=== PATIENT | male | born 1980 | race Caucasian/White ===

== ENCOUNTER 2023-07-14 19:59 | Inpatient (IN) ==
[2023-07-14] MEDS ORDERED: ONDANSETRON INJ 2 MG/ML 2 ML VIAL IV STA (20:09)
[2023-07-14 20:48] LABS: Appearance Urine Clear (Clear); Bacteria Urine Automated Negative (Negative); Bilirubin Urine Negative (Negative); Blood Urine Negative (Negative); Cast Urine Automated 0 /lpf (0-5); Color Urine Yellow; Epithelial Cell Urine Auto 0-5 /lpf (0-5); Glucose Urine UA Negative (Negative); Ketones Urine Trace (Negative); Leukocyte Esterase Urine Trace (Negative); Nitrite Urine Negative (Negative); Protein Urine Negative (Negative); RBC Urine Automated 0-4 /hpf (0-4); Specific Gravity Urine 1.042 (1.000-1.030); Urobilinogen Urine Negative (Negative)
[2023-07-14 21:06] LABS: Albumin Globulin Ratio 1.2 (0.9-2); BUN Creatinine Ratio 11.1 (10-20); Bilirubin,Total 0.2 mg/dl (0.2-1.0); Calcium 8.7 mg/dl (8.6-10.3); Creatinine Clr Calc Pharmacy 116.6 ml/min; Est GFR (African American) 121.7 ml/min; Globulin 3.4 gm/dl (2.5-4.0); Potassium 3.5 mmol/L (3.5-5.1); Total Protein 7.4 gm/dl (6.0-8.3)
[2023-07-14 21:17] LABS: Basophils # (auto) 0.09 K/uL (0.00-0.20); Eosinophils # (auto) 0.41 K/uL (0.00-0.50); Eosinophils % (auto) 4.8 %; Hematocrit (blood only) 44.7 % (42.0-52.0); Hemoglobin 15.3 g/dl (14.0-18.0); Immature Granulocytes # (auto) 0.03 K/uL (0.01-0.20); Immature Granulocytes % (auto) 0.3 %; Lymphocytes % (auto) 26.7 %; Mean Corpuscular Hemoglobin 31.5 pg (25.0-34.0); Mean Corpuscular Hgb Conc 34.2 g/dL (32.0-36.0); Mean Platelet Volume 11.1 fL (9.4-12.4); Monocytes # (auto) 0.82 K/uL (0.11-0.59); Monocytes % (auto) 9.5 %; Neutrophils # (auto) 4.97 K/uL (1.40-6.50); Neutrophils % (auto) 57.7 %; Platelet Count 279 K/uL (130-400); RDW Coefficient of Variation 12.8 % (11.5-14.5); Red Blood Count 4.86 M/uL (4.70-6.10); White Blood Count 8.62 K/ul (4.8-10.8)
[2023-07-14] MEDS ORDERED: ACETAMINOPHEN 1,000 MG/100 ML VIAL IV STA (22:08)
[2023-07-14] MEDS ORDERED: PIPERACILLIN/TAZOBACTAM 4.5 GM/100 ML BAG IV ONE (22:08)
[2023-07-14] MEDS ORDERED: SODIUM CHLORIDE 0.9% 1,000 ML IV ONE (22:08)
--- NOTE | 2023-07-14 22:16 | Emergency Department Note ---
History of Present Illness General Chief complaint: GI Assessment Stated complaint: DIVERTICULITIS Time Seen by Provider: 07/14/23 21:27 History of Present Illness Maximum Pain Intensity: 9 This 43-year-old presents to the ER for ongoing abdominal pain with recurrent diverticulitis. He has been hospitalized multiple times. He is currently on Cipro Flagyl. He had an outpatient CAT scan done this morning that showed diverticulitis without perforation. Patient denies chest pain, dyspnea, fevers, vomiting, diarrhea, flulike illness. No prior abdominal surgeries. Home Medications Medication Instructions Recorded Confirmed Type No Known Home Medications 07/14/23 07/14/23 History Allergies Allergy/AdvReac Type Severity Reaction Status Date / Time No Known Allergies Allergy Unverified 07/14/23 20:10 Past Med/Surg History Social History Smoking Status: Never smoker Preferred Language: Croatian Feels Safe at Home: Yes Review of Systems A total of 10 systems reviewed and were otherwise negative Physical Exam Vital Signs Vital Signs - 24 hr 07/14/23 20:06 07/14/23 20:58 07/14/23 20:59 Temperature 36.9 C Temperature Source Temporal Artery Scan Pulse Rate 92 H 80 Pulse Rate [Finger] 74 Pulse Rhythm Regular Pulse Rhythm [Finger] Regular Pulse Strength Normal Pulse Strength [Finger] Normal Respiratory Rate 18 18 Respiratory Effort / Characteristics Non-Labored Spontaneous Non-Labored Spontaneous Respiratory Depth Normal Normal Respiratory Pattern Regular Regular Blood Pressure 138/95 Blood Pressure [Right Arm] 111/80 Blood Pressure Mean 109 Blood Pressure Mean [Right Arm] 90 Blood Pressure Position Sitting Blood Pressure Position [Right Arm] Lying Pulse Oximetry 95 96 Oxygen Delivery Method Room Air Room Air Sepsis Recent Fever Within 48 Hours No Sepsis New/Unexplained Change in Mental Status N/A Sepsis Action Taken by Nursing No Action Required 07/14/23 22:00 Temperature Temperature Source Pulse Rate Pulse Rate [Finger] 61 Pulse Rhythm Pulse Rhythm [Finger] Regular Pulse Strength Pulse Strength [Finger] Normal Respiratory Rate 18 Respiratory Effort / Characteristics Non-Labored Spontaneous Respiratory Depth Normal Respiratory Pattern Regular Blood Pressure Blood Pressure [Right Arm] 122/77 Blood Pressure Mean Blood Pressure Mean [Right Arm] 92 Blood Pressure Position Blood Pressure Position [Right Arm] Pulse Oximetry 95 Oxygen Delivery Method Room Air Sepsis Recent Fever Within 48 Hours Sepsis New/Unexplained Change in Mental Status Sepsis Action Taken by Nursing VITALS: Vitals are noted on the nurse's note and reviewed by myself. Vital signs stable. GENERAL: Pleasant gentleman, in no acute distress, nondiaphoretic, well- developed well-nourished. SKIN: Capillary reflex less than 2 seconds. HEENT: Normocephalic. PERRLA. EOMI. Nares patent. Mucous membranes moist. Neck is supple without nuchal rigidity. HEART: Regular rate and rhythm LUNGS: Clear to auscultation bilaterally without wheezes, rales or rhonchi. No retractions or accessory muscle use. ABDOMEN: Positive bowel sounds x 4. Normal tympanic percussion. Soft, tender to the lower abdomen, without masses or organomegaly. Guzman sign negative. No guarding or rebound tenderness. MUSCULOSKELETAL: No gross musculoskeletal defects. NEURO: Patient was alert and oriented to person place and time. No focal neurological deficits. Course Administered Medications Sodium Chloride (Nss) 1,000 mls @ 999 mls/hr IV .Q1H1M ONE Stop: 07/14/23 23:08 Last Admin: 07/14/23 22:22 Dose: 999 mls/hr Documented By: ADAN Discontinued Medications Piperacillin Sod/Tazobactam Sod (Zosyn) 4.5 gm in 100 mls @ 200 mls/hr IV NOW ONE Stop: 07/14/23 22:37 Last Admin: 07/14/23 22:22 Dose: 200 mls/hr Documented By: ADAN Acetaminophen (Ofirmev) 1,000 mg in 100 mls @ 400 mls/hr IV NOW STA Stop: 07/14/23 22:22 Last Admin: 07/14/23 22:22 Dose: 400 mls/hr Documented By: ADAN Morphine Sulfate (Morphine Sulfate 4 Mg/Ml 1 Ml Carp\Vial) 4 mg IV NOW STA Stop: 07/14/23 22:10 Last Admin: 07/14/23 22:22 Dose: Not Given Documented By: ADAN Ondansetron HCl (Ondansetron Inj 2 Mg/Ml 2 Ml Vial) 4 mg IV NOW STA Stop: 07/14/23 20:10 Last Admin: 07/14/23 20:20 Dose: 4 mg Documented By: ADAN Medical Decision Making Medical Records Attestation: I reviewed the patient's medical records. Home Medications Current Medication List: was personally reviewed by me Laboratory Data Attestation: I reviewed the patient's lab results. 07/14/23 20:16 07/14/23 20:16 Lab Results 07/14/23 07/14/23 Range/Units 20:16 20:20 WBC 8.62 (4.8-10.8) K/ul RBC 4.86 (4.70-6.10) M/uL Hgb 15.3 (14.0-18.0) g/dl Hct 44.7 (42.0-52.0) % MCV 92.0 (80.0-100.0) fL MCH 31.5 (25.0-34.0) pg MCHC 34.2 (32.0-36.0) g/dL RDW Std Deviation 43.0 (36.4-46.3) fL RDW Coeff of Radha 12.8 (11.5-14.5) % Plt Count 279 (130-400) K/uL MPV 11.1 (9.4-12.4) fL Immature Gran % (Auto) 0.3 % Neut % (Auto) 57.7 % Lymph % (Auto) 26.7 % Mason % (Auto) 9.5 % Eos % (Auto) 4.8 % Baso % (Auto) 1.0 % Neut # (Auto) 4.97 (1.40-6.50) K/uL Lymph # (Auto) 2.30 (1.20-3.40) K/uL Mason # (Auto) 0.82 H (0.11-0.59) K/uL Eos # (Auto) 0.41 (0.00-0.50) K/uL Baso # (Auto) 0.09 (0.00-0.20) K/uL Immature Gran # (Auto) 0.03 (0.01-0.20) K/uL Sodium 136 (136-145) mmol/L Potassium 3.5 (3.5-5.1) mmol/L Chloride 106 (98-107) mmol/L Carbon Dioxide 22 (21-32) mmol/L Anion Gap 8 (3-11) BUN 10 (6-23) mg/dl Creatinine 0.90 (0.6-1.4) mg/dl Est Cr Clr Drug Dosing 116.6 ml/min Est GFR ( Amer) 121.7 ml/min Est GFR (Non-Af Amer) 105.0 ml/min BUN/Creatinine Ratio 11.1 (10-20) Glucose 172 H (70-99(Fasting)) mg/dl Calcium 8.7 (8.6-10.3) mg/dl Total Bilirubin 0.2 (0.2-1.0) mg/dl AST 32 (13-39) U/L ALT 32 (7-52) U/L Alkaline Phosphatase 89 (34-104) U/L Total Protein 7.4 (6.0-8.3) gm/dl Albumin 4.0 (3.4-5.0) gm/dl Globulin 3.4 (2.5-4.0) gm/dl Albumin/Globulin Ratio 1.2 (0.9-2) Lipase 34 (11-82) U/L Urine Color Yellow Urine Appearance Clear (Clear) Urine pH 6.0 (4.5-7.5) Ur Specific [place] 1.042 H (1.000-1.030) Urine Protein Negative (Negative) Urine Glucose (UA) Negative (Negative) Urine Ketones Trace H (Negative) Urine Blood Negative (Negative) Urine Nitrite Negative (Negative) Urine Bilirubin Negative (Negative) Urine Urobilinogen Negative (Negative) Ur Leukocyte Esterase Trace H (Negative) Urine WBC (Auto) 1-5 (0-5) /hpf Urine RBC (Auto) 0-4 (0-4) /hpf U Hyaline Cast (Auto) 0 (0-5) /lpf U Epithel Cells (Auto) 0-5 (0-5) /lpf Urine Bacteria (Auto) Negative (Negative) Imaging Data Attestation: I personally reviewed and interpreted this imaging study as follows: MDM Narrative prior records/ancillary studies reviewed. Triage Nursing notes reviewed. Additional history obtained from nursing The patient's history was concerning for nausea, vomiting, diarrhea, and abdominal pain. Differential diagnosis: Etiologies such as gastroenteritis, food borne illness, infections, appendicitis, diverticulitis, inflammatory bowel disease, obstruction, GI bleed, biliary pathology, as well as others were entertained. Physical examination findings: As above. Abdominal examination revealed lower abdominal tenderness. Vital signs reviewed and revealed stable. ER treatment provided: IV hydration 1 L NSS. Zosyn, Zofran, morphine, Tylenol, diluadid On reassessment the patient felt better. Patient was tolerating p.o. intake. Diagnostics interpretation by me: The labs Independently Interpreted by myself revealed no worrisome leukocytosis, hyperglycemia without DKA Imaging studies: CT abdomen pelvis done outpatient shows diverticulitis without perforation Consultation: A consultation was placed with the hospitalist. The case was discussed and diagnostics were reviewed. The patient was evaluated in the ER for further treatment. This appears to be consistent with recurrent diverticulitis with failed outpatient treatment. Patient with ongoing pain. He was Sent in for admission. Medicine was consulted and case was discussed. Patient be admitted to the medical service for further evaluation and treatment. By the evaluation outlined above emergent etiologies such as appendicitis, obstruction, cardiac sources, mesenteric ischemia, aortic pathology, inflammatory bowel disease, renal colic, PUD, biliary pathology, UTI, as well as others were deemed relatively unlikely. The pt informed about the findings as listed above. All questions were answered and pleased with the treatment. The chart was completed utilizing [employer] Speech voice recognition software. Grammatical errors, random word insertions, pronoun errors, and incomplete sentences are an occassional consequence of this system due to software limitations, ambient noise, and hardware issues. Any formal questions or concerns about the content, text, or information contained within the body of this dictation should be directly addressed to the physician drafter assistant for clarification. Impression & Plan Acute diverticulitis Discharge Plan Visit Data Chief Complaint: GI Assessment Stated Complaint: DIVERTICULITIS ED Provider: Igor Guajardo ED Midlevel Provider: Caridad Watson Discharge Problem: Acute diverticulitis Patient Disposition: Admitted As Inpatient Condition: Good Forms Stand Alone Forms: My [employer]us Prescriptions Prescriptions: No Action No Known Home Medications Referrals Referrals: PCP,NO [Physician] -
[2023-07-14] MEDS: MoRPHine SULFATE 4 MG/ML 1 ML CARP\\VIAL IV STA ×2 (22:22)
[2023-07-14] MEDS ORDERED: HYDROmorphone INJ 0.5 MG/0.5 ML SYR IV PRN (22:48)
--- NOTE | 2023-07-14 23:10 | Emergency Department Note ---
ED Visit Note The patient was seen and examined with ariana. I agree with the history, physical and findings. Please see the note for disposition and details. .
--- NOTE | 2023-07-15 00:19 | History & Physical Report ---
Date of Service July 15, 2023 Assessment & Plan (1) Diverticular disease: Plan: Persistent/smoldering diverticulitis Past history diverticulitis with microperforation Failed multiple antibiotic courses. No sepsis for now asthma/COPD, pulmonary status at baseline hx GERD, not on maintenance medications anxiety/mood disorder, at baseline chronic fatigue syndrome as per records history of lung nodules, patient follows with [facility] pulmonology Hyperglycemia rule out DM past tobacco/alcohol abuse GMF Clear liquid diet Zosyn GI consult re: smoldering diverticulitis Surgery consultation contingent on GI recommendations Check hemoglobin A1c DVT prophylaxis per Lovenox subcu Full code Text document was generated using [employer] voice recognition software. It may contain grammatical or spelling errors. Kindly contact undersigned for clarification of any documentation item in question. History of Present Illness Chief Complaint: Worsening abdominal pain, abnormal outpatient CAT scan. Primary Care Provider: Jaiden Franklin MD History obtained from patient and records. Medical history significant for asthma/COPD, GERD, diverticulitis, anxiety/mood disorder, chronic fatigue syndrome as per records, history of lung nodules, past tobacco/alcohol abuse. March 2023 Patient confined at [facility] for diverticulitis with microperforation. Patient completed antibiotic Rx. No surgical intervention. Patient instructed to follow-up with general surgeon outpatient for scheduling of outpatient colonoscopy. Persistent achy lower abdominal pain and watery diarrhea since discharge. 06/14-06/16 Patient confined at [facility] under General Ssurgery service for persistent abdominal pain following transfer from [facility] ER given concerns for possible colovesical fistula. Symptoms attributed to smoldering diverticulitis. Patient completed antibiotic course. [place] [facility] [place] [address] abdomen pelvis requested for persistent GI symptoms. Outpatient colonoscopy and General Surgery referral to be scheduled. Patient prescribed additional Cipro Flagyl course. Outpatient CT abdomen pelvis done yesterday showed Sigmoid diverticulitis with no apparent abscess formation or perforation. Patient directed to ER for evaluation by outpatient provider. IV Zosyn administered at the ER. Medical History as above Surgical History : Sinus surgery, pancreatic biopsy, facial fracture surgery Family History : COPD, Parkinson's disease Personal/Social history : Past tobacco/alcohol abuse, currently disabled Allergies Allergy/AdvReac Type Severity Reaction Status Date / Time No Known Allergies Allergy Unverified 07/14/23 20:10 Home Medications Medication Instructions Recorded Confirmed Type No Known Home Medications 07/14/23 07/14/23 History Past Med/Surg History Social History Smoking Status: Never smoker Hx Alcohol Use: No Preferred Language: Vincentian [employer] Required: No Beliefs That Will Affect Care: None Current Living Situation: Alone Other Information That Helps Us Care for You: No Feels Safe at Home: Yes Safety Concerns: Feels Safe At This Time Review of Systems Review of Systems: As per HPI, all other systems reviewed and negative Physical Exam Physical Exam: GENERAL: Slightly uncomfortable, obese, no respiratory distress SKIN: Normal color, warm HEENT: [place] palpebral conjunctivae, no ptosis, moist buccal mucosa NECK : Supple, no tenderness CHEST : CTA, no tenderness HEART : RRR, no obvious murmurs ABDOMEN: 'Davion Gao' tattoo inscription noted over lower abdomen, some distention, hypogastric tenderness EXTREMITIES : No LE swelling/tenderness, no other conspicuous deformities noted NEUROLOGIC : Coherent, no facial asymmetry, no other gross focality Results & Data Results & Data Vital Signs (Past 12 Hours) Vital Signs Temp Pulse Pulse Resp BP BP Pulse Ox 07/14/23 23:00 76 17 124/85 96 07/14/23 22:00 74 15 122/77 95 07/14/23 22:00 61 18 122/77 95 07/14/23 21:00 75 17 111/80 91 07/14/23 20:59 74 18 111/80 96 07/14/23 20:58 80 07/14/23 20:06 36.9 C 92 H 18 138/95 95 O2 Del Method 07/14/23 23:00 07/14/23 22:00 07/14/23 22:00 Room Air 07/14/23 21:00 07/14/23 20:59 Room Air 07/14/23 20:58 07/14/23 20:06 Room Air Laboratory Results Laboratory Results WBC 8.62 K/ul (4.8-10.8) 07/14/23 20:16 RBC 4.86 M/uL (4.70-6.10) 07/14/23 20:16 Hgb 15.3 g/dl (14.0-18.0) 07/14/23 20:16 Hct 44.7 % (42.0-52.0) 07/14/23 20:16 MCV 92.0 fL (80.0-100.0) 07/14/23 20:16 MCH 31.5 pg (25.0-34.0) 07/14/23 20:16 MCHC 34.2 g/dL (32.0-36.0) 07/14/23 20:16 RDW Std Deviation 43.0 fL (36.4-46.3) 07/14/23 20:16 RDW Coeff of Radha 12.8 % (11.5-14.5) 07/14/23 20:16 Plt Count 279 K/uL (130-400) 07/14/23 20:16 MPV 11.1 fL (9.4-12.4) 07/14/23 20:16 Immature Gran % (Auto) 0.3 % 07/14/23 20:16 Neut % (Auto) 57.7 % 07/14/23 20:16 Lymph % (Auto) 26.7 % 07/14/23 20:16 Miller % (Auto) 9.5 % 07/14/23 20:16 Eos % (Auto) 4.8 % 07/14/23 20:16 Baso % (Auto) 1.0 % 07/14/23 20:16 Neut # (Auto) 4.97 K/uL (1.40-6.50) 07/14/23 20:16 Lymph # (Auto) 2.30 K/uL (1.20-3.40) 07/14/23 20:16 Miller # (Auto) 0.82 K/uL (0.11-0.59) H 07/14/23 20:16 Eos # (Auto) 0.41 K/uL (0.00-0.50) 07/14/23 20:16 Baso # (Auto) 0.09 K/uL (0.00-0.20) 07/14/23 20:16 Immature Gran # (Auto) 0.03 K/uL (0.01-0.20) 07/14/23 20:16 Sodium 136 mmol/L (136-145) 07/14/23 20:16 Potassium 3.5 mmol/L (3.5-5.1) 07/14/23 20:16 Chloride 106 mmol/L (98-107) 07/14/23 20:16 Carbon Dioxide 22 mmol/L (21-32) 07/14/23 20:16 Anion Gap 8 (3-11) 07/14/23 20:16 BUN 10 mg/dl (6-23) 07/14/23 20:16 Creatinine 0.90 mg/dl (0.6-1.4) 07/14/23 20:16 Est Cr Clr Drug Dosing 116.6 ml/min 07/14/23 20:16 Est GFR ( Amer) 121.7 ml/min 07/14/23 20:16 Est GFR (Non-Af Amer) 105.0 ml/min 07/14/23 20:16 BUN/Creatinine Ratio 11.1 (10-20) 07/14/23 20:16 Glucose 172 mg/dl (70-99(Fasting)) H 07/14/23 20:16 Calcium 8.7 mg/dl (8.6-10.3) 07/14/23 20:16 Total Bilirubin 0.2 mg/dl (0.2-1.0) 07/14/23 20:16 AST 32 U/L (13-39) 07/14/23 20:16 ALT 32 U/L (7-52) 07/14/23 20:16 Alkaline Phosphatase 89 U/L (34-104) 07/14/23 20:16 Total Protein 7.4 gm/dl (6.0-8.3) 07/14/23 20:16 Albumin 4.0 gm/dl (3.4-5.0) 07/14/23 20:16 Globulin 3.4 gm/dl (2.5-4.0) 07/14/23 20:16 Albumin/Globulin Ratio 1.2 (0.9-2) 07/14/23 20:16 Lipase 34 U/L (11-82) 07/14/23 20:16 Urine Color Yellow 07/14/23 20:20 Urine Appearance Clear (Clear) 07/14/23 20:20 Urine pH 6.0 (4.5-7.5) 07/14/23 20:20 Ur Specific [place] 1.042 (1.000-1.030) H 07/14/23 20:20 Urine Protein Negative (Negative) 07/14/23 20:20 Urine Glucose (UA) Negative (Negative) 07/14/23 20:20 Urine Ketones Trace (Negative) H 07/14/23 20:20 Urine Blood Negative (Negative) 07/14/23 20:20 Urine Nitrite Negative (Negative) 07/14/23 20:20 Urine Bilirubin Negative (Negative) 07/14/23 20:20 Urine Urobilinogen Negative (Negative) 07/14/23 20:20 Ur Leukocyte Esterase Trace (Negative) H 07/14/23 20:20 Urine WBC (Auto) 1-5 /hpf (0-5) 07/14/23 20:20 Urine RBC (Auto) 0-4 /hpf (0-4) 07/14/23 20:20 U Hyaline Cast (Auto) 0 /lpf (0-5) 07/14/23 20:20 U Epithel Cells (Auto) 0-5 /lpf (0-5) 07/14/23 20:20 Urine Bacteria (Auto) Negative (Negative) 07/14/23 20:20 Diagnostic Findings EKG as per my interpretation : Rate 80, NSR, LAD, LAFB, LVH, nonspecific T wave abnormalities
[2023-07-15] MEDS ORDERED: KETOROLAC TROMETHAMINE 15 MG/ML VIAL IV STA (00:22)
[2023-07-15] MEDS ORDERED: NSS + 20MEQ KCL 20 MEQ/1,000 ML BAG IV STA (00:25)
[2023-07-15] MEDS: oxyCODONE HCL IR 5 MG TAB (IMMEDIATE RELEASE) PO PRN (02:15)
[2023-07-15] MEDS: PIPERACILLIN/TAZOBACTAM 4.5 GM in DEXTROSE 5% MINI-B 100 ML IV SCH ×3 (04:03→19:29)
[2023-07-15 06:42] LABS: Basophils # (auto) 0.07 K/uL (0.00-0.20); Basophils % (auto) 1.1 %; Eosinophils # (auto) 0.46 K/uL (0.00-0.50); Eosinophils % (auto) 7.3 %; Hematocrit (blood only) 39.4 % (42.0-52.0); Hemoglobin 13.5 g/dl (14.0-18.0); Immature Granulocytes # (auto) 0.02 K/uL (0.01-0.20); Immature Granulocytes % (auto) 0.3 %; Lymphocytes # (auto) 2.35 K/uL (1.20-3.40); Lymphocytes % (auto) 37.1 %; Mean Corpuscular Hemoglobin 31.3 pg (25.0-34.0); Mean Corpuscular Hgb Conc 34.3 g/dL (32.0-36.0); Mean Corpuscular Volume 91.2 fL (80.0-100.0); Monocytes # (auto) 0.41 K/uL (0.11-0.59); Monocytes % (auto) 6.5 %; Neutrophils # (auto) 3.02 K/uL (1.40-6.50); Neutrophils % (auto) 47.7 %; Platelet Count 237 K/uL (130-400); RDW Coefficient of Variation 12.8 % (11.5-14.5); Red Blood Count 4.32 M/uL (4.70-6.10); White Blood Count 6.33 K/ul (4.8-10.8)
--- OUTSIDE RECORDS SUMMARY | 2023-07-15 07:01 | External Medical Summary ---
Author Name Unknown Address Unknown Organization K01:[facility] [place] - [address] [place] [id number] Laboratory Report Ordering Provider Test Date Status ROCHELLE LEWIS 07/05/2023 15:26:18 Final Observation Date Value Abnormality Reference (Units ) Status Adenovirus DNA [Presence] in Nasopharynx by REGAN with non-probe detection 07/05/2023 15:26:18 Negative Negative Final Human coronavirus 229E RNA [Presence] in Nasopharynx by REGAN with non-probe detection 07/05/2023 15:26:18 Negative Negative Final Human coronavirus HKU1 RNA [Presence] in Nasopharynx by REGAN with non-probe detection 07/05/2023 15:26:18 Negative Negative Final Human coronavirus NL63 RNA [Presence] in Nasopharynx by REGAN with non-probe detection 07/05/2023 15:26:18 Negative Negative Final Human coronavirus OC43 RNA [Presence] in Nasopharynx by REGAN with non-probe detection 07/05/2023 15:26:18 Negative Negative Final SARS-CoV-2 (COVID-19) RNA [Presence] in Nasopharynx by REGAN with non-probe detection 07/05/2023 15:26:18 Negative Negative Final Human metapneumovirus RNA [Presence] in Nasopharynx by REGAN with non-probe detection 07/05/2023 15:26:18 Negative Negative Final Rhinovirus+Enterovirus RNA [Presence] in Nasopharynx by REGAN with non-probe detection 07/05/2023 15:26:18 Positive Abnormal Negative Final Rhinovirus/Enterovirus detec rob by PCR (amplified probe). Influenza virus A RNA [Prese nce] in Nasopharynx by REGAN with non-probe detection 07/05/2023 15:26:18 Negative Negative Final Influenza virus B RNA [Prese nce] in Nasopharynx by REGAN with non-probe detection 07/05/2023 15:26:18 Negative Negative Final Parainfluenza virus 1 RNA [P resence] in Nasopharynx by REGAN with non-probe detection 07/05/2023 15:26:18 Negative Negative Final Parainfluenza virus 2 RNA [P resence] in Nasopharynx by REGAN with non-probe detection 07/05/2023 15:26:18 Negative Negative Final Parainfluenza virus 3 RNA [P resence] in Nasopharynx by REGAN with non-probe detection 07/05/2023 15:26:18 Negative Negative Final Parainfluenza virus 4 RNA [P resence] in Nasopharynx by REGAN with non-probe detection 07/05/2023 15:26:18 Negative Negative Final Respiratory syncytial virus RNA [Presence] in Nasopharynx by REGAN with non-probe detection 07/05/2023 15:26:18 Negative Negative F inal Bordetella pertussis.pertuss is toxin promoter region [Presence] in Nasopharynx by REGAN with non-probe detection 07/05/2023 15:26:18 Negative Negative Final Chlamydophila pneumoniae DNA [Presence] in Nasopharynx by REGAN with non-probe detection 07/05/2023 15:26:18 Negative Negative Final Mycoplasma pneumoniae DNA [P resence] in Nasopharynx by REGAN with non-probe detection 07/05/2023 15:26:18 Negative Negative Final Bordetella parapertussis IS1 001 DNA [Presence] in Nasopharynx by REGAN with non-probe detection 07/05/2023 15:26:18 Negative Negative F inal
The primers that detect Rhinovirus may cross react with some Enterorviruses. The validation of bronchial specimens, tracheal aspirates, and throats for this assay was developed and performance characteristics determined by [employer]. The validation of alternate specimen types has not been cleared or approved by the U.S. Food and Drug Administration (FDA). It has been determined that such clearance or approval is not necessary. Performing Location [facility] - [facility] [address] [facility] [address]
--- OUTSIDE RECORDS SUMMARY | 2023-07-15 07:01 | External Medical Summary | Summary of Care ---
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 [place] [id number] Allergies Active Allergy Reactions Criticality Noted Date Comments Food (See Comments) Hives Medium 06/14/2023 Peaches documented as of this encounter (statuses as of 07/12/2023) Medications Medication Sig Dispensed Refills Start Date End Date Status Omeprazole 20 MG Oral Capsule Delayed Release (PriLOSEC)Indications :Gastroesophageal reflux disease without esophagitis Take 1 Capsule by mouth in the morning. 1 hour before the first meal of the day. 30 Capsule 5 08/25/2022 Active Levocetirizine Dihydrochloride 5 MG Oral Tablet Take 1 Tablet by mouth every evening. 90 Tablet 3 10/13/2022 Active Nebulizer Device To be used with nebulized medication 1 Each 0 10/13/2022 Active Nebulizer/Tubing/Mout hpiece Kit To be used with nebulized device 1 Kit 2 10/13/2022 Active Fluticasone Propionate 50 MCG/ACT Nasal Suspension (Flonase)Indications: Seasonal allergic rhinitis due to pollen Administer 2 Sprays into each nostril in the morning. 16 g 2 11/15/2022 Active Montelukast Sodium 10 MG Oral Tablet (Singulair)Indication s:Seasonal allergic rhinitis due to pollen Take 1 Tablet by mouth in the morning. 90 Tablet 3 11/15/2022 Active Albuterol Sulfate HFA 108 (90 Base) MCG/ACT Inhalation Aerosol SolutionIndications:C OPD, group D, by GOLD 2017 classification (HCC),Moderate persistent asthma without complication Inhale 2 Puffs by mouth every 6 hours as needed for Shortness of Breath or Wheezing. 18 g 2 04/25/2023 Active Albuterol Sulfate (2.5 MG/3ML) 0.083% Inhalation Nebulization Solution (Proventil)Indication s:Moderate persistent asthma without complication Inhale 1 Vial via nebulizer every 6 hours as needed for Wheezing. 360 mL 3 04/25/2023 Active Trelegy Ellipta 100-62.5-25 MCG/ACT Aerosol Powder Breath Activated (Fluticasone-Umeclidi nium-Vilanterol) Inhale 1 Puff by mouth in the morning. 0 Active Ciprofloxacin HCl 500 MG Oral Tablet (Cipro) Take 1 Tablet by mouth in the morning and 1 Tablet before bedtime. 60 Tablet 0 07/04/2023 Active metroNIDAZOLE 500 MG Oral Tablet (Flagyl) Take 1 Tablet by mouth in the morning and 1 Tablet at noon and 1 Tablet before bedtime. 90 Tablet 0 07/04/2023 Active oxyCODONE HCl 5 MG Oral Capsule (Oxy IR)Indications:Divert iculitis of colon Take 1 Capsule by mouth every 6 hours as needed for Pain, Severe. 12 Tablet 0 07/04/2023 Active documented as of this encounter (statuses as of 07/12/2023) Active Problems Problem Noted Date Diagnosed Date Peripheral sensory neuropathy 07/05/2023 PTSD (post-traumatic stress disorder) 07/05/2023 Depression with anxiety 07/04/2023 Overweight (BMI 25.0-29.9) 07/04/2023 Medical marijuana use 07/04/2023 Diverticulosis of colon 06/14/2023 Multiple lung nodules 11/15/2022 Gastroesophageal reflux disease without esophagi tis 11/15/2022 Asthma-COPD overlap syndrome 01/20/2022 Chronic fatigue 03/22/2021 documented as of this encounter (statuses as of 07/12/2023) Resolved Problems Problem Noted Date Diagnosed Date Resolved Date Moderate persistent asthma w ithout complication 05/03/2023 07/04/2023 Diverticulitis of colon 04/25/2023 12/0 11/2022 Diarrhea 04/25/2023 07/04/2023 Seasonal allergic rhinitis due to pollen 11/15/2022 07/04/2023 Chronic obstructive pulmonar y disease with (acute) exacerbation 01/20/2022 04/08/2022 Severe persistent asthma without complication 03/22/2007/04/2023 Shortness of breath 03/22/2021 08/17/19 Tick bite 03/22/2021 08/17/2022 ANNABELLE (generalized anxiety disorder) 03/22/2021 07/04/2023 Episode of recurrent major d epressive disorder 03/22/2021 07/04/2023 documented as of this encounter (statuses as of 07/12/2023) Immunizations Name Administration Dates Next Due COVID-19 mRNA, LNP-s, No Pre serve, 2-Dose Series (Moderna) 03/05/2021,02/05/2021 Hepatitis B Vaccine, Recombi nant, Adjuvanted, 20 mcg/mL (Heplisav-B) 11/15/2022(Deferred: Patient Refused - pt left without getting) Pneumococcal Conjugate Vacci ne, 20-valent ([id number]) 08/25/2022 Pneumococcal Polysaccharide PPV23 (Pneumovax) 06/22/2021 Seasonal Influenza Virus Vac cine, Unspecified Formulation 06/22/2021 Seasonal Influenza, PF, 6 M & above, IM , (FluLaval or Fluzone) 06/22/2021 TDAP (age 10 and older)(Boostrix) 08/25/2022 documented as of this encounter Social History Tobacco Use Types Packs/Day Years Used Date Smoking Tobacco: Former Cigarettes 1 25 Q uit: 11/07/2021 Smokeless Tobacco: Never Comments:Smoked off and on f or 25 year period not sure of exact number of years. Currently smokes medical marijuana Alcohol Use Standard Drinks/Week Comments Not Currently 0 (1 standard drink = 0.6 oz pur e alcohol) AUDIT-C Answer Date Recorded Q1: How often do you have a drink containing alc ohol? Never 02/08/2021 Average Number of Drinks Not on file Frequency of Binge Drinking Not on file 01/28 PHQ-2 Answer Date Recorded PHQ Adult Total Score 21 07/06/2023 Hunger Vital Sign Answer Date Recorded Within the past 12 months, y ou worried that your food would run out before you got the money to buy more. Never true 07/06/20 23 Within the past 12 months, t he food you bought just didn't last and you didn't have money to get more. Never true 07/06/2023 Sex and Gender Information Value Date Recorded Sex Assigned at Male 04/25/2023 12:16 PM EDT Gender Identity Male 04/25/2023 12:16 PM EDT Sexual Orientation Straight 04/25/2023 12 :16 PM EDT Job Start Date Occupation Industry Not on file Not on file Not on file documented as of this encounter Functional Status Functional Status Response Date of Assess ment Are you deaf or do you have serious difficulty h earing? No 06/14/2023 Are you blind or do you have serious difficulty seeing, even when wearing glasses? No 06/14/2023 Do you have serious difficul ty walking or climbing stairs? (5 years old or older) No 06/15/2023 Do you have difficulty dress ing or bathing? (5 years old or older) No 06/14/2023 Because of a physical, menta l, or emotional condition, do you have difficulty doing errands alone such as visiting a doctor s office or shopping? (15 years old or older) No 06/14/20 Cognitive Status Response Date of Assessm ent Because of a physical, menta l, or emotional condition, do you have serious difficulty concentrating, remembering, or making decisions? (5 years old or older) No 06/14/2023 documented as of this encounter Miscellaneous Notes * Telephone Encounter - Nara Hutchinson LPN - 07/12/2023 12:13 PM EST Pt read MyG * Telephone Encounter - Lucinda Levine LPN - 07/11/2023 5:04 PM EST Called patient. LMOM for pt to return call or review MyG message * Telephone Encounter - Micheline Tobar LPN - 07/07/2023 8:40 AM EST Called pt. No answer. Unable to leave message. Sent MYG * Telephone Encounter - Vikram Rodriguez MD - 07/06/2023 2:02 PM EST Call pt. He tested positive for rhinovirus, one of the most common cold viruses going around right now. Should slowly improve over 3 weeks. documented in this encounter Plan of Treatment Upcoming Encounters Date Type Department Care Team (Latest Contact Info) Description 07/14/2023 1:15 PM EST [facility] [address] [place] [address] 07/27/2023 9:15 AM EST Office Visit General Surgery, [facility] [address] [place] [address] Nallely Kincaid MD [address] [place] [address] 08/02/2023 2:40 PM EST Office Visit Family Practice [facility] [address] [facility] [place] [address] Jaiden Franklin MD 132 [facility] [place] [address] 09/26/2023 2:00 PM EST Hospital Encounter ENDO [facility], Endoscopy Room [facility] 132 [facility] [place] [id number] Lilli Landa MD [address] [place], [place] [address] [place] [address] 09/26/2023 2:00 PM EST - 09/26/2023 2:30 PM EST Surgery ENDO [facility], Endoscopy Room [facility] [address] [facility] [place] [id number] Lilli Landa MD [address] [place] [address] COLONOSCOPY FLEXIBLE PROXIMAL DIAGNOSTIC 10/11/2023 2:00 PM EDT Office Visit Gastroenterology, [facility] 132 [facility] [place] [address] Selena Salgado CRNP [facility] [place] [address] 10/16/2023 2:15 PM EDT Imaging Radiology [facility] 132 [facility] [place] [address] 01/05/2024 1:20 PM EDT Office Visit Family Practice [facility] 132 [facility] [place] [address] Jaiden Franklin MD [address] [facility] [address] Scheduled Procedures Name Priority Associated Diagnoses Date/Ti me COLONOSCOPY FLEXIBLE PROXIMAL DIAGNOSTIC History of diverticulitis 09/26/2023 2:00 PM EST Health Maintenance Due Date Last Done Comments Hepatitis B (1 of 3 - 3-dose series) 1981 Hepatitis C Screening 1999 COVID-19 Vaccine (3 - Moderna risk series) 04/02/2021 03/05/2021, 02/05/2021 *ADVANCE DIRECTIVE NOT ON FILE 04/10/2022 Influenza Vaccine (FLU shot) (#1) 2023 06/22/2021, 06/22/2021 Depression, Most Recent Score >= 10 (will fire each visit until score < 10) 07/07/2023 07/06/2023 O2 ASSESSMENT COMPLETED IN PAST YEAR FOR COPD 07/04/2024 07/04/2023 Lipid Panel 03/22/2026 03/22/2021 Diabetes Screening 07/04/2026 07/04/2023, 1 08/16/2022, 06/15/2023, Additional history exists DTaP,Tdap,and Td Vaccines (2 - Td or Tdap) 08/25/2032 08/25/2022 Alpha-1 Antitrypsin Completed 01/24/2022 Pneumococcal Vaccine: Pediatrics (0 to 5 Years) and At-Risk Patients (6 to 64 Years) Completed 08/25/2022, 06/22/2021 GARDASIL-HPV IMMUNIZATION SERIES Aged Out No longer eligible based on patient's age to complete this topic MENINGOCOCCAL (MENACTRA/MENVEO) Aged Out No longer eligible based on patient's age to complete this topic documented as of this encounter Medical Devices Not on filedocumented as of this encounter Additional Health Concerns Infection Onset Date Last Indicated Resolved Time Enterovirus (resp)/Rhinovirus 07/05/2023 07/05/2023 documented as of this encounter Advance Directives Latest Code Status on File Code Status Date Activated Date Inactivated Comments Full Code 06/14/2023 8:45 PM 06/16/2023 8:01 PM Question Answer Comments Discussion of Advance Direct zina occurred with: Patient Healthcare Agents on File Name Relationship Healthcare Agent Relationshi p Communication Ed Cho Sibling Health Care Repr esentative (appointed verbally by patient or by statute hierarchy)
--- OUTSIDE RECORDS SUMMARY | 2023-07-15 07:01 | External Medical Summary | Summary of Care ---
Author Name Unknown Organization [facility] Address [address] [address] Phone [phone] Care Team Providers Care Medicare Contact Specialist Name Role Phone Unavailable Primary Care Provider Unavailabl e Reason for Visit * Reason Onset Date Comments Hospital Follow-Up Pt here hospi amelie follow up, c/o sore throat, [facility] Hospital Follow-Up 07/05/2023 Encounter Details Date Type Department Care Team (Late st Contact Info) Description 07/05/2023 3:20 PM EST Office Visit [facility] [address] [facility] [place] [address] Jaiden Franklin MD [address] [place] [address] Hospital discharge follow-up*; Diverticulosis of colon; Asthma-COPD overlap syndrome; Chronic fatigue; PTSD (post-traumatic stress disorder); Multiple lung nodules; Gastroesophageal reflux disease without esophagitis; Medical marijuana use; Depression with anxiety; Overweight (BMI 25.0-29.9) Allergies Active Allergy Reactions Criticality Noted Date Comments Food (See Comments) Hives Medium 06/14/2023 Peaches documented as of this encounter (statuses as of 07/05/2023) Medications Medication Sig Dispensed Refills Start Date End Date Status Omeprazole 20 MG Oral Capsule Delayed Release (PriLOSEC)Indication s:Gastroesophageal reflux disease without esophagitis Take 1 Capsule by mouth in the morning. 1 hour before the first meal of the day. 30 Capsule 5 3 Active Levocetirizine Dihydrochloride 5 MG Oral Tablet Take 1 Tablet by mouth every evening. 90 Tablet 3 3 Active Nebulizer Device To be used with nebulized medication 1 Each 0 3 Active Nebulizer/Tubing/Lindsay thpiece Kit To be used with nebulized device 1 Kit 2 3 Active Fluticasone Propionate 50 MCG/ACT Nasal Suspension (Flonase)Indications :Seasonal allergic rhinitis due to pollen Administer 2 Sprays into each nostril in the morning. 16 g 2 3 Active Montelukast Sodium 10 MG Oral Tablet (Singulair)Indicatio ns:Seasonal allergic rhinitis due to pollen Take 1 Tablet by mouth in the morning. 90 Tablet 3 3 Active Albuterol Sulfate HFA 108 (90 Base) MCG/ACT Inhalation Aerosol SolutionIndications: COPD, group D, by GOLD 2017 classification ([facility]),Moderate persistent asthma without complication Inhale 2 Puffs by mouth every 6 hours as needed for Shortness of Breath or Wheezing. 18 g 2 3 Active Albuterol Sulfate (2.5 MG/3ML) 0.083% Inhalation Nebulization Solution (Proventil)Indicatio ns:Moderate persistent asthma without complication Inhale 1 Vial via nebulizer every 6 hours as needed for Wheezing. 360 mL 3 3 Active Trelegy Ellipta 100-62.5-25 MCG/ACT Aerosol Powder Breath Activated (Fluticasone-Umeclid inium-Vilanterol) Inhale 1 Puff by mouth in the morning. 0 Active Ciprofloxacin HCl 500 MG Oral Tablet (Cipro) Take 1 Tablet by mouth in the morning and 1 Tablet before bedtime. 60 Tablet 0 3 Active metroNIDAZOLE 500 MG Oral Tablet (Flagyl) Take 1 Tablet by mouth in the morning and 1 Tablet at noon and 1 Tablet before bedtime. 90 Tablet 0 3 Active oxyCODONE HCl 5 MG Oral Capsule (Oxy IR)Indications:Diver ticulitis of colon Take 1 Capsule by mouth every 6 hours as needed for Pain, Severe. 12 Tablet 0 3 Active Vitamin D 50 MCG (2000 UT) Oral Capsule Take 2,000 Units by mouth in the morning. 0 07/05/20 23 Discontinued Ginseng 100 MG Oral Capsule Take by mouth daily. 0 07/05/20 23 Discontinued CoQ-10 100 MG Oral Capsule Take by mouth daily. 0 07/05/20 23 Discontinued Tiotropium Bradford Monohydrate 18 MCG Inhalation Capsule (Spiriva HandiHaler)Indicatio ns:COPD, group D, by GOLD 2017 classification ([facility]) Inhale 1 Capsule by mouth in the morning. For inhaler only, do not swallow.. 30 Capsule 2 3 07/05/20 23 Discontinued Fluticasone-Salmeter ol 250-50 MCG/ACT Inhalation Aerosol Powder Breath Activated (Advair Diskus)Indications:C OPD, group D, by GOLD 2017 classification ([facility]) Inhale 1 Puff by mouth in the morning and 1 Puff before bedtime. 60 Each 2 3 07/05/20 23 Discontinued Ondansetron HCl 4 MG Oral TabletIndications:Na usea and vomiting, unspecified vomiting type Take 1 Tablet by mouth every 8 hours as needed for Nausea. 10 Tablet 0 3 07/05/20 23 Discontinued documented as of this encounter (statuses as of 07/05/2023) Active Problems Problem Noted Date Diagnosed Date Peripheral sensory neuropathy 07/05/2023 PTSD (post-traumatic stress disorder) 07/05/2023 Depression with anxiety 07/04/2023 Overweight (BMI 25.0-29.9) 07/04/2023 Medical marijuana use 07/04/2023 Diverticulosis of colon 06/14/2023 Multiple lung nodules 11/15/2022 Gastroesophageal reflux disease without esophagi tis 11/15/2022 Asthma-COPD overlap syndrome 01/20/2022 Chronic fatigue 03/22/2021 documented as of this encounter (statuses as of 07/05/2023) Resolved Problems Problem Noted Date Diagnosed Date Resolved Date Moderate persistent asthma w ithout complication 05/03/2023 07/04/2023 Diverticulitis of colon 04/25/2023 12/0 11/2022 Diarrhea 04/25/2023 07/04/2023 Seasonal allergic rhinitis due to pollen 11/15/2022 07/04/2023 Chronic obstructive pulmonar y disease with (acute) exacerbation 01/20/2022 04/08/2022 Severe persistent asthma without complication 03/22/20 21 07/04/2023 Shortness of breath 03/22/2021 08/17/19 Tick bite 03/22/2021 08/17/2022 ANNABELLE (generalized anxiety disorder) 03/22/2021 07/04/2023 Episode of recurrent major d epressive disorder 03/22/2021 07/04/2023 documented as of this encounter (statuses as of 07/05/2023) Immunizations Name Administration Dates Next Due COVID-19 mRNA, LNP-s, No Pre serve, 2-Dose Series (Moderna) 03/05/2021,02/05/2021 Hepatitis B Vaccine, Recombi nant, Adjuvanted, 20 mcg/mL (Heplisav-B) 11/15/2022(Deferred: Patient Refused - pt left without getting) Pneumococcal Conjugate Vacci ne, 20-valent (Fozyzlo11) 08/25/2022 Pneumococcal Polysaccharide PPV23 (Pneumovax) 06/22/2021 SEASONAL INFLUENZA, PF, 6 M & Above, IM , (FLULAVAL or FLUZONE) 06/22/2021 Seasonal Influenza Virus Vac cine, Unspecified Formulation 06/22/2021 TDAP (age 10 and older)(Boostrix) 08/25/2022 [...] Answer Date Recorded PHQ Adult Total Score 0 04/25/2023 Hunger Vital Sign Answer Date Recorded Within the past 12 months, y ou worried that your food would run out before you got the money to buy more. Never true 06/30/20 23 Within the past 12 months, t he food you bought just didn't last and you didn't have money to get more. Never true 06/30/2023 Sex and Gender Information Value Date Recorded Sex Assigned at Male 04/25/2023 12:16 PM EDT Gender Identity Male 04/25/2023 12:16 PM EDT Sexual Orientation Straight 04/25/2023 12 :16 PM EDT Job Start Date Occupation Industry Not on file Not on file Not on file documented as of this encounter Last Filed Vital Signs Vital Sign Reading Time Taken Comments Blood Pressure 110/82 07/05/2023 2:51 PM EST Pulse 84 07/05/2023 2:51 PM EST Temperature 36.6 C (97.8 F) 07/05/2023 2:51 PM ES T Respiratory Rate 18 07/05/2023 2:51 PM EST Oxygen Saturation - - Inhaled Oxygen Concentration - - Weight 89.8 kg (198 lb) 07/05/2023 2:51 PM EST Height 175.3 cm (5' 9") 07/05/2023 2:51 PM EST Body Mass Index 29.24 07/05/2023 2:51 PM EST documented in this encounter Functional Status Functional Status Response [...] No 06/14/2023 documented as of this encounter Progress Notes * Jaiden Franklin MD - 07/05/2023 3:05 PM EST SUBJECTIVE: Davion Cho is a 43 year old male. Chief Complaint Patient presents with Hospital Follow-Up Pt here hospital follow up, c/o sore throat, [place] Hospital Follow-Up HPI: Hospital d/c follow up for diverticulitis. Already saw GI yesterday who prescribed him cipro/flagyl, and some opiate pain medication. I am going to be Davion's PCP moving forward. He is a quite unhealthy 43 year old male who has severe COPD from a combination of cigarette smoking and occupational exposure. He is currently on disability. His father unfortunately a few weeks ago. Patient Active Problem List Diagnosis Code Chronic fatigue R53.82 Asthma-COPD overlap syndrome J44.89 Multiple lung nodules R91.8 Gastroesophageal reflux disease without esophagitis K21.9 Diverticulosis of colon K57.30 Depression with anxiety F41.8 Overweight (BMI 25.0-29.9) E66.3 Medical marijuana use Z79.899 Peripheral sensory neuropathy G60.8 PTSD (post-traumatic stress disorder) F43.10 Current Outpatient Medications Medication Sig Dispense Refill Omeprazole 20 MG Oral Capsule Delayed Release (PriLOSEC) Take 1 Capsule by mouth in the morning. 1 hour before the first meal of the day. 30 Capsule 5 Levocetirizine Dihydrochloride 5 MG Oral Tablet Take 1 Tablet by mouth every evening. 90 Tablet 3 Nebulizer Device To be used with nebulized medication 1 Each 0 Nebulizer/Tubing/Mouthpiece Kit To be used with nebulized device 1 Kit 2 Fluticasone Propionate 50 MCG/ACT Nasal Suspension (Flonase) Administer 2 Sprays into each nostril in the morning. 16 g 2 Montelukast Sodium 10 MG Oral Tablet (Singulair) Take 1 Tablet by mouth in the morning. 90 Tablet 3 Albuterol Sulfate HFA 108 (90 Base) MCG/ACT Inhalation Aerosol Solution Inhale 2 Puffs by mouth every 6 hours as needed for Shortness of Breath or Wheezing. 18 g 2 Albuterol Sulfate (2.5 MG/3ML) 0.083% Inhalation Nebulization Solution (Proventil) Inhale 1 Vial via nebulizer every 6 hours as needed for Wheezing. 360 mL 3 Ciprofloxacin HCl 500 MG Oral Tablet (Cipro) Take 1 Tablet by mouth in the morning and 1 Tablet before bedtime. 60 Tablet 0 metroNIDAZOLE 500 MG Oral Tablet (Flagyl) Take 1 Tablet by mouth in the morning and 1 Tablet at noon and 1 Tablet before bedtime. 90 Tablet 0 oxyCODONE HCl 5 MG Oral Capsule (Oxy IR) Take 1 Capsule by mouth every 6 hours as needed for Pain, Severe. 12 Tablet 0 Trelegy Ellipta 100-62.5-25 MCG/ACT Aerosol Powder Breath Activated (Ogxsglumwzc-Qkwfxokczijq-Bzlbjlgtpj) Inhale 1 Puff by mouth in the morning. No current facility-administered medications for this visit. Allergy: Review of patient's allergies indicates: Allergen Reactions Food (See Comments) Larissa Hernandez OBJECTIVE: BP 110/82 | Pulse 84 | Temp 36.6 C (97.8 F) (Tympanic) | Resp 18 | Ht 1.753 m (5' 9") | Wt 89.8kg (198 lb) | BMI 29.24 kg/m | BSA 2.09 m Gen: nad Lungs: coarse breath sounds bilaterally; poor air movement Heart: rrr, no mrg Abdomen: soft, nt/nd, normal bowel sounds Ext: no c/c/e ASSESSMENT AND PLAN: (Z09) Hospital discharge follow-up (primary encounter diagnosis) Plan: DISCH MED RECON CUR MED LIS (K57.30) Diverticulosis of colon Plan: continue cipro/flagyl per GI; has gen surg consult scheduled later this month (J44.89) Asthma-COPD overlap syndrome Plan: continue inhaler (R53.82) Chronic fatigue Plan: multifactorial (F43.10) PTSD (post-traumatic stress disorder) Plan: continue medical marijuana (R91.8) Multiple lung nodules Plan: followed by pulm (K21.9) Gastroesophageal reflux disease without esophagitis Plan: stable (Z79.899) Medical marijuana use Plan: noted (F41.8) Depression with anxiety Plan: stable on medical marijuana (E66.3) Overweight (BMI 25.0-29.9) Plan: diet/exercise Follow up in 6 month(s). No other complaints were offered at this time. Jaiden Franklin MD documented in this encounter Nursing Notes * Georgia Gutierrez LPN - 07/05/2023 2:51 PM EST The patient has been properly identified by confirmation of name and date of . Chief Complaint Patient presents with Hospital Follow-Up Pt here hospital follow up, c/o sore throat, [place] documented in this encounter Miscellaneous Notes * Addendum Note - Georgia Gutierrez LPN - 07/05/2023 3:26 PM ESTAddended by: GEORGIA GUTIERREZ on: 07/05/2023 03:26 PM Modules accepted: Orders documented in this encounter Plan of Treatment Upcoming Encounters Date Type Department Care Team (Latest Contact Info) Description 07/14/2023 1:15 PM EST Imaging Radiology [facility] 1st [facility] [address] [facility] [place] [address] 07/27/2023 9:15 AM EST Office Visit General Surgery, [facility] [address] [place] [address] Nallely Kincaid MD [address] [place] [address] 08/02/2023 2:40 PM EST Office Visit Family Practice [facility] [address] [facility] [place] [address] Jaiden Franklin MD [address] [facility] [place] [address] 09/26/2023 2:00 PM EST Hospital Encounter ENDO OSSC, Endoscopy Room [facility] [address] [facility] [place] [phone] Lilli Landa MD [address] [facility] [place] [address] 09/26/2023 2:00 PM EST - 09/26/2023 2:30 PM EST Surgery ENDO OSSC, Endoscopy Room [facility] [address] [facility] [place] [phone] Lilli Landa MD [address] [place] [address] COLONOSCOPY FLEXIBLE PROXIMAL DIAGNOSTIC 10/11/2023 2:00 PM EDT Office Visit Gastroenterology, [facility] [address] [facility] [place] [address] Selena Salgado CRNP [address] [facility] [address] 10/16/2023 2:15 PM EDT [facility] [address] [facility] [place] [address] 01/05/2024 1:20 PM EDT Office Visit Family Practice [facility] [address] [facility] [place] [address] Jaiden Franklin MD [address] [facility] [place] [address] Pending Results Name Type Priority Associated Diagnoses Date /Time RESPIRATORY PATHOGEN PANEL, PCR Lab Routine Hospital discharge follow-up 07/05/2023 3:26 PM EST Scheduled Orders Name Type Priority Associated Diagnoses Orde r Schedule RESPIRATORY PATHOGEN PANEL, PCR Lab Routine Hospital discharge follow-up Expected: 07/05/2023 (Approximate), Expires: 07/04/2024 Scheduled Procedures Name Priority Associated Diagnoses Date/Ti me COLONOSCOPY FLEXIBLE PROXIMAL DIAGNOSTIC History of diverticulitis 09/26/2023 2:00 PM EST Health Maintenance Due Date Last Done Comments Hepatitis B (1 of 3 - 3-dose series) 1981 Hepatitis C Screening 1999 COVID-19 Vaccine (3 - Moderna risk series) 04/02/2021 03/05/2021, 02/05/2021 *ADVANCE DIRECTIVE NOT ON FILE 04/10/2022 Influenza Vaccine (FLU shot) (#1) 2023 06/22/2021, 06/22/2021 Depression Screening 04/25/2024 04/25/2023 O2 ASSESSMENT COMPLETED IN PAST YEAR FOR [...] Not on filedocumented as of this encounter Visit Diagnoses Diagnosis Hospital discharge follow-up- Primary Other follow-up examination Diverticulosis of colon Diverticulosis of colon (without mention of hemorrhage) Asthma-COPD overlap syndrome Chronic fatigue Other malaise and fatigue PTSD (post-traumatic stress disorder) Posttraumatic stress disorder Multiple lung nodules Other nonspecific abnormal finding of lung field Gastroesophageal reflux disease without esophagitis Esophageal reflux Medical marijuana use Encounter for long-term (current) use of other medications Depression with anxiety Dysthymic disorder Overweight (BMI 25.0-29.9) Overweight History of diverticulitis documented in this encounter Additional Health Concerns Infection Onset Date Last Indicated Resolved Time Respiratory Rule-Out 07/05/2023 07/05/2023 documented as of this encounter Advance Directives Latest Code Status on File Code Status Date Activated Date Inactivated Comments Full Code 06/14/2023 8:45 PM 06/16/2023 8:01 PM Question Answer Comments Discussion of Advance Direct zina occurred with: Patient
--- OUTSIDE RECORDS SUMMARY | 2023-07-15 07:01 | External Medical Summary | Summary of Care ---
Author Name Unknown Organization [facility] Address [address] [facility] [address] Phone [phone] Care Team Providers Care [employer] Terminal Agent Name Role Phone Unavailable Primary Care Provider Unavailabl e Reason for Visit * Reason Onset Date Comments Hospital Follow-Up Pt here hospi amelie follow up, c/o sore throat, [place] Hospital Follow-Up 07/05/2023 Encounter Details Date Type Department Care Team (Late st Contact Info) Description 07/05/2023 3:20 PM EST Office [facility] [place] [address] Jaiden Franklin MD [address] [place] [address] Hospital discharge follow-up*; Diverticulosis of colon; Asthma-COPD [...] nebulized medication 1 Each 0 3 Active Nebulizer/Tubing/Lindasy thpiece Kit To be used with nebulized [...] COPD, group D, by GOLD 2017 classification ([facility]),Moderate persistent asthma without complication Inhale 2 Puffs [...] mouth daily. 0 07/05/20 23 Discontinued Tiotropium Greene Monohydrate 18 MCG Inhalation Capsule (Spiriva HandiHaler)Indicatio ns:COPD, group D, by GOLD 2017 classification ([facility]) Inhale 1 Capsule by mouth in the morning. For inhaler only, do not swallow.. 30 Capsule 2 3 07/05/20 23 Discontinued Fluticasone-Salmeter ol 250-50 MCG/ACT Inhalation Aerosol Powder Breath Activated (Advair Diskus)Indications:C OPD, group D, by GOLD 2017 classification ([facility]) Inhale 1 Puff by mouth in the [...] without getting) Pneumococcal Conjugate Vacci ne, 20-valent ([id number]) 08/25/2022 Pneumococcal Polysaccharide PPV23 (Pneumovax) 06/22/2021 SEASONAL [...] Ellipta 100-62.5-25 MCG/ACT Aerosol Powder Breath Activated (Gujjgjpbgzt-Ioyskeemhsbp-Irhjkowiun) Inhale 1 Puff by mouth in the [...] Description 07/14/2023 1:15 PM EST Imaging Radiology [facility] 1st [facility] [address] [facility] [place] [address] 07/27/2023 9:15 AM EST Office Visit General Surgery, [facility] [address] [facility] [place] [address] Nallely Kincaid MD [address] [place] [facility] [place] [address] 08/02/2023 2:40 PM EST Office Visit Family Practice [facility] [address] [facility] [place] [address] Jaiden Franklin MD [address] [facility] [place] [address] 09/26/2023 2:00 PM EST Hospital Encounter ENDO OSSC, Endoscopy Room [facility] [address] [facility] [place] [phone] Lilli Landa MD [address] [facility] [place] [address] 09/26/2023 2:00 PM EST - 09/26/2023 2:30 PM EST Surgery ENDO OSSC, Endoscopy Room [facility] [address] [facility] [place] [phone] Lilli Landa MD [address] [place] [address] COLONOSCOPY FLEXIBLE PROXIMAL DIAGNOSTIC 10/11/2023 2:00 PM EDT Office Visit Gastroenterology, [facility] [address] [facility] [address] Selena Salgado CRNP [address] [facility] [place] [address] 10/16/2023 2:15 PM EDT Imaging Radiology [facility] 1st Floor, [place] [address] [facility] [place] [address] Pending Results Name Type Priority Associated Diagnoses [...]
--- OUTSIDE RECORDS SUMMARY | 2023-07-15 07:01 | External Medical Summary | Summary of Care ---
Author Name Unknown Organization [facility] Address [address] [place] [address] Phone [phone] Care Team Providers Care Invas Tech Name Role Phone Unavailable Primary Care Provider Unavailabl e Reason for Visit * Reason Onset Date Comments Hospital Follow-Up Pt here hospi ameile follow up, c/o sore throat, PADILLA Hospital Follow-Up 07/05/2023 Encounter Details Date Type Department Care Team (Late st Contact Info) Description 07/05/2023 3:20 PM EST Office Visit Family Practice [facility] [address] [facility] [place] [address] Jaiden Franklin MD [address] [place] [address] Hospital discharge follow-up*; Diverticulosis of colon; Asthma-COPD overlap syndrome; Chronic fatigue; PTSD (post-traumatic stress disorder); Multiple lung nodules; Gastroesophageal reflux disease without esophagitis; Medical marijuana use; Depression with anxiety; Overweight (BMI 25.0-29.9) Allergies Active Allergy Reactions Criticality Noted Date Comments Food (See Comments) Hives Medium 06/14/2023 Peaches documented as of this encounter (statuses as of 07/06/2023) Medications Medication Sig Dispensed Refills Start Date End Date Status Omeprazole 20 MG Oral Capsule Delayed Release (PriLOSEC)Indication s:Gastroesophageal reflux disease without esophagitis Take 1 Capsule by mouth in the morning. 1 hour before the first meal of the day. 30 Capsule 5 01/26/202 3 Active Levocetirizine Dihydrochloride 5 MG Oral [...] COPD, group D, by GOLD 2017 classification (HCC),Moderate [...] mouth daily. 0 07/05/20 23 Discontinued Tiotropium [place] Monohydrate 18 MCG Inhalation Capsule (Spiriva HandiHaler)Indicatio ns:COPD, group D, by GOLD 2017 classification ([facility]) Inhale 1 Capsule by mouth in the morning. For inhaler only, do not swallow.. 30 Capsule 2 3 07/05/20 23 Discontinued Fluticasone-Salmeter ol 250-50 MCG/ACT Inhalation Aerosol Powder Breath Activated (Advair Diskus)Indications:C OPD, group D, by GOLD 2017 classification ([facility]) Inhale 1 Puff by mouth in the morning and 1 Puff before bedtime. 60 Each 2 3 07/05/20 23 Discontinued Ondansetron HCl 4 MG Oral TabletIndications:Na usea and vomiting, unspecified vomiting type Take 1 Tablet by mouth every 8 hours as needed for Nausea. 10 Tablet 0 3 07/05/20 23 Discontinued documented as of this encounter (statuses as of 07/06/2023) Active Problems Problem Noted Date Diagnosed Date Peripheral sensory neuropathy 07/05/2023 PTSD (post-traumatic stress disorder) 07/05/2023 Depression with anxiety 07/04/2023 Overweight (BMI 25.0-29.9) 07/04/2023 Medical marijuana use 07/04/2023 Diverticulosis of colon 06/14/2023 Multiple lung nodules 11/15/2022 Gastroesophageal reflux disease without esophagi tis 11/15/2022 Asthma-COPD overlap syndrome 01/20/2022 Chronic fatigue 03/22/2021 documented as of this encounter (statuses as of 07/06/2023) Resolved Problems Problem Noted Date Diagnosed Date Resolved Date Moderate persistent asthma w ithout complication 05/03/2023 07/04/2023 Diverticulitis of colon 04/25/2023 1211/2022 Diarrhea 04/25/2023 07/04/2023 Seasonal allergic rhinitis due to pollen 11/15/2022 07/04/2023 Chronic obstructive pulmonar y disease with (acute) exacerbation 01/20/2022 04/08/2022 Severe persistent asthma without complication 03/22/20 21 07/04/2023 Shortness of breath 03/22/2021 08/17/19 Tick bite 03/22/2021 08/17/2022 ANNABELLE (generalized anxiety disorder) 03/22/2021 07/04/2023 Episode of recurrent major d epressive disorder 03/22/2021 07/04/2023 documented as of this encounter (statuses as of 07/06/2023) Immunizations Name Administration Dates Next Due COVID-19 mRNA, LNP-s, No Pre serve, 2-Dose Series (Moderna) 03/05/2021,02/05/2021 Hepatitis B Vaccine, Recombi nant, Adjuvanted, 20 mcg/mL (Heplisav-B) 11/15/2022(Deferred: Patient Refused - pt left without getting) Pneumococcal Conjugate Vacci ne, 20-valent ([id number]) 08/25/2022 Pneumococcal Polysaccharide PPV23 (Pneumovax) 06/22/2021 SEASONAL [...] Answer Date Recorded PHQ Adult Total Score 2 07/05/2023 Hunger Vital Sign Answer Date Recorded Within the past 12 months, y ou worried that your food would run out before you got the money to buy more. Never true 07/05/20 Within the past 12 months, t he food you bought just didn't last and you didn't have money to get more. Never true 07/05/2023 Sex and Gender Information Value Date Recorded [...] Ellipta 100-62.5-25 MCG/ACT Aerosol Powder Breath Activated (Gbnfilguvys-Wxfhaeuwjedy-Npxmalbluk) Inhale 1 Puff by mouth in the [...] documented in this encounter Nursing Notes * Noah LeidaAURA prieto - 07/05/2023 2:51 PM EST The patient has been properly identified by confirmation of name and date of . Chief Complaint Patient presents with Hospital Follow-Up Pt here hospital follow up, c/o sore throat, PADILLA documented in this encounter Miscellaneous Notes * Addendum Note - Leida Gutierrez LPN - 07/05/2023 3:26 PM ESTAddended by: LEIDA GUTIERREZ on: 07/05/2023 03:26 PM Modules accepted: Orders documented in this encounter Plan of Treatment Upcoming Encounters Date Type Department Care Team (Latest Contact Info) Description 07/14/2023 1:15 PM EST Imaging [facility] [address] [facility] [place] [address] 07/27/2023 9:15 AM EST Office Visit General Surgery, [facility] [address] [facility] [place] [address] Nallely Kincaid MD [address] [facility] [place] [address] 08/02/2023 2:40 PM EST Office Visit Family Practice [facility] [address] [facility] [place] [address] Jaiden Franklin MD [address] [facility] [place] [address] 09/26/2023 2:00 PM EST Hospital Encounter ENDO [facility], Endoscopy Room [facility] [address] [facility] [place] [phone] Lilli Landa MD [address] [facility] [place] [address] 09/26/2023 2:00 PM EST - 09/26/2023 2:30 PM EST Surgery ENDO [facility], Endoscopy Room [facility] [place] [phone] Lilli Landa MD [address] [place] [address] COLONOSCOPY FLEXIBLE PROXIMAL DIAGNOSTIC 10/11/2023 2:00 PM EDT Office Visit Gastroenterology, [facility] [place] [address] Selena Salgado CRNP [address] [place] [address] 10/16/2023 2:15 PM EDT [facility] [address] [place] [address] 01/05/2024 1:20 PM EDT Office Visit Family Practice [facility] [address] [facility] [place] [address] Jaiden Franklin MD [address] [place] [address] Scheduled Procedures Name Priority Associated Diagnoses Date/Ti me COLONOSCOPY FLEXIBLE PROXIMAL DIAGNOSTIC History of diverticulitis 09/26/2023 2:00 PM EST Health Maintenance Due Date Last Done Comments Hepatitis B (1 of 3 - 3-dose series) 1981 Hepatitis C Screening 1999 COVID-19 Vaccine (3 - Moderna risk series) 04/02/2021 03/05/2021, 02/05/2021 *ADVANCE DIRECTIVE NOT ON FILE 04/10/2022 Influenza Vaccine (FLU shot) (#1) 2023 06/22/2021, 06/22/2021 O2 ASSESSMENT COMPLETED IN PAST YEAR FOR COPD 07/04/2024 07/04/2023 Depression Screening 07/05/2024 07/05/2023 Lipid Panel 03/22/2026 03/22/2021 Diabetes Screening 07/04/2026 [...] Not on filedocumented as of this encounter Procedures Procedure Name Priority Date/Time Associated Diagnosis Comments RESPIRATORY PATHOGEN PANEL, PCR Routine 07/05/2023 3:26 PM EST Hospital discharge follow-up documented in this encounter Results * (ABNORMAL) RESPIRATORY PATHOGEN PANEL, PCR (07/05/2023 3:26 PM EST) Adenovirus by PCR Negative Negative 023 10:49 PM EST [facility] Coronavirus 229E by PCR Negative Negative 07/05/2023 10:49 PM EST LAB[facility]ATORY [facility] Coronavirus HKU1 by PCR Negative Negative 07/05/2023 10:49 PM EST [facility] Coronavirus NL63 by PCR Negative Negative 07/05/2023 10:49 PM EST [facility] Coronavirus OC43 by PCR Negative Negative 07/05/2023 10:49 PM EST [facility] Coronavirus SARS-CoV-2 by PCR Negative Negative 07/05/2023 10:49 PM EST [facility]ORY [facility] Human Metapneumovirus by PCR Negative Negative 07/05/2023 10:49 PM EST [facility] Rhinovirus/Enterov irus by PCR Positive(A) Negative 07/05/2023 10:49 PM EST [facility]ORY [facility] Comment:Rhinovirus/Enterovir us detected by PCR (amplified probe). Influenza A Virus by PCR Negative Negative 07/05/2023 10:49 PM EST [facility]ATORY [facility] Influenza B Virus by PCR Negative Negative 07/05/2023 10:49 PM EST [facility] Parainfluenza Virus 1 by PCR Negative Negative 07/05/2023 10:49 PM EST [facility] Parainfluenza Virus 2 by PCR Negative Negative 07/05/2023 10:49 PM EST [facility] Parainfluenza Virus 3 by PCR Negative Negative 07/05/2023 10:49 PM EST [facility] Parainfluenza Virus 4 by PCR Negative Negative 07/05/2023 10:49 PM EST [facility] Respiratory Syncytial Virus by PCR Negative Negative 07/05/2023 10:49 PM EST [facility] Bordetella pertussis by PCR Negative Negative 07/05/2023 10:49 PM EST [facility] Chlamydia pneumoniae by PCR Negative Negative 07/05/2023 10:49 PM EST [facility] Mycoplasma pneumoniae by PCR Negative Negative 07/05/2023 10:49 PM EST [facility] Bordetella parapertussis by PCR Negative Negative 07/05/2023 10:49 PM EST [facility]ATORY [facility] Comment: The primers that detect Rhinovirus may cross react with some Enterorviruses. The validation of bronchial specimens, tracheal aspirates, and throats for this assay was developed and performance characteristics determined by [employer]. The validation of alternate specimen types has not been cleared or approved by the U.S. Food and Drug Administration (FDA). It has been determined that such clearance or approval is not necessary. Upper Respiratory Mid-turbinate nasal swab / Unknown Non-blood Collection / Unknown 07/05/2023 3:26 PM EST 07/05/2023 3:26 PM EST Jaiden Franklin MD LAB MICRO - GENER AL ORDERABLES [facility]ORY [facility] [address] [place] [address] documented in this encounter Visit Diagnoses Diagnosis Hospital discharge [...] Indicated Resolved Time Respiratory Rule-Out 07/05/2023 07/05/2023 12/06/2 023 10:49 PM EST documented as of this encounter Advance Directives [...]
--- OUTSIDE RECORDS SUMMARY | 2023-07-15 07:02 | External Medical Summary ---
Author Name Unknown Address Unknown Organization [id number]:[facility] [place] [address] [place] [address] Laboratory Report Ordering Provider Test Date Status TENA ERWIN 06/15/2023 07:54:00 Final Observation Date Value Abnormality Reference (Units ) Status WBC, Total 06/15/2023 07:54:00 7.25 4.00-10.80 (K/uL) Final RBC 06/15/2023 07:54:00 4.76 4.50-5.25 (M/uL) Final Hemoglobin 06/15/2023 07:54:00 15.1 14.0-16.8 (g/dL) Final HCT 06/15/2023 07:54:00 45.5 40.0-48.4 (%) Final MCV 06/15/2023 07:54:00 95.6 82.0-99.5 (fL) Final MCH 06/15/2023 07:54:00 31.7 27.0-34.0 (pg) Final MCHC 06/15/2023 07:54:00 33.2 32.0-36.0 (g/dL) Final RDW 06/15/2023 07:54:00 13.0 11.5-15.5 (%) Final Platelets 06/15/2023 07:54:00 260 140-400 (K/uL) Final MPV 06/15/2023 07:54:00 10.8 6.6-11.1 (fL) Final Nucleated erythrocytes/100 leukocytes [Ratio] in Blood by Automated count 06/15/2023 07:54:00 0 <=0 (/100 WBCs) Final Performing Location [facility] [place] [address] [place] [address]
--- OUTSIDE RECORDS SUMMARY | 2023-07-15 07:02 | External Medical Summary | Summary of Care ---
Author Name Unknown Organization [facility] Address [address] [place] [address] Phone [phone] Care Team Providers Care Automotive Collision Estimator Name Role Phone Martin Flowers DO Primary Care Provider + [phone] Encounter Details Date Type Department Care Team (Late st Contact Info) Description 06/30/2023 Telephone Care Coordination and Integration [address] [place] [address] [facility] Delivery Specialist [address] [place] [address] [place] [address] Allergies Active Allergy Reactions Criticality Noted Date Comments Food (See Comments) Hives Medium 06/14/2023 Peaches documented as of this encounter (statuses as of 06/30/2023) Medications Medication Sig Dispensed Refills Start Date End Date Status Vitamin D 50 MCG (1999) Oral Capsule Take 2,000 Units by mouth in the morning. 0 Active Ginseng 100 MG Oral Capsule Take by mouth daily. 0 Active CoQ-10 100 MG Oral Capsule Take by mouth daily. 0 Active Omeprazole 20 MG Oral Capsule Delayed Release [...] OPD, group D, by GOLD 2017 classification ([facility]),Moderate persistent asthma without complication Inhale 2 Puffs by mouth every 6 hours as needed for Shortness of Breath or Wheezing. 18 g 2 04/25/2023 Active Albuterol Sulfate (2.5 MG/3ML) 0.083% Inhalation Nebulization Solution (Proventil)Indication s:Moderate persistent asthma without complication Inhale 1 Vial via nebulizer every 6 hours as needed for Wheezing. 360 mL 3 04/25/2023 Active Tiotropium [place] Monohydrate 18 MCG Inhalation Capsule (Spiriva HandiHaler)Indication s:COPD, group D, by GOLD 2017 classification ([facility]) Inhale 1 Capsule by mouth in the morning. For inhaler only, do not swallow.. 30 Capsule 2 06/05/2023 Active Additional Information Patient not taking.Reported on 06/14/2023 Fluticasone-Salmetero l 250-50 MCG/ACT Inhalation Aerosol Powder Breath Activated (Advair Diskus)Indications:CO PD, group D, by GOLD 2017 classification ([facility]) Inhale 1 Puff by mouth in the morning and 1 Puff before bedtime. 60 Each 2 06/05/2023 Active Additional Information Patient not taking.Reported on 06/14/2023 Trelegy Ellipta 100-62.5-25 MCG/ACT Aerosol Powder Breath Activated (Fluticasone-Umeclidi nium-Vilanterol) Inhale 1 Puff by mouth in the morning. 0 Active Amoxicillin-Pot Clavulanate 875-125 MG Oral Tablet (Augmentin) Take 1 Tablet by mouth in the morning and 1 Tablet before bedtime. Do all this for 14 days. 28 Tablet 0 06/16/2023 3 Active Ondansetron HCl 4 MG Oral TabletIndications:Dima sea and vomiting, unspecified vomiting type Take 1 Tablet by mouth every 8 hours as needed for Nausea. 10 Tablet 0 06/26/2023 Active oxyCODONE HCl 5 MG Oral Capsule (Oxy IR)Indications:Divert iculitis of colon Take 1 Capsule by mouth every 6 hours as needed for Pain, Severe. 12 Tablet 0 06/26/2023 Active documented as of this encounter (statuses as of 06/30/2023) Active Problems Problem Noted Date Diagnosed Date Diverticulosis of colon 06/14/2023 Moderate persistent asthma without complication 05/03/2023 Diverticulitis of colon 04/25/2023 Diarrhea 04/25/2023 Multiple lung nodules 11/15/2022 Seasonal allergic rhinitis due to pollen 023 Gastroesophageal reflux disease without esophagi tis 11/15/2022 COPD, group D, by GOLD 2017 classification 01/20 Severe persistent asthma without complication Chronic fatigue 03/22/2021 ANNABELLE (generalized anxiety disorder) 03/22/2021 Episode of recurrent major depressive disorder 0 03/22/2021 documented as of this encounter (statuses as of 06/30/2023) Resolved Problems Problem Noted Date Diagnosed Date Resolved Date Chronic obstructive pulmonar y disease with (acute) exacerbation 01/20/2022 04/08/2022 Shortness of breath 03/22/2021 08/17/19 Tick bite 03/22/2021 08/17/2022 documented as of this encounter (statuses as of 06/30/2023) Immunizations Name Administration Dates Next Due COVID-19 mRNA, LNP-s, No Pre serve, 2-Dose Series (Moderna) 03/05/2021,02/05/2021 Hepatitis B Vaccine, Recombi nant, Adjuvanted, 20 mcg/mL (Heplisav-B) 11/15/2022(Deferred: Patient Refused - pt left without getting) Pneumococcal Conjugate Vacci ne, 20-valent ([id number]) 08/25/2022 Pneumococcal Polysaccharide PPV23 (Pneumovax) 06/22/2021 SEASONAL [...] money to buy more. Never true 06/30/20 Within the past 12 months, t he [...] as of this encounter Progress Notes * [facility] Special[facility] - 06/30/2023 12:58 PM EST Please note patient is not currently using his Trelegy inhaler, as he is unable to afford it. Currently using an Anoro inhaler he had at the home. Patient is willing to try any other medication that may help him. States the Anoro is keeping his symptoms at bay, but is worrying about "swelling up", and ending up in the hospital. Electronically signed by Shayy [facility] Specialist at 06/30/2023 1:00 PM EST documented in this encounter Plan of Treatment Upcoming Encounters Date Type Department Care Team (Latest Contact Info) Description 07/04/2023 3:30 PM EST Office Visit Gastroenterology, [facility] [address] [place] [phone] Selena Salgado CRNP [address] [place] [address] 07/05/2023 3:20 PM EST Office Visit Family Practice [facility] [address] [place] [address] Jaiden Franklin MD [address] [place] [address] 07/27/2023 9:15 AM EST Office Visit General Surgery, [facility] [address] [place] [address] Nallely Kincaid MD [address] [place] [address] 08/01/2023 11:45 AM EST Hospital Encounter [facility]O [facility], Endoscopy Room [facility] [address] [place] [phone] Kvng Mcguire MD [address] [place] [address] 08/01/2023 11:45 AM EST - 08/01/2023 12:15 PM EST Surgery ENDO [facility], Endoscopy Room [facility] [address] [place] [phone] Kvng Mcguire MD [address] [place] [address] COLONOSCOPY FLEXIBLE PROXIMAL DIAGNOSTIC 08/02/2023 2:40 PM EST Office Visit Family Practice [facility] [address] [place] [address] Jaiden Franklin MD [address] [place] [address] 10/16/2023 2:15 PM EDT Imaging Radiology [address] [place] [address] Scheduled Procedures Name Priority Associated Diagnoses Date/Ti me COLONOSCOPY FLEXIBLE PROXIMAL DIAGNOSTIC History of diverticulitis 08/01/2023 11:45 AM EST Health Maintenance Due Date Last Done Comments Hepatitis B (1 of 3 - 3-dose series) 1980 Hepatitis C Screening 1999 COVID-19 Vaccine (3 - Moderna risk series) 04/02/2021 03/05/2021, 02/05/2021 *ADVANCE DIRECTIVE NOT ON FILE 04/10/2022 Influenza Vaccine (FLU shot) (#1) 2023 06/22/2021, 06/22/2021 Depression Screening 04/25/2024 04/25/2023 O2 ASSESSMENT COMPLETED IN PAST YEAR FOR COPD 06/16/2024 06/16/2023 Lipid Panel 03/22/2026 03/22/2021 Diabetes Screening 06/16/2026 06/16/2023, 1 08/15/2022, 06/14/2023, Additional history exists DTaP,Tdap,and Td Vaccines (2 [...] Not on filedocumented as of this encounter Advance Directives Latest Code Status on File Code Status Date Activated Date Inactivated Comments Full Code 06/14/2023 8:45 PM 06/16/2023 8:01 PM Question Answer Comments Discussion of Advance Direct zina occurred with: Patient Care Teams Automotive Collision Estimator Relationship Specialty Start Date End Date Martin Flowers DO [address] [place] [id number] PCP - General Family Medicine 07/31/22 documented as of this encounter
--- OUTSIDE RECORDS SUMMARY | 2023-07-15 07:02 | External Medical Summary ---
Author Name Unknown Address Unknown Organization K01:LAB[facility]ATORY [facility] - [address] [place] [address] Laboratory Report Ordering Provider Test Date Status TENA ERWIN 06/14/2023 21:20:00 Final Observation Date Value Abnormality Reference (Units ) Status Magnesium 06/14/2023 21:20:00 2.1 1.5-2.6 (m g/dL) Final Performing Location [facility]ORATORY [facility] - [address] [place] [address]
--- OUTSIDE RECORDS SUMMARY | 2023-07-15 07:02 | External Medical Summary | Summary of Care ---
Author Name Unknown Organization [facility] Address [address] [address] Phone [phone] Care Team Providers Care Production Operations Manager Name Role Phone Martin Flowers DO Primary Care Provider [phone] Reason for Visit * Reason Onset Date Comments Advice 06/19/2023 Encounter Details Date Type Department Care Team (Late st Contact Info) Description 06/19/2023 Telephone Family Practice [facility] [address] [place] [phone] Martin Flowers DO [address] [place] [id number] Advice Allergies Active Allergy Reactions Criticality Noted Date Comments Food (See Comments) Hives Medium 06/14/2023 Peaches documented as of this encounter (statuses as of 06/23/2023) Medications Medication Sig Dispensed Refills Start Date [...] nebulized medication 1 Each 0 10/13/2022 Active Nebulizer/Tubing/Lindsay thpiece Kit To be used [...] COPD, group D, by GOLD 2017 classification ([facility]),Moderate persistent asthma without complication Inhale 2 Puffs by mouth every 6 hours as needed for Shortness of Breath or Wheezing. 18 g 2 04/25/2023 Active Albuterol Sulfate (2.5 MG/3ML) 0.083% Inhalation Nebulization Solution (Proventil)Indicatio ns:Moderate persistent asthma without complication Inhale 1 Vial via nebulizer every 6 hours as needed for Wheezing. 360 mL 3 04/25/2023 Active Tiotropium Viborg Monohydrate 18 MCG Inhalation Capsule (Spiriva HandiHaler)Indicatio ns:COPD, group D, by GOLD 2017 classification ([facility]) Inhale 1 Capsule by mouth in the morning. For inhaler only, do not swallow.. 30 Capsule 2 06/05/2023 Active Additional Information Patient not taking.Reported on 06/14/2023 Fluticasone-Salmeter ol 250-50 MCG/ACT Inhalation Aerosol Powder Breath Activated (Advair Diskus)Indications:C OPD, group D, by GOLD 2017 classification ([facility]) Inhale 1 Puff by mouth in the [...] for 14 days. 28 Tablet 0 06/16/2023 06/30/20 Active Ondansetron HCl 4 MG Oral TabletIndications:Na usea and vomiting, unspecified vomiting type Take 1 Tablet by mouth every 8 hours as needed for Nausea. 10 Tablet 0 06/19/2023 Active oxyCODONE HCl 5 MG Oral Capsule (Oxy IR)Indications:Diver ticulitis of colon Take 1 Capsule by mouth every 6 hours as needed for Pain, Severe. 12 Tablet 0 06/19/2023 Active oxyCODONE HCl 5 MG Oral Tablet (Oxy IR) Take 1 Tablet by mouth every 6 hours as needed for severe pain. 10 Tablet 0 06/16/2023 06/19/20 Discontinu ed(Medicat ion List Clean Up) documented as of this encounter (statuses as of 06/23/2023) Active Problems Problem Noted Date Diagnosed Date [...] as of this encounter (statuses as of 06/23/2023) Resolved Problems Problem Noted Date Diagnosed Date Resolved Date Chronic obstructive pulmonar y disease with (acute) exacerbation 01/20/2022 04/08/2022 Shortness of breath 03/22/2021 08/17/19 Tick bite 03/22/2021 08/17/2022 documented as of this encounter (statuses as of 06/23/2023) Immunizations Name Administration Dates Next Due COVID-19 mRNA, LNP-s, No Pre serve, 2-Dose Series (Moderna) 03/05/2021,02/05/2021 Hepatitis B Vaccine, Recombi nant, Adjuvanted, 20 mcg/mL (Heplisav-B) 11/15/2022(Deferred: Patient Refused - pt left without getting) Pneumococcal Conjugate Vacci ne, 20-valent ([id number]) 08/25/2022 Pneumococcal Polysaccharide PPV23 (Pneumovax) 06/22/2021 SEASONAL INFLUENZA, PF, 6 M & Above, IM , (FLULAVAL or FLUZONE) 06/22/2021 Seasonal Influenza Virus Vac cine, Unspecified Formulation 06/22/2021 TDAP (age 10 and older)(Boostrix) 08/25/2022 documented as of this encounter Social History Tobacco Use Types Packs/Day Years Used Date Smoking Tobacco: Former Cigarettes 25 Q uit: 11/07/2021 Smokeless Tobacco: Never [...] the money to buy more. Never true 04/25/20 23 Within the past 12 months, t he food you bought just didn't last and you didn't have money to get more. Never true 04/25/2023 Sex and Gender Information Value Date Recorded [...] (15 years old or older) No 06/14/20 23 Cognitive Status Response Date of Assessm ent Because of a physical, menta l, or emotional condition, do you have serious difficulty concentrating, remembering, or making decisions? (5 years old or older) No 06/14/2023 documented as of this encounter Progress Notes * Darlene Hernandes RN - 06/19/2023 10:51 AM EST Spoke with patient, he is with his father who is in the hospital, [facility] Davion reports having ongoing abdominal pain, diarrhea and nausea. 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 He is taking Augmentin. He was on a liquid diet while in the hospital, and reports before discharge was given a "fiber meal" and he has had pain and diarrhea since that. Denies fever or chills. States diverticulitis was pressing on his bladder so had some discomfort with voiding. He was also given some trelegy from the hospital, has about a week left of this. He would like the nausea patch and refill of pain medication. Dr. Flowers, (I am currently unable to pend a refill) Are you agreeable to sending script for oxycodone 5mg and scopalamine patch to [facility]. documented in this encounter Miscellaneous Notes * Telephone Encounter - Jen Ayers MED ASSIST - 06/23/2023 11:57 AM EST Patient picked up both oxycodone and ondansetron already. * Telephone Encounter - Bebo Rodrigues OSA - 06/20/2023 10:33 AM EST Called and spoke to pt, scheduled HD visit as a video next week with [facility]. * Telephone Encounter - Dalia Genao LPN - 06/19/2023 4:41 PM EST Prior auth started on cover my meds for Oxy. Lara [id number] * Telephone Encounter - Martin Flowers DO - 06/19/2023 3:49 PM EST Spoke with patient. Prescription oxycodone 5 mg 1 tab q.6 hours as needed x3 days only sent to pharmacy. prescription Zofran 4 mg 1 tab q 8 hrs as need for nausea and vomiting sent to pharmacy. Patient advised continued close observation and call or return to office if symptoms persist or worsen Advise follow with PCP for hospital follow-up referral to board liner operator * Telephone Encounter - Katelyn Love OSA - 06/19/2023 10:01 AM EST Pt calling to speak with PCP about being seen in the hospital and discharged on 06-16-2023 for complicated diverticulitis. Pt was given pain medication but he finished that on 06-18-2023. Pt is requesting pain medication to help with the severe amount of pain he is in. Please call back. documented in this encounter Plan of Treatment Upcoming Encounters Date Type Department Care Team (Latest Contact Info) Description 06/26/2023 2:40 PM EST Telemedicine Family Practice [facility] [address] [place] [id number] Juan Britton CRNP [address] [place] [phone] 07/27/2023 9:15 AM EST Office Visit General Surgery, [facility] [address] [place] [address] Nallely Kincaid MD [address] [place] [address] 08/01/2023 11:45 AM EST Hospital Encounter ENDO [facility], Endoscopy Room [facility] [address] [place] [phone] Kvng Mcguire MD [address] [place] [address] 08/01/2023 11:45 AM EST - 08/01/2023 12:15 PM EST Surgery ENDO [facility], Endoscopy Room [facility] [address] [place] [phone] Kvng Mcguire MD [address] [place] [address] COLONOSCOPY FLEXIBLE PROXIMAL DIAGNOSTIC 08/02/2023 2:40 PM EST Office Visit Family Practice [facility] [address] [place] [id number] Jaiden Franklin MD [address] [place] [address] 10/16/2023 2:15 PM EDT Imaging Radiology [facility] [address] [facility] [place] [id number] Scheduled Procedures Name Priority Associated Diagnoses Date/Ti [...] as of this encounter Visit Diagnoses Diagnosis Nausea and vomiting, unspecified vomiting type- Primary Diverticulitis of colon Diverticulitis of colon (without mention of hemorrhage) History of diverticulitis documented in this encounter Advance Directives Latest Code Status on File Code Status Date Activated Date Inactivated Comments Full Code 06/14/2023 8:45 PM 06/16/2023 8:01 PM Question Answer Comments Discussion of Advance Direct zina occurred with: Patient Care Teams Production Operations Manager Relationship Specialty Start Date End Date Martin Flowers DO [address] [place] [phone] PCP - General Family Medicine 07/31/22 documented as of this encounter
--- OUTSIDE RECORDS SUMMARY | 2023-07-15 07:02 | External Medical Summary ---
Author Name Unknown Address Unknown Organization [id number]:[facility] - [address] [place] [address] Laboratory Report Ordering Provider Test Date Status TENA ERWIN 06/15/2023 07:38:55 Final Observation Date Value Abnormality Reference (Units) Status Bacteria identified in Specimen by Culture 06/15/2023 07:38:55 No significant growth Final Test: Culture, Urine, Quanti tative
Specimen Source: Urine, Clean Catch
Specimen Type: Urine
Specimen Date: 06/15/2023 7:38 AM
Result Date: 06/16/2023 9:41 AM
Result Status: Final result
Resulting Lab: [facility]
[address]
[place] [address]

CULTURE

No significant growth

null Performing Location [facility] - [address] [facility] [address]
--- OUTSIDE RECORDS SUMMARY | 2023-07-15 07:02 | External Medical Summary ---
Author Name Unknown Address Unknown Organization [id number]:[facility] - [address] [place] [address] Laboratory Report Ordering Provider Test Date Status YAIMATENA 06/15/2023 07:54:00 Final Observation Date Value Abnormality Reference (Units ) Status Phosphate 06/15/2023 07:54:00 3.5 2.5-4.8 (m g/dL) Final Performing Location [facility] - [address] [place] [address]
--- OUTSIDE RECORDS SUMMARY | 2023-07-15 07:02 | External Medical Summary ---
Author Name Unknown Address Unknown Organization [id number]:[facility] - [address] [place] [address] Laboratory Report Ordering Provider Test Date Status TENA ERWIN 06/14/2023 21:20:00 Final Observation Date Value Abnormality Reference (Units ) Status Lactic Acid 06/14/2023 21:20:00 1.2 0.4-2.0 (mmol/L) Final Performing Location [facility] - [address] [place] [address]
--- OUTSIDE RECORDS SUMMARY | 2023-07-15 07:02 | External Medical Summary | Summary of Care ---
Author Name Unknown Organization [facility] Address [address] [place] [address] Phone [phone] Care Team Providers Care Vascular Technician Name Role Phone Martin Flowers DO Primary Care Provider [phone] Reason for Referral * Evaluate & Treat - Unlimited Visits (Within 10 days (routine)) - Authorized Specialty Diagnoses / Procedures Referred By Dena lorenzo Referred To Contact General Surgery Diagnoses Diverticulitis of colon Selena Salgado CRNP [address] [address] [address] [place] [address] Referral ID Status Reason Start Date Expiration Date Visits Requested Visits Authorized [id number] Authorized Specialty Services Required 07/04/2023 999 999 Question Answer What condition is the patient being seen for? General Surgery Conditions - diverticulitis What condition is the patient being seen for? All other conditions - diverticulitis Referral Priority Within 10 days (routine) Where should this appointment be scheduled? [facility] * [facility] (Within 10 days (routine)) - Pending Review Specialty Diagnoses / Procedures Referred By Dena lorenzo Referred To Contact Radiology Diagnoses Diverticulitis of colon Procedures CT ABD/PELVIS W IV AND W ORAL CONTRAST Selena Salgado CRNP [address] [place] [address] Referral ID Status Reason Start Date Expiration Date V isits Requested Visits Authorized [id number] Pending Review 07/11/2023 999 999 Reason for Visit * Reason Onset Date Comments NEW PATIENT Diverticulitis, recent hospital visits, abd pain, back and bowel pain Hospital Follow-Up 07/04/2023 Encounter Details Date Type Department Care Team (Latest Contact Info) Description 07/04/2023 3:30 PM EST Office Visit Gastroenterology, [facility] [address] [place] [address] Selena Salgado CRNP [address] [place] [address] Diverticulitis of colon*; Hospital discharge follow-up Allergies Active Allergy Reactions Criticality Noted Date Comments Food (See Comments) Hives Medium 06/14/2023 Peaches documented as of this encounter (statuses as of 07/04/2023) Medications Medication Sig Dispensed Refills Start Date [...] COPD, group D, by GOLD 2017 classification ([facility]),Moderate persistent asthma without complication Inhale 2 Puffs by mouth every 6 hours as needed for Shortness of Breath or Wheezing. 18 g 2 04/25/2023 Active Albuterol Sulfate (2.5 MG/3ML) 0.083% Inhalation Nebulization Solution (Proventil)Indicatio ns:Moderate persistent asthma without complication Inhale 1 Vial via nebulizer every 6 hours as needed for Wheezing. 360 mL 3 04/25/2023 Active Tiotropium [place] Monohydrate 18 MCG Inhalation Capsule (Spiriva HandiHaler)Indicatio ns:COPD, group D, by GOLD 2017 classification ([facility]) Inhale 1 Capsule by mouth in the morning. For inhaler only, do not swallow.. 30 Capsule 2 06/05/2023 Active Additional Information Patient not taking.Reported on 07/04/2023 Fluticasone-Salmeter ol 250-50 MCG/ACT Inhalation Aerosol Powder Breath Activated (Advair Diskus)Indications:C OPD, group D, by GOLD 2017 classification ([facility]) Inhale 1 Puff by mouth in the morning and 1 Puff before bedtime. 60 Each 2 06/05/2023 Active Additional Information Patient not taking.Reported on 06/14/2023 Trelegy Ellipta 100-62.5-25 MCG/ACT Aerosol Powder Breath Activated (Fluticasone-Umeclid inium-Vilanterol) Inhale 1 Puff by mouth in the morning. 0 Active Ondansetron HCl 4 MG Oral TabletIndications:Na usea and vomiting, unspecified vomiting type Take 1 Tablet by mouth every 8 hours as needed for Nausea. 10 Tablet 0 06/26/2023 Active Ciprofloxacin HCl 500 MG Oral Tablet [...] Pain, Severe. 12 Tablet 0 07/04/2023 Active oxyCODONE HCl 5 MG Oral Capsule (Oxy IR)Indications:Diver ticulitis of colon Take 1 Capsule by mouth every 6 hours as needed for Pain, Severe. 12 Tablet 0 06/26/2023 07/04/20 Discontinu ed(Refill) documented as of this encounter (statuses as of 07/04/2023) Active Problems Problem Noted Date Diagnosed Date Depression with anxiety 07/04/2023 Overweight (BMI 25.0-29.9) 07/04/2023 Medical marijuana use 07/04/2023 Diverticulosis of colon 06/14/2023 Multiple lung nodules 11/15/2022 Gastroesophageal reflux disease without esophagi tis 11/15/2022 Asthma-COPD overlap syndrome 01/20/2022 Chronic fatigue 03/22/2021 documented as of this encounter (statuses as of 07/04/2023) Resolved Problems Problem Noted Date Diagnosed Date Resolved Date Moderate persistent asthma w ithout complication 05/03/2023 07/04/2023 Diverticulitis of colon 04/25/2023 12/0 11/2022 Diarrhea 04/25/2023 07/04/2023 Seasonal allergic rhinitis due to pollen 11/15/2022 07/04/2023 Chronic obstructive pulmonar y disease with (acute) exacerbation 01/20/2022 04/08/2022 Severe persistent asthma without complication 03/22/20 21 07/04/2023 Shortness of breath 03/22/2021 08/17/19 23 Tick bite 03/22/2021 08/17/2022 ANNABELLE (generalized anxiety disorder) 03/22/2021 07/04/2023 Episode of recurrent major d epressive disorder 03/22/2021 07/04/2023 documented as of this encounter (statuses as of 07/04/2023) Immunizations Name Administration Dates Next Due COVID-19 mRNA, LNP-s, No Pre serve, 2-Dose Series (Moderna) 03/05/2021,02/05/2021 Hepatitis B Vaccine, Recombi nant, Adjuvanted, 20 mcg/mL (Heplisav-B) 11/15/2022(Deferred: Patient Refused - pt left without getting) Pneumococcal Conjugate Vacci ne, 20-valent ([id number]) 08/25/2022 Pneumococcal Polysaccharide PPV23 (Pneumovax) 06/22/2021 SEASONAL INFLUENZA, PF, 6 M & Above, IM , (FLULAVAL or FLUZONE) 06/22/2021 Seasonal Influenza Virus Vac cine, Unspecified Formulation 06/22/2021 TDAP (age 10 and older)(Boostrix) 08/25/2022 documented as of this encounter Social History Tobacco Use Types Packs/Day Years Used Date Smoking Tobacco: Former Cigarettes 1 25 Q uit: 11/07/2021 Smokeless Tobacco: Never Tobacco Cessation:Counseling Given: Not Answered Comments:Smoked off and on for 25 year period not sure of exact number of years. Currently smokes medical marijuana Alcohol Use Standard Drinks/Week Comments Not Currently 0 (1 standard drink = 0.6 oz pur e alcohol) AUDIT-C Answer Date Recorded Q1: How often do you have a drink containing alc ohol? Never 02/08/2021 Average Number of Drinks Not on file 021 Frequency of Binge Drinking Not on file [...] Sign Reading Time Taken Comments Blood Pressure 113/77 07/04/2023 3:27 PM EST Pulse 92 07/04/2023 3:27 PM EST Temperature 36.6 C (97.8 F) 07/04/2023 3:27 PM ES T Respiratory Rate - - Oxygen Saturation 97% 07/04/2023 3:27 PM EST Inhaled Oxygen Concentration - - Weight 91 kg (200 lb 9.6 oz) 07/04/2023 3:27 PM EST Height - - Body Mass Index 29.62 06/14/2023 9:08 PM EST documented in this encounter Functional [...] as of this encounter Progress Notes * Selena Salgado CRNP - 07/04/2023 3:36 PM EST Consult requested by Ref: MARTIN FLOWERS[[id number]] [address] [place] [phone] (office) [phone] (fax) CC: Hospital follow up for Diverticulitis HPI: 43 year old male pt of Martin Flowers DO with a hx of anxiety, depression, COPD, asthma whopresents for f/u diverticulitis. He presents today for His initial episode of diverticulitis was in April, hospitalized at [facility], Dc/ed on Cipro/Flagyl completed 10 days. Minimal but not complete resolution of symptoms. Mid May, he was admitted again and transferred to [facility] (3 days there). DC on Augmentin x 10 days finished that last week. Still no improvement in the pain since that hospitalization. He had a script for 10 oxycodene and 10 zofran which he used all. Was taking oxycodene about 2x/day. Currently is bilateral lower abdomen pain and RLQ pain.Severe pain prior and during defecation, w minimal improvement after defecation. Passing about 1-2 BMs most days, sometimes no BMs, typically liquid or loose. No blood in the BMs. Hemorrhoids are flared. No fevers. Has some chills/sweats. Has been eating mostly a liquids, a few solids (had a raw veg salad last night). He has a lot of nausea, some reflux no vomting. Diagnostic Testing: CTAP w IV/oral May 2023: Diverticulitis in the proximal sigmoid colon without evidence of perforation or abscess formation. ROS: + chronic vertigo No lightheadedness, dizziness No fevers, + chills, sweats No vision loss, eye pain, redness No oral ulcers No chest pain, palpitations, syncope, rash No cough, shortness of breath, exertional dyspnea No new joint pain, swelling, myalgias No bleeding tendencies or excessive bruising A total of 12 systems were reviewed, all others (-). ALLERGIES: Review of patient's allergies indicates: Allergen Reactions Food (See Comments) Larissa Hernandez PMH/PSH/Soc Hx reviewed, significant for: Past Medical History: Diagnosis Date Anxiety and depression Arthritis Asthma Chronic headaches COPD (chronic obstructive pulmonary disease) ([facility]) Depression with anxiety 07/04/2023 Emphysema, unspecified ([facility]) GERD (gastroesophageal reflux disease) Medical marijuana use 07/04/2023 Neuropathy Overweight (BMI 25.0-29.9) 07/04/2023 Scoliosis Tick bite 03/22/2021 Tremor Past Surgical History: Procedure Laterality Date BRONCHOSCOPY, DX W/ EBUS, 1-2 NODES N/A 03/24/2022 BRONCHOSCOPY, RIGID OR FLEXIBLE, INCLUDING FLUOROSCOPIC GUIDANCE, WHEN PERFORMED; WITH EBUS GUIDED TRANSTRACHEAL AND/OR TRANSBRONCHIAL SAMPLING (EG, ASPIRATION[S]/BIOPSY[IES]), 1 OR 2 MEDIASTINAL AND/OR HILAR LYMPH NODE STATIONS OR STRUCTURES performed by Eusebio Morrissey MD at OR [facility] INFORMATION Pancreas biopsy x 2. INFORMATION Sinus surgery. INFORMATION Facial fracture repair- hardware in place. Social History Socioeconomic History Marital status: Single Tobacco Use Smoking status: Former Packs/day: 1.00 Years: 25.00 Additional pack years: 0.00 Total pack years: 25.00 Types: Cigarettes Quit date: 11/07/2021 Years since quittin.6 Smokeless tobacco: Never Tobacco comments: Smoked off and on for 25 year period not sure of exact number of years. Currently smokes medical marijuana Vaping Use Vaping Use: Never used Substance and Sexual Activity Alcohol use: Not Currently Drug use: Not Currently Types: Marijuana Comment: medical marijuana last use 06/06/2023 Social Determinants of Health Food Insecurity: No Food Insecurity (06/30/2023) Hunger Vital Sign Worried About Running Out of Food in the Last Year: Never true Ran Out of Food in the Last Year: Never true Family history reviewed and significant for: Family History Problem Relation Age of Onset Parkinsonism Father No Known Problems Sister No Known Problems Brother Outpatient Medications Marked as Taking for the 07/04/23 encounter (Office Visit) with Selena Salgado CRNP Medication Sig Ciprofloxacin HCl 500 MG Oral Tablet (Cipro) Take 1 Tablet by mouth in the morning and 1 Tablet before bedtime. metroNIDAZOLE 500 MG Oral Tablet (Flagyl) Take 1 Tablet by mouth in the morning and 1 Tablet at noon and 1 Tablet before bedtime. oxyCODONE HCl 5 MG Oral Capsule (Oxy IR) Take 1 Capsule by mouth every 6 hours as needed for Pain, Severe. Ondansetron HCl 4 MG Oral Tablet Take 1 Tablet by mouth every 8 hours as needed for Nausea. Trelegy Ellipta 100-62.5-25 MCG/ACT Aerosol Powder Breath Activated (Qnniykkmufe-Mqhqyauysxrl-Gbpxhvewgz) Inhale 1 Puff by mouth in the morning. Albuterol Sulfate (2.5 MG/3ML) 0.083% Inhalation Nebulization Solution (Proventil) Inhale 1 Vial via nebulizer every 6 hours as needed for Wheezing. Albuterol Sulfate HFA 108 (90 Base) MCG/ACT Inhalation Aerosol Solution Inhale 2 Puffs by mouth every 6 hours as needed for Shortness of Breath or Wheezing. Fluticasone Propionate 50 MCG/ACT Nasal Suspension (Flonase) Administer 2 Sprays into each nostril in the morning. Montelukast Sodium 10 MG Oral Tablet (Singulair) Take 1 Tablet by mouth in the morning. Levocetirizine Dihydrochloride 5 MG Oral Tablet Take 1 Tablet by mouth every evening. Nebulizer Device To be used with nebulized medication Nebulizer/Tubing/Mouthpiece Kit To be used with nebulized device Omeprazole 20 MG Oral Capsule Delayed Release (PriLOSEC) Take 1 Capsule by mouth in the morning. 1 hour before the first meal of the day. EXAM: BP 113/77 | Pulse 92 | Temp 36.6 C (97.8 F) | Wt 91 kg (200 lb 9.6 oz) | SpO2 97% | BMI 29.62 kg/m | BSA 2.11 m GENERAL: 43 year old male well developed and well nourished in no acute distress SKIN: no rashes, ulcers, or spider angiomata HEENT: normocephalic, sclera clear, pharynx normal NECK: supple, no lymphadenopathy, no masses or thyroid enlargement LUNGS: clear to auscultation anterior and posterior HEART: regular rate & rhythm, no murmurs and no gallops ABDOMEN: normo-active bowel sounds, soft, very tender, w some guarding in the LLQ quadrant, mild suprapubic tenderness, non-distended no masses, no hepatosplenomegaly, no rebound or guarding, no bruits EXTREMITIES: no palmar erythema, no edema, no skin discoloration, no clubbing, no cyanosis NEURO: no lateralizing findings, Sensory/Motor grossly normal IMPRESSION/RECOMMENDATIONS: 43 year old male with Diverticulitis of colon (Primary) - CT ABD/PELVIS W IV AND W ORAL CONTRAST; Future; Expected date: 07/11/2023 - SURGERY REFERRAL OP - oxyCODONE HCl 5 MG Oral Capsule (Oxy IR); Take 1 Capsule by mouth every 6 hours as needed for Pain, Severe. - CBC WITH WBC DIFFERENTIAL; Future; Expected date: 07/04/2023 - COMPREHENSIVE METABOLIC PANEL - Ciprofloxacin HCl 500 MG Oral Tablet (Cipro); Take 1 Tablet by mouth in the morning and 1 Tablet before bedtime. - metroNIDAZOLE 500 MG Oral Tablet (Flagyl); Take 1 Tablet by mouth in the morning and 1 Tablet at noon and 1 Tablet before bedtime. Move colonoscopy to med/end july Recheck here after colonoscopy in med/late July. I spent a total of 36 minutes on the date of service in review of patient's record, and previously obtained information in person and appropriate medical visit, discussion and education of plan, withpatient and/or caregiver, placing orders for tests/referral/procedures as medically necessary and documentation of pertinent clinical information in patient's medical records for their visit today. ARNOLDO Vega [facility] Gastroenterology * Vilma Montgomery LPN - 07/04/2023 3:29 PM EST Medical Marijuana Documentation Certifying provider: someone down in [facility] Authorized Dispensary: [place] [facility] or in [place] Certified Condition(s): pain, ptsd, Dosage product provided? Pill Dose: Unknown Active ingredient: THC/CBD documented in this encounter Nursing Notes * Vilma Montgomery LPN - 07/04/2023 3:28 PM EST Patient identified by name and date of . Chief Complaint Patient presents with NEW PATIENT Diverticulitis, recent hospital visits, abd pain, back and bowel pain Pt stating that he is always in pain, at times worse than others,pt is having pain in his lower back and abd area. documented in this encounter Plan of Treatment Upcoming Encounters Date Type Department Care Team (Latest Contact Info) Description 07/04/2023 4:50 PM EST Laboratory Laboratory, [address] [place] [id number] [place] [facility] [address] [facility] [place] [address] Diverticulitis of colon 07/05/2023 3:20 PM EST Office Visit Family Practice [facility] [address] [facility] [place] [address] Jaiden Franklin MD [address] [facility] [place] [address] 07/14/2023 1:15 PM EST Imaging Radiology [facility] 1st Floor, [place] [address] [place] [address] 07/27/2023 9:15 AM EST Office Visit General Surgery, [facility] [address] [facility] [place] [address] Nallely Kincaid MD [address] [place] [address] 08/02/2023 2:40 PM EST Office Visit Family Practice [facility] [address] [facility] [place] [address] Jaiden Franklin MD [address] [facility] [place] [address] 09/26/2023 2:00 PM EST Hospital Encounter ENDO [facility], Endoscopy Room [facility] [address] [facility] [place] [phone] Lilli Landa MD [address] [facility] [place] [id number] 09/26/2023 2:00 PM EST - 09/26/2023 2:30 PM EST Surgery ENDO [facility], Endoscopy Room [facility] [place] [id number] Lilli Landa MD [address] [facility] [place] [id number] COLONOSCOPY FLEXIBLE PROXIMAL DIAGNOSTIC 10/11/2023 2:00 PM EDT Office Visit Gastroenterology, [facility] [address] [facility] [place] [address] Selena Salgado CRNP [address] [facility] [place] [address] 10/16/2023 2:15 PM EDT Imaging Radiology [address] [facility] [place] [address] Pending Results Name Type Priority Associated Diagnoses Date /Time CBC WITH WBC DIFFERENTIAL Lab Routine Diverticulitis of colon 07/04/2023 4:21 PM EST COMPREHENSIVE METABOLIC PANEL Lab Routine Diverticulitis of colon 07/04/2023 4:21 PM EST Scheduled Orders Name Type Priority Associated Diagnoses Orde r Schedule CT ABD/PELVIS W IV AND W ORAL CONTRAST Medical Imaging Routine Diverticulitis of colon Expected: 07/11/2023, Expires: 08/04/2024 CBC WITH WBC DIFFERENTIAL Lab Routine Diverticulitis of colon Expected: 07/04/2023, Expires: 07/04/2024 Scheduled Procedures Name Priority Associated Diagnoses Date/Ti me COLONOSCOPY FLEXIBLE PROXIMAL DIAGNOSTIC History of diverticulitis 09/26/2023 2:00 PM EST Scheduled Referrals Name Type Priority Associated Diagnoses Orde r Schedule SURGERY REFERRAL OP Referral Within 10 da ys (routine) Diverticulitis of colon Ordered: 07/04/2023 Health Maintenance Due Date Last Done Comments [...] 07/04/2023 Lipid Panel 03/22/2026 03/22/2021 Diabetes Screening 06/16/2026 [...] as of this encounter Visit Diagnoses Diagnosis Diverticulitis of colon- Primary Diverticulitis of colon (without mention of hemorrhage) Hospital discharge follow-up Other follow-up examination Diverticulitis of colon Diverticulitis of colon (without mention of hemorrhage) History of diverticulitis documented in this encounter Advance Directives Latest Code Status on File Code Status Date Activated Date Inactivated Comments Full Code 06/14/2023 8:45 PM 06/16/2023 8:01 PM Question Answer Comments Discussion of Advance Direct zina occurred with: Patient Care Teams Vascular Technician Relationship Specialty Start Date End Date Martin Flowers DO [address] [place] [id number] PCP - General Family Medicine 07/31/22 documented as of this encounter"
--- OUTSIDE RECORDS SUMMARY | 2023-07-15 07:02 | External Medical Summary ---
Author Name Unknown Address Unknown Organization K01:[facility] - [address] [facility] [address] [place] [address] Laboratory Report Ordering Provider Test Date Status TENA ERWIN 06/14/2023 22:48:01 Final Observation Date Value Abnormality Reference (Units ) Status Methicillin resistant Staphylococcus aureus (MRSA) DNA [Presence] in Nose by REGAN with probe detection 06/14/2023 22:48:01 Negative Negative Final No Methicillin resistant Sta phylococcus aureus detected by PCR (amplified probe). Performing Location [facility] [address] [place] [address]
--- OUTSIDE RECORDS SUMMARY | 2023-07-15 07:02 | External Medical Summary ---
Author Name Unknown Address Unknown Organization K01:[facility] [place] - [address] [place] [address] Laboratory Report Ordering Provider Test Date Status TENA ERWIN 06/14/2023 21:20:00 Final Observation Date Value Abnormality Reference (Units ) Status WBC, Total 06/14/2023 21:20:00 8.87 4.00-10.80 (K/uL) Final RBC 06/14/2023 21:20:00 4.69 4.50-5.25 (M/uL) Final Hemoglobin 06/14/2023 21:20:00 14.7 14.0-16.8 (g/dL) Final HCT 06/14/2023 21:20:00 44.8 40.0-48.4 (%) Final MCV 06/14/2023 21:20:00 95.5 82.0-99.5 (fL) Final MCH 06/14/2023 21:20:00 31.3 27.0-34.0 (pg) Final MCHC 06/14/2023 21:20:00 32.8 32.0-36.0 (g/dL) Final RDW 06/14/2023 21:20:00 12.8 11.5-15.5 (%) Final Platelets 06/14/2023 21:20:00 257 140-400 (K/uL) Final MPV 06/14/2023 21:20:00 11.0 6.6-11.1 (fL) Final Nucleated erythrocytes/100 leukocytes [Ratio] in Blood by Automated count 06/14/2023 21:20:00 0 <=0 (/100 WBCs) Final Performing Location [facility] [place] - [address] [place] [address]
--- OUTSIDE RECORDS SUMMARY | 2023-07-15 07:02 | External Medical Summary | Summary of Care ---
Author Name Unknown Organization [facility] Address [address] [place] [address] Phone [phone] Care Team Providers Care Finance Clerk Name Role Phone Martin Flowers DO Primary Care Provider + [phone] Reason for Visit * Reason Onset Date Comments Advice 06/19/2023 Encounter Details Date Type Department Care Team (Late st Contact Info) Description 06/19/2023 Telephone Care Coordination and Integration [address], [place] [id number] Shayy Lagunas [facility] [address] [place] [address] Advice Allergies Active Allergy Reactions Criticality Noted Date Comments Food (See Comments) Hives Medium 06/14/2023 Peaches documented as of this encounter (statuses as of 06/19/2023) Medications Medication Sig Dispensed Refills Start Date [...] OPD, group D, by GOLD 2017 classification ([facility]),Moderate persistent asthma without complication Inhale 2 Puffs by mouth every 6 hours as needed for Shortness of Breath or Wheezing. 18 g 2 04/25/2023 Active Albuterol Sulfate (2.5 MG/3ML) 0.083% Inhalation Nebulization Solution (Proventil)Indication s:Moderate persistent asthma without complication Inhale 1 Vial via nebulizer every 6 hours as needed for Wheezing. 360 mL 3 04/25/2023 Active Tiotropium [place] Monohydrate 18 MCG Inhalation Capsule (Spiriva HandiHaler)Indication s:COPD, group D, by GOLD 2017 classification ([facility]) Inhale 1 Capsule by mouth in the morning. For inhaler only, do not swallow.. 30 Capsule 2 06/05/2023 Active Additional Information Patient not taking.Reported on 06/14/2023 Fluticasone-Salmetero l 250-50 MCG/ACT Inhalation Aerosol Powder Breath Activated (Advair Diskus)Indications:CO PD, group D, by GOLD 2017 classification ([facility]) Inhale 1 Puff by mouth in the morning and 1 Puff before bedtime. 60 Each 2 06/05/2023 Active Additional Information Patient not taking.Reported on 06/14/2023 Trelegy Ellipta 100-62.5-25 MCG/ACT Aerosol Powder Breath Activated (Fluticasone-Umeclidi nium-Vilanterol) Inhale 1 Puff by mouth in the morning. 0 Active oxyCODONE HCl 5 MG Oral Tablet (Oxy IR) Take 1 Tablet by mouth every 6 hours as needed for severe pain. 10 Tablet 0 06/16/2023 Active Amoxicillin-Pot Clavulanate 875-125 MG Oral Tablet (Augmentin) Take 1 Tablet by mouth in the morning and 1 Tablet before bedtime. Do all this for 14 days. 28 Tablet 0 06/16/2023 Active documented as of this encounter (statuses as of 06/19/2023) Active Problems Problem Noted Date Diagnosed Date [...] as of this encounter (statuses as of 06/19/2023) Resolved Problems Problem Noted Date Diagnosed Date Resolved Date Chronic obstructive pulmonar y disease with (acute) exacerbation 01/20/2022 04/08/2022 Shortness of breath 03/22/2021 08/17/19 Tick bite 03/22/2021 08/17/2022 documented as of this encounter (statuses as of 06/19/2023) Immunizations Name Administration Dates Next Due COVID-19 mRNA, LNP-s, No Pre serve, 2-Dose Series (Moderna) 03/05/2021,02/05/2021 Hepatitis B Vaccine, Recombi nant, Adjuvanted, 20 mcg/mL (Heplisav-B) 11/15/2022(Deferred: Patient Refused - pt left without getting) Pneumococcal Conjugate Vacci ne, 20-valent ([id number]) 08/25/2022 Pneumococcal Polysaccharide PPV23 (Pneumovax) 06/22/2021 SEASONAL [...] Progress Notes * Shayy Lagunas [facility] - 06/19/2023 8:34 AM EST Incoming call from patient. States he is being DC from [facility]. Patient unclear as to whether he is signing himself out. States he was "lied to". Feels his problems have not been resolved. He was told he would be having surgery, and it kept getting pushed back. States his father has been transitioned to hospice care. He wants to go home to spend time with him. Emotional support offered. Teams message to RNCM to make aware of above. documented in this encounter Plan of Treatment Upcoming Encounters Date Type Department Care Team (Latest Contact Info) Description 07/27/2023 9:15 AM EST Office Visit General Surgery, [facility] [address] [place] [address] Nallely Kincaid MD [address] [place] [address] 08/01/2023 11:45 AM EST Hospital Encounter ENDO [facility], Endoscopy Room [facility] [address] [place] [phone] Kvng Mcguire MD [address] [place] [address] 08/01/2023 11:45 AM EST - 08/01/2023 12:15 PM EST Surgery ENDO [facility], Endoscopy Room [facility] [address] [place] [phone] Kvng Mcguire MD [address] [place] [address] COLONOSCOPY FLEXIBLE PROXIMAL DIAGNOSTIC 08/02/2023 2:40 PM EST Office Visit Family Practice [facility] [address] [place] [address] Jaiden Franklin MD [address] [place] [address] 10/16/2023 2:15 PM EDT Imaging Radiology [address] [place] [address] Scheduled Procedures Name Priority Associated Diagnoses Date/Ti [...] Direct zina occurred with: Patient Care Teams Finance Clerk Relationship Specialty Start Date End Date Martin Flowers DO [address] [place] [id number] PCP - General Family Medicine 07/31/22 documented as of this encounter
--- OUTSIDE RECORDS SUMMARY | 2023-07-15 07:02 | External Medical Summary | Summary of Care ---
Author Name Unknown Organization [facility] Address [address] [place] [address] Phone [phone] Care Team Providers Care Capital Project Engineer Name Role Phone Martin Flowers DO Primary Care Provider + [phone] Reason for Visit * Reason Comments Outpatient Testing Encounter Details Date Type Department Care Team (Late st Contact Info) Description 07/04/2023 4:50 PM EST Laboratory Laboratory, [facility] [address] [facility] [phone] [facility] [address] Diverticulitis of colon Allergies Active Allergy Reactions Criticality Noted Date [...] OPD, group D, by GOLD 2017 classification ([facility]),Moderate persistent asthma without complication Inhale 2 Puffs by mouth every 6 hours as needed for Shortness of Breath or Wheezing. 18 g 2 04/25/2023 Active Albuterol Sulfate (2.5 MG/3ML) 0.083% Inhalation Nebulization Solution (Proventil)Indication s:Moderate persistent asthma without complication Inhale 1 Vial via nebulizer every 6 hours as needed for Wheezing. 360 mL 3 04/25/2023 Active Tiotropium [place] Monohydrate 18 MCG Inhalation Capsule (Spiriva HandiHaler)Indication s:COPD, group D, by GOLD 2017 classification ([facility]) Inhale 1 Capsule by mouth in the morning. For inhaler only, do not swallow.. 30 Capsule 2 06/05/2023 Active Additional Information Patient not taking.Reported on 07/04/2023 Fluticasone-Salmetero l 250-50 MCG/ACT Inhalation Aerosol Powder Breath Activated (Advair Diskus)Indications:CO PD, group D, by GOLD 2017 classification ([facility]) Inhale 1 Puff by mouth in the morning and 1 Puff before bedtime. 60 Each 2 06/05/2023 Active Additional Information Patient not taking.Reported on 06/14/2023 Trelegy Ellipta 100-62.5-25 MCG/ACT Aerosol Powder Breath Activated (Fluticasone-Umeclidi nium-Vilanterol) Inhale 1 Puff by mouth in the morning. 0 Active Ondansetron HCl 4 MG Oral TabletIndications:Dima [...] without getting) Pneumococcal Conjugate Vacci ne, 20-valent ([id number]) 08/25/2022 Pneumococcal Polysaccharide PPV23 (Pneumovax) 06/22/2021 SEASONAL [...] No 06/14/2023 documented as of this encounter Plan of Treatment Upcoming Encounters Date Type Department Care Team (Latest Contact Info) Description 07/05/2023 3:20 PM EST Office Visit Family Practice [facility] [address] [place] [address] Jaiden Franklin MD [address] [place] [address] 07/14/2023 1:15 PM EST [facility] [address] [place] [address] 07/27/2023 9:15 AM EST Office Visit General Surgery, [facility] [address] [place] [address] Nallely Kincaid MD [address] [place] [address] 08/02/2023 2:40 PM EST Office Visit Family [facility] [address] [place] [address] Jaiden Franklin MD [address] [place] [address] 09/26/2023 2:00 PM EST Hospital Encounter ENDO [facility], Endoscopy Room [facility] [address] [place] [phone] Lilli Landa MD [address] [place] [address] 09/26/2023 2:00 PM EST - 09/26/2023 2:30 PM EST Surgery ENDO [facility], Endoscopy Room [facility] [address] [facility] [place] [phone] Lilli Landa MD [address] [place] [address] COLONOSCOPY FLEXIBLE PROXIMAL DIAGNOSTIC 10/11/2023 2:00 PM EDT Office Visit Gastroenterology, [facility] 132 [facility] [place] [address] Selena Salgado CRNP 132 [facility] [place] [address] 10/16/2023 2:15 PM EDT Imaging Radiology [address] [place] [address] Pending Results Name Type Priority Associated Diagnoses Date /Time CBC WITH WBC DIFFERENTIAL Lab Routine Diverticulitis of colon 07/04/2023 4:21 PM EST CBC Lab Routine Diverticulitis of colon 07/04/2023 4:21 PM EST DIFFERENTIAL, AUTOMATED Lab Routine Diverticulitis of colon 07/04/2023 4:21 PM EST Scheduled Procedures Name Priority Associated Diagnoses Date/Ti [...] this encounter Visit Diagnoses Diagnosis Diverticulitis of colon Diverticulitis of colon (without mention of hemorrhage) History of diverticulitis documented in this encounter Advance Directives Latest Code Status on File Code Status Date Activated Date Inactivated Comments Full Code 06/14/2023 8:45 PM 06/16/2023 8:01 PM Question Answer Comments Discussion of Advance Direct zina occurred with: Patient Care Teams Capital Project Engineer Relationship Specialty Start Date End Date Martin Flowers DO [address] [place] [address] PCP - General Family Medicine 07/31/22 documented as of this encounter
--- OUTSIDE RECORDS SUMMARY | 2023-07-15 07:02 | External Medical Summary ---
Author Name Unknown Address Unknown Organization K01:[facility] [place] - [address] [place] [address] Laboratory Report Ordering Provider Test Date Status TENA ERWIN 06/16/2023 06:10:00 Final Observation Date Value Abnormality Reference (Units ) Status WBC, Total 06/16/2023 06:10:00 6.38 4.00-10.80 (K/uL) Final RBC 06/16/2023 06:10:00 4.81 4.50-5.25 (M/uL) Final Hemoglobin 06/16/2023 06:10:00 15.1 14.0-16.8 (g/dL) Final HCT 06/16/2023 06:10:00 46.7 40.0-48.4 (%) Final MCV 06/16/2023 06:10:00 97.1 82.0-99.5 (fL) Final MCH 06/16/2023 06:10:00 31.4 27.0-34.0 (pg) Final MCHC 06/16/2023 06:10:00 32.3 32.0-36.0 (g/dL) Final RDW 06/16/2023 06:10:00 12.7 11.5-15.5 (%) Final Platelets 06/16/2023 06:10:00 242 140-400 (K/uL) Final MPV 06/16/2023 06:10:00 10.8 6.6-11.1 (fL) Final Nucleated erythrocytes/100 leukocytes [Ratio] in Blood by Automated count 06/16/2023 06:10:00 0 <=0 (/100 WBCs) Final Performing Location [facility] – [place] - [address] [place] [address]
--- OUTSIDE RECORDS SUMMARY | 2023-07-15 07:02 | External Medical Summary | Summary of Care ---
Author Name Unknown Organization [facility] Address [address] [place] [address] Phone [phone] Care Team Providers Care Assistant Sales Center Manager Name Role Phone Martin Flowers DO Primary Care Provider + [phone] Encounter Details Date Type Department Care Team (Late st Contact Info) Description 06/30/2023 Telephone Care Coordination and Integration [address] [place] [address] Shayy Lagunas [facility] [address] [place] [address] [place] [address] Allergies Active Allergy Reactions [...] group D, by GOLD 2017 classification ([facility]),Moderate persistent asthma without complication Inhale 2 Puffs by mouth every 6 hours as needed for Shortness of Breath or Wheezing. 18 g 2 04/25/2023 Active Albuterol Sulfate (2.5 MG/3ML) 0.083% Inhalation Nebulization Solution (Proventil)Indication s:Moderate persistent asthma without complication Inhale 1 Vial via nebulizer every 6 hours as needed for Wheezing. 360 mL 3 04/25/2023 Active Tiotropium [place] Monohydrate 18 MCG Inhalation Capsule (Spiriva HandiHaler)Indication s:COPD, group D, by GOLD 2017 classification ([facility]) Inhale 1 Capsule by mouth in the morning. For inhaler only, do not swallow.. 30 Capsule 2 06/05/2023 Active Additional Information Patient not taking.Reported on 06/14/2023 Fluticasone-Salmetero l 250-50 MCG/ACT Inhalation Aerosol Powder Breath Activated (Advair Diskus)Indications:CO PD, group D, by GOLD 2017 classification ([facility]) Inhale 1 Puff by [...] without getting) Pneumococcal Conjugate Vacci ne, 20-valent ([id number]) 08/25/2022 Pneumococcal Polysaccharide PPV23 (Pneumovax) 06/22/2021 SEASONAL [...] Progress Notes * Shayy Lagunas [facility] - 06/30/2023 12:58 PM EST Please note [...] up", and ending up in the hospital. documented in this encounter Plan of Treatment Upcoming Encounters Date Type Department Care Team (Latest Contact Info) Description 07/04/2023 3:30 PM EST Office Visit [facility]enterology, [facility] [place] [address] Selena Salgado CRNP [address] [place] [address] 07/27/2023 9:15 AM EST Office Visit General Surgery, [facility] [place] [address] Nallely Kincaid MD [address] [place] [address] 08/01/2023 11:45 AM EST Hospital Encounter ENDO [facility], Endoscopy Room [facility] [address] [place] [phone] Kvng Mcguire MD [address] [place] [address] 08/01/2023 11:45 AM EST - 08/01/2023 12:15 PM EST Surgery ENDO [facility], Endoscopy Room [facility] [address] [place] [phone] Kvng Mcguire MD [address] [place] [address] COLONOSCOPY FLEXIBLE PROXIMAL DIAGNOSTIC 08/02/2023 2:40 PM EST Office Visit Family Practice [facility] [address] [place] [address] Jaiden Franklin MD [address] [place] [address] 10/16/2023 2:15 PM EDT Imaging Radiology [address] [place] [address] Scheduled Procedures Name Priority Associated Diagnoses Date/Ti [...] Direct zina occurred with: Patient Care Teams Assistant Sales Center Manager Relationship Specialty Start Date End Date Martin Flowers DO [address] [place] [phone] PCP - General Family Medicine 07/31/22 documented as of this encounter
--- OUTSIDE RECORDS SUMMARY | 2023-07-15 07:02 | External Medical Summary | Summary of Care ---
Author Name Unknown Organization [facility] Address [address] [place] [address] Phone [phone] Care Team Providers Care Director Center Name Role Phone Lionel Martin Primary Care Provider [phone] Reason for Visit * Auth/Cert Specialty Diagnoses / Procedures Referred By Dena t Referred To Contact Diagnoses Colovesical fistula Colovesicular fistula Referral ID Status Reason Start Date Expiration Date Visits Re quested Visits Authorized [id number] Encounter Details Date Type Department Care Team (Latest Contact Info) Description 06/14/2023 8:40 PM EST - 06/16/2023 4:00 PM EST Hospital En[id number] [place] [facility] [address] [place] [address] Kinsey Rhodes MD [address] [place] [address] Denise Watkins MD [address] [place] [address] Discharge Disposition: Home - Self Care Allergies Active Allergy Reactions Criticality Noted Date Comments Food (See Comments) Hives Medium 06/14/2023 Peaches documented as of this encounter (statuses as of 06/17/2023) Medications Medication Sig Dispensed Refills Start Date End Date Status Vitamin D 50 MCG (1999) Oral Capsule Take 2,000 Units by mouth in the morning. 0 Active Ginseng 100 MG Oral Capsule Take by mouth daily. 0 Active CoQ-10 100 MG Oral Capsule Take by mouth daily. 0 Active Omeprazole 20 MG Oral Capsule Delayed Release (PriLOSEC)Indicatio ns:Gastroesophageal reflux disease without esophagitis Take 1 Capsule by mouth in the morning. 1 hour before the first meal of the day. 30 Capsule 5 3 Active Levocetirizine Dihydrochloride 5 MG Oral Tablet Take 1 Tablet by mouth every evening. 90 Tablet 3 3 Active Nebulizer Device To be used with nebulized medication 1 Each 0 3 Active Nebulizer/Tubing/Mo uthpiece Kit To be used with nebulized device 1 Kit 2 3 Active Fluticasone Propionate 50 MCG/ACT Nasal Suspension (Flonase)Indication s:Seasonal allergic rhinitis due to pollen Administer 2 Sprays into each nostril in the morning. 16 g 2 3 Active Montelukast Sodium 10 MG Oral Tablet (Singulair)Indicati ons:Seasonal allergic rhinitis due to pollen Take 1 Tablet by mouth in the morning. 90 Tablet 3 3 Active Albuterol Sulfate HFA 108 (90 Base) MCG/ACT Inhalation Aerosol SolutionIndications :COPD, group D, by GOLD 2017 classification ([facility]),Moderate persistent asthma without complication Inhale 2 Puffs by mouth every 6 hours as needed for Shortness of Breath or Wheezing. 18 g 2 3 Active Albuterol Sulfate (2.5 MG/3ML) 0.083% Inhalation Nebulization Solution (Proventil)Indicati ons:Moderate persistent asthma without complication Inhale 1 Vial via nebulizer every 6 hours as needed for Wheezing. 360 mL 3 3 Active Tiotropium [place] Monohydrate 18 MCG Inhalation Capsule (Spiriva HandiHaler)Indicati ons:COPD, group D, by GOLD 2017 classification ([facility]) Inhale 1 Capsule by mouth in the morning. For inhaler only, do not swallow.. 30 Capsule 2 3 Active Additional Information Patient not taking.Reported on 06/14/2023 Fluticasone-Salmete rol 250-50 MCG/ACT Inhalation Aerosol Powder Breath Activated (Advair Diskus)Indications: COPD, group D, by GOLD 2017 classification ([facility]) Inhale 1 Puff by mouth in the morning and 1 Puff before bedtime. 60 Each 2 3 Active Additional Information Patient not taking.Reported on 06/14/2023 Tretosin Ellipta 100-62.5-25 MCG/ACT Aerosol Powder Breath Activated (Fluticasone-Umecli dinium-Vilanterol) Inhale 1 Puff by mouth in the morning. 0 Active oxyCODONE HCl 5 MG Oral Tablet (Oxy IR) Take 1 Tablet by mouth every 6 hours as needed for severe pain. 10 Tablet 0 3 Active Amoxicillin-Pot Clavulanate 875-125 MG Oral Tablet (Augmentin) Take 1 Tablet by mouth in the morning and 1 Tablet before bedtime. Do all this for 14 days. 28 Tablet 0 3 06/30/20 Active Ciprofloxacin HCl 500 MG Oral Tablet (Cipro) take 1 tablet by mouth every 12 hours for 7 days 0 3 06/16/20 23 Discontinued metroNIDAZOLE 500 MG Oral Tablet (Flagyl) take 1 tablet by mouth every 8 hours for 7 days 0 3 06/16/20 23 Discontinued documented as of this encounter (statuses as of 06/17/2023) Active Problems Problem Noted Date Diagnosed Date [...] as of this encounter (statuses as of 06/17/2023) Resolved Problems Problem Noted Date Diagnosed Date Resolved Date Chronic obstructive pulmonar y disease with (acute) exacerbation 01/20/2022 04/08/2022 Shortness of breath 03/22/2021 08/17/19 23 Tick bite 03/22/2021 08/17/2022 documented as of this encounter (statuses as of 06/17/2023) Immunizations Name Administration Dates Next Due COVID-19 mRNA, LNP-s, No Pre serve, 2-Dose Series (Moderna) 03/05/2021,02/05/2021 Hepatitis B Vaccine, Recombi nant, Adjuvanted, 20 mcg/mL (Heplisav-B) 11/15/2022(Deferred: Patient Refused - pt left without getting) Pneumococcal Conjugate Vacci ne, 20-valent ([id number]) 08/25/2022 Pneumococcal Polysaccharide PPV23 (Pneumovax) 06/22/2021 SEASONAL [...] Sign Reading Time Taken Comments Blood Pressure 138/73 06/16/2023 3:14 PM EST Pulse 61 06/16/2023 3:14 PM EST Temperature 36.7 C (98 F) 06/16/2023 3:14 PM EST Respiratory Rate 17 06/16/2023 3:14 PM EST Oxygen Saturation 93% 06/16/2023 3:14 PM EST Inhaled Oxygen Concentration - - Weight 89.4 kg (197 lb) 06/14/2023 9:08 PM EST Height 175.3 cm (5' 9") 06/14/2023 9:08 PM EST Body Mass Index 29.09 06/14/2023 9:08 PM EST documented in this [...] No 06/14/2023 documented as of this encounter Discharge Instructions * Discharge Instr - AVS* Paras Oconnor MD - 06/15/2023 6:28 AM EST Discharge Date: 06/16/2023 You may call Doctor Watkins of the department of Colorectal Surgery at [phone] during business hours for any questions or test results. For after- hours emergencies call [phone] and have yourdoctor paged. The information below provides you with the instructions and the list of medications you need to betaking following discharge from the hospital. If you have any questions, please ask before leaving.Please carry this letter with you when you see your doctor in the clinic. If you have questions, you can reach us at the numbers above. Antibiotics: Please take Augmentin twice a day for 2 weeks Brief summary of your inpatient care: You were admitted to [facility] on 06/14/23 fordiverticulitis. You did not require an emergency operation. Please follow up with GI to get a colonoscopy in about 6 weeks and colorectal surgery to discuss elective surgery. Your primary diagnosis at discharge was diverticulitis. Your doctors during this hospitalization included: - Dr Watkins (Colorectal Surgery) Inpatient test results pending: None Operations & Procedures: None Complications: none Advance Directive Documented: Advance Directive Does the Patient have an Advance Directive? No Diet: low fiber diet - A fiber restricted diet reduces the size and number of your stools. No fresh fruit or vegetables. Examples of fiber restricted diet: Refined breads, cereals, crackers, chips and pasta with less than 1 gram of fiber per serving, white rice, juices without seeds or pulp, milk, yogurt, pudding, ice cream, and cream-based soups and sauces (strained), tender meat, poultry, fish, eggs, oil, broth-based soups (strained), jelly, honey and syrup. Activity: As tolerated Driving: Don't drive until you are off narcotics for one full week and can walk normally and firmlyapply the brake without pain. If you are still having pain with exertion or rapid movement, you should not drive. Date you may return to work or school: Based on further instruction reviewed by surgeon after follow up visit. See your primary care physician (Martin Flowers DO) as needed . Special Instructions: Call the Surgery office at [phone] if you have any questions or concerns or if you experience any of the following: - Elevated temperatures of 101.5 degrees or greater - Persistent nausea and vomiting - Pain that is not controlled with prescribed medications - Follow up with colorectal in 2 weeks. Low fiber diet A fiber restricted diet reduces the size and number of your stools. No fresh fruit or vegetables. Examples of fiber restricted diet: Refined breads, cereals, crackers, chips and pasta with less than 1 gram of fiber per serving, white rice, juices without seeds or pulp, milk, yogurt, pudding, ice cream, and cream-based soups and sauces (strained), tender meat, poultry, fish, eggs, oil, broth-based soups (strained), jelly, honey and syrup. --- documented in this encounter Progress Notes * Jackie Yeh MD - 06/15/2023 5:43 AM EST PROGRESS NOTE - Trauma/Emergency Surgery [facility] [place] [address] Name: Davion Cho [place] [facility] [place] Date: 06/15/2023 Time: 5:43 AM DIAGNOSIS: Uncomplicated diverticulitis PROCEDURE: None this admission DATE OF SURGERY: N/A POST OP DAY: N/A SUBJECTIVE: NAEO, VSS, afebrile. Endorses some LLQ abdominal pain. Denies nausea, vomiting, fevers, chills. Passing gas, having bowel movements. Endorses some bright red blood when he wipes. OBJECTIVE: Most Recent Vital Signs: BP: 114 mmHg/68 mmHg (06/15/23416) Pulse: 55 (06/15/23416) Temp: 36.17 C (06/15/23416) Resp: 18 (06/15/23416) SpO2: 96 % (06/15/23416) Vital Signs Last 24 Hours: Systolic BP: Most Recent Systolic BP Av mmHg Min: 114 mmHg Max: 126 mmHg Temperature: Most Recent Temperature Av.3 C Min: 36.17 C Max: 36.56 C Pulse: Pulse Av.7 Min: 55 Max: 59 Respirations: Resp Av Min: 18 Max: 18 SpO2: SpO2 Av % Min: 96 % Max: 96 % In / Out Past 24 Hrs: Intake/Output Summary (Last 24 hours) at 06/15/2023 0543 Last data filed at 06/15/2023 0100 Gross per 24 hour Intake 750 ml Output 100 ml Net 650 ml Physical Exam: General: no acute distress Head: normocephalic, atraumatic Eyes: extraocular movements intact ENT: oropharynx clear, mucus membranes moist Neck: supple, trachea midline CV: normal rate, regular rhythm Pulm: normal respiratory effort Abdomen: soft, nondistended, mild tenderness in LLQ Extremities: warm, well-perfused, no edema Skin: warm, dry, intact LABS: CBC Lab results within last 7 days (see chart for full results) Units 06/14/23 2120 WBC K/uL 8.87 HGB g/dL 14.7 PLT K/uL 257 BMP, Electrolytes Lab results within last 7 days (see chart for full results) Units 06/14/23 2120 Sodium mmol/L 139 Potassium mmol/L 3.8 Chloride mmol/L 105 CO2 mmol/L 24 BUN mg/dL 11 Creatinine mg/dL 1.0 Glucose mg/dL 118 Calcium mg/dL 9.0 Magnesium mg/dL 2.1 Phosphorus mg/dL 3.6 LFTs No results in the last 7 days - inpatent use only Lactate Lab results within last 7 days (see chart for full results) Units 06/14/23 2120 Lactate mmol/L 1.2 INR No results in the last 7 days - inpatent use only IMAGING: No imaging results in the last 24 hours Sutures/nader to be removed?: no sutures to be removed Central line to be removed or continued?: patient does not have central venous access Current DVT/PE prophylaxis is?: sequential compression devices (SCD's) and lovenox Current stress ulcer prophylaxis is?: none Medication administration record reviewed this visit?: Yes IMPRESSION: Principal Problem: Diverticulitis of colon Active Problems: Severe persistent asthma without complication COPD, group D, by GOLD 2017 classification (HCC) Gastroesophageal reflux disease without esophagitis Resolved Problems: * No resolved hospital problems. * 43 year old male with uncomplicated diverticulitis and CT demonstrating no colovesical fistula. PLAN: IVF: Isolyte @ 100 ml/hr - will stop DVT/PE ppx: sequential compression devices (SCD's) and lovenox Analgesia: prn tylenol, oxy Diet: NPO except meds, advance to regular GI ppx: diet by mouth Nausea: prn zofran Bowel Regimen: none Peña: N/A Antibiotics: Zosyn Labs: AM CBC, BMP, mag, phos Drains/Lines: PIVs Runnells/Sutures: none Activity: OOB as tolerated Respiratory: IS Resumed Home Medications: Albuterol, Flonase, Singulair, Prilosec, Breo ellipta, Spiriva, Vit D3 Held Home Medications: cipro/flagyl Consults Requested: none Patient seen and discussed with Dr. Reese Yeh MD General Surgery, PGY1 [facility] 06/15/2023 6:42 AM TigerText: [facility] Resident [employer] Associated attestation - Carlos Leigh MD - 06/15/2023 11:58 AM EST I saw and evaluated the patient today. I have reviewed the trainee note and agree. - Abdomen is soft, minimal tenderness - CT scan with no fistula and minimal stranding around the colon - Advance diet - Possible discharge later today or tomorrow - Will refer to Colorectal for follow up * Mariella Cisneros RN - 06/14/2023 8:40 PM EST Patient arrived on unit at 20:40 via EMS. Patient ambulated to bed from [facility]. Dual Licensed Skin Assessment completed by Mariella Bland RN and Stephnaie Mendez RN. The patient is/has a N/A Skin Breakdown (includes non blanchable erythema): No documented in this encounter H&P Notes * Kelsy Billingsley MD - 06/14/2023 4:47 PM EST HISTORY AND PHYSICAL EXAMINATION - Trauma/Emergency Surgery [facility] [place] [address] Name: Davion Cho [place] [facility] [place] [facility] Date: 06/14/2023 Time: 4:47 PM PRESENTING PROBLEM: Diverticulitis vs. diverticulosis HISTORY OF PRESENT ILLNESS: Davion Cho is a 43 year old male with a PMH of COPD, asthma, and anxiety/depression who presents to [facility] as a direct admit from [facility] for management abdominal pain of unknown source - diverticulosis vs diverticulitis vs clinical concern for fistula. Approximately 8 days ago, he began to have RLQ and suprapubic abdominal pain. He had associated nausea and vomiting with the abdominal pain. He endorses a history of internal and external hemorrhoidsand occasional BRBPR. His pain was consistent across the last 8 days. He endorses several days of small caliber stool ("like spaghetti") but otherwise denies changes in stool. He endorses shooting pain down his penis with urination and some suprapubic tenderness. He denies stool, bubbles, cloudiness in his urine - states clear, yellow urine. He denies chest pain, SOB, fever, chills. He was started on cipro/flagyl at the outside hospital. He does endorse a history of diverticulitis, treated with antibiotics, he believes in April On CT on 06/11, he was found to have colonic diverticulosis with a sigmoid diverticulum adjacent tothe superior aspect of the bladder with contrast present in the bladder lumen without contrast extravasation into the abdominal cavity. On arrival, he endorses moderate abdominal pain, denies nausea but has a scopolamine patch in place. Denies prior abdominal surgeries. HOSPITAL PROBLEM LIST: Principal Problem: Colovesical fistula Resolved Problems: * No resolved hospital problems. * PAST MEDICAL HISTORY: Past Medical History: Diagnosis Date Anxiety and depression Arthritis Asthma Chronic headaches COPD (chronic obstructive pulmonary disease) (HCC) Emphysema, unspecified (HCC) GERD (gastroesophageal reflux disease) Neuropathy Scoliosis Tick bite 03/22/2021 Tremor PAST SURGICAL HISTORY: Past Surgical History: Procedure Laterality Date BRONCHOSCOPY, DX W/ EBUS, 1-2 NODES N/A 03/24/2022 BRONCHOSCOPY, RIGID OR FLEXIBLE, INCLUDING FLUOROSCOPIC GUIDANCE, WHEN PERFORMED; WITH EBUS GUIDED TRANSTRACHEAL AND/OR TRANSBRONCHIAL SAMPLING (EG, ASPIRATION[S]/BIOPSY[IES]), 1 OR 2 MEDIASTINAL AND/OR HILAR LYMPH NODE STATIONS OR STRUCTURES performed by Eusebio Morrissey MD at [facility] INFORMATION Pancreas biopsy x 2. INFORMATION Sinus surgery. INFORMATION Facial fracture repair- hardware in place. FAMILY HISTORY: Family History Problem Relation Age of Onset Parkinsonism Father No Known Problems Sister No Known Problems Brother SOCIAL HISTORY: Social History Tobacco Use Smoking status: Former Packs/day: 1.00 Years: 25.00 Additional pack years: 0.00 Total pack years: 25.00 Types: Cigarettes Quit date: 11/07/2021 Years since quittin.6 Smokeless tobacco: Never Tobacco comments: Smoked off and on for 25 year period not sure of exact number of years. Currently smokes medical marijuana Vaping Use Vaping Use: Never used Substance Use Topics Alcohol use: Not Currently Drug use: Not Currently Types: Marijuana Comment: medical marijuana last use 06/06/2023 CURRENT HOSPITAL MEDICATIONS: Note that completed medications (per the MAR) continue to display for 24 hours. Ordered medicationsto be given in the future also display. Current Facility-Administered Medications Medication Dose Route Frequency Provider Acetaminophen (Tylenol) tab 975 mg 975 mg Oral Q6H Leah Chow MD albuterol (VENTOLIN HFA/PROVENTIL HFA) inhaler 2 Puff Inhalation Q6H PRN Leah Chow MD [START ON 06/15/2023] Albuterol Sulfate (Proventil) (2.5 MG/3ML) 0.083% inhalation solution 2.5 mg 2.5 mg Nebulizer BID (08,1999) Kinsey Rhodes MD [START ON 06/15/2023] cholecalciferol (VIT D3) (Vitamin D3) tab 2,000 Units 2,000 Units Oral Daily(AM) Leah Chow MD [START ON 06/15/2023] fluticasone (Flonase) nasal inhaler 2 [place] 2 [place] Each Nostril Daily(AM) Leah Chow MD [START ON 06/15/2023] Gbvuxkkyjyb-Xsxiaahdxylq-Uucjxvbxaj (Trelegy Ellipta) 100-62.5-25 MCG/ACT inhaler 1 Puff 1 Puff Inhalation Resp Daily Kinsey Rhodes MD isolyte-S pH 7.4 infusion Intravenous Continuous Leah Chow MD [START ON 06/15/2023] montelukast (Singulair) tab 10 mg 10 mg Oral Daily(AM) Leah Chow MD [START ON 06/15/2023] omeprazole (PriLOSEC) cap 20 mg 20 mg Oral Daily(AM) Leah Chow MD ondansetron ODT (Zofran) tab 4 mg 4 mg On Tongue Q6H PRN Leah Chow MD Or ondansetron (Zofran) inj 4 mg 4 mg IV Push Q6H PRN Leah Chow MD oxyCODONE (Oxy IR) tab 10 mg 10 mg Oral Q4H PRN Leah Chow MD oxyCODONE (Oxy IR) tab 5 mg 5 mg Oral Q4H PRN Leah Chow MD [START ON 06/15/2023] Piperacillin-Tazobactam (Zosyn) 4.5 g in 100 mL NSS ivpb (FOUR hour infusion)4.5 g IV Piggyback Q8H Now Leah Chow MD [START ON 06/15/2023] sodium chloride 0.9 % flush peripheral gavino 3 mL 3 mL IV Push Q Shift Leah Chow MD ALLERGIES: Food (see comments) ROS: Reviewed and negative unless otherwise noted above. PHYSICAL EXAMINATION: Most Recent Vital Signs: BP: 120 mmHg/75 mmHg (06/14/232107) Pulse: 59 (06/14/232107) Temp: 36.56 C (06/14/232107) Resp: 18 (06/14/232107) SpO2: 96 % (06/14/232107) Physical Exam: General: no acute distress Head: normocephalic, atraumatic CV: normal rate, regular rhythm Pulm: normal respiratory effort Abdomen: soft, LLQ and suprapubic TTP, nondistended Extremities: warm, well-perfused, no edema Skin: warm, dry, intact LABS: CBC Lab results within last 7 days (see chart for full results) Units 06/14/232119 WBC K/uL 8.87 HGB g/dL 14.7 PLT K/uL 257 BMP, Electrolytes Lab results within last 7 days (see chart for full results) Units 06/14/232119 Sodium mmol/L 139 Potassium mmol/L 3.8 Chloride mmol/L 105 CO2 mmol/L 24 BUN mg/dL 11 Creatinine mg/dL 1.0 Glucose mg/dL 118 Calcium mg/dL 9.0 Magnesium mg/dL 2.1 Phosphorus mg/dL 3.6 LFTs No results in the last 7 days - inpatent use only Lactate Lab results within last 7 days (see chart for full results) Units 11/15/23 2120 Lactate mmol/L 1.2 INR No results in the last 7 days - inpatent use only IMAGING: EXAM: CT Abdomen w/ Contrast 06/11/2023 09:35 EST IMPRESSION: Contrast is present within the bladder lumen. A diverticulum of the sigmoid colon extends immediately adjacent to the superior aspect of the bladder without definite fistulous tract. No contrast extravasation outside the bladder lumen of the bowel to suggest definite fistula tract. IMPRESSION: 43 year old male with colovesical fistula. PLAN: IVF: Isolyte @ 100 ml/hr DVT/PE ppx: sequential compression devices (SCD's) and lovenox Analgesia: prn tylenol, oxy Diet: NPO except meds GI ppx: diet by mouth Nausea: prn zofran Bowel Regimen: none Peña: N/A Antibiotics: Zosyn Labs: full set of labs now, AM CBC, BMP, mag, phos Drains/Lines: PIVs Runnells/Sutures: none Activity: OOB as tolerated Respiratory: IS Resumed Home Medications: Albuterol, Flonase, Singulair, Prilosec, Breo ellipta, Spiriva, Vit D3 Held Home Medications: cipro/flagyl Consults Requested: GI for BRBPR - CT AP with IV/PO/Rectal contrast Dispo: med surg Patient seen and discussed with Dr. Nettles. Kelsy Billingsley MD General Surgery PGY-1 [facility] Associated attestation - iLlli Nettles MD - 06/15/2023 4:04 AM EST ATTESTATION I saw and evaluated the patient on 06/14/23. I have reviewed the trainee note. I have reviewed and independently interpreted the history, physical, chart, labs, and imaging. HPI: 43 yo male with a history of diverticulosis diagnosed on 04/08/23 and outside notes state CT showed diverticulitis with microperforation and was treated with IV cefepime and Flagyl then transitioned toZosyn. He was discharged on Cipro and Flagyl. He was scheduled to have a colonoscopy, however priorto being able to complete this he presented to an OSH approximately 8 days ago with lower abdominalpain. He states he was diagnosed with diverticulitis and they were going to discharge him but he requested transfer as there was no change in his pain. There is varying information available, but thepossibility of a fistula was brought up. Unfortunately imaging (06/11 CT) was not sent with the pt,only the report is available. It states there is a sigmoid diverticulum extending immediately adjacent to the superior aspect of the bladder withOUT definite fistulous tract. He also states he has a CK2NA mutation making him at increased risk of melanoma and pancreatic cancer. States his dad had a large polyp, but no family history of IBD or colon cancer. He also had lungnodules which were biopsied. He has never had a colonoscopy (was scheduled for one on 06/19/23). On exam abdomen is soft and nondistended but has moderate lower abdominal tenderness with voluntaryguarding PLAN: - Admit to Surgery - Zosyn - Attempt to obtain imaging from OSH - CT A/P with IV, PO, and rectal contrast - Will need colonoscopy as an outpatient - COPD, Asthma: [employer]ING WORK[employer] Trelegy Ellipta , Albuterol, Singulair - GERD: [employer] WORK[employer] Omeprazole Lilli Nettles MD, FACS Trauma, Emergency General Surgery, and Critical Care Principal Problem: Diverticulitis of colon (POA: Yes) Active Problems: Severe persistent asthma without complication (POA: Yes) COPD, group D, by GOLD 2017 classification (HCC) (POA: Yes) Gastroesophageal reflux disease without esophagitis (POA: Yes) POA = Present On Admission documented in this encounter Miscellaneous Notes * Ancillary Progress Note - Maddy Gee RN - 06/16/2023 3:33 PM EST ADULT CARE MANAGEMENT - DISCHARGE [place] [facility] [address] Name: Davion Cho [place] [facility] [facility] Date: 06/16/2023 Time: 3:33 PM The following coordination of care and discharge plan has been coordinated with the care team, patient, family and/or caregiver according to the patients needs and preferences. Discharge Discharge Insurance considerations verified and completed: Yes (06/16/23 9480) Second Notice Important Message from Medicare delivered: Not Applicable (06/16/231532) Was Caregiver/Family/Facility contacted regarding discharge: Yes (06/16/231532) Discharge Transportation: Taxi/Bus Voucher (06/16/231532) Date of scheduled discharge transportation: 06/16/23 (06/16/231532) Time of scheduled discharge transportation: 1600 (06/16/231532) Patient declined post-hospital transition of care recommendation: N/A (06/16/231532) Final D/C Plan - Complete at time of D/C Final Discharge Plan (Complete only at time of Discharge): Home - Self Care (06/16/231532) Destination - Admitted Since 06/14/2023 No services have been selected for the patient. Destination - Episodes Includes Destination providers with selected services from the active episodes listed below Level 2 Complex Case Management Episode start date: 04/17/2023 There are no active outsourced providers for this episode. Narrative: 1500 Incoming TT from ARNOLDO Menendez, general surgery regarding discharge to home today from Dr Oconnor. CM sent a TT to Paras Oconnor, resident physician, general surgery, regarding discharge to home today pending ride set up. CM called and spoke with [employer], regarding a cab ride today to [place]. per Андрей he can do the ride at 4:00 pm today and the cost is $290.00. CM updated DR Oconnor regarding confirmation of cab ride for 4:00 pm today. CM met with the above pt regarding discharge to home today and needing a cab ride. CM shared the cost of the cab ride. As per the pt he can not afford that cost. As per this CM the CM office can cover this ride one time for you. [facility] [place] pink slip and bedside RN made aware of discharge time. * Ancillary Progress Note - Maddy Gee RN - 06/16/2023 12:49 PM EST CARE MANAGEMENT - ADULT TRANSITION NOTE [facility] [address] Name: Davion Cho [place] [facility] Date: 06/16/2023 Time: 12:49 PM Prescription Coverage: Yes (06/15/231329) RX Plan and Comment: Rojas Lamb (06/15/231329) Risk Stratification Risk Stratification Medical and Behavioral Health Concerns Identified: Chronic disease (06/15/231329) Psycho Social/Care Gaps concerns identified upon admission:: Adjustment to illness/injury () OBRA or OPTIONS needed for placement: No (06/15/231329) Readmission Risk Score: 7.4 (06/16/23 1200) AM-PAC Score With Stairs : 24 (06/16/23 0000) Caregiver Information Patient Contacts Name Relation Home Work Mobile Stefanie Cho Mother [phone] Transition of Care Checklist Transition of Care Checklist (aka Readmission Risk Score) Readmission Risk Score: 7.4 (06/16/23 1200) Narrative: Pt discussed during IDT rounds with the attending service. As per attending service pt is not medically ready R/T CLD diet for now. Anticipated Transportation at Discharge: pt will need a ride home Patient/Family Expectations: home Transition Planning Additional Considerations: Care Management will continue to monitor and assist with discharge planning needs * Ancillary Progress Note - Maddy Gee RN - 06/15/2023 1:38 PM EST CARE MANAGEMENT - ADULT INITIAL SCREENING [address] [address] Name: Davion Cho [place] [facility] Date: 06/15/2023 Time: 1:38 PM Patient Class: Inpatient (06/15/231329) Discussed patient with the interdisciplinary care team. This Racking Machine Operator performed a chart review and met with pt at bedside to complete admission screen and assessed needs for transition planning. The healthcare recruiter role and services were explained and emotional support was provided. 30 Day Readmission Screening 30 Day Readmission Readmission within 30 days?: No (06/15/231329) Chief Complaint: No chief complaint on file. Prior Living Arrangements What was your living situation prior to admission/observation?: Independently (06/15/231329) Do you have any children, pets, or other dependents that you are currently caring for?: No (06/15/231329) Living Quarters: House (06/15/231329) How many stories is the dwelling?: Two Stories (06/15/231329) Number of steps to enter living quarters:: 3-4 (06/15/231329) Location of bathroom(s): All floors or Single story dwelling (06/15/231329) Do you have serious difficulty walking or climbing stairs? (5 years old or older): No (06/15/231329) History of falling: No (06/15/231329) Prior Level of Functioning Describe the patient's ability prior to admission/observation to perform ADLs: Performs independently (06/15/231329) Describe the patient's mobility status prior to admission: Patient ambulates independently;Patient can sit up in bed;Patient is able to sit on bedside (06/15/231329) Patient uses assistive device: No (06/15/231329) Caregiver Information Patient Contacts Name Relation Home Work Mobile Stefanie Cho Mother [phone] Risk Stratification/Psychosocial/Care Gaps Risk Stratification Medical and Behavioral Health Concerns Identified: Chronic disease (06/15/231329) Psycho Social/Care Gaps concerns identified upon admission:: Adjustment to illness/injury () OBRA or OPTIONS needed for placement: No (06/15/231329) Readmission Risk Score: 7 (06/15/231329) AM-PAC Score With Stairs : 24 (06/14/232039) Comments: Pt lives alone in a 2 story home. Pt has 3-4 steps to enter his home and as per pt he does not have any difficulty with steps. Pt has a nebulizer but is unsure what company provides the machine. As per pt he is independent, drives and doesn't have a lot of support. Pt did not have a priorSNF stay or services. Prior to Admission Services Services Prior to Admission CASING WORKER Services (Services received within the last 30 days with exception, Psych within last two years): N/A (06/15/231329) [place] [employer] [employer] (PDA) Waiver Program: N/A (06/15/23 1330) CASING WORKER Transportation (Services received within the last 30 days): Patient drives self (06/15/23 133) Outpatient Racking Machine Operator: no, not applicable Patient/Family Expectations: home Anticipated Disposition Plan & Post Acute Needs Anticipated Plan Anticipated D/C disposition per abbreviated screening: Routine discharge or self care, No D/C planning needs identified. Will monitor for status change (06/15/23 133) Anticipated Post-Acute Care needs identified: N/A (06/15/23 133) For further screening information, please refer to the Care Management flow document. * Care Plan - Mariella Cisneros RN - 06/15/2023 10:16 AM EST Clinical Goal(s): patient will have adequate pain management this shift (06/15/23 0700) Possible barriers to meeting goal(s)/advancing plan of care: Pain Stability of the patient: Moderately stable - low risk of patient condition declining or worsening Summary regarding today's goal(s): Met: pain management Recommendations: Pain management * Care Plan - Mariella Cisneros RN - 06/15/2023 1:14 AM EST Clinical Goal(s): patient will have adequate pain management this shift (06/14/23 2300) Possible barriers to meeting goal(s)/advancing plan of care: Abd pain Stability of the patient: Moderately stable - low risk of patient condition declining or worsening Summary regarding today's goal(s): Met: adequate pain management Recommendations: IV fluids, IV abx, pain management * Ancillary Progress Note - Jaida Richard RRT - 06/14/2023 11:19 PM EST PATIENT DRIVEN PROTOCOL - Respiratory Care Services [facility] [address] Name: Davion Cho [place] [facility] Date: 06/14/2023 Time: 11:19 PM Patient Driven Protocol Summary: Initial evaluation performed. This Treatment Plan and medications will be reviewed by the Primary Care Team for any contraindications. Respiratory Care Treatment Plan Aerosol Therapy Treatment:: Inhaler(s) PRN with Albuterol Sulfate: 2 puffs. to reduce work of breathing and improve pulmonary gas exchange. Additional Aerosolized Treatments: Hand Held Nebulizer Tx BID with Albuterol Sulfate: Unit dose 0.083%. to reduce work of breathing and improve pulmonary gas exchange. Additional Aerosolized Treatments: Inhaler(s) QDAY with Trelegy Ellipta (fluticasone furoate 100 mcg, umeclidinium 62.5 mcg and Vilanterol 25 mcg inhalation powder) / 1 inhalation. to suppress bronchial inflammation and edema by the use of systemic steroid sparing therapy. . Pulmonary Volume Expansion Therapy: Incentive Spirometry PRN to prevent or treat alveolar consolidation and atelectasis. . The patient will be re-evaluated: No re-evaluation needed. Indications for treatment met. The Triage Level is: (Assessment Score = 0 - 5) Level 5. Triage Level Definitions: Level 1 Severe Respiratory/Airway Compromise Level 2 Moderate Respiratory/Airway Compromise or high risk for pulmonary complications Level 3 Mild Respiratory/Airway Compromise or moderate risk for pulmonary complications Level 4 Episodic Respiratory/Airway Compromise or low risk for pulmonary complications Level 5 No Respiratory/Airway Compromise Triage 1 Triage 2 Triage 3 Triage 4 Triage 5 greater than 20 16 - 20 11 - 15 6 - 10 0 - 5 Medical Record Assessment Clinical Findings Pulmonary Status: 3 - Pulm Impairment (acute or chronic) w/o exacerbation, or 1 - 2 rib fractures Surgical Status: 0 - No Surgical History Chest X-Ray: 0 - Not Performed or performed greater than 3 days ago Assessment Score: 3 Patient Assessment Clinical Findings Respiratory Pattern: 0 - RR 12 - 20; Patient only gets breathless with strenuous exercise. Breath Sounds: 0 - Clear to auscultation Cough Effectiveness: 0 - Strong non-productive Sputum Production: 0 - No sputum production Level of Activity: 0 - Ambulatory O2 needed to keep SpO2 greater than or equal to 92%: 0 - Room Air Assessment Score: 0 Total Assessment Score: 3 Breath Sounds: Inspiratory and expiratory clear and diminished bilaterally.. Cough and Sputum: An effective cough produced no sputum... CXR: not performed. Vital Signs: Resp: 18 (06/14/232107) Pulse: 59 (06/14/232107) Temp: 36.6 C (97.8 F) (06/14/232107) BP: 120/75 (06/14/232107) SpO2: 96 % (06/14/232107) PFT: Minimal Predicted IC: 1.0 L. Inspiratory capacity: 2.0 L. Primary Service: Surgery [facility]. 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 Prescriptions/Home Medications/Durable Medical Equipment: patient stated he should be taking Trelegy Qday, Albuterol nebulizer BID, and Albuterol inhaler PRN. documented in this encounter Plan of Treatment Upcoming Encounters Date Type Department Care Team (Latest Contact Info) Description 08/01/2023 11:45 AM EST Hospital Encounter ENDO OSS[facility], Endoscopy Room [facility] [address] [place] [phone] Kvng Mcguire MD [address] [place] [address] 08/01/2023 11:45 AM EST - 08/01/2023 12:15 PM EST Surgery ENDO OSSC, Endoscopy Room [facility] [address] [place] [phone] Kvng Mcguire MD [address] [place] [address] COLONOSCOPY FLEXIBLE PROXIMAL DIAGNOSTIC 08/02/2023 2:40 PM EST Office Visit [facility] [address] [place] [address] Jaiden Franklin MD [address] [place] [address] 10/16/2023 2:15 PM EDT Imaging Radiology [facility]st [facility], [address] [id number] Scheduled Procedures Name Priority Associated Diagnoses Date/Ti [...] ASSESSMENT COMPLETED IN PAST YEAR FOR COPD 06/15/2024 06/16/2023 Lipid Panel 03/22/2026 03/22/2021 Diabetes Screening [...] Procedure Name Priority Date/Time Associated Diagnosis Comments BASIC METABOLIC PANEL Routine 06/16/2023 6:10 AM EST CBC Routine 06/16/2023 6:10 AM EST BASIC METABOLIC PANEL Routine 06/15/2023 7:54 AM EST PHOSPHORUS Routine 06/15/2023 7:54 AM EST CBC Routine 06/15/2023 7:54 AM EST MAGNESIUM Routine 06/15/2023 7:54 AM EST CULTURE, URINE, QUANTITATIVE Routine 06/15/2023 7:[address] ABD/PELVIS W IV AND W ORAL CONTRAST Routine 06/15/2023 2:23 AM EST EXTRA URINE Routine 06/14/2023 10:48 PM EST EXTRA TUBES Routine 06/14/2023 10:48 PM EST MRSA SCREEN, PCR Routine 06/14/2023 10:4 8 PM EST DIFFERENTIAL, AUTOMATED STAT 06/14/2023 9:20 PM EST BASIC METABOLIC PANEL STAT 06/14/2023 9:20 PM EST ABO/RH STAT 06/14/2023 9:20 PM EST TYPE AND SCREEN STAT 06/14/2023 9:20 PM EST CBC STAT 06/14/2023 9:20 PM EST PHOSPHORUS Routine 06/14/2023 9:20 PM EST LACTATE STAT 06/14/2023 9:20 PM EST CBC STAT 06/14/2023 9:20 PM EST MAGNESIUM Routine 06/14/2023 9:20 PM EST documented in this encounter Results * CBC (06/16/2023 6:10 AM EST) WBC 6.38 4.00 - 10.80 K/uL 06/16/2023 6:34 AM EST LABORATORY [facility] RBC 4.81 4.50 - 5.25 M/uL 06/16/2023 6:34 AM EST LAB[facility]ATORY [facility] HGB 15.1 14.0 - 16.8 g/dL 06/16/2023 6:34 AM EST LAB[facility] HCT 46.7 40.0 - 48.4 % 06/16/2023 6:34 AM EST LAB[facility]AT[facility] MCV 97.1 82.0 - 99.5 fL 06/16/2023 6:34 AM EST LAB[facility]AT[facility] MCH 31.4 27.0 - 34.0 pg 06/16/2023 6:34 AM EST LAB[facility]AT[facility] MCHC 32.3 32.0 - 36.0 g/dL 06/16/2023 6:34 AM EST LAB[facility]AT[facility] RDW 12.7 11.5 - 15.5 % 06/16/2023 6:34 AM EST LAB[facility]AT[facility] PLT 242 140 - 400 K/uL 06/16/2023 6:34 AM EST LAB[facility] MPV 10.8 6.6 - 11.1 fL 06/16/2023 6:34 AM EST LAB[facility]ATORY [facility] nRBCs 0 <=0 /100 WBCs 06/16/2023 6:34 AM EST [facility] Blood Venous blood specimen / Unknown Venipuncture / Unknown 06/16/2023 6:10 AM EST 06/16/2023 6:19 AM EST Leah Chow MD LAB BLOOD ORDERAB LES LAB[facility]AT[facility] [address] [place] [address] * BASIC METABOLIC PANEL (06/16/2023 6:10 AM EST) Pathologist [facility] BUN 7 6 - 20 mg/dL 06/16/2023 6:53 AM EST LABORATORY [facility] Creatinine 1.0 0.6 - 1.2 mg/dL 06/16/2023 6:53 AM EST LAB[facility]ATORY [facility] Estimated Glomerular Filtration Rate >90 >=60 mL/min 06/16/2023 6:53 AM EST LABORATORY [facility] Comment:eGFR is calculated b ased on the CKD-EPI 2020 equation Sodium 138 135 - 146 mmol/L 06/16/2023 6:53 AM EST LAB[facility]ATORY [facility] Potassium 3.9 3.5 - 5.1 mmol/L 06/16/2023 6:53 AM EST [facility] Chloride 104 98 - 107 mmol/L 06/16/2023 6:53 AM EST [facility] CO2 26 22 - 32 mmol/L 06/16/2023 6:53 AM EST [facility] Anion Gap 8 7 - 15 mmol/L 06/16/2023 6:53 AM EST LAB[facility] Glucose 89 70 - 120 mg/dL 06/16/2023 6:53 AM EST LAB[facility] Calcium 9.0 8.4 - 10.2 mg/dL 06/16/2023 6:53 AM EST LAB[facility]AT[facility] Blood Venous blood specimen / Unknown Venipuncture / Unknown 06/16/2023 6:10 AM EST 06/16/2023 6:19 AM EST [place] Rebecca Chow MD LAB BLOOD ORDERAB LES LABORATORY [facility] [address] [place] [address] * CBC (06/15/2023 7:54 AM EST) WBC 7.25 4.00 - 10.80 K/uL 06/15/2023 8:26 AM EST LABORATORY [facility] RBC 4.76 4.50 - 5.25 M/uL 06/15/2023 8:26 AM EST LAB[facility] HGB 15.1 14.0 - 16.8 g/dL 06/15/2023 8:26 AM EST [facility] HCT 45.5 40.0 - 48.4 % 06/15/2023 8:26 AM EST LAB[facility] MCV 95.6 82.0 - 99.5 fL 06/15/2023 8:26 AM EST LAB[facility] MCH 31.7 27.0 - 34.0 pg 06/15/2023 8:26 AM EST LAB[facility] MCHC 33.2 32.0 - 36.0 g/dL 06/15/2023 8:26 AM EST LAB[facility] RDW 13.0 11.5 - 15.5 % 06/15/2023 8:26 AM EST LAB[facility] PLT 260 140 - 400 K/uL 06/15/2023 8:26 AM EST LABORATORY [facility] MPV 10.8 6.6 - 11.1 fL 06/15/2023 8:26 AM EST LAB[facility] nRBCs 0 <=0 /100 WBCs 06/15/2023 8:26 AM EST LAB[facility] Blood Venous blood specimen / Unknown Venipuncture / Unknown 06/15/2023 7:54 AM EST 06/15/2023 8:19 AM EST Leah Chow MD LAB BLOOD ORDERAB LES [facility] [address] [place] [address] * BASIC METABOLIC PANEL (06/15/2023 7:54 AM EST) BUN 8 6 - 20 mg/dL 06/15/2023 8:48 AM EST LAB[facility]AT[facility] Creatinine 1.2 0.6 - 1.2 mg/dL 06/15/2023 8:48 AM EST LAB[facility]ATORY [facility] Estimated Glomerular Filtration Rate 81 >=60 mL/min 06/15/2023 8:48 AM EST LAB[facility] Comment:eGFR is calculated b ased on the CKD-EPI 2020 equation Sodium 138 135 - 146 mmol/L 06/15/2023 8:48 AM EST LAB[facility] Potassium 4.0 3.5 - 5.1 mmol/L 06/15/2023 8:48 AM EST LAB[facility] Chloride 104 98 - 107 mmol/L 06/15/2023 8:48 AM EST LAB[facility] CO2 26 22 - 32 mmol/L 06/15/2023 8:48 AM EST LAB[facility] Anion Gap 8 7 - 15 mmol/L 06/15/2023 8:48 AM EST [facility] Glucose 95 70 - 120 mg/dL 06/15/2023 8:48 AM EST LAB[facility] Calcium 8.9 8.4 - 10.2 mg/dL 06/15/2023 8:48 AM EST [facility] Blood Venous blood specimen / Unknown Venipuncture / Unknown 06/15/2023 7:54 AM EST 06/15/2023 8:18 AM EST Leah Chow MD LAB BLOOD ORDERAB LES Performing Organization Address [facility] Co de Phone Number LABORATORY [facility] [address] [place] [address] * PHOSPHORUS (06/15/2023 7:54 AM EST) Phosphorus 3.5 2.5 - 4.8 mg/dL 06/15/2023 8:48 AM EST [facility] Blood Venous blood specimen / Unknown Venipuncture / Unknown 06/15/2023 7:54 AM EST 06/15/2023 8:18 AM EST Leah Chow MD LAB BLOOD ORDERAB LES Performing Organization Address [facility] de Phone Number LABORATORY C [address] [place] [address] * MAGNESIUM (06/15/2023 7:54 AM EST) Magnesium 2.4 1.5 - 2.6 mg/dL 06/15/2023 8:48 AM EST LAB[facility]ATORY [facility] Blood Venous blood specimen / Unknown Venipuncture / Unknown 06/15/2023 7:54 AM EST 06/15/2023 8:18 AM EST Leah Chow MD LAB BLOOD ORDERAB LES Performing Organization Address [facility] de Phone Number LABORATORY [facility] [address] [place] [address] * CULTURE, URINE, QUANTITATIVE (06/15/2023 7:38 AM EST) Culture Growth No significant growth 06/16/2023 9:41 AM EST LAB[facility]AT[facility] Urine Urine specimen obtained by clean catch procedure / Unknown Non-blood Collection / Unknown 06/15/2023 7:38 AM EST 06/15/2023 8:38 AM EST Leah Chow MD LAB MICRO - GENER AL ORDERABLES Performing Organization Address [facility] Co de Phone Number LABORATORY [facility] [address] [place] [address] * CT ABD/PELVIS W IV AND W ORAL CONTRAST (06/15/2023 2:23 AM EST) Anatomical Region Laterality Modality Body, Abdomen, Pelvis Computed T omography 06/15/2023 3:53 AM EST Narrative 06/15/2023 3:51 AM EST EXAM: CT ABDOMEN AND PELVIS WITH CONTRAST HISTORY: possible diverticulosis/itis COMPARISON: Outside CT 11/15/2021 TECHNIQUE: CT abdomen and pelvis with intravenous contrast was performed. FINDINGS: LOWER CHEST: Clear lung bases. LIVER: Unremarkable. GALLBLADDER/BILE DUCTS: Unremarkable. PANCREAS: Unremarkable. GI TRACT: The bowel is not abnormally dilated to suggest obstruction. There is a rectal tube in place. There is colonic diverticulosis. The proximal sigmoid colon, there is a prominent inflamed diverticulum with adjacent mural thickening of the sigmoid colon consistent with diverticulitis. This can be seen on coronal image 57 of series 3. There is no evidence of free air to suggest perforation. There is no evidence of abscess formation. SPLEEN: Unremarkable. LYMPH NODES: No lymphadenopathy. ADRENAL GLANDS: Unremarkable. KIDNEYS/URETERS: Unremarkable. URINARY BLADDER: Unremarkable. REPRODUCTIVE ORGANS: Grossly unremarkable. VASCULATURE: No abdominal aortic aneurysm. MISCELLANEOUS: No free fluid or free air. MUSCULOSKELETAL: Unremarkable. IMPRESSION: Diverticulitis in the proximal sigmoid colon without evidence of perforation or abscess formation. Procedure Note Stephan Dickinson MD - 06/15/2023 EXAM: CT ABDOMEN AND PELVIS WITH CONTRAST HISTORY: possible diverticulosis/itis COMPARISON: Outside CT 11/15/2021 TECHNIQUE: CT abdomen and pelvis with intravenous contrast was performed. FINDINGS: LOWER CHEST: Clear lung bases. LIVER: Unremarkable. GALLBLADDER/BILE DUCTS: Unremarkable. PANCREAS: Unremarkable. GI TRACT: The bowel is not abnormally dilated to suggest obstruction.There is a rectal tube in place. There is colonic diverticulosis. Theproximal sigmoid colon, there is a prominent inflamed diverticulum withadjacent mural thickening of the sigmoid colon consistent withdiverticulitis. This can be seen on coronal image 57 of series 3. Thereis no evidence of free air to suggest perforation. There is no evidenceof abscess formation. SPLEEN: Unremarkable. LYMPH NODES: No lymphadenopathy. ADRENAL GLANDS: Unremarkable. KIDNEYS/URETERS: Unremarkable. URINARY BLADDER: Unremarkable. REPRODUCTIVE ORGANS: Grossly unremarkable. VASCULATURE: No abdominal aortic aneurysm. MISCELLANEOUS: No free fluid or free air. MUSCULOSKELETAL: Unremarkable. IMPRESSION: Diverticulitis in the proximal sigmoid colon without evidence ofperforation or abscess formation. Kelsy Billingsley MD RAD CT * EXTRA URINE (06/14/2023 10:48 PM EST) Urine Urine specimen / Unknown 06/14/2023 10:48 PM EST 06/14/2023 11:05 PM EST Kinsey Rhodes MD LAB URINE ORDERABLES Performing Organization Address [facility] Co de Phone Number LABORATORY [address] [address] * MRSA SCREEN, PCR (06/14/2023 10:48 PM EST) MRSA PCR Result Negative Negative 12:29 AM EST LABORATORY [facility] Comment:No Methicillin resis tant Staphylococcus aureus detected by PCR (amplified probe). Upper Respiratory (Nares, Bilateral) Non-blood Collection / Unknown 06/14/2023 10:48 PM EST 06/14/2023 11:03 PM EST Leah Chow MD LAB MICRO - GENER AL ORDERABLES Performing Organization Address [facility] Co de Phone Number LABORATORY [place] [address] [place] [address] * ABO/RH (06/14/2023 9:20 PM EST) ABO O 06/14/2023 10:29 PM EST LABORATORY [facility] Rh Negative 06/14/2023 10:29 PM EST LABORATORY [facility] Blood Venous blood specimen / Unknown Venipuncture / Unknown 06/14/2023 9:20 PM EST 06/14/2023 9:26 PM EST Leah Chow MD LAB BLOOD BANK TE ST ORDERABLES Performing Organization Address [facility]/ZIP Co de Phone Number LABORATORY [facility] [address] [place] [address] * DIFFERENTIAL, AUTOMATED (06/14/2023 9:20 PM EST) WBC 8.87 4.00 - 10.80 K/uL 06/14/2023 9:38 PM EST LAB[facility]ATORY [facility] Neutrophils % 56.4 40.0 - 75.0 % 06/14/2023 9:38 PM EST LAB[facility] Lymphocytes % 27.4 18.0 - 42.0 % 06/14/2023 9:38 PM EST LAB[facility] Monocytes % 10.0 1.0 - 11.0 % 06/14/2023 9:38 PM EST LAB[facility] Eosinophils % 5.4 0.0 - 6.0 % 06/14/2023 9:38 PM EST LAB[facility] Basophils % 0.7 0.0 - 2.0 % 06/14/2023 9:38 PM EST LAB[facility] Immature Granulocytes % 0.1 0.0 - 2.0 % 06/14/2023 9:38 PM EST LAB[facility] Absolute Neutrophils 5.00 1.80 - 7.70 K/uL 06/14/2023 9:38 PM EST LAB[facility] Absolute Lymphocytes 2.43 1.00 - 4.80 K/ul 06/14/2023 9:38 PM EST LAB[facility]ATORY [facility] Absolute Monocytes 0.89 0.00 - 1.10 K/uL 06/14/2023 9:38 PM EST LAB[facility] Absolute Eosinophils 0.48 0.00 - 0.70 K/uL 06/14/2023 9:38 PM EST LAB[facility] Absolute Basophils 0.06 0.00 - 0.20 K/uL 06/14/2023 9:38 PM EST LAB[facility]ATORY [facility] Absolute Immature Granulocytes 0.01 0.00 - 0.20 K/uL 06/14/2023 9:38 PM EST LAB[facility] Blood Venous blood specimen / Unknown Venipuncture / Unknown 06/14/2023 9:20 PM EST 06/14/2023 9:25 PM EST [place] Rebecca Chow MD LAB BLOOD ORDERAB LES LABORATORY [facility] [address] [place] [address] * CBC (06/14/2023 9:20 PM EST) WBC 8.87 4.00 - 10.80 K/uL 06/14/2023 9:38 PM EST LAB[facility] RBC 4.69 4.50 - 5.25 M/uL 06/14/2023 9:38 PM EST LAB[facility] HGB 14.7 14.0 - 16.8 g/dL 06/14/2023 9:38 PM EST LAB[facility] HCT 44.8 40.0 - 48.4 % 06/14/2023 9:38 PM EST LAB[facility] MCV 95.5 82.0 - 99.5 fL 06/14/2023 9:38 PM EST LAB[facility] MCH 31.3 27.0 - 34.0 pg 06/14/2023 9:38 PM EST LAB[facility] MCHC 32.8 32.0 - 36.0 g/dL 06/14/2023 9:38 PM EST LAB[facility] RDW 12.8 11.5 - 15.5 % 06/14/2023 9:38 PM EST LAB[facility]ATORY [facility] PLT 257 140 - 400 K/uL 06/14/2023 9:38 PM EST LAB[facility] MPV 11.0 6.6 - 11.1 fL 06/14/2023 9:38 PM EST LAB[facility]ATORY [facility] nRBCs 0 <=0 /100 WBCs 06/14/2023 9:38 PM EST LABORATORY [facility] Blood Venous blood specimen / Unknown Venipuncture / Unknown 06/14/2023 9:20 PM EST 06/14/2023 9:25 PM EST Leah Chow MD LAB BLOOD ORDERAB LES LABORATORY [facility] [address] [place] [address] * TYPE AND SCREEN (06/14/2023 9:20 PM EST) ABO O 06/14/2023 10:21 PM EST LABORATORY [facility] Rh Negative 06/14/2023 10:21 PM EST LABORATORY [facility] Red Blood Cell Antibody Screen Negative 06/14/2023 10:21 PM EST LABORATORY [facility] Specimen Expiration Date 06/17/2023 23:59 06/14/2023 10:21 PM EST LABORATORY [facility] Blood Venous blood specimen / Unknown Venipuncture / Unknown 06/14/2023 9:20 PM EST 06/14/2023 9:26 PM EST Leah Chow MD LAB BLOOD BANK TE ST ORDERABLES LABORATORY [facility] [address] [place] [address] * PHOSPHORUS (06/14/2023 9:20 PM EST) Phosphorus 3.6 2.5 - 4.8 mg/dL 06/14/2023 10:01 PM EST LAB[facility] Blood Venous blood specimen / Unknown Venipuncture / Unknown 06/14/2023 9:20 PM EST 06/14/2023 9:26 PM EST Leah Chow MD LAB BLOOD ORDERAB LES Performing Organization Address [facility] de Phone Number [facility] [address] [place] [address] * MAGNESIUM (06/14/2023 9:20 PM EST) Magnesium 2.1 1.5 - 2.6 mg/dL 06/14/2023 10:01 PM EST [facility] [place] Venous blood specimen / Unknown Venipuncture / Unknown 06/14/2023 9:20 PM EST 06/14/2023 9:26 PM EST Leah Chow MD LAB BLOOD ORDERAB LES Performing Organization Address [facility] Co de Phone Number [facility] [address] [place] [address] * LACTATE (06/14/2023 9:20 PM EST) Lactate 1.2 0.4 - 2.0 mmol/L 06/14/2023 9:55 PM EST [facility] Blood Venous blood specimen / Unknown Venipuncture / Unknown 06/14/2023 9:20 PM EST 06/14/2023 9:26 PM EST Leah Chow MD LAB BLOOD ORDERAB LES [facility] [address] [place] [address] * BASIC METABOLIC PANEL (06/14/2023 9:20 PM EST) BUN 11 6 - 20 mg/dL 06/14/2023 10:01 PM EST [facility] Creatinine 1.0 0.6 - 1.2 mg/dL 06/14/2023 10:01 PM EST [facility] Estimated Glomerular Filtration Rate >90 >=60 mL/min 06/14/2023 10:01 PM EST [facility] Comment:eGFR is calculated b ased on the CKD-EPI 2020 equation Sodium 139 135 - 146 mmol/L 06/14/2023 10:01 PM EST [facility] Potassium 3.8 3.5 - 5.1 mmol/L 06/14/2023 10:01 PM EST [facility] Chloride 105 98 - 107 mmol/L 06/14/2023 10:01 PM EST [facility] CO2 24 22 - 32 mmol/L 06/14/2023 10:01 PM EST [facility] Anion Gap 10 7 - 15 mmol/L 06/14/2023 10:01 PM EST [facility] Glucose 118 70 - 120 mg/dL 06/14/2023 10:01 PM EST [facility] Calcium 9.0 8.4 - 10.2 mg/dL 06/14/2023 10:01 PM EST [facility] Blood Venous blood specimen / Unknown Venipuncture / Unknown 06/14/2023 9:20 PM EST 06/14/2023 9:26 PM EST Leah Chow MD LAB BLOOD ORDERAB LES [facility] [address] [place] [address] documented in this encounter Visit Diagnoses Diagnosis Diverticulitis of colon- Primary Diverticulitis of colon (without mention of hemorrhage) Colovesical fistula Intestinovesical fistula COPD, group D, by GOLD 2017 classification (HCC) Gastroesophageal reflux disease without esophagitis Esophageal reflux Severe persistent asthma without complication ANNABELLE (generalized anxiety disorder) Generalized anxiety disorder History of diverticulitis documented in this encounter Administered Medications Inactive Administered Medications - up to 3 most recent administrations Medication Order MAR Action Action Date Dose Rate Site Acetaminophen (Tylenol) tab 975 mg 975 mg, Oral, Q6H, First dose (after last modification) on Mon06/14/23 at 2130, Until Discontinued, Maximum 4 g acetaminophen/day. Avoid in patients with severe hepatic impairment or severe active liver disease. Begin after around the clock acetaminophen order discontinued (S+5)., Admission Given 06/16/2023 10:06 AM EST 975 mg Given 06/16/2023 4:39 AM EST 975 mg Given 06/15/2023 8:46 PM EST 975 mg Albuterol Sulfate (Proventil) (2.5 MG/3ML) 0.083% inhalation solution 2.5 mg 2.5 mg, Nebulizer, BID (0800,1999), First dose (after last modification) on Mon06/15/23 at 0800, Until Discontinued Given 06/16/2023 9:34 AM EST 2.5 mg Given 06/15/2023 8:14 PM EST 2.5 mg Given 06/15/2023 8:33 AM EST 2.5 mg amoxicillin-clavulanate (Augmentin) tab 500 mg 500 mg, Oral, TID(AM/NOON/HS), First dose on Mon06/15/23 at 1200, Last dose on Mon06/20/23 at 0600, For 5 days Given 06/16/2023 10:06 AM EST 500 mg Given 06/16/2023 6:16 AM EST 500 mg Given 06/15/2023 8:45 PM EST 500 mg check patch placement order QSHIFT, First dose on Mon06/15/23 at 1600, Until Discontinued, Routine, Scopolamine (TRANSDERM SCOP) patch placement check cholecalciferol (VIT D3) (Vitamin D3) tab 2,000 Units 2,000 Units, Oral, Daily(AM), First dose on Mon06/15/23 at 0900, Until Discontinued, NOTE 1000 units = 25 mcg Given 06/16/2023 10:[address] 2,000 Units Given 06/15/2023 8:48 AM EST 2,000 Units Enoxaparin (Lovenox) inj 40 mg 40 mg, Subcutaneous, Daily(AM), First dose on Mon06/16/23 at 0900, Until Discontinued, If patient is on warfarin, inform provider if daily INR value is 2 or greater! Given 06/16/2023 10:06 AM EST 40 mg Abdomen Right Upper fluticasone (Flonase) nasal inhaler 2 Creston 2 Creston, Each Nostril, Daily(AM), First dose on Mon06/15/23 at 0900, Until Discontinued, 50 mcg / Actuation Given 06/16/2023 10:03 AM EST 2 Sprays Given 06/15/2023 8:48 AM EST 2 Sprays Cepwqsxcxla-Zblnicbxtpdr-Nbnbfqsbkr (Trelegy Ellipta) 100-62.5-25 MCG/ACT inhaler 1 Puff 1 Puff, Inhalation, RESPDAILY, First dose on Mon06/15/23 at 1000, Until Discontinued, NURSING TO FOLLOW PATIENT WITH MDI/DPI ADMINISTRATION Given 06/16/2023 10:04 AM EST 1 Puff Given 06/15/2023 8:33 AM EST 1 Puff Ioversol (Optiray 350) 74 % inj 100 mL 100 mL, Intravenous, ONCE, On Mon06/15/23 at 0300, For 1 dose, Radiology Medication Routing (Non-IR) Given 06/15/2023 3:00 AM EST 87 mL isolyte-S pH 7.4 infusion Intravenous, at 75 mL/hr, Plasma-LYTE 148, isolyte-S, and isolyte-S pH 7.4 are considered equivalent - including for MAR barcode scanning., CONTINUOUS, Starting on Mon06/14/23 at 2130, Until Mon06/15/23 at 0821, Admission New Bag 06/14/2023 10:14 PM EST 75 mL/hr montelukast (Singulair) tab 10 mg 10 mg, Oral, Daily(AM), First dose on Mon06/15/23 at 0900, Until Discontinued Given 06/16/2023 10:06 AM EST 10 mg Given 06/15/2023 8:48 AM EST 10 mg omeprazole (PriLOSEC) cap 20 mg 20 mg, Oral, Daily(AM), First dose on Monique 06/15/23 at 0900, Until Discontinued, This med should NOT be Crushed or Chewed Given 06/16/2023 10:06 AM EST 20 mg Given 06/15/2023 8:49 AM EST 20 mg ondansetron (Zofran) inj 4 mg 4 mg, IV Push, Q6H PRN Other, May use for nausea or vomiting if patient unable to take oral ondansetron, Starting on Mon06/14/23 at 2042, Until Mon06/16/23 at 2000, Admission ondansetron ODT (Zofran) tab 4 mg 4 mg, On Tongue, Q6H PRN Nausea, Vomiting, Starting on Mon06/14/23 at 2042, Until Mon06/16/23 at 2000, Admission oxyCODONE (Oxy IR) tab 10 mg 10 mg, Oral, Q4H PRN Pain, Severe, Starting on Mon06/14/23 at 2042, Until Mon06/16/23 at 2000, Hold for somnolence or respiratory rate less than 10, Admission Given 06/16/2023 1:23 PM EST 10 mg Given 06/16/2023 6:31 AM EST 10 mg Given 06/16/2023 12:53 AM EST 10 mg oxyCODONE (Oxy IR) tab 5 mg 5 mg, Oral, Q4H PRN Pain, Moderate, Starting on Mon06/14/23 at 2042, Until Mon06/16/23 at 2000, Hold for somnolence or respiratory rate less than 10, Admission Piperacillin-Tazobactam (Zosyn) 4.5 g in 100 mL NSS ivpb (FOUR hour infusion) IV Piggyback, 4.5 g, Q8HNOW, 15 doses, First dose on Monique 06/15/23 at 0230, Last dose on 06/19/23 at 1830, Administer over 4 Hours, at 25 mL/hr New Bag 06/15/2023 4:17 AM EST 4.5 g 25 mL/hr Piperacillin-Tazobactam (Zosyn) 4.5 g in 100 mL NSS ivpb (HALF hour infusion) IV Piggyback, 4.5 g, ONCE, 1 dose, On Mon06/14/23 at 2200, Administer over 30 Minutes New Bag 06/14/2023 10:15 PM EST 4.5 g 200 mL/hr Scopolamine (Transderm Scop) patch 1 mg 1 mg (1 Patch), Transdermal, Q3DAYS, First dose on Mon06/15/23 at 1445, Until Discontinued, Do NOT cut the patch. All Scopolamine patches deliver 1 mg over 72 hours. Remove any Scopolamine patches the patient may currently be wearing prior to applying the new patch. Patch Applied 06/15/2023 2:38 PM EST 1 mg Other-Specify sodium chloride 0.9 % flush peripheral gavino 3 mL 3 mL, IV Push, QSHIFT, First dose on Monique 06/15/23 at 0000, Until Discontinued, Do not flush if lock, PICC, or central line not in place; IV infusing or unable to flush., Admission Given 06/16/2023 8:00 AM EST 3 mL Given 06/16/2023 12:00 AM EST 3 mL Given 06/15/2023 4:00 PM EST 3 mL documented in this encounter Active and Recently Administered Medications Times are shown in EST. Scheduled Medication Order 06/14/2023 06/15/2023 06/16/2023 Acetaminophen (Tylenol) tab 975 mg 975 mg, Oral, Q6H, First dose (after last modification) on Mon06/14/23 at 2130, Until Discontinued, Maximum 4 g acetaminophen/day. Avoid in patients with severe hepatic impairment or severe active liver disease. Begin after around the clock acetaminophen order discontinued (S+5)., Admission 2215 (Given - Provider: Mariella Cisneros RN) 0417 (Given - Provider: Mariella Cisneros RN)0849 (Given - Provider: Mariella Cisneros RN)1438 (Given - Provider: Ellen De Anda, HUSAM)2046 (Given - Provider: Ellen De Anda, HUSAM) 0439 (Given - Provider: Sara Green RN)1006 (Given - Provider: Demarcus Donald RN)1500 (Due) Albuterol Sulfate (Proventil) (2.5 MG/3ML) 0.083% inhalation solution 2.5 mg 2.5 mg, Nebulizer, BID (799,1999), First dose (after last modification) on Mon06/15/23 at 0800, Until Discontinued 0833 (Given - Provider: Kiera Goldman, LABORER HOISTING)2013 (Given - Provider: Nena Damon, CONSTRUCTION CONTRACTOR) 09 (Given - Provider: Kiera Goldman, LABORER HOISTING) amoxicillin-clavulanate (Augmentin) tab 500 mg 500 mg, Oral, TID(AM/NOON/HS), First dose on Mon06/15/23 at 1200, Last dose on Mon06/20/23 at 0600, For 5 days 1308 (Given - Provider: Ellen De Anda, HUSAM)2045 (Given - Provider: Ellen De Anda, HUSAM) 0616 (Given - Provider: Sara Green RN)1006 (Given - Provider: Demarcus Donald, HUSAM) check patch placement order QSHIFT, First dose on Mon06/15/23 at 1600, Until Discontinued, Routine, Scopolamine (TRANSDERM SCOP) patch placement check 1600 (Patch Placement Verified - Provider: Ellen De Anda RN) 0000 (Patch Placement Verified - Provider: Sara Green, HUSAM - Comment: R ear)0800 (Patch Placement Verified - Provider: Demarcus Donald, HUSAM)1600 (Due) cholecalciferol (VIT D3) (Vitamin D3) tab 2,000 Units 2,000 Units, Oral, Daily(AM), First dose on Mon06/15/23 at 0900, Until Discontinued, NOTE 1000 units = 25 mcg 0848 (Given - Provider: Mariella Cisneros RN) 1006 (Given - Provider: Demarcus Donald, HUSAM) Enoxaparin (Lovenox) inj 40 mg 40 mg, Subcutaneous, Daily(AM), First dose on Mon06/16/23 at 0900, Until Discontinued, If patient is on warfarin, inform provider if daily INR value is 2 or greater! 1006 (Given - Provider: Demarcus DonaldHUSAM) fluticasone (Flonase) nasal inhaler 2 Creston 2 Creston, Each Nostril, Daily(AM), First dose on Mon06/15/23 at 0900, Until Discontinued, 50 mcg / Actuation 0848 (Given - Provider: Mariella Cisneros RN) 1003 (Given - Provider: Demarcus Donald, HUSAM) Fluticasone-Umeclidinium -Vilanterol (Trelegy Ellipta) 100-62.5-25 MCG/ACT inhaler 1 Puff 1 Puff, Inhalation, RESPDAILY, First dose on Mon06/15/23 at 1000, Until Discontinued, NURSING TO FOLLOW PATIENT WITH MDI/DPI ADMINISTRATION 0833 (Given - Provider: Kiera Goldman, LABORER HOISTING) 1004 (Given - Provider: Demarcus Donald, HUSAM) Ioversol (Optiray 350) 74 % inj 100 mL (COMPLETED) 100 mL, Intravenous, ONCE, On Mon06/15/23 at 0300, For 1 dose, Radiology Medication Routing (Non-IR) 0300 (Given - Provider: Yrn Garcia, RT (R)) montelukast (Singulair) tab 10 mg 10 mg, Oral, Daily(AM), First dose on Mon06/15/23 at 0900, Until Discontinued 0848 (Given - Provider: Mariella Cisneros RN) 1006 (Given - Provider: Demarcus Donald, HUSAM) omeprazole (PriLOSEC) cap 20 mg 20 mg, Oral, Daily(AM), First dose on Mon06/15/23 at 0900, Until Discontinued, This med should NOT be Crushed or Chewed 0849 (Given - Provider: Mariella Cisneros RN) 1006 (Given - Provider: Demarcus Donald, HUSAM) Piperacillin-Tazobactam (Zosyn) 4.5 g in 100 mL NSS ivpb (FOUR hour infusion) (CANCELED) IV Piggyback, 4.5 g, Q8HNOW, 15 doses, First dose on Mon06/15/23 at 0230, Last dose on Mon06/19/23 at 1830, Administer over 4 Hours, at 25 mL/hr 0417 (New Bag - Provider: Mariella Cisneros RN) Piperacillin-Tazobactam (Zosyn) 4.5 g in 100 mL NSS ivpb (HALF hour infusion) (COMPLETED) IV Piggyback, 4.5 g, ONCE, 1 dose, On Mon06/14/23 at 2200, Administer over 30 Minutes 2215 (New Bag - Provider: Mariella Cisneros RN) Scopolamine (Transderm Scop) patch 1 mg 1 mg (1 Patch), Transdermal, Q3DAYS, First dose on Mon06/15/23 at 1445, Until Discontinued, Do NOT cut the patch. All Scopolamine patches deliver 1 mg over 72 hours. Remove any Scopolamine patches the patient may currently be wearing prior to applying the new patch. 1438 (Patch Applied - Provider: Ellen De Anda RN - Comment: R ear) 1600 (Due: Patch Removed - Provider: Discharge, Physician - Comment: Time automatically adjusted from order being discontinued) sodium chloride 0.9 % flush peripheral gavino 3 mL 3 mL, IV Push, QSHIFT, First dose on Mon06/15/23 at 0000, Until Discontinued, Do not flush if lock, PICC, or central line not in place; IV infusing or unable to flush., Admission 0000 (Given - Provider: Mariella Cisneros RN)0800 (Given - Provider: Mariella Cisneros RN)1600 (Given - Provider: Ellen De Anda RN) 0000 (Given - Provider: Sara Green, HUSAM)0800 (Given - Provider: Demarcus Donald RN)1600 (Due) Continuous Medication Order 06/14/2023 06/15/2023 06/16/2023 isolyte-S pH 7.4 infusion (CANCELED) Intravenous, at 75 mL/hr, Plasma-LYTE 148, isolyte-S, and isolyte-S pH 7.4 are considered equivalent - including for MAR barcode scanning., CONTINUOUS, Starting on Mon06/14/23 at 2130, Until Mon06/15/23 at 0821, Admission 2214 (New Bag - Provider: Mariella Cisneros RN) PRN Medication Order 06/14/2023 06/15/2023 06/16/2023 albuterol (VENTOLIN HFA/PROVENTIL HFA) inhaler 2 Puff, Inhalation, Q6H PRN Dyspnea, Starting on Mon06/14/23 at 2047, Until Mon06/16/23 at 2000, Shake can for 10 seconds before each puff SEND INHALER WITH PATIENT! WASTE INFO ( IF NOT SENT HOME WITH PATIENT) : Return unused medication to pharmacy in zip lock bag for disposal into black container labeled SP. ondansetron (Zofran) inj 4 mg(Linked Group 1) 4 mg, IV Push, Q6H PRN Other, May use for nausea or vomiting if patient unable to take oral ondansetron, Starting on Mon06/14/23 at 2042, Until Mon06/16/23 at 2000, Admission ondansetron ODT (Zofran) tab 4 mg(Linked Group 1) 4 mg, On Tongue, Q6H PRN Nausea, Vomiting, Starting on Mon06/14/23 at 2042, Until Mon06/16/23 at 2000, Admission oxyCODONE (Oxy IR) tab 10 mg 10 mg, Oral, Q4H PRN Pain, Severe, Starting on Mon06/14/23 at 2042, Until Mon06/16/23 at 2000, Hold for somnolence or respiratory rate less than 10, Admission 2220 (Given - Provider: Mariella Cisneros RN) 0427 (Given - Provider: Mariella Cisneros RN)1625 (Given - Provider: Ellen De Anda, HUSAM)2045 (Given - Provider: Ellen De Anda, HUSAM) 0053 (Given - Provider: Sara Green, HUSAM)0631 (Given - Provider: Sara Green, HUSAM)1323 (Given - Provider: Ellen De Anda, HUSAM) oxyCODONE (Oxy IR) tab 5 mg 5 mg, Oral, Q4H PRN Pain, Moderate, Starting on Mon06/14/23 at 2042, Until Mon06/16/23 at 2000, Hold for somnolence or respiratory rate less than 10, Admission Linked Groups Order Group 1: ondansetron ODT (Zofran) tab 4 mgJump to med 4 mg, On Tongue, Q6H PRN Nausea, Vomiting, Starting on Mon06/14/23 at 2043, Until Mon06/16/23 at 2000, Admission Or ondansetron (Zofran) inj 4 mgJump to med 4 mg, IV Push, Q6H PRN Other, May use for nausea or vomiting if patient unable to take oral ondansetron, Starting on Mon06/14/23 at 2043, Until Mon06/16/23 at 2000, Admission documented in this encounter Advance Directives Latest Code Status on File Code Status Date Activated Date Inactivated Comments Full Code 06/14/2023 8:45 PM 06/16/2023 8:01 PM Question Answer Comments Discussion of Advance Direct zina occurred with: Patient Care Teams Director Center Relationship Specialty Start Date End Date Martin Flowers DO [address] [place] [id number] PCP - General Family Medicine 07/31/22 documented as of this encounter
--- OUTSIDE RECORDS SUMMARY | 2023-07-15 07:02 | External Medical Summary | Summary of Care ---
Author Name Unknown Organization [facility] Address [address] [place] [address] Phone [phone] Care Team Providers Care Junior Sales Representative Name Role Phone Martin Flowers DO Primary Care Provider + [phone] Encounter Details Date Type Department Care Team (Latest Contact Info) Description 06/26/2023 2:40 PM EST Telemedicine Family Practice [facility] [address] [facility] [place] [address] Juan Britton CRNP [address] [facility] [place] [address] Diverticulitis of colon*; Nausea and vomiting, unspecified vomiting type Allergies Active Allergy Reactions Criticality Noted Date Comments Food (See Comments) Hives Medium 06/14/2023 Peaches documented as of this encounter (statuses as of 06/28/2023) Medications Medication Sig Dispensed Refills Start Date [...] group D, by GOLD 2017 classification ([facility]),Moderate persistent asthma without complication Inhale 2 Puffs by mouth every 6 hours as needed for Shortness of Breath or Wheezing. 18 g 2 04/25/2023 Active Albuterol Sulfate (2.5 MG/3ML) 0.083% Inhalation Nebulization Solution (Proventil)Indicatio ns:Moderate persistent asthma without complication Inhale 1 Vial via nebulizer every 6 hours as needed for Wheezing. 360 mL 3 04/25/2023 Active Tiotropium [place] Monohydrate 18 MCG Inhalation Capsule (Spiriva HandiHaler)Indicatio ns:COPD, group D, by GOLD 2017 classification ([facility]) Inhale 1 Capsule by mouth in the morning. For inhaler only, do not swallow.. 30 Capsule 2 06/05/2023 Active Additional Information Patient not taking.Reported on 06/14/2023 Fluticasone-Salmeter ol 250-50 MCG/ACT Inhalation Aerosol Powder Breath Activated (Advair Diskus)Indications:C OPD, group D, by GOLD 2017 classification ([facility]) Inhale 1 Puff by mouth [...] Pain, Severe. 12 Tablet 0 06/26/2023 Active Ondansetron HCl 4 MG Oral TabletIndications:Na usea and vomiting, unspecified vomiting type Take 1 Tablet by mouth every 8 hours as needed for Nausea. 10 Tablet 0 06/19/2023 06/26/20 Discontinu ed(Refill) oxyCODONE HCl 5 MG Oral Capsule (Oxy IR)Indications:Diver ticulitis of colon Take 1 Capsule by mouth every 6 hours as needed for Pain, Severe. 12 Tablet 0 06/19/2023 06/26/20 Discontinu ed(Refill) documented as of this encounter (statuses as of 06/28/2023) Active Problems Problem Noted Date Diagnosed Date [...] as of this encounter (statuses as of 06/28/2023) Resolved Problems Problem Noted Date Diagnosed Date Resolved Date Chronic obstructive pulmonar y disease with (acute) exacerbation 01/20/2022 04/08/2022 Shortness of breath 03/22/2021 08/17/19 Tick bite 03/22/2021 08/17/2022 documented as of this encounter (statuses as of 06/28/2023) Immunizations Name Administration Dates Next Due COVID-19 mRNA, LNP-s, No Pre serve, 2-Dose Series (Moderna) 03/05/2021,02/05/2021 Hepatitis B Vaccine, Recombi nant, Adjuvanted, 20 mcg/mL (Heplisav-B) 11/15/2022(Deferred: Patient Refused - pt left without getting) Pneumococcal Conjugate Vacci ne, 20-valent ([id number]) 08/25/2022 Pneumococcal Polysaccharide PPV23 (Pneumovax) 06/22/2021 SEASONAL [...] as of this encounter Progress Notes * Juan Britton CRNP - 06/26/2023 2:35 PM EST Images from the original note were not included. Follow up Family Medicine Visit History of Present Illness Davion Cho is a very pleasant 43 year old male with PMH listed below presenting with hospital follow up Patient location: HOME. I was in a hospital or clinic location. After connecting through televideo,patient was verified with two unique identifiers. 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 Methods to assure confidentiality were taken. Patient acknowledged consent and understanding of pr ivacy and security of the Telemedicine visit. The patient agreed to participate. [facility] 06/14/23-06/16/23 for diverticulitis Admitted on 06/14 concern for colovesical fistula, but found to have diverticulitis. Per note, bowel rest and antibiotics, passed flatus, pain control, discharged on 06/16. However, he complains that his abdominal pain was He is upset that he was given high fiber diet prior to discharge and doesn't want to return hospital. He had ongoing issue since March -- microperforation on CT scan, required IV and oral antibiotics. Hospital follow up and GI follow up. He is on liquid diet, can't eat or drink because of nausea. Abdominal pain not improved since discharge. He is using oxycodone given by previous pcp and ER provider for abdominal pain. Father last week. Social History Socioeconomic History Marital status: Single Spouse name: Not on file Number of children: Not on file Years of education: Not on file Highest education level: Not on file Occupational History Not on file Tobacco Use Smoking status: Former Packs/day: 1.00 [...] Marijuana Comment: medical marijuana last use 06/06/2023 Sexual activity: Not on file Other Topics Concern Not on file Social History Narrative Not on file Social Determinants of Health Financial Resource Strain: Not on file Food Insecurity: No Food Insecurity (04/25/2023) Hunger Vital Sign Worried About Running Out of Food in the Last Year: Never true Ran Out of Food in the Last Year: Never true Transportation Needs: Not on file Physical Activity: Not on file Stress: Not on file Social Connections: Not on file Intimate Partner Violence: Not on file Housing Stability: Not on file PMH: Past Medical History: Diagnosis Date Anxiety and depression Arthritis Asthma Chronic headaches COPD (chronic obstructive pulmonary disease) (HCC) Emphysema, unspecified (HCC) GERD (gastroesophageal reflux disease) Neuropathy Scoliosis Tick bite 03/22/2021 Tremor Past Surgical History: Procedure Laterality Date BRONCHOSCOPY, DX W/ EBUS, 1-2 NODES N/A 03/24/2022 BRONCHOSCOPY, RIGID OR FLEXIBLE, INCLUDING FLUOROSCOPIC GUIDANCE, WHEN PERFORMED; WITH EBUS GUIDED TRANSTRACHEAL AND/OR TRANSBRONCHIAL SAMPLING (EG, ASPIRATION[S]/BIOPSY[IES]), 1 OR 2 MEDIASTINAL AND/OR HILAR LYMPH NODE STATIONS OR STRUCTURES performed by Eusebio Morrissey MD at OR [facility] INFORMATION Pancreas biopsy x 2. INFORMATION Sinus surgery. INFORMATION Facial fracture repair- hardware in place. No outpatient medications have been marked as taking for the 06/26/23 encounter (Appointment) with Juan Britton CRNP. Review of patient's allergies indicates: Allergen Reactions Food (See Comments) Hives Peaches Most Recent Immunizations Administered Date(s) Administered COVID-19 mRNA, LNP-s, No Preserve, 2-Dose Series (Moderna) 03/05/2021 Pneumococcal Conjugate Vaccine, 20-valent ([id number]) 08/25/2022 Pneumococcal Polysaccharide PPV23 (Pneumovax) 06/22/2021 SEASONAL INFLUENZA, PF, 6 M & Above, IM , (FLULAVAL or FLUZONE) 06/22/2021 Seasonal Influenza Virus Vaccine, Unspecified Formulation 06/22/2021 TDAP (age 10 and older)(Boostrix) 08/25/2022 Review of Systems: Physical Exam There were no vitals taken for this visit. Assessment and Plan 1. Diverticulitis of colon Recommend to return ER, pt declined Agreeable to f/u with GI Will send short supply of oxycodone for pain - oxyCODONE HCl 5 MG Oral Capsule (Oxy IR); Take 1 Capsule by mouth every 6 hours as needed for Pain, Severe. Dispense: 12 Tablet; Refill: 0 2. Nausea and vomiting, unspecified vomiting type - Ondansetron HCl 4 MG Oral Tablet; Take 1 Tablet by mouth every 8 hours as needed for Nausea. Dispense: 10 Tablet; Refill: 0 Wrap-Up I have advised the patient to call our office with any worsening or new symptoms. I spent a total of 40-54 minutes (exact time 42 mins) on the date of service in preparation, delivery, and documentation of the care provided to Davion Cho excluding any time spent in the performance of separately billed services. Juan Britton, DALJIT, ARNOLDO [facility] documented in this encounter Plan of Treatment Upcoming Encounters Date Type Department Care Team (Latest Contact Info) Description 07/04/2023 3:30 PM EST Office Visit Gastroenterology, [facility] [address] [place] [address] Selena Salgado CRNP [address] [place] [address] 07/27/2023 9:15 AM EST Office Visit General Surgery, [facility] [address] [place] [address] Nallely Kincaid MD [address] [facility] [place] [address] 08/01/2023 11:45 AM EST Hospital Encounter ENDO OSSC, Endoscopy Room [facility] [address] [place] [phone] Kvng Mcguire MD [address] [place] [address] 08/01/2023 11:45 AM EST - 08/01/2023 12:15 PM EST Surgery ENDO OSS, Endoscopy Room [facility] [address] [place] [phone] Kvng Mcguire MD [address] [place] [address] COLONOSCOPY FLEXIBLE PROXIMAL DIAGNOSTIC 08/02/2023 2:40 PM EST Office Visit Family Practice [facility] [address] [place] [address] Jaiden Franklin MD [address] [place] [address] 10/16/2023 2:15 PM EDT Imaging Radiology [address] [place] [address] Scheduled Procedures Name Priority Associated Diagnoses Date/Ti [...] Diverticulitis of colon (without mention of hemorrhage) Nausea and vomiting, unspecified vomiting type History of diverticulitis documented in this encounter Advance Directives Latest Code Status on File Code Status Date Activated Date Inactivated Comments Full Code 06/14/2023 8:45 PM 06/16/2023 8:01 PM Question Answer Comments Discussion of Advance Direct zina occurred with: Patient Care Teams Junior Sales Representative Relationship Specialty Start Date End Date Martin Flowers DO [address] [place] [id number] PCP - General Family Medicine 07/31/22 documented as of this encounter
--- OUTSIDE RECORDS SUMMARY | 2023-07-15 07:02 | External Medical Summary ---
Author Name Unknown Address Unknown Organization [id number]:[facility] [address] [place] [address] Laboratory Report Ordering Provider Test Date Status PACO CHOI 07/04/2023 16:21:55 Final Observation Date Value Abnormality Reference (Units ) Status WBC, Total 07/04/2023 16:21:55 13.42 Above high normal 4.00-10.80 (K/uL) Final RBC 07/04/2023 16:21:55 5.01 4.50-5.25 (M/uL) Final Hemoglobin 07/04/2023 16:21:55 15.9 14.0-16.8 (g/dL) Final HCT 07/04/2023 16:21:55 48.4 40.0-48.4 (%) Final MCV 07/04/2023 16:21:55 96.6 82.0-99.5 (fL) Final MCH 07/04/2023 16:21:55 31.7 27.0-34.0 (pg) Final MCHC 07/04/2023 16:21:55 32.9 32.0-36.0 (g/dL) Final RDW 07/04/2023 16:21:55 12.8 11.5-15.5 (%) Final Platelets 07/04/2023 16:21:55 278 140-400 (K/uL) Final MPV 07/04/2023 16:21:55 11.3 6.6-11.1 (fL) Final Nucleated erythrocytes/100 leukocytes [Ratio] in Blood by Automated count 07/04/2023 16:21:55 0 <=0 (/100 WBCs) Final Performing Location [facility] [place] [address] [place] [address]
--- OUTSIDE RECORDS SUMMARY | 2023-07-15 07:02 | External Medical Summary ---
Author Name Unknown Address Unknown Organization [id number]:[facility] - [address] [place] [address] Laboratory Report Ordering Provider Test Date Status YAIMATENA 06/15/2023 07:54:00 Final Observation Date Value Abnormality Reference (Units ) Status Magnesium 06/15/2023 07:54:00 2.4 1.5-2.6 (m g/dL) Final Performing Location [facility] - [address] [place] [address]
--- OUTSIDE RECORDS SUMMARY | 2023-07-15 07:02 | External Medical Summary ---
Author Name Unknown Address Unknown Organization [id number]:[facility]ATORY [facility] - [address] [place] [address] Laboratory Report Ordering Provider Test Date Status TENA ERWIN 06/14/2023 21:20:00 Final Observation Date Value Abnormality Reference (Units ) Status ABO 06/14/2023 21:20:00 O Final RH 06/14/2023 21:20:00 Negative Final RED BLOOD CELL ANTIBODY SCREEN 06/14/2023 21:20:00 Negative Final SPECIMEN EXPIRATION DATE 06/14/2023 21:20:00 06/17/2023 23:59 Final Performing Location [facility] - [address] [place] [address]
--- OUTSIDE RECORDS SUMMARY | 2023-07-15 07:02 | External Medical Summary ---
Author Name Unknown Address Unknown Organization [id number]:[facility] [place] [address] [place] [address] Laboratory Report Ordering Provider Test Date Status TENA ERWIN 06/15/2023 07:54:00 Final Observation Date Value Abnormality Reference (Units ) Status BUN 06/15/2023 07:54:00 8 6-20 (mg/dL) Final Creatinine 06/15/2023 07:54:00 1.2 0.6-1.2 (mg/dL) Final Glomerular filtration rate/1.73 sq M.predicted [Volume Rate/Area] in Serum, Plasma or Blood by Creatinine-based formula (CKD-EPI) 06/15/2023 07:54:00 81 >=60 (mL/min) Final eGFR is calculated based on the CKD-EPI 2020 equation SODIUM 06/15/2023 07:54:00 138 135-146 (m mol/L) Final Potassium 06/15/2023 07:54:00 4.0 3.5-5.1 (m mol/L) Final Cl 06/15/2023 07:54:00 104 98-107 (mm ol/L) Final CO2 06/15/2023 07:54:00 26 22-32 (mmo l/L) Final Anion gap 06/15/2023 07:54:00 8 7-15 (mmol /L) Final Glucose 06/15/2023 07:54:00 95 70-120 (mg /dL) Final Calcium 06/15/2023 07:54:00 8.9 8.4-10.2 ( mg/dL) Final Performing Location [facility] [place] - [address] [place] [address]
--- OUTSIDE RECORDS SUMMARY | 2023-07-15 07:02 | External Medical Summary ---
Author Name Unknown Address Unknown Organization [id number]:[facility] - [address] [place] [address] Laboratory Report Ordering Provider Test Date Status YAIMATENA 06/14/2023 21:20:00 Final Observation Date Value Abnormality Reference (Units ) Status Phosphate 06/14/2023 21:20:00 3.6 2.5-4.8 (m g/dL) Final Performing Location [facility] - [address] [place] [address]
--- OUTSIDE RECORDS SUMMARY | 2023-07-15 07:02 | External Medical Summary ---
Author Name Unknown Address Unknown Organization K01:[facility]ORY [facility] [place] [address] [facility] [address] [place] [address] Laboratory Report Ordering Provider Test Date Status PACO CHOI 07/04/2023 16:21:55 Final Observation Date Value Abnormality Reference (Units ) Status BUN 07/04/2023 16:21:55 10 6-20 (mg/dL) Final Creatinine 07/04/2023 16:21:55 0.9 0.6-1.2 (mg/dL) Final Glomerular filtration rate/1.73 sq M.predicted [Volume Rate/Area] in Serum, Plasma or Blood by Creatinine-based formula (CKD-EPI) 07/04/2023 16:21:55 >90 >=60 (mL/min) Final eGFR is calculated based on the CKD-EPI 2020 equation SODIUM 07/04/2023 16:21:55 142 135-146 (m mol/L) Final Potassium 07/04/2023 16:21:55 4.3 3.5-5.1 (m mol/L) Final Cl 07/04/2023 16:21:55 106 98-107 (mm ol/L) Final CO2 07/04/2023 16:21:55 25 22-32 (mmo l/L) Final Anion gap 07/04/2023 16:21:55 11 7-15 (mmol /L) Final Glucose 07/04/2023 16:21:55 95 70-120 (mg /dL) Final Albumin 07/04/2023 16:21:55 4.4 3.8-5.0 (g /dL) Final AST (Aspartate aminotransferase) 07/04/2023 16:21:55 19 10-50 (U/L) Fin al Alk Phos 07/04/2023 16:21:55 137 Above high normal 35 -130 (U/L) Final Bilirubin, Total 07/04/2023 16:21:55 <0.2 <=1 .2 (mg/dL) Final Calcium 07/04/2023 16:21:55 9.5 8.4-10.2 ( mg/dL) Final Protein 07/04/2023 16:21:55 7.4 6.0-8.3 (g /dL) Final ALT (Alanine aminotransferase) 07/04/2023 16:21:55 29 10-50 (U/L) Dany blake Performing Location [facility]ORY [facility] [place] - [facility] [place] [address] [facility] [address]
--- OUTSIDE RECORDS SUMMARY | 2023-07-15 07:03 | External Medical Summary | Summary of Care ---
Author Name Unknown Organization [facility] Address [address] [place] [address] Phone [phone] Care Team Providers Care Warehouse Assistant Name Role Phone Unavailable Primary Care Provider Unavailabl e Reason for Visit * Reason Onset Date Comments Follow Up 06/09/2023 Encounter Details Date Type Department Care Team (Late st Contact Info) Description 06/09/2023 Telephone Care Coordination and Integration [address] [place], [place] [id number] Shayy Lagunas [facility] [address] [place] [address] Follow Up Allergies No known active allergiesdocumented as of this encounter (statuses as of 06/09/2023) Medications Medication Sig Dispensed Refills Start Date [...] nebulized medication 1 Each 0 10/13/2022 Active Additional Information Patient not taking.Reported on 05/04/2023 Nebulizer/Tubing/Mout hpiece Kit To be used with [...] OPD, group D, by GOLD 2017 classification ([facility]),Moderate persistent asthma without complication Inhale 2 Puffs by mouth every 6 hours as needed for Shortness of Breath or Wheezing. 18 g 2 04/25/2023 Active Albuterol Sulfate (2.5 MG/3ML) 0.083% Inhalation Nebulization Solution (Proventil)Indication s:Moderate persistent asthma without complication Inhale 1 Vial via nebulizer every 6 hours as needed for Wheezing. 360 mL 3 04/25/2023 Active Ciprofloxacin HCl 500 MG Oral Tablet (Cipro) take 1 tablet by mouth every 12 hours for 7 days 0 04/13/2023 Active metroNIDAZOLE 500 MG Oral Tablet (Flagyl) take 1 tablet by mouth every 8 hours for 7 days 0 04/13/2023 Active Tiotropium [place] Monohydrate 18 MCG Inhalation Capsule (Spiriva HandiHaler)Indication s:COPD, group D, by GOLD 2017 classification ([facility]) Inhale 1 Capsule by mouth in the morning. For inhaler only, do not swallow.. 30 Capsule 2 06/05/2023 Active Fluticasone-Salmetero l 250-50 MCG/ACT Inhalation Aerosol Powder Breath Activated (Advair Diskus)Indications:CO PD, group D, by GOLD 2017 classification ([facility]) Inhale 1 Puff by mouth in the morning and 1 Puff before bedtime. 60 Each 2 06/05/2023 Active documented as of this encounter (statuses as of 06/09/2023) Active Problems Problem Noted Date Diagnosed Date Moderate persistent asthma without complication 05/03/2023 Diverticulitis [...] as of this encounter (statuses as of 06/09/2023) Resolved Problems Problem Noted Date Diagnosed Date Resolved Date Chronic obstructive pulmonar y disease with (acute) exacerbation 01/20/2022 04/08/2022 Shortness of breath 03/22/2021 08/17/19 Tick bite 03/22/2021 08/17/2022 documented as of this encounter (statuses as of 06/09/2023) Immunizations Name Administration Dates Next Due COVID-19 mRNA, LNP-s, No Pre serve, 2-Dose Series (Moderna) 03/05/2021,02/05/2021 Hepatitis B Vaccine, Recombi nant, Adjuvanted, 20 mcg/mL (Heplisav-B) 11/15/2022(Deferred: Patient Refused - pt left without getting) Pneumococcal Conjugate Vacci ne, 20-valent ([id number]) 08/25/2022 Pneumococcal Polysaccharide PPV23 (Pneumovax) 06/22/2021 SEASONAL [...] on file documented as of this encounter Miscellaneous Notes * Telephone Encounter - [facility]y [facility] Patient Portal Representative - 06/09/2023 5:08 PM EST Left message with case management to inquire if patient still admitted. Awaiting call back documented in this encounter Plan of Treatment Upcoming Encounters Date Type Department Care Team (Latest Contact Info) Description 08/01/2023 11:45 AM EST Hospital Encounter ENDO OSSC, Endoscopy Room [facility] [address] [place] [phone] Kvng Mcguire MD [address] [place] [address] 08/01/2023 11:45 AM EST - 08/01/2023 12:15 PM EST Surgery ENDO O[facility], Endoscopy Room [facility] [address] [place] [phone] Kvng Mcguire MD [address] [place] [address] COLONOSCOPY FLEXIBLE PROXIMAL DIAGNOSTIC 08/02/2023 2:40 PM EST Office Visit Family [facility] [address] [place] [phone] Jaiden Franklin MD [address] [place] [address] 10/16/2023 2:15 PM EDT Imaging Radiology [address] [place] [address] Scheduled Procedures Name Priority Associated Diagnoses Date/Ti [...] ASSESSMENT COMPLETED IN PAST YEAR FOR COPD 05/04/2024 05/04/2023 Diabetes Screening 09/23/2025 09/23/2022, 0 01/12/2022, 01/03/2022, Additional history exists Lipid Panel 03/22/2026 03/22/2021 DTaP,Tdap,and Td Vaccines (2 - Td or [...]
--- OUTSIDE RECORDS SUMMARY | 2023-07-15 07:03 | External Medical Summary ---
Author Name Unknown Address Unknown Organization K01:[facility] [place] [facility] [address] [place] [address] Laboratory Report Ordering Provider Test Date Status TENA ERWIN 06/14/2023 21:20:00 Final Observation Date Value Abnormality Reference (Units ) Status BUN 06/14/2023 21:20:00 11 6-20 (mg/dL) Final Creatinine 06/14/2023 21:20:00 1.0 0.6-1.2 (mg/dL) Final Glomerular filtration rate/1.73 sq M.predicted [Volume Rate/Area] in Serum, Plasma or Blood by Creatinine-based formula (CKD-EPI) 06/14/2023 21:20:00 >90 >=60 (mL/min) Final eGFR is calculated based on the CKD-EPI 2020 equation SODIUM 06/14/2023 21:20:00 139 135-146 (m mol/L) Final Potassium 06/14/2023 21:20:00 3.8 3.5-5.1 (m mol/L) Final Cl 06/14/2023 21:20:00 105 98-107 (mm ol/L) Final CO2 06/14/2023 21:20:00 24 22-32 (mmo l/L) Final Anion gap 06/14/2023 21:20:00 10 7-15 (mmol /L) Final Glucose 06/14/2023 21:20:00 118 70-120 (mg /dL) Final Calcium 06/14/2023 21:20:00 9.0 8.4-10.2 ( mg/dL) Final Performing Location [facility] [place] [address] [place] [address]
--- OUTSIDE RECORDS SUMMARY | 2023-07-15 07:03 | External Medical Summary | Summary of Care ---
Author Name Unknown Organization [facility] Address [address] [place] [address] Phone [phone] Care Team Providers Care Leather Cartridge Belt Maker Name Role Phone Unavailable Primary Care Provider Unavailabl e Reason for Visit * Reason Onset Date Comments Appointment 05/05/2023 Encounter Details Date Type Department Care Team (Late st Contact Info) Description 05/05/2023 Telephone Care Coordination [address], [place] [id number] Shayy Lagunas [facility] [address] [place] [address] Appointment Allergies No known active allergiesdocumented as of this encounter (statuses as of 06/01/2023) Medications Medication Sig Dispensed Refills Start Date [...] the morning. 90 Tablet 3 11/15/2022 Active Trelegy Ellipta 100-62.5-25 MCG/ACT Aerosol Powder Breath Activated (Fluticasone-Umeclidi nium-Vilanterol)Indic ations:COPD, group D, by GOLD 2017 classification ([facility]) Inhale 1 Puff by mouth in the morning. 180 Blister Dosing Unit 1 04/25/2023 Active Albuterol Sulfate HFA 108 (90 Base) MCG/ACT Inhalation Aerosol SolutionIndications:C OPD, group D, by GOLD 2017 classification ([facility]),Moderate persistent asthma without complication Inhale 2 Puffs [...] hours for 7 days 0 04/13/2023 Active documented as of this encounter (statuses as of 06/01/2023) Active Problems Problem Noted Date Diagnosed Date [...] as of this encounter (statuses as of 06/01/2023) Resolved Problems Problem Noted Date Diagnosed Date Resolved Date Chronic obstructive pulmonar y disease with (acute) exacerbation 01/20/2022 04/08/2022 Shortness of breath 03/22/2021 08/17/19 Tick bite 03/22/2021 08/17/2022 documented as of this encounter (statuses as of 06/01/2023) Immunizations Name Administration Dates Next Due COVID-19 mRNA, LNP-s, No Pre serve, 2-Dose Series (Moderna) 03/05/2021,02/05/2021 Hepatitis B Vaccine, Recombi nant, Adjuvanted, 20 mcg/mL (Heplisav-B) 11/15/2022(Deferred: Patient Refused - pt left without getting) Pneumococcal Conjugate Vacci ne, 20-valent ([id number]) 08/25/2022 Pneumococcal Polysaccharide PPV23 (Pneumovax) 06/22/2021 SEASONAL [...] drink = 0.6 oz pur e alcohol) PHQ-2 Answer Date Recorded PHQ Adult Total Score 0 04/25/2023 Hunger Vital Sign Answer Date Recorded Within the past 12 months, y ou worried that your food would run out before you got the money to buy more. Never true 04/25/20 Within the past 12 months, t he [...] encounter Miscellaneous Notes * Telephone Encounter - She Armstrong MED ASSIST - 05/08/2023 11:29 AM EDT Anish for pt to cb. * Telephone Encounter - Shayy Lagunas Community Health Assistant - 05/05/2023 4:52 PM EDT Patient psychology video visit 05/01/23 canceled by provider. Patient didn't know until time of the appointment that it was canceled. Patient does not have cell service at his home. Has to drive a distance to get service. Confirmed with patient that he has [employer] access. Advised to check when he is in an area of service for appt updates. Please reschedule patient with next available provider. Thank you, Shayy Lagunas [facility] documented in this encounter Plan of Treatment Upcoming Encounters Date Type Department Care Team (Latest Contact Info) Description 08/01/2023 11:45 AM EST Hospital Encounter ENDO [facility], Endoscopy Room [facility] [address] [place] [phone] Kvng Mcguire MD [address] [place] [address] 08/01/2023 11:45 AM EST - 08/01/2023 12:15 PM EST Surgery ENDO [facility], Endoscopy Room [facility] [address] [place] [phone] Kvng Mcguire MD [address] [place] [address] COLONOSCOPY FLEXIBLE PROXIMAL DIAGNOSTIC 08/02/2023 2:40 PM EST Office Visit [facility] [address] [place] [phone] Jaiden Franklin MD [address] [place] [address] 10/16/2023 2:15 PM EDT Imaging Radiology [address] [place] [address] Scheduled Procedures Name Priority Associated Diagnoses Date/Ti [...]
--- OUTSIDE RECORDS SUMMARY | 2023-07-15 07:03 | External Medical Summary | Summary of Care ---
Author Name Unknown Organization [facility] Address [address] [address] Phone [phone] Care Team Providers Care Instant Pot[employer]or Name Role Phone Unavailable Primary Care Provider Unavailabl e Reason for Referral * Evaluate & Treat - Unlimited Visits (Within 10 days (routine)) - Authorized Specialty Diagnoses / Procedures Referred By Dena lorenzo Referred To Contact Psychology Diagnoses ANNABELLE (generalized anxiety disorder) Martin Polo DO [address] [place] [address] Referral ID Status Reason Start Date Expiration Date Visits Requested Visits Authorized [id number] Authorized Specialty Services Required 04/25/[phone] Question Answer Referral Priority Within 10 days (routine) Is this referral for medication management? No Referral To [facility] Reason for Referral: Adjustment/Stress/Grief * Evaluate & Treat - Unlimited Visits (Within 30 days (routine)) - Authorized Specialty Diagnoses / Procedures Referred By Dena lorenzo Referred To Contact Gastroenterology Diagnoses Diverticulitis of colon Martin Polo DO [address] [place] [address] Referral ID Status Reason Start Date Expiration Date Visits Requested Visits Authorized [id number] Authorized Specialty Services Required 04/25/[phone] Question Answer Referral Priority Within 30 days (routine) For what condition is the patient being referred? All Gastro Conditions Comments diverticulitis Reason for Visit * Reason Onset Date Comments Hospital Follow-Up Pt here for a hospital f/u from 04/13 for diverticulitis. Hospital Follow-Up 04/25/2023 Encounter Details Date Type Department Care Team Description 04/25/2023 Office Visit [facility] [address] [place] [address] Martin Polo DO [address] [place] [id number] Hospital discharge follow-up*; Diverticulitis of colon; Diarrhea, unspecified type; COPD, group D, by GOLD 2017 classification ([facility]); Moderate persistent asthma without complication; Multiple lung nodules; ANNABELLE (generalized anxiety disorder) Allergies No known active allergiesdocumented as of this encounter (statuses as of 05/03/2023) Medications Medication Sig Dispensed Refills Start Date [...] 100-62.5-25 MCG/ACT Aerosol Powder Breath Activated (Fluticasone-Umeclid inium-Vilanterol)Ind ications:COPD, group D, by GOLD 2017 classification ([facility]) Inhale 1 Puff by mouth in the morning. 180 Blister Dosing Unit 1 04/25/2023 Active Albuterol Sulfate HFA 108 (90 Base) MCG/ACT Inhalation Aerosol SolutionIndications: COPD, group D, by GOLD 2017 classification ([facility]),Moderate persistent asthma without complication Inhale 2 Puffs by mouth every 6 hours as needed for Shortness of Breath or Wheezing. 18 g 2 04/25/2023 Active Albuterol Sulfate (2.5 MG/3ML) 0.083% Inhalation Nebulization Solution (Proventil)Indicatio ns:Moderate persistent asthma without complication Inhale 1 Vial via nebulizer every 6 hours as needed for Wheezing. 360 mL 3 04/25/2023 Active Fluticasone-Salmeter ol 500-50 MCG/ACT Inhalation Aerosol Powder Breath Activated (Advair Diskus)Indications:C OPD, group D, by GOLD 2017 classification ([facility]) Inhale 1 Puff by mouth in the morning and 1 Puff before bedtime. 180 Each 12 08/25/2022 04/25/20 Discontinu ed(Medicat ion List Clean Up) Albuterol Sulfate HFA 108 (90 Base) MCG/ACT Inhalation Aerosol SolutionIndications: COPD, group D, by GOLD 2017 classification ([facility]),Severe persistent asthma without complication Inhale 2 Puffs by mouth every 6 hours as needed for Shortness of Breath or Wheezing. 18 g 2 08/25/2022 04/25/20 23 Discontinu ed(Refill) Trelegy Ellipta 100-62.5-25 MCG/ACT Aerosol Powder Breath Activated (Fluticasone-Umeclid inium-Vilanterol) Inhale 1 Puff by mouth in the morning. 180 Blister Dosing Unit 1 10/13/2022 04/25/20 23 Discontinu ed(Refill) Albuterol Sulfate (2.5 MG/3ML) 0.083% Inhalation Nebulization Solution (Proventil)Indicatio ns:Moderate persistent asthma without complication Inhale 1 Vial via nebulizer every 6 hours as needed for Wheezing. 360 mL 3 10/13/2022 04/25/20 23 Discontinu ed(Refill) documented as of this encounter (statuses as of 05/03/2023) Active Problems Problem Noted Date Moderate persistent asthma without compl ication 05/03/2023 Diverticulitis of colon 04/25/2023 Diarrhea 04/25/2023 Multiple lung nodules 11/15/2022 Seasonal allergic rhinitis due to pollen 11/15/2022 Gastroesophageal reflux disease without esophagitis 11/15/2022 COPD, group D, by GOLD 2017 classificati on 01/20/2022 Severe persistent asthma without complic ation 03/22/2021 Chronic fatigue 03/22/2021 ANNABELLE (generalized anxiety disorder) 03/22 Episode of recurrent major depressive di sorder 03/22/2021 documented as of this encounter (statuses as of 05/03/2023) Resolved Problems Problem Noted Date Resolved Date Chronic obstructive pulmonar y disease with (acute) exacerbation 01/20/2022 04/08/2022 Shortness of breath 03/22/2021 08/17/2022 Tick bite 03/22/2021 08/17/2022 documented as of this encounter (statuses as of 05/03/2023) Immunizations Name Administration Dates Next Due COVID-19 mRNA, LNP-s, No Pre serve, 2-Dose Series (Moderna) 03/05/2021,02/05/2021 Hepatitis B Vaccine, Recombi nant, Adjuvanted, 20 mcg/mL (Heplisav-B) 11/15/2022(Deferred: Patient Refused - pt left without getting) Pneumococcal Conjugate Vacci ne, 20-valent ([id number]) 08/25/2022 Pneumococcal Polysaccharide PPV23 (Pneumovax) 06/22/2021 SEASONAL [...] drink = 0.6 oz pur e alcohol) Alcohol Habits Answer Date Recorded How often do you have a drink containing alcohol ? Never 02/08/2021 How many drinks containing a lcohol do you have on a typical day when you are drinking? Not asked How often do you have six or more drinks on one occasion? Not asked Food Insecurity Answer Date Recorded Within the past 12 months, y ou worried that your food would run out before you got money to buy more. Never true 04/25/2023 Within the past 12 months, t he food you bought just didn't last and you didn't have money to get more. Never true 04/25/2023 Sex Assigned at Date Recorded Male 04/25/2023 12:16 PM EDT Job Start Date Occupation Industry Not on file Not on file Not on file documented as of this encounter Last Filed Vital Signs Vital Sign Reading Time Taken Comments Blood Pressure 116/64 04/25/2023 12:19 PM EDT Pulse 78 04/25/2023 12:19 PM EDT Temperature 36.3 C (97.4 F) 04/25/2023 12:19 PM E DT Respiratory Rate 16 04/25/2023 12:19 PM EDT Oxygen Saturation 95% 04/25/2023 12:19 PM EDT Inhaled Oxygen Concentration - - Weight 93.2 kg (205 lb 6.4 oz) 04/25/2023 12:19 PM EDT Height 172.7 cm (5' 8") 04/25/2023 12:19 PM EDT Body Mass Index 31.23 04/25/2023 12:19 PM EDT documented in this encounter Patient Instructions * Patient Instructions* Martin Polo DO - 04/25/2023 12:54 PM EDT Taking Medicine Safely Medicine is given to help treat or prevent illness. But if you don't take it correctly, it might not help. It might even harm you. Your doctor or pharmacist can help you learn the right way to take your medicine. Listed below are some tips to help you take medicine safely. Safety Tips Have a routine for taking each medicine. Make it part of something you do each day, such as brushing your teeth or eating a meal. When you go to the hospital or your doctor's office, bring all your current medicines in their original boxes or bottles. If you can't do that, bring an up-to-date list of your medicines. Do not stop taking a prescription medicine unless your doctor tells you to. Doing so could make your condition worse. Do not share medicines. Let your doctor and pharmacist know of any allergies you have. Taking prescription medicines with alcohol, street drugs, herbs, supplements, or even some imxt-xvv-pjizlbq medicines can be harmful. Talk to your doctor or pharmacist before using any of these things while taking a prescription medicine. When filling your prescriptions, try using the same pharmacy for all your medicines. If not, let the pharmacist know what medicines you are already on. Keep medicines out of the reach of children and pets. Do not use medicine that has or that doesn't look or smell right. Get rid of it properly. To find out the right way to get rid of medicine: Call your [facility] or on license of [facility] government's household trash and recycling service and ask if a drug take-back program is available in your community. Call your local pharmacy and ask the right way to get rid of the medicine. Go to http://www.fda.gov/ForConsumers/ConsumerUpdates/hay550889 to learn how to get rid of medicines safely. Using Generic Medicines Medicines have brand names and generic (chemical) names. When a medicine is first made, it is sold only under its brand name. Later, it can be made and sold as a generic. Generic medicines cost less than brand-name medicines and most work just as well. Most people can use the generic medicine instead of the brand-name medicine, unless their doctor says otherwise. 3580-9130 [facility], [address] [place] [address]. All rights reserved. This information is not intended as a substitute for professional medical care. Always follow your healthcare professional's instructions. Coping with Your Diagnosis of a Chronic Health Condition If you have a chronic health condition, you have a problem that may not go away over time. Heart disease, asthma, arthritis, and diabetes are just a few of the chronic conditions that exist. Right now, these conditions have no known cure. But you can take an active role in managing your health. Coping with Your Diagnosis If you've just learned about your health condition, you may be angry, depressed, or afraid. Or you might feel relieved just to know what's wrong. Even if you've known about your health problem for a while, adjusting to it can be hard. But learning about your condition can help you cope. Look for books at your local library. If you have access to a computer, check the Internet. Or contact a group that focuses on your specific problem. Accepting Change Change is hard for most people. Yet right now you may be facing many changes. What you eat or the way you work may change. Your moods, and even your symptoms, might vary from day to day. Although it isn't easy, learning to accept change can help you feel more in control. Taking Control Feeling you have control can make living with your condition easier. Discuss treatment options withyour health care provider. The more you know, the more active you can be in your care. Moving Forward You may wonder whether you will be able to do the things you've always done. That depends on your age, the condition you have, and your goals. To make the most of each day, try to build caring relationships, be active, and eat right. Also, do your best to keep a sense of humor. [facility], [address] [place] [address], [place] [address]. All rights reserved. This information is not intended as a substitute for professional medical care. Always follow your healthcare professional's instructions. Taking an Active Role in Your Medicines Take the time to learn about your medicine. For instance, why are you taking it? What does it do? Work with your doctor or other health care providers to get the answers you need. Talk to your pharmacist about how to take each medicine, and ask for a fact sheet on each one. Ask Questions About Your Medicine What is the name of the medicine? Why do I need to take it? When should I take it? How should I take it: with water? with food? on an empty stomach? How much do I take? What do I do if I miss a dose? What side effects could it cause and which ones should I call the doctor about? Are there any foods or medicines I should avoid while taking this medicine? Keeping track of your medications? Name of medicine: Taken for: Dose: Time(s) to take it: Take an Active Role Fill all your prescriptions at the same pharmacy. This keeps your medicine history in one place. Talk to the pharmacist. Make sure you understand how to take each medicine. Ask for a fact sheet about each one. Tell your doctor and pharmacist about all the prescription and brjy-vzy-wbaincq medicines you take.This includes vitamins and herbal remedies. Tell your doctor and pharmacist if you have any medical conditions or allergies to any medicine or food, or if you are or . Keep a list of all your medicines. Use the sample to the right as a guide for the type of information needed. 9703-9151 [facility], [address] [place] [address]. All rights reserved. This information is not intended as a substitute for professional medical care. Always follow your healthcare professional's instructions. Taking Medicine Safely Medicine is given to help treat or prevent illness. But if you don't take it correctly, it might not help. It might even harm you. Your doctor or pharmacist can help you learn the right way to take your medicine. Listed below are some tips to help you take medicine safely. Safety Tips Have a routine for taking each medicine. Make it part of something you do each day, such as brushing your teeth or eating a meal. When you go to the hospital or your doctor's office, bring all your current medicines in their original boxes or bottles. If you can't do that, bring an up-to-date list of your medicines. Do not stop taking a prescription medicine unless your doctor tells you to. Doing so could make your condition worse. Do not share medicines. Let your doctor and pharmacist know of any allergies you have. Taking prescription medicines with alcohol, street drugs, herbs, supplements, or even some kvcd-ume-dyaikrg medicines can be harmful. Talk to your doctor or pharmacist before using any of these things while taking a prescription medicine. When filling your prescriptions, try using the same pharmacy for all your medicines. If not, let the pharmacist know what medicines you are already on. Keep medicines out of the reach of children and pets. Do not use medicine that has or that doesn't look or smell right. Get rid of it properly. To find out the right way to get rid of medicine: Call your [facility] or on license of [facility] government's household trash and recycling service and ask if a drug take-back program is available in your community. Call your local pharmacy and ask the right way to get rid of the medicine. Go to http://www.fda.gov/ForConsumers/ConsumerUpdates/buf406601 to learn how to get rid of medicines safely. Using Generic Medicines Medicines have brand names and generic (chemical) names. When a medicine is first made, it is sold only under its brand name. Later, it can be made and sold as a generic. Generic medicines cost less than brand-name medicines and most work just as well. Most people can use the generic medicine instead of the brand-name medicine, unless their doctor says otherwise. 9721-1987 [facility], [address] [place] [address]. All rights reserved. This information is not intended as a substitute for professional medical care. Always follow your healthcare professional's instructions. Coping with Your Diagnosis of a Chronic Health Condition If you have a chronic health condition, you have a problem that may not go away over time. Heart disease, asthma, arthritis, and diabetes are just a few of the chronic conditions that exist. Right now, these conditions have no known cure. But you can take an active role in managing your health. Coping with Your Diagnosis If you've just learned about your health condition, you may be angry, depressed, or afraid. Or you might feel relieved just to know what's wrong. Even if you've known about your health problem for a while, adjusting to it can be hard. But learning about your condition can help you cope. Look for books at your local library. If you have access to a computer, check the Internet. Or contact a group that focuses on your specific problem. Accepting Change Change is hard for most people. Yet right now you may be facing many changes. What you eat or the way you work may change. Your moods, and even your symptoms, might vary from day to day. Although it isn't easy, learning to accept change can help you feel more in control. Taking Control Feeling you have control can make living with your condition easier. Discuss treatment options withyour health care provider. The more you know, the more active you can be in your care. Moving Forward You may wonder whether you will be able to do the things you've always done. That depends on your age, the condition you have, and your goals. To make the most of each day, try to build caring relationships, be active, and eat right. Also, do your best to keep a [place] [address]. All rights reserved. This information is not intended as a substitute for professional medical care. Always follow your healthcare professional's instructions. Taking an Active Role in Your Medicines Take the time to learn about your medicine. For instance, why are you taking it? What does it do? Work with your doctor or other health care providers to get the answers you need. Talk to your pharmacist about how to take each medicine, and ask for a fact sheet on each one. Ask Questions About Your Medicine What is the name of the medicine? Why do I need to take it? When should I take it? How should I take it: with water? with food? on an empty stomach? How much do I take? What do I do if I miss a dose? What side effects could it cause and which ones should I call the doctor about? Are there any foods or medicines I should avoid while taking this medicine? Keeping track of your medications? Name of medicine: Taken for: Dose: Time(s) to take it: Take an Active Role Fill all your prescriptions at the same pharmacy. This keeps your medicine history in one place. Talk to the pharmacist. Make sure you understand how to take each medicine. Ask for a fact sheet about each one. Tell your doctor and pharmacist about all the prescription and qhlp-heo-epetcjl medicines you take.This includes vitamins and herbal remedies. Tell your doctor and pharmacist if you have any medical conditions or allergies to any medicine or food, or if you are or . Keep a list of all your medicines. Use the sample to the right as a guide for the type of [place] [address]. All rights reserved. This information is not intended as a substitute for professional medical care. Always follow your healthcare professional's instructions. documented in this encounter Progress Notes * Martin Polo DO - 04/25/2023 12:55 PM EDT SUBJECTIVE: Davion Cho is a 43 year old male. Chief Complaint Patient presents with Hospital Follow-Up Pt here for a hospital f/u from 04/13 for diverticulitis. Hospital Follow-Up Recent Admission: Patient was recently admitted to [facility]. The date of discharge was 04/13/2023 Discharge report received and reviewed. HPI: Patient is a 43-year-old male with past medical history of COPD, asthma, multiple lung nodules, and generalized anxiety disorder. Patient was admitted through the ER on 04/08/2023 with complaint of abdominal pain. CT scan of abdomen and pelvis showed diverticulitis with microperforation. Patientwas treated with IV cefepime and Flagyl initially. Strenuous transition to Zosyn. Patient was maintained NPO initially. Abdominal pain improved slowly. Patient was started on clear liquids which was eventually advanced. Patient was recommended low residual diet at home and completion of antibiotic with Cipro and metronidazole as prescribed. Patient advised to follow with general surgeon on 05/11/2023. Patient complains of lower abdominal pain overall improved. Patient complains of diarrhea followingdischarge from hospital. Patient denies nausea vomiting melena hematochezia.. Review of systems otherwise negative Patient Active Problem List Diagnosis Code Severe persistent asthma without complication J45.50 Chronic fatigue R53.82 ANNABELLE (generalized anxiety disorder) F41.1 Episode of recurrent major depressive disorder (HCC) F33.9 COPD, group D, by GOLD 2017 classification (HCC) J44.9 Multiple lung nodules R91.8 Seasonal allergic rhinitis due to pollen J30.1 Gastroesophageal reflux disease without esophagitis K21.9 Diverticulitis of colon K57.32 Diarrhea R19.7 Current Outpatient Medications Medication Sig Dispense Refill Vitamin D 50 MCG (1999 UT) Oral Capsule Take 2,000 Units by mouth in the morning. Ginseng 100 MG Oral Capsule Take by mouth daily. CoQ-10 100 MG Oral Capsule Take by mouth daily. Omeprazole 20 MG Oral Capsule Delayed Release [...] mouth in the morning. 90 Tablet 3 Trelegy Ellipta 100-62.5-25 MCG/ACT Aerosol Powder Breath Activated (Dnpuigntwsy-Shgekhpctmye-Jvrxfpveee) Inhale 1 Puff by mouth in the morning. 180 Blister Dosing Unit 1 Albuterol Sulfate HFA 108 (90 Base) MCG/ACT Inhalation Aerosol Solution Inhale 2 Puffs by mouth every 6 hours as needed for Shortness of Breath or Wheezing. 18 g 2 Albuterol Sulfate (2.5 MG/3ML) 0.083% Inhalation Nebulization Solution (Proventil) Inhale 1 Vial via nebulizer every 6 hours as needed for Wheezing. 360 mL 3 No current facility-administered medications for this visit. Current and discharge medications have been reconciled. Review of patient's allergies indicates: No Known Allergies OBJECTIVE: BP 116/64 | Pulse 78 | Temp 36.3 C (97.4 F) | Resp 16 | Ht 1.727 m (5' 8") | Wt 93.2 kg (205 lb6.4 oz) | SpO2 95% | BMI 31.23 kg/m | BSA 2.11 m Review Of Systems: Skin: negative Eyes: negative Ears/Nose/Throat: negative Respiratory: negative Cardiovascular: negative Gastrointestinal: As per HPI Genitourinary: negative Musculoskeletal: pt denies significant joint pain or stiffness Neurologic: negative Psychiatric: negative Hematologic/Lymphatic/Immunologic: negative Endocrine: negative PHYSICAL EXAM: General: alert, healthy, and no distress Head: Normocephalic, No masses, lesions, tenderness or abnormalities Eye Exam: PERRLA, extraocular movements intact, conjunctiva are pink and non- injected, sclera clear Ears: External ears normal, Canals clear, TM's Normal Nose: no mucosal erythema, no mucosal edema, no purulent discharge Oropharynx: no exudate, no erythema, lips, buccal mucosa, and tongue normal, and mucous membranes are moist Neck: supple, no adenopathy, no bruits, thyroid normal size, non-tender, without nodularity Lymph: no palpable lymphadenopathy Heart: regular rate & rhythm, no murmur, and no gallops Lungs: chest symmetric with normal AP diameter, no chest deformities noted, no chest wall tenderness, lungs decreased breath sounds with end-expiratory wheeze bilateral, no rales or rhonchi Pulses: carotid=2/4 w/o bruits Abdomen: abdomen soft, tenderness palpation right and left lower quadrant, no guarding rebound or rigidity normal bowel sounds, and no masses or organomegaly Back: back symmetric, no curvature, no costovertebral angle tenderness, range of motion is normal Extremities: less than 2 second capillary refill, no joint deformities, effusion, or inflammation Neuro Exam: alert & oriented x 3 with fluent speech, no focal motor/sensory deficits, gait normal, reflexes normal and symmetric, anxious, no suicidal ideation Skin: skin color, texture, turgor are normal, no rashes or significant lesions ASSESSMENT: Hospital discharge follow-up (Primary) - DISCH MED RECON CUR MED LIS - ADULT/PEDS PSYCHOLOGY REFERRAL OP Diverticulitis of colon - GASTROINTESTINAL PATHOGEN PANEL, STOOL; Future; Expected date: 04/25/2023 - GASTROENTEROLOGY REFERRAL OP - DISCH MED RECON CUR MED LIS Finish Cipro and Flagyl as directed Follow with general surgeon Diarrhea, unspecified type - GASTROINTESTINAL PATHOGEN PANEL, STOOL; Future; Expected date: 04/25/2023 - CLOSTRIDIUM DIFFICILE, PCR; Future; Expected date: 04/25/2023 - REGIONAL PARASITE ANTIGEN SCREEN; Future; Expected date: 04/25/2023 - DISCH MED RECON CUR MED LIS COPD, group D, by GOLD 2017 classification ([facility]) - Trelegy Ellipta 100-62.5-25 MCG/ACT Aerosol Powder Breath Activated (Oozocycljkh-Vdmxoilntiph-Ihuuuvxrtz); Inhale 1 Puff by mouth in the morning. - Albuterol Sulfate HFA 108 (90 Base) MCG/ACT Inhalation Aerosol Solution; Inhale 2 Puffs by mouth every 6 hours as needed for Shortness of Breath or Wheezing. - DISCH MED RECON CUR MED LIS Moderate persistent asthma without complication - Albuterol Sulfate HFA 108 (90 Base) MCG/ACT Inhalation Aerosol Solution; Inhale 2 Puffs by mouth every 6 hours as needed for Shortness of Breath or Wheezing. - Albuterol Sulfate (2.5 MG/3ML) 0.083% Inhalation Nebulization Solution (Proventil); Inhale 1 Vialvia nebulizer every 6 hours as needed for Wheezing. - DISCH MED RECON CUR MED LIS Multiple lung nodules - DISCH MED RECON CUR MED LIS Follow pulmonology Repeat CT scan of chest 10/15/2023 ANNABELLE (generalized anxiety disorder) - DISCH MED RECON CUR MED LIS - ADULT/PEDS PSYCHOLOGY REFERRAL OP Follow Up: Return in 3 months (on 07/25/2023). PLAN: Continue present medication(s): Referral(s) to: General surgery Follow up in 3 month(s). Martin Polo DO documented in this encounter Plan of Treatment Upcoming Encounters Date Type Specialty Care Team Description 05/04/2023 Office Visit Gastroenterology Kvng Mcguire MD [address] [place] [address] 08/02/2023 Office Visit Family Medicine Jaiden Franklin MD [address] [place] [address] 10/16/2023 Imaging Radiology Scheduled Orders Name Type Priority Associated Diagnoses Orde r Schedule GASTROINTESTINAL PATHOGEN PANEL, STOOL Lab Routine Diverticulitis of colon Diarrhea, unspecified type Expected: 04/25/2023 (Approximate), Expires: 04/24/2024 CLOSTRIDIUM DIFFICILE, PCR Lab Routine Diarrhea, unspecified type Expected: 04/25/2023 (Approximate), Expires: 04/24/2024 REGIONAL PARASITE ANTIGEN SCREEN Lab Routine Diarrhea, unspecified type Expected: 04/25/2023 (Approximate), Expires: 04/24/2024 Scheduled Referrals Name Type Priority Associated Diagnoses Order Schedule GASTROENTEROLOGY REFERRAL OP Referral Within 30 days (routine) Diverticulitis of colon Ordered: 04/25/2023 ADULT/PEDS PSYCHOLOGY REFERRAL OP Referral Within 10 days (routine) ANNABELLE (generalized anxiety disorder) Ordered: 04/25/2023 Health Maintenance Due Date Last Done Comments Hepatitis B (1 of 3 - 3-dose series) 1981 Hepatitis C Screening 1999 COVID-19 Vaccine (3 - Moderna risk series) 04/02/2021 03/05/2021, 02/05/2021 *ADVANCE DIRECTIVE NOT ON FILE 04/10/2022 Influenza Vaccine (FLU shot) (#1) 2023 06/22/2021, 06/22/2021 Depression Screening 04/25/2024 04/25/2023 O2 ASSESSMENT COMPLETED IN PAST YEAR FOR COPD 04/25/2024 04/25/2023 Diabetes Screening 09/23/2025 09/23/2022, 0 01/12/2022, 01/03/2022, [...] Hospital discharge follow-up- Primary Other follow-up examination Diverticulitis of colon Diverticulitis of colon (without mention of hemorrhage) Diarrhea, unspecified type COPD, group D, by GOLD 2017 classification (HCC) Moderate persistent asthma without complication Unspecified asthma Multiple lung nodules Other nonspecific abnormal finding of lung field ANNABELLE (generalized anxiety disorder) Generalized anxiety disorder documented in this encounter
--- OUTSIDE RECORDS SUMMARY | 2023-07-15 07:03 | External Medical Summary | Summary of Care ---
Author Name Unknown Organization [facility] Address [address] [facility] [place] [address] Phone [phone] Care Team Providers Care Manager Of Customer Billing Name Role Phone Unavailable Primary Care Provider Unavailabl e Encounter Details Date Type Department Care Team Description 04/28/2023 Result Scan Unspecified Department Martin Flowers, DO [address] [place] [id number] <No scans attached> Allergies No known active allergiesdocumented as of this encounter (statuses as of 05/02/2023) Medications Medication Sig Dispensed Refills Start Date [...] ations:COPD, group D, by GOLD 2017 classification ([facility]) Inhale 1 Puff by mouth in the morning. 180 Blister Dosing Unit 1 04/25/2023 Active Albuterol Sulfate HFA 108 (90 Base) MCG/ACT Inhalation Aerosol SolutionIndications:C OPD, group D, by GOLD 2017 classification ([facility]),Severe persistent asthma without complication Inhale 2 Puffs by mouth every 6 hours as needed for Shortness of Breath or Wheezing. 18 g 2 04/25/2023 Active Albuterol Sulfate (2.5 MG/3ML) 0.083% Inhalation Nebulization Solution (Proventil)Indication s:Moderate persistent asthma without complication Inhale 1 Vial via nebulizer every 6 hours as needed for Wheezing. 360 mL 3 04/25/2023 Active documented as of this encounter (statuses as of 05/02/2023) Active Problems Problem Noted Date Diverticulitis of colon 04/25/2023 Diarrhea 04/25/2023 Multiple lung nodules 11/15/2022 Seasonal allergic rhinitis due to pollen 11/15/2022 Gastroesophageal reflux disease without esophagitis 11/15/2022 COPD, group D, by GOLD 2017 classificati on 01/20/2022 Severe persistent asthma without complic ation 03/22/2021 Chronic fatigue 03/22/2021 ANNABELLE (generalized anxiety disorder) 03/22 Episode of recurrent major depressive di sorder 03/22/2021 documented as of this encounter (statuses as of 05/02/2023) Resolved Problems Problem Noted Date Resolved Date Chronic obstructive pulmonar y disease with (acute) exacerbation 01/20/2022 04/08/2022 Shortness of breath 03/22/2021 08/17/2022 Tick bite 03/22/2021 08/17/2022 documented as of this encounter (statuses as of 05/02/2023) Immunizations Name Administration Dates Next Due COVID-19 mRNA, LNP-s, No Pre serve, 2-Dose Series (Moderna) 03/05/2021,02/05/2021 Hepatitis B Vaccine, Recombi nant, Adjuvanted, 20 mcg/mL (Heplisav-B) 11/15/2022(Deferred: Patient Refused - pt left without getting) Pneumococcal Conjugate Vacci ne, 20-valent ([id number]) 08/25/2022 Pneumococcal Polysaccharide PPV23 (Pneumovax) 06/22/2021 SEASONAL [...] on file documented as of this encounter Plan of Treatment Upcoming Encounters Date Type Specialty Care Team Description 05/04/2023 Office Visit Gastroenterology Kvng Mcguire MD [address] [place] [address] 08/02/2023 Office Visit Family Medicine Jaiden Franklin MD [address] [place] [address] 10/16/2023 Imaging Radiology Health Maintenance Due Date Last Done Comments [...] Procedure Name Priority Date/Time Associated Diagnosis Comments OUTSIDE LAB RESULTS 04/28/2023 documented in this encounter Results * OUTSIDE LAB RESULTS (04/28/2023) 04/28/2023 Martin Flowers DO LABORATORY documented in this encounter
--- OUTSIDE RECORDS SUMMARY | 2023-07-15 07:03 | External Medical Summary | Summary of Care ---
Author Name Unknown Organization [facility] Address [address] [place] [address] Phone [phone] Care Team Providers Care Milled Lumber Grader Name Role Phone Unavailable Primary Care Provider Unavailabl e Encounter Details Date Type Department Care Team (Late st Contact Info) Description 06/11/2023 Result Scan Unspecified Department <No scans attached> Allergies No known active allergiesdocumented as of this encounter (statuses as of 06/12/2023) Medications Medication Sig Dispensed Refills Start Date [...] OPD, group D, by GOLD 2017 classification ([facility]),Moderate persistent asthma without complication Inhale [...] for 7 days 0 04/13/2023 Active Tiotropium [place] Monohydrate 18 MCG Inhalation Capsule (Spiriva HandiHaler)Indication s:COPD, group D, by GOLD 2017 classification ([facility]) Inhale 1 Capsule by mouth in the morning. For inhaler only, do not swallow.. 30 Capsule 2 06/05/2023 Active Fluticasone-Salmetero l 250-50 MCG/ACT Inhalation Aerosol Powder Breath Activated (Advair Diskus)Indications:CO PD, group D, by GOLD 2017 classification ([facility]) Inhale 1 Puff by mouth in the morning and 1 Puff before bedtime. 60 Each 2 06/05/2023 Active documented as of this encounter (statuses as of 06/12/2023) Active Problems Problem Noted Date Diagnosed Date [...] as of this encounter (statuses as of 06/12/2023) Resolved Problems Problem Noted Date Diagnosed Date Resolved Date Chronic obstructive pulmonar y disease with (acute) exacerbation 01/20/2022 04/08/2022 Shortness of breath 03/22/2021 08/17/19 Tick bite 03/22/2021 08/17/2022 documented as of this encounter (statuses as of 06/12/2023) Immunizations Name Administration Dates Next Due COVID-19 mRNA, LNP-s, No Pre serve, 2-Dose Series (Moderna) 03/05/2021,02/05/2021 Hepatitis B Vaccine, Recombi nant, Adjuvanted, 20 mcg/mL (Heplisav-B) 11/15/2022(Deferred: Patient Refused - pt left without getting) Pneumococcal Conjugate Vacci ne, 20-valent ([id number]) 08/25/2022 Pneumococcal Polysaccharide PPV23 (Pneumovax) 06/22/2021 SEASONAL [...] Encounter ENDO [facility], Endoscopy Room [facility] [address] [place] [address] Kvgn Mcguire MD [address] [place] [address] 08/01/2023 11:45 AM EST - 08/01/2023 12:15 PM EST Surgery ENDO [facility], Endoscopy Room [facility] [address] [place] [phone] Kvng Mcguire MD [address] [place] [address] COLONOSCOPY FLEXIBLE PROXIMAL DIAGNOSTIC 08/02/2023 2:40 PM EST Office Visit Family Practice [facility] [address] [place] [address] Jaiden Franklin MD [address] [place] [address] 10/16/2023 2:15 PM EDT Imaging Radiology [address] [place] [address] Scheduled Procedures Name Priority Associated Diagnoses Date/Ti [...] Procedure Name Priority Date/Time Associated Diagnosis Comments RADIOLOGY SCANNED RESULT 06/11/2023 RADIOLOGY SCANNED RESULT 06/11/2023 documented in this encounter Results * RADIOLOGY SCANNED RESULT (06/11/2023) 06/11/2023 No Physician Data Unknown DIAGNOSTIC RAD IOLOGY SERVICES * RADIOLOGY SCANNED RESULT (06/11/2023) 06/11/2023 No Physician Data Unknown DIAGNOSTIC RAD IOLOGY SERVICES documented in this encounter
--- OUTSIDE RECORDS SUMMARY | 2023-07-15 07:03 | External Medical Summary ---
Author Name Unknown Address Unknown Organization K01:[facility] - [address] [place] [address] Laboratory Report Ordering Provider Test Date Status TENA ERWIN 06/14/2023 21:20:00 Final Observation Date Value Abnormality Reference (Units ) Status ABO 06/14/2023 21:20:00 O Final RH 06/14/2023 21:20:00 Negative Final Performing Location [facility] - [address] [place] [address]
--- OUTSIDE RECORDS SUMMARY | 2023-07-15 07:03 | External Medical Summary | Summary of Care ---
Author Name Unknown Organization [facility] Address [address] [facility] [address] Phone [phone] Care Team Providers Care Immigration Specialist Name Role Phone LionelMartin Primary Care Provider Reason for Visit * Reason Comments case management PROMISE Encounter Details Date Type Department Care Team Description 04/17/2023 Level Vial Curvature [employer]erForge [facility] [address] [place] [address] Darlene Hernandes RN Medical home patient encounter* Allergies No known active allergiesdocumented as of this encounter (statuses as of 04/17/2023) Medications Medication Sig Dispensed Refills Start Date End Date Status Vitamin D 50 MCG (1999 [place]) Oral Capsule Take 2,000 Units by mouth in the morning. 0 Active Ginseng 100 MG Oral Capsule Take by mouth daily. 0 Active CoQ-10 100 MG Oral Capsule Take by mouth daily. 0 Active Fluticasone-Salmetero l 500-50 MCG/ACT Inhalation Aerosol Powder Breath Activated (Advair Diskus)Indications:CO PD, group D, by GOLD 2017 classification ([facility]) Inhale 1 Puff by mouth in the morning and 1 Puff before bedtime. 180 Each 12 08/25/2022 Active Omeprazole 20 MG Oral Capsule Delayed Release (PriLOSEC)Indications :Gastroesophageal reflux disease without esophagitis Take 1 Capsule by mouth in the morning. 1 hour before the first meal of the day. 30 Capsule 5 08/25/2022 Active Albuterol Sulfate HFA 108 (90 Base) MCG/ACT Inhalation Aerosol SolutionIndications:C OPD, group D, by GOLD 2017 classification ([facility]),Severe persistent asthma without complication Inhale 2 Puffs by mouth every 6 hours as needed for Shortness of Breath or Wheezing. 18 g 2 08/25/2022 Active Levocetirizine Dihydrochloride 5 MG Oral Tablet Take 1 Tablet by mouth every evening. 90 Tablet 3 10/13/2022 Active Trelegy Ellipta 100-62.5-25 MCG/ACT Aerosol Powder Breath Activated (Fluticasone-Umeclidi nium-Vilanterol) Inhale 1 Puff by mouth in the morning. 180 Blister Dosing Unit 1 10/13/2022 Active Albuterol Sulfate (2.5 MG/3ML) 0.083% Inhalation Nebulization Solution (Proventil)Indication s:Moderate persistent asthma without complication Inhale 1 Vial via nebulizer every 6 hours as needed for Wheezing. 360 mL 3 10/13/2022 Active Nebulizer Device To be [...] the morning. 90 Tablet 3 11/15/2022 Active documented as of this encounter (statuses as of 04/17/2023) Active Problems Problem Noted Date Multiple lung nodules 11/15/2022 Seasonal allergic rhinitis due to pollen 11/15/2022 Gastroesophageal reflux disease without esophagitis 11/15/2022 COPD, group D, by GOLD 2017 classificati on 01/20/2022 Severe persistent asthma without complic ation 03/22/2021 Chronic fatigue 03/22/2021 ANNABELLE (generalized anxiety disorder) 03/22 Episode of recurrent major depressive di sorder 03/22/2021 documented as of this encounter (statuses as of 04/17/2023) Resolved Problems Problem Noted Date Resolved Date Chronic obstructive pulmonar y disease with (acute) exacerbation 01/20/2022 04/08/2022 Shortness of breath 03/22/2021 08/17/2022 Tick bite 03/22/2021 08/17/2022 documented as of this encounter (statuses as of 04/17/2023) Immunizations Name Administration Dates Next Due COVID-19 mRNA, LNP-s, No Pre serve, 2-Dose Series (Moderna) 03/05/2021,02/05/2021 Hepatitis B Vaccine, Recombi nant, Adjuvanted, 20 mcg/mL (Heplisav-B) 11/15/2022(Deferred: Patient Refused - pt left without getting) Pneumococcal Conjugate Vacci ne, 20-valent ([id number]) 08/25/2022 Pneumococcal Polysaccharide PPV23 (Pneumovax) 06/22/2021 Seasonal Influenza Virus Vac cine, Unspecified Formulation 06/22/2021 Seasonal Influenza, PF, 6 mo ns & Above, IM , (Flulaval) 06/22/2021 TDAP (age 10 and older)(Boostrix) 08/25/2022 [...] more drinks on one occasion? Not asked Sex Assigned at Date Recorded Not on file Job Start Date Occupation Industry Not on file Not on file Not on file documented as of this encounter Progress Notes * Darlene Hernandes RN - 04/17/2023 4:02 PM EDT Level Vial Curvature Gauger Progress Note: Date: 04/17/23 Assigned Patient Tier: 2 Connected with patient via phone. Verified patient name/. Advised patient that call is being recorded for quality and training purposes. Assessment: Pt. noted the following: he continues to have abdominal and kidney pain. Reports that he has diarrhea as well. Is taking cipro/flagyl as directed. Was referred to home service consultant Dr. Robles. Is voiding, has some discomfort. Is drinking plenty of fluids. Following low residue diet. No fevers. Appetite okay. This is the first time he has had diverticulitis, his brother had this as well at age 42. He was prior to this working on weight loss and eating healthy, was eating a lot of foods with seeds/berries. Some shortness of breath, was given nebulizer form of trelligy while in the hospital, felt this was more helpful. Would be interested in this at home. Is agreeable to CM follow up. Scheduled hospital follow up appt with Dr. Flowers. He wanted to note that he has some poor cell phone service at his home. He will bring records from hospitalization. Did you receive an alert for an annual wellness visit? No Is this call for a hospital, residential or rehab facility discharge to home? Yes [facility] - diverticulitis Medication Reconciliation: Medication Reconciliation completed: yes Review of Current goals: Discussed the following patient-centered CM goals with the patient during this discussion: -GI: Patient will have GI issues addressed -Status: On Track following diet and medication recommendations. -Pain: Patient will have pain well managed -Status: At Risk continues to have abd pain. -SYMPTOM Monitoring: Patient will verbalize understanding of symptom monitoring -Status: On Track discussed symptoms to report. COPD Patient: YES Breathing: Breathing at Baseline CHF Patient: NO CM Plan: Reviewed 3 Red Flags with patient. Advised to call CM with any of the following: Red Flag 1: worsening abd pain, Red Flag 2: fever/chills, or Red Flag 3: hematuria or urinary concerns Remote Patient Monitoring: At this time, RPM not offered/considered for patient due to gi utilization. Plan for Future Contacts: Plan to follow up within 1 week to check progress on the following goals/needs gastro/urinary status. Planned contacts from the following parties will occur this week: PCP office visit as additional contacts per workflow. Advancement/Closure Plan: Keep patient at current Tier with reassessment per workflow. Patient provided CM contact information and encouraged to call with any changes in condition. SNP Member? No PCP Notified of enrollment in CM/HM program: Yes Is Provider in agreement with POC? Yes Darlene Hernandes RN Outpatient Case Management documented in this encounter Plan of Treatment Upcoming Encounters Date Type Specialty Care Team Description 04/25/2023 Office Visit Family Medicine Martin Flowers DO [address] [place] [address] 05/18/2023 Office Visit Family Medicine Martin Flowers DO [address] [place] [address] Health Maintenance Due Date Last Done Comments Hepatitis B (1 of 3 - 3-dose series) 1980 Hepatitis C Screening 1999 COVID-19 Vaccine (3 - Moderna risk series) 04/02/2021 03/05/2021, 02/05/2021 *ADVANCE DIRECTIVE NOT ON FILE 04/10/2022 Depression Screening 02/22/2023 02/22/2022 Influenza Vaccine (FLU shot) (#1) 2023 06/22/2021, 06/22/2021 O2 ASSESSMENT COMPLETED IN PAST YEAR FOR COPD 11/16/2023 11/15/2022 Diabetes Screening 09/23/2025 09/23/2022, 0 01/12/2022, 01/03/2022, [...] as of this encounter Visit Diagnoses Diagnosis Medical home patient encounter- Primary Other specified examination documented in this encounter Care Teams Immigration Specialist Relationship Specialty Start Date End Date Martin Flowers DO [address] [place] [address] PCP - General Family Medicine 03/22/21 documented as of this encounter
--- OUTSIDE RECORDS SUMMARY | 2023-07-15 07:03 | External Medical Summary | Summary of Care ---
Author Name Unknown Organization [facility] Address [address] [place] [address] Phone [phone] Care Team Providers Care Boatswain'S Mate Name Role Phone Unavailable Primary Care Provider Unavailabl e Reason for Visit * Reason Onset Date Comments Follow Up 06/12/2023 Encounter Details Date Type Department Care Team (Late st Contact Info) Description 06/12/2023 Telephone Care Coordination and Integration [address] [place], [place] [id number] Shayy Lagunas [facility] [address] [place] [address] Follow Up Allergies [...] OPD, group D, by GOLD 2017 classification ([facility]),Moderate persistent asthma without complication Inhale 2 [...] for 7 days 0 04/13/2023 Active Tiotropium [place] Monohydrate 18 MCG Inhalation Capsule (Spiriva HandiHaler)Indication s:COPD, group D, by GOLD 2017 classification ([facility]) Inhale 1 Capsule by mouth in the morning. For inhaler only, do not swallow.. 30 Capsule 2 06/05/2023 Active Fluticasone-Salmetero l 250-50 MCG/ACT Inhalation Aerosol Powder Breath Activated (Advair Diskus)Indications:CO PD, group D, by GOLD 2017 classification ([facility]) Inhale 1 Puff by mouth in [...] without getting) Pneumococcal Conjugate Vacci ne, 20-valent ([id number]) 08/25/2022 Pneumococcal Polysaccharide PPV23 (Pneumovax) 06/22/2021 SEASONAL [...] Notes * Telephone Encounter - Shayy Lagunas [facility] - 06/12/2023 9:35 AM EST Call to Nano. No answer -- left message. Explained JONATHAN role. Requested ED notes/H&P to be faxed to YAMILEX Hernandes at [phone]. * Telephone Encounter - Shayy Lagunas [facility] - 06/12/2023 9:34 AM EST Call back from YAMILEX traveling secretary. States patient is still admitted. For further info, call Nano KAMINSKI at [phone] documented in this encounter Plan of Treatment Upcoming Encounters Date Type Department Care Team (Latest Contact Info) Description 08/01/2023 11:45 AM EST Hospital Encounter ENDO [facility], Endoscopy Room [facility] [address] [place] [phone] Kvng Mcguire MD [address] [place] [address] 08/01/2023 11:45 AM EST - 08/01/2023 12:15 PM EST Surgery ENDO [facility], Endoscopy Room [facility] [address] [place] [phone] Kvng Mcguire MD [address] [place] [address] COLONOSCOPY FLEXIBLE PROXIMAL DIAGNOSTIC 08/02/2023 2:40 PM EST Office Visit Family Practice [facility] [address] [place] [address] Jaiden Franklin MD [address] [place] [address] 10/16/2023 2:15 PM EDT Imaging Radiology [facility] [address] [place] [address] Scheduled Procedures Name Priority Associated Diagnoses Date/Ti [...]
--- OUTSIDE RECORDS SUMMARY | 2023-07-15 07:03 | External Medical Summary | Summary of Care ---
Author Name Unknown Organization [facility] Address [address] [place] [address] Phone [phone] Care Team Providers Care Order Takers Supervisor Name Role Phone Unavailable Primary Care Provider Unavailabl e Reason for Visit * Reason Onset Date Comments Appointment 05/05/2023 Encounter Details Date Type Department Care Team (Late st Contact Info) Description 05/05/2023 Telephone Care Coordination [address], [place] [id number] Shayy Lagunas [facility] [address] [place] [address] Appointment Allergies No known active allergiesdocumented as of this encounter (statuses as of 06/07/2023) Medications Medication Sig Dispensed Refills Start Date [...] nebulized medication 1 Each 0 3 Active Additional Information Patient not taking.Reported on 05/04/2023 Nebulizer/Tubing/Lindsay thpiece Kit To be used with [...] COPD, group D, by GOLD 2017 classification ([facility]),Moderate persistent asthma without complication Inhale 2 Puffs by mouth every 6 hours as needed for Shortness of Breath or Wheezing. 18 g 2 3 Active Albuterol Sulfate (2.5 MG/3ML) 0.083% Inhalation Nebulization Solution (Proventil)Indicatio ns:Moderate persistent asthma without complication Inhale 1 Vial via nebulizer every 6 hours as needed for Wheezing. 360 mL 3 3 Active Ciprofloxacin HCl 500 MG Oral Tablet (Cipro) take 1 tablet by mouth every 12 hours for 7 days 0 3 Active metroNIDAZOLE 500 MG Oral Tablet (Flagyl) take 1 tablet by mouth every 8 hours for 7 days 0 3 Active Trelegy Ellipta 100-62.5-25 MCG/ACT Aerosol Powder Breath Activated (Fluticasone-Umeclid inium-Vilanterol)Ind ications:COPD, group D, by GOLD 2017 classification ([facility]) Inhale 1 Puff by mouth in the morning. 180 Blister Dosing Unit 1 3 06/05/20 23 Discontinu ed(Formula ry/Cost) documented as of this encounter (statuses as of 06/07/2023) Active Problems Problem Noted Date Diagnosed Date [...] as of this encounter (statuses as of 06/07/2023) Resolved Problems Problem Noted Date Diagnosed Date Resolved Date Chronic obstructive pulmonar y disease with (acute) exacerbation 01/20/2022 04/08/2022 Shortness of breath 03/22/2021 08/17/19 23 Tick bite 03/22/2021 08/17/2022 documented as of this encounter (statuses as of 06/07/2023) Immunizations Name Administration Dates Next Due COVID-19 mRNA, LNP-s, No Pre serve, 2-Dose Series (Moderna) 03/05/2021,02/05/2021 Hepatitis B Vaccine, Recombi nant, Adjuvanted, 20 mcg/mL (Heplisav-B) 11/15/2022(Deferred: Patient Refused - pt left without getting) Pneumococcal Conjugate Vacci ne, 20-valent ([id number]) 08/25/2022 Pneumococcal Polysaccharide PPV23 (Pneumovax) 06/22/2021 SEASONAL [...] Encounter - She Armstrong MED ASSIST - 06/07/2023 1:38 PM EST Called pt again. He is in the hospital. He will call once he is ready to schedule. * Telephone Encounter - She Armstrong MED ASSIST - 05/08/2023 11:29 AM EDT Lm for pt to cb. * Telephone Encounter - Shayy Lagunas Community Health Assistant - 05/05/2023 4:52 PM EDT Patient psychology video visit 05/01/23 canceled by provider. Patient didn't know until time of the appointment that it was canceled. Patient does not have cell service at his home. Has to drive a distance to get service. Confirmed with patient that he has [employer] access. Advised to check when he is in an area of service for appt updates. Please reschedule patient with next available provider. Thank you, Shayy Lagunas CHA documented in this encounter Plan of Treatment Upcoming Encounters Date Type Department Care Team (Latest Contact Info) Description 08/01/2023 11:45 AM EST Hospital Encounter ENDO [facility], Endoscopy Room [facility] [address] [place] [phone] Knvg Mcguire MD [address] [place] [address] 08/01/2023 11:45 AM EST - 08/01/2023 12:15 PM EST Surgery ENDO [facility], Endoscopy Room [facility] [address] [place] [phone] Kvng Mcguire MD [address] [place] [address] COLONOSCOPY FLEXIBLE PROXIMAL DIAGNOSTIC 08/02/2023 2:40 PM EST Office Visit Family Practice [facility] [address] [place] [address] Jaiden Franklin MD [address] [place] [address] 10/16/2023 2:15 PM EDT Imaging Radiology [address] [place] [address] Scheduled Procedures Name Priority Associated Diagnoses Date/Ti [...]
--- OUTSIDE RECORDS SUMMARY | 2023-07-15 07:03 | External Medical Summary | Summary of Care ---
Author Name Unknown Organization [facility] Address [address] [place] [address] Phone [phone] Care Team Providers Care Dean Of Education Name Role Phone Unavailable Primary Care Provider Unavailabl e Reason for Visit * Reason Onset Date Comments case management 05/05/2023 Encounter Details Date Type Department Care Team (Late st Contact Info) Description 05/05/2023 Restaurant Crew Member Telephone Family Practice [address] [place] [address] Darlene Hernandes RN [address] [place] [address] case management Allergies No known active allergiesdocumented as of this encounter (statuses as of 05/24/2023) Medications Medication Sig Dispensed Refills Start Date [...] ations:COPD, group D, by GOLD 2017 classification ([facility]) Inhale 1 Puff by mouth in the morning. 180 Blister Dosing Unit 1 04/25/2023 Active Albuterol Sulfate HFA 108 (90 Base) MCG/ACT Inhalation Aerosol SolutionIndications:C OPD, group D, by GOLD 2017 classification ([facility]),Moderate persistent asthma without complication Inhale 2 Puffs [...] as of this encounter (statuses as of 05/24/2023) Active Problems Problem Noted Date Diagnosed Date [...] as of this encounter (statuses as of 05/24/2023) Resolved Problems Problem Noted Date Diagnosed Date Resolved Date Chronic obstructive pulmonar y disease with (acute) exacerbation 01/20/2022 04/08/2022 Shortness of breath 03/22/2021 08/17/19 23 Tick bite 03/22/2021 08/17/2022 documented as of this encounter (statuses as of 05/24/2023) Immunizations Name Administration Dates Next Due COVID-19 mRNA, LNP-s, No Pre serve, 2-Dose Series (Moderna) 03/05/2021,02/05/2021 Hepatitis B Vaccine, Recombi nant, Adjuvanted, 20 mcg/mL (Heplisav-B) 11/15/2022(Deferred: Patient Refused - pt left without getting) Pneumococcal Conjugate Vacci ne, 20-valent ([id number]) 08/25/2022 Pneumococcal Polysaccharide PPV23 (Pneumovax) 06/22/2021 SEASONAL [...] encounter Miscellaneous Notes * Telephone Encounter - Darlene Hernandes RN - 05/05/2023 4:38 PM EDT Teams message received from community health electrician assistant Shayy Lagunas. Asked her to notify the patient if develops severe abd pain, rectal bleeding to be seen emergently.Or if concerns that are not emergent over the weekend can call to speak with triage/inventory controller provider. He has had some mucus in stools and some burning with BMs. He was seen by gastro yesterday and there is mention of hemorrhoids and need for upcoming colonoscopy. Patient also reporting his trelligy is unavailable/back ordered at his pharmacy currently. He has anebulizer. documented in this encounter Plan of Treatment Upcoming Encounters Date Type Department Care Team (Latest Contact Info) Description 08/01/2023 11:45 AM EST Hospital Encounter ENDO [facility], Endoscopy Room [facility] [address] [place] [phone] Kvng Mcguire MD [address] [place] [address] 08/01/2023 11:45 AM EST - 08/01/2023 12:15 PM EST Surgery ENDO [facility], Endoscopy Room [facility] [address] [place] [phone] Kvng Mcguire MD [address] [place] [address] COLONOSCOPY FLEXIBLE PROXIMAL DIAGNOSTIC 08/02/2023 2:40 PM EST Office Visit [facility] [address] [place] [address] Jaiden Franklin MD [address] [place] [address] 10/16/2023 2:15 PM EDT Imaging Radiology [address] [facility] [place] [address] Scheduled Procedures Name Priority Associated Diagnoses Date/Ti [...]
--- OUTSIDE RECORDS SUMMARY | 2023-07-15 07:03 | External Medical Summary | Summary of Care ---
Author Name Unknown Organization [facility] Address [address] [place] [address] Phone [phone] Care Team Providers Care Supply Tech Name Role Phone LionelMartin Primary Care Provider Encounter Details Date Type Department Care Team Description 04/08/2023 Result Scan Unspecified Department <No scans attached> Allergies No known active allergiesdocumented as of this encounter (statuses as of 04/10/2023) Medications Medication Sig Dispensed Refills Start Date End Date Status Vitamin D 50 MCG (2000 UT) Oral Capsule Take 2,000 Units by mouth in the morning. 0 Active Ginseng 100 MG Oral Capsule Take by mouth daily. 0 Active CoQ-10 100 MG Oral Capsule Take by mouth daily. 0 Active Fluticasone-Salmetero l 500-50 MCG/ACT Inhalation Aerosol Powder Breath Activated (Advair Diskus)Indications:CO PD, group D, by GOLD 2017 classification ([facility]) Inhale 1 Puff by mouth in [...] D, by GOLD 2017 classification ([facility]),Severe persistent asthma without complication Inhale 2 Puffs [...] as of this encounter (statuses as of 04/10/2023) Active Problems Problem Noted Date Multiple lung nodules 11/15/2022 Seasonal allergic rhinitis due to pollen 11/15/2022 Gastroesophageal reflux disease without esophagitis 11/15/2022 COPD, group D, by GOLD 2017 classificati on 01/20/2022 Severe persistent asthma without complic ation 03/22/2021 Chronic fatigue 03/22/2021 ANNABELLE (generalized anxiety disorder) 03/22 Episode of recurrent major depressive di sorder 03/22/2021 documented as of this encounter (statuses as of 04/10/2023) Resolved Problems Problem Noted Date Resolved Date Chronic obstructive pulmonar y disease with (acute) exacerbation 01/20/2022 04/08/2022 Shortness of breath 03/22/2021 08/17/2022 Tick bite 03/22/2021 08/17/2022 documented as of this encounter (statuses as of 04/10/2023) Immunizations Name Administration Dates Next Due COVID-19 mRNA, LNP-s, No Pre serve, 2-Dose Series (Moderna) 03/05/2021,02/05/2021 Hepatitis B Vaccine, Recombi nant, Adjuvanted, 20 mcg/mL (Heplisav-B) 11/15/2022(Deferred: Patient Refused - pt left without getting) Pneumococcal Conjugate Vacci ne, 20-valent ([id number]) 08/25/2022 Pneumococcal Polysaccharide PPV23 (Pneumovax) 06/22/2021 Seasonal [...] Encounters Date Type Specialty Care Team Description 05/18/2023 Office Visit Family Medicine Martin Flowers DO [address] [place] [phone] Health Maintenance Due Date Last Done Comments [...] Date/Time Associated Diagnosis Comments RADIOLOGY SCANNED RESULT 04/08/2023 documented in this encounter Results * RADIOLOGY SCANNED RESULT (04/08/2023) 04/08/2023 No Physician Data Unknown DIAGNOSTIC RAD IOLOGY SERVICES documented in this encounter Care Teams Supply Tech Relationship Specialty Start Date End Date Martin Flowers DO [address] [place] [address] PCP - General Family Medicine 03/22/21 documented as of this encounter
--- OUTSIDE RECORDS SUMMARY | 2023-07-15 07:03 | External Medical Summary | Summary of Care ---
Author Name Unknown Organization [facility] Address [address] [facility] [place] [address] Phone [phone] Care Team Providers Care Hydroponics Grower Name Role Phone Unavailable Primary Care Provider Unavailabl e Reason for Visit * Reason Comments NEW PATIENT Diverticulitis - dx [place] ( [facility] ) Encounter Details Date Type Department Care Team Description 05/04/2023 Office Visit Gastroenterology, [facility] [address] [place] [address] Kvng Mcguire MD [address] [place] [address] History of diverticulitis* Allergies No known active allergiesdocumented as of this encounter (statuses as of 05/04/2023) Medications Medication Sig Dispensed Refills Start Date [...] group D, by GOLD 2017 classification ([facility]) Inhale 1 Puff by mouth in the morning. 180 Blister Dosing Unit 1 04/25/2023 Active Albuterol Sulfate HFA 108 (90 Base) MCG/ACT Inhalation Aerosol SolutionIndications:C OPD, group D, by GOLD 2017 classification ([facility]),Moderate persistent asthma without complication Inhale [...] as of this encounter (statuses as of 05/04/2023) Active Problems Problem Noted Date Moderate persistent [...] as of this encounter (statuses as of 05/04/2023) Resolved Problems Problem Noted Date Resolved Date Chronic obstructive pulmonar y disease with (acute) exacerbation 01/20/2022 04/08/2022 Shortness of breath 03/22/2021 08/17/2022 Tick bite 03/22/2021 08/17/2022 documented as of this encounter (statuses as of 05/04/2023) Immunizations Name Administration Dates Next Due COVID-19 mRNA, LNP-s, No Pre serve, 2-Dose Series (Moderna) 03/05/2021,02/05/2021 Hepatitis B Vaccine, Recombi nant, Adjuvanted, 20 mcg/mL (Heplisav-B) 11/15/2022(Deferred: Patient Refused - pt left without getting) Pneumococcal Conjugate Vacci ne, 20-valent ([id number]) 08/25/2022 Pneumococcal Polysaccharide PPV23 (Pneumovax) 06/22/2021 SEASONAL [...] Sign Reading Time Taken Comments Blood Pressure 116/75 05/04/2023 3:07 PM EDT Pulse 74 05/04/2023 3:07 PM EDT Temperature 36.9 C (98.4 F) 05/04/2023 3:07 PM ED T Respiratory Rate - - Oxygen Saturation 96% 05/04/2023 3:07 PM EDT Inhaled Oxygen Concentration - - Weight 90.9 kg (200 lb 6.4 oz) 05/04/2023 3:07 P M EDT Height 171.5 cm (5' 7.5") 05/04/2023 3:07 PM EDT Body Mass Index 30.92 05/04/2023 3:07 PM EDT documented in this encounter Progress Notes * Kvng Mcguire MD - 05/04/2023 3:37 PM EDT CLINIC NOTES Gastroenterology, [address] [address] Davion Cho : 1980 GASTROENTEROLOGY OUTPATIENT NOTE 05/04/2023 Referred by Martin Flowers DO REASON FOR CONSULTATION: History of diverticulitis HISTORY OF PRESENT ILLNESS: I was asked to consult on this 43-year-old gentleman because of a bout of diverticulitis he had in the beginning of March. He [facility] with lower abdominal pain. He was diagnosed with diverticulitis. He did have a micro perforation noted on CT scanning and had several days of IV antibiotics before being discharged on oral antibiotics. His bowels have not completely returned to normal. He has some episodes of scybalous stools and some loose stools. He has been very cautious about his diet since discharge. He denies fever. Does have hemorrhoids and has occasional rectal bleeding. He has never had a colonoscopy. Completed chart review on patient, patient states that nothing has changed in PMHx since last visit. Reconcilled patent's medications Social history: Patient is a former smoker who quit last year. ALLERGIES: Patient has no known allergies. Current Outpatient Medications Medication Sig Dispense Refill Vitamin D 50 MCG (2000 UT) Oral Capsule Take 2,000 Units by mouth in the morning. Omeprazole 20 MG Oral Capsule Delayed Release (PriLOSEC) Take 1 Capsule by mouth in the morning. 1 hour before the first meal of the day. 30 Capsule 5 Levocetirizine Dihydrochloride 5 MG Oral Tablet Take 1 Tablet by mouth every evening. 90 Tablet 3 Nebulizer/Tubing/Mouthpiece Kit To be used with nebulized device 1 Kit 2 Fluticasone Propionate 50 MCG/ACT Nasal Suspension (Flonase) Administer 2 Sprays into each nostril in the morning. 16 g 2 Montelukast Sodium 10 MG Oral Tablet (Singulair) Take 1 Tablet by mouth in the morning. 90 Tablet 3 Trelegy Ellipta 100-62.5-25 MCG/ACT Aerosol Powder Breath Activated (Gyecxrewlim-Udtjxutdbvsu-Wmlmohktlv) Inhale 1 Puff by mouth in the [...] as needed for Wheezing. 360 mL 3 Ginseng 100 MG Oral Capsule Take by mouth daily. (Patient not taking: Reported on 05/04/2023) CoQ-10 100 MG Oral Capsule Take by mouth daily. (Patient not taking: Reported on 05/04/2023) Nebulizer Device To be used with nebulized medication (Patient not taking: Reported on 05/04/2023) 1Each 0 Ciprofloxacin HCl 500 MG Oral Tablet (Cipro) take 1 tablet by mouth every 12 hours for 7 days (Patient not taking: Reported on 05/04/2023) metroNIDAZOLE 500 MG Oral Tablet (Flagyl) take 1 tablet by mouth every 8 hours for 7 days (Patient not taking: Reported on 05/04/2023) No current facility-administered medications for this visit. Family History Problem Relation Age of Onset Parkinsonism Father No Known Problems Sister No Known Problems Brother Past Medical History: Diagnosis Date Anxiety and depression Arthritis Asthma Chronic headaches COPD (chronic obstructive pulmonary disease) (HCC) Emphysema, unspecified (HCC) GERD (gastroesophageal reflux disease) Neuropathy Scoliosis Tick bite 03/22/2021 Tremor REVIEW OF SYSTEMS Constitutional: No report of fevers, chills, night sweats. There has been no nonintentional weight change. Cardiovascular: No chest pain, palpitations, dyspnea on exertion. Respiratory: No wheezing, cough, sputum production. Gastrointestinal: Per HPI, otherwise negative. Psychiatric: No chronic change in mood, affect, or sensorium. PHYSICAL EXAM Constitutional: BP 116/75 | Pulse 74 | Temp 36.9 C (98.4 F) | Ht 1.715 m (5' 7.5") | Wt 90.9 kg(200 lb 6.4 oz) | SpO2 96% | BMI 30.92 kg/m | BSA 2.08 m . Well-nourished, well-developed male in no acute distress. Eyes: Conjunctivae and sclerae are clear and nonicteric. ENT: Oropharynx is clear and without erythema or exudates. Buccal mucosa is moist. Neck is supple. There is no adenopathy. No supraclavicular adenopathy is noted. Cardiovascular: Heart is rate regular, without murmur, rub, or gallop. Pulmonary: Clear to percussion and auscultation. Gastrointestinal: Abdomen is soft, nontender, with normoactive bowel sounds in all 4 quadrants. No hepatosplenomegaly is appreciated. No masses are palpated. No guarding or rebound is noted. Psychiatric: The patient is alert and oriented in all four spheres. Mood is euthymic. Affect is appropriate for the situation. Extremities: Warm with good distal pulses and no edema. IMPRESSION: 43-year-old gentleman with a recent bout of diverticulitis who continues to improve. I have asked him to continue to watch his diet and avoid fatty foods and things with seeds and nuts for the time being. And I will arrange a colonoscopy in about a month. He does have an upcoming appointment with his local surgeon as well and I have asked him to mention his hemorrhoids to him for future management. Kvng Mcguire MD 05/04/2023 3:37 PM documented in this encounter Nursing Notes * Vilma Montgomery LPN - 05/04/2023 3:09 PM EDT Patient identified by name and date of . Chief Complaint Patient presents with NEW PATIENT Diverticulitis - dx while in [place] ( [facility] ) documented in this encounter Plan of Treatment Upcoming Encounters Date Type Specialty Care Team Description 08/01/2023 Hospital Encounter Endoscopy Kvng Mcguire MD [address] [place] [address] 08/01/2023 Surgery Endoscopy Kvng Mcguire MD [address] [place] [address] COLONOSCOPY FLEXIBLE PROXIMAL DIAGNOSTIC 08/02/2023 Office Visit Family Medicine Jaiden Franklin MD [address] [place] [address] 10/16/2023 Imaging Radiology Scheduled Orders Name Type Priority Associated Diagnoses Orde r Schedule COLONOSCOPY, DIAGNOSTIC (RECTUM) Procedures Routine History of diverticulitis Ordered: 05/04/2023 Scheduled Procedures Name Priority Associated Diagnoses Date/Ti [...] as of this encounter Visit Diagnoses Diagnosis History of diverticulitis- Primary History of diverticulitis documented in this encounter
--- OUTSIDE RECORDS SUMMARY | 2023-07-15 07:03 | External Medical Summary | Summary of Care ---
Author Name Unknown Organization [facility] Address [address] [place] [address] Phone [phone] Care Team Providers Care Hot Plate Plywood Press Feeder Name Role Phone Unavailable Primary Care Provider Unavailabl e Reason for Visit * Reason Onset Date Comments Order Request 06/05/2023 Encounter Details Date Type Department Care Team (Late st Contact Info) Description 06/05/2023 Telephone Care Coordination [address], [place] [id number] Shayy Lagunas [facility] [address] [place] [address] Order Request (/) Allergies No known active allergiesdocumented as of this encounter (statuses as of 06/05/2023) Medications Medication Sig Dispensed Refills Start Date [...] hours for 7 days 0 3 Active Tiotropium [place] Monohydrate 18 MCG Inhalation Capsule (Spiriva HandiHaler)Indicatio ns:COPD, group D, by GOLD 2017 classification ([facility]) Inhale 1 Capsule by mouth in the morning. For inhaler only, do not swallow.. 30 Capsule 2 3 Active Fluticasone-Salmeter ol 250-50 MCG/ACT Inhalation Aerosol Powder Breath Activated (Advair Diskus)Indications:C OPD, group D, by GOLD 2017 classification ([facility]) Inhale 1 Puff by mouth in the morning and 1 Puff before bedtime. 60 Each 2 3 Active Trelegy Ellipta 100-62.5-25 MCG/ACT Aerosol Powder Breath Activated (Fluticasone-Umeclid inium-Vilanterol)Ind ications:COPD, group D, by GOLD 2017 classification ([facility]) Inhale 1 Puff by mouth in the morning. 180 Blister Dosing Unit 1 3 11/06/20 23 Discontinu ed(Formula ry/Cost) documented as of this encounter (statuses as of 06/05/2023) Active Problems Problem Noted Date Diagnosed Date [...] as of this encounter (statuses as of 06/05/2023) Resolved Problems Problem Noted Date Diagnosed Date Resolved Date Chronic obstructive pulmonar y disease with (acute) exacerbation 01/20/2022 04/08/2022 Shortness of breath 03/22/2021 08/17/19 Tick bite 03/22/2021 08/17/2022 documented as of this encounter (statuses as of 06/05/2023) Immunizations Name Administration Dates Next Due COVID-19 mRNA, LNP-s, No Pre serve, 2-Dose Series (Moderna) 03/05/2021,02/05/2021 Hepatitis B Vaccine, Recombi nant, Adjuvanted, 20 mcg/mL (Heplisav-B) 11/15/2022(Deferred: Patient Refused - pt left without getting) Pneumococcal Conjugate Vacci ne, 20-valent ([id number]) 08/25/2022 Pneumococcal Polysaccharide PPV23 (Pneumovax) 06/22/2021 SEASONAL [...] Telephone Encounter - Sh[facility]y [facility] Work[facility] - 06/05/2023 12:31 PM EST Call to patient. Reviewed new orders for fluticasone-salameterol (brand name Advair) and tiotropiumbromide monohydrate (brand name Spiriva). Generic form of meds sent to [facility]. Advised patient this should be less costly than brand name meds. Suggest to take albuterol treatment via nebulizer prior to inhalers to promote airway expansion andallow the medication from the inhalers to reach deep into his lungs. Verbalized understanding. Spiriva in AM - place capsule into device, close, then inhale. Do not take the capsule by mouth. Advair AM & bedtime. Patient states he is concerned about remembering to take the medication. Suggested patient set a timer on his phone to remind him to take the treatments. Keep a written log of what you take and when.Consider labeling inhalers AM and AM & PM, respectively, to help him recall which is which. Patient also concerned because he often will stay awake through the night and sleep during the day.Advised patient this should not interfere with the medication so long as he is using the Advair once every 12 hours, and the Spiriva once every 24 hours. Verbalized understanding. Advised patient of information from pharmacy on the patient assistance program. Must meet out of pocket $600 in order to qualify. This is good for one calendar year, so if patient were to be approved, it will only be through 07/30/23. Will need to start application process over, and meet $600 out of pocket again for 2023. Verbalized understanding. Patient reports he is concerned about worsening abd pain. Following up with GI at [facility] re: treatment plan. [facility] will f/u tomorrow to check in. * Telephone Encounter - Martin Flowers DO - 06/05/2023 12:13 PM EST Prescription alternative generic Advair 250-50 inhale 1 puff twice daily and Spiriva inhale 1 cap once daily sent to pharmacy as formulary alternative to Trelegy. Advise use both Advair and Spiriva as directed. Please advise me if these medications are also cost prohibitive * Telephone Encounter - Darlene Hernandes RN - 06/05/2023 9:54 AM EST Message received from Shayy CSATILLO. The patient called her to report that he is currently in the donut hole and unable to afford trelegy. Asking if there is a similar/substitute that he can take? Dr. Flowers Please advise? Is there anything else he can take in substitution? Or via nebulizer until he is outof the donut hole? Thank you! * Telephone Encounter - Shayy [facility] Work[facility] - 06/05/2023 9:37 AM EST Incoming call from patient who reports he is having increased breathing difficulty. States he is "breathing funny" and "stomach hurts". Reports he is currently in the donut hole, and unable to afford his Trelegy. Has been without it for over a month, and his condition continues to worsen. Patient has a nebulizer - is there anything that can be ordered as a substitution to the Trelegy? Patient reports he has a colonoscopy scheduled for the . Worried if he becomes sick, he won't be able to have it done. Also asking if he may qualify for in home therapy to help build up strength/endurance. documented in this encounter Plan of Treatment Upcoming Encounters Date Type Department Care Team (Latest Contact Info) Description 08/01/2023 11:45 AM EST Hospital Encounter ENDO [facility], Endoscopy Room [facility] [address] [place] [phone] Kvng Mcguire MD [address] [place] [id number] 08/01/2023 11:45 AM EST - 08/01/2023 12:15 PM EST Surgery ENDO [facility], Endoscopy Room [facility] [address] [place] [phone] Kvng Mcguire MD [address] [place] [address] COLONOSCOPY FLEXIBLE PROXIMAL DIAGNOSTIC 08/02/2023 2:40 PM EST Office Visit Family Practice [facility] [address] [place] [address] Jaiden Franklin MD [address] [place] [address] 10/16/2023 2:15 PM EDT Imaging Radiology [facility] 1st [facility] [address] [place] [address] Scheduled Procedures Name Priority Associated Diagnoses Date/Ti [...] as of this encounter Visit Diagnoses Diagnosis COPD, group D, by GOLD 2017 classification (HCC)- Primary History of diverticulitis documented in this encounter
--- OUTSIDE RECORDS SUMMARY | 2023-07-15 07:03 | External Medical Summary | Summary of Care ---
Author Name Unknown Organization [facility] Address [address] [place] [address] Phone [phone] Care Team Providers Care Procurement Clerk Name Role Phone Unavailable Primary Care Provider Unavailabl e Reason for Visit * Reason Onset Date Comments Order Request 06/05/2023 Encounter Details Date Type Department Care Team (Late st Contact Info) Description 06/05/2023 Telephone Care Coordination [address], [place] [id number] Shayy Lagunas [facility] [address] [place] [address] Order Request (/) [...] D, by GOLD 2017 classification ([facility]),Moderate persistent asthma without complication Inhale [...] for 7 days 0 3 Active Tiotropium [place] Monohydrate 18 MCG Inhalation Capsule (Spiriva HandiHaler)Indicatio ns:COPD, group D, by GOLD 2017 classification ([facility]) Inhale 1 Capsule by mouth in the morning. For inhaler only, do not swallow.. 30 Capsule 2 3 Active Fluticasone-Salmeter ol 250-50 MCG/ACT Inhalation Aerosol Powder Breath Activated (Advair Diskus)Indications:C OPD, group D, by GOLD 2017 classification ([facility]) Inhale 1 Puff by mouth in the morning and 1 Puff before bedtime. 60 Each 2 3 Active Trelegy Ellipta 100-62.5-25 MCG/ACT Aerosol Powder Breath Activated (Fluticasone-Umeclid inium-Vilanterol)Ind ications:COPD, group D, by GOLD 2017 classification ([facility]) Inhale 1 Puff by mouth [...] without getting) Pneumococcal Conjugate Vacci ne, 20-valent ([id number]) 08/25/2022 Pneumococcal Polysaccharide PPV23 (Pneumovax) 06/22/2021 SEASONAL [...] Telephone Encounter - Shayy Lagunas [facility] - 06/05/2023 12:31 PM EST Call to [...] abd pain. Following up with GI at [facility] re: treatment plan. [facility] will f/u tomorrow to check in. [...] 9:54 AM EST Message received from Shayy CASTILLO. The patient called her to report that he is currently in the donut hole and unable to afford trelegy. Asking if there is a similar/substitute that he can take? Dr. Flowers Please advise? Is there anything else he can take in substitution? Or via nebulizer until he is outof the donut hole? Thank you! * Telephone Encounter - Shayy Lagunas [facility] - 06/05/2023 9:37 AM EST Incoming call [...] EST Hospital Encounter ENDO [facility], Endoscopy Room [facility] [address] [place] [phone] Kvng Mcguire MD [address] [place] [address] 08/01/2023 11:45 AM EST - 08/01/2023 12:15 PM EST Surgery ENDO [facility], Endoscopy Room [facility] [address] [place] [phone] Kvng Mcguire MD [address] [place] [address] COLONOSCOPY FLEXIBLE PROXIMAL DIAGNOSTIC 08/02/2023 2:40 PM EST Office Visit Family Practice [facility] [address] [place] [phone] Jaiden Franklin MD [address] [place] [address] 10/16/2023 2:15 PM EDT Imaging Radiology [facility] 1st [facility] [address] [place] [address] Scheduled Procedures Name Priority Associated Diagnoses Date/Ti [...]
--- OUTSIDE RECORDS SUMMARY | 2023-07-15 07:03 | External Medical Summary ---
Author Name Unknown Address Unknown Organization K01:[facility] [place] [address] [facility] [place] [address] Laboratory Report Ordering Provider Test Date Status TENA ERWIN 06/14/2023 21:20:00 Final Observation Date Value Abnormality Reference (Units ) Status SYNC LEUKOCYTES IN BLOOD BY AUTOMATED COUNT 06/14/2023 21:20:00 8.87 4.00-10.80 (K/uL) Final Segs 06/14/2023 21:20:00 56.4 40.0-75.0 (%) Final Lymphs % 06/14/2023 21:20:00 27.4 18.0-42.0 (%) Final Monos 06/14/2023 21:20:00 10.0 1.0-11.0 (%) Final Eosinophils 06/14/2023 21:20:00 5.4 0.0-6.0 (%) Final Basos 06/14/2023 21:20:00 0.7 0.0-2.0 (%) Final Immature Granulocyte, Percent 06/14/2023 21:20:00 0.1 0.0-2.0 (%) Final Absolute Segs 06/14/2023 21:20:00 5.00 1.80-7.70 (K/uL) Final Lymphs, absolute 06/14/2023 21:20:00 2.43 1.00-4.80 (K/ul) Final Monos, Abs 06/14/2023 21:20:00 0.89 0.00-1.10 (K/uL) Final Eos, Abs 06/14/2023 21:20:00 0.48 0.00-0.70 (K/uL) Final Basos, Abs 06/14/2023 21:20:00 0.06 0.00-0.20 (K/uL) Final Immature Granulocytes, Number 06/14/2023 21:20:00 0.01 0.00-0.20 (K/uL) Final Performing Location [facility] [place] [address] [facility] [address]
--- OUTSIDE RECORDS SUMMARY | 2023-07-15 07:03 | External Medical Summary | Summary of Care ---
Author Name Unknown Organization [facility] Address [address] [place] [address] Phone [phone] Care Team Providers Care Combat Control Manager Name Role Phone Unavailable Primary Care Provider Unavailabl e Reason for Visit * Reason Onset Date Comments Follow Up 06/06/2023 Encounter Details Date Type Department Care Team (Late st Contact Info) Description 06/06/2023 Telephone Care Coordination [address] [place], [place] [phone] Shayy Lagunas On License Of [facility] [address] [place] [address] Follow Up Allergies [...] group D, by GOLD 2017 classification ([facility]),Moderate persistent asthma without complication Inhale 2 Puffs [...] for 7 days 0 04/13/2023 Active Tiotropium [place] Monohydrate 18 MCG Inhalation Capsule (Spiriva HandiHaler)Indication s:COPD, group D, by GOLD 2017 classification ([facility]) Inhale 1 Capsule by mouth in the morning. For inhaler only, do not swallow.. 30 Capsule 2 06/05/2023 Active Fluticasone-Salmetero l 250-50 MCG/ACT Inhalation Aerosol Powder Breath Activated (Advair Diskus)Indications:CO PD, group D, by GOLD 2017 classification ([facility]) Inhale 1 Puff by mouth in the [...] without getting) Pneumococcal Conjugate Vacci ne, 20-valent ([id number]) 08/25/2022 Pneumococcal Polysaccharide PPV23 (Pneumovax) 06/22/2021 SEASONAL [...] Telephone Encounter - Shayy Lagunas [facility] - 06/06/2023 4:46 PM EST Spoke with patient who reports meds were called in to [facility] pharmacy, as requested. Unfortunately, the brand name medications were filled, and patient is unable to afford the copay. Patient states he received a call about mail order pharmacy. The meds will be less expensive. Patient is willing to wait for meds to come via mail. documented in this encounter Plan of Treatment Upcoming Encounters Date Type Department Care Team (Latest Contact Info) Description 08/01/2023 11:45 AM EST Hospital Encounter ENDO [facility], Endoscopy Room [facility] [address] [place] [phone] Kvng Mcguire MD [address] [place] [address] 08/01/2023 11:45 AM EST - 08/01/2023 12:15 PM EST Surgery ENDO OSS, Endoscopy Room [facility] [address] [place] [phone] Kvng Mcguire MD [address] [place] [address] COLONOSCOPY FLEXIBLE PROXIMAL DIAGNOSTIC 08/02/2023 2:40 PM EST Office Visit [facility] [address] [place] [address] Jaiden Franklin MD [address] [place] [address] 10/16/2023 2:15 PM EDT Imaging Radiology [facility] 1st [facility] [address] [place] [address] Scheduled Procedures Name Priority Associated Diagnoses Date/Ti [...]
[2023-07-15 07:04] LABS: BUN Creatinine Ratio 7.5 (10-20); Calcium 8.2 mg/dl (8.6-10.3); Creatinine Clr Calc Pharmacy 112.9 ml/min; Est GFR (African American) 116.9 ml/min; Est GFR (Non-African American) 100.9 ml/min; Potassium 4.1 mmol/L (3.5-5.1)
[2023-07-15 07:07] LABS: Estimated Average Glucose 128 mg/dl; Hemoglobin A1C 6.1 % (4.5-5.6)
[2023-07-15] MEDS: KETOROLAC TROMETHAMINE 15 MG/ML VIAL IV PRN (08:54)
--- NOTE | 2023-07-15 09:04 | Gastrointestinal Consultation ---
Date of Consultation July 15, 2023 Assessment & Plan (1) Acute diverticulitis: Pleasant man with persistent acute diverticulitis for two months now. The only thing I can recommend is longer course of IV antibiotics. If he doesn't improve then surgical options will need to be considered. History of Present Illness Reason for Consultation: smoldering diverticulitis Attending Physician: Domo Montero MD History of Present Illness 43 year old man who has been battling diverticulitis since April. He has been in the hospital multiple times. He says he never improves with his symptoms of lower abdominal pain and diarrhea but they send him home anyway. He has had discussions with a surgeon but only about doing a colonoscopy which obviously cannot be done. He isn't aware of any fever he just has suprapubic pain that radiates into his groin. Eating seems to make it worse. It does lead to diarrhea as well. He has never had diverticulitis before. Prior to this he says he really hasn't had any GI symptoms at all. Allergies Allergy/AdvReac Type Severity Reaction Status Date / Time No Known Allergies Allergy Unverified 07/14/23 20:10 Home Medications Medication Instructions Recorded Confirmed Type No Known Home Medications 07/14/23 07/14/23 History Patient History Social History Smoking Status: Never smoker Hx Alcohol Use: No Preferred Language: Iraqi Pre Fabricator Required: No Beliefs That Will Affect Care: None Current Living Situation: Alone Other Information That Helps Us Care for You: No Feels Safe at Home: Yes Safety Concerns: Feels Safe At This Time Review of Systems Review of Systems: All systems reviewed & are unremarkable except as noted in HPI & below Physical Exam Constitutional: WD/WN, vitals as above no acute distress Eyes: PERRL, conjunctivae normal, anicteric sclerae ENMT: external ear and nose normal, oropharynx normal Neck: trachea midline, no thyromegaly Respiratory: normal respiratory effort, lungs clear to auscultation Cardiovascular: RRR, no murmur, no edema Gastrointestinal (Abdomen): Inspection/Auscultation: abdomen normal to inspection Percussion/Palpation: + abdomen tender and abdomen soft Musculoskeletal: Extremities: no cyanosis and no clubbing Skin: no rashes, warm and dry Neurologic: PERRL, EOMI, accommodation nl, no face palsy, no dysarthria Psychiatric: Orientation: alert and oriented x 3 Results & Data Vital Signs (Past 12 Hours) Vital Signs Temp Pulse Pulse Resp BP BP Pulse Ox 07/15/23 02:04 36.4 C L 58 L 18 118/75 94 07/15/23 01:37 07/15/23 01:00 76 17 109/77 90 07/15/23 00:00 75 18 125/83 94 07/14/23 23:00 76 17 124/85 96 07/14/23 22:00 74 15 122/77 95 07/14/23 22:00 61 18 122/77 95 O2 Del Method 07/15/23 02:04 Room Air 07/15/23 01:37 Room Air 07/15/23 01:00 07/15/23 00:00 07/14/23 23:00 07/14/23 22:00 07/14/23 22:00 Room Air Laboratory Results 07/15/23 07/14/23 07/14/23 Range/Units 06:07 20:20 20:16 WBC 6.33 8.62 (4.8-10.8) K/ul RBC 4.32 L 4.86 (4.70-6.10) M/uL Hgb 13.5 L 15.3 (14.0-18.0) g/dl Hct 39.4 L 44.7 (42.0-52.0) % MCV 91.2 92.0 (80.0-100.0) fL MCH 31.3 31.5 (25.0-34.0) pg MCHC 34.3 34.2 (32.0-36.0) g/dL RDW Std Deviation 43.0 43.0 (36.4-46.3) fL RDW Coeff of Radha 12.8 12.8 (11.5-14.5) % Plt Count 237 279 (130-400) K/uL MPV 11.0 11.1 (9.4-12.4) fL Immature Gran % (Auto) 0.3 0.3 % Neut % (Auto) 47.7 57.7 % Lymph % (Auto) 37.1 26.7 % Long % (Auto) 6.5 9.5 % Eos % (Auto) 7.3 4.8 % Baso % (Auto) 1.1 1.0 % Neut # (Auto) 3.02 4.97 (1.40-6.50) K/uL Lymph # (Auto) 2.35 2.30 (1.20-3.40) K/uL Long # (Auto) 0.41 0.82 H (0.11-0.59) K/uL Eos # (Auto) 0.46 0.41 (0.00-0.50) K/uL Baso # (Auto) 0.07 0.09 (0.00-0.20) K/uL Immature Gran # (Auto) 0.02 0.03 (0.01-0.20) K/uL Sodium 139 136 (136-145) mmol/L Potassium 4.1 3.5 (3.5-5.1) mmol/L Chloride 109 H 106 (98-107) mmol/L Carbon Dioxide 27 22 (21-32) mmol/L Anion Gap 3 8 (3-11) BUN 7 10 (6-23) mg/dl Creatinine 0.93 0.90 (0.6-1.4) mg/dl Est Cr Clr Drug Dosing 112.9 116.6 ml/min Est GFR ( Amer) 116.9 121.7 ml/min Est GFR (Non-Af Amer) 100.9 105.0 ml/min BUN/Creatinine Ratio 7.5 L 11.1 (10-20) Glucose 107 H 172 H (70-99(Fasting)) mg/dl Estimat Average Glucose 128 mg/dl Hemoglobin A1c 6.1 H (4.5-5.6) % Calcium 8.2 L 8.7 (8.6-10.3) mg/dl Total Bilirubin 0.2 (0.2-1.0) mg/dl AST 32 (13-39) U/L ALT 32 (7-52) U/L Alkaline Phosphatase 89 (34-104) U/L Total Protein 7.4 (6.0-8.3) gm/dl Albumin 4.0 (3.4-5.0) gm/dl Globulin 3.4 (2.5-4.0) gm/dl Albumin/Globulin Ratio 1.2 (0.9-2) Lipase 34 (11-82) U/L Urine Color Yellow Urine Appearance Clear (Clear) Urine pH 6.0 (4.5-7.5) Ur Specific [place] 1.042 H (1.000-1.030) Urine Protein Negative (Negative) Urine Glucose (UA) Negative (Negative) Urine Ketones Trace H (Negative) Urine Blood Negative (Negative) Urine Nitrite Negative (Negative) Urine Bilirubin Negative (Negative) Urine Urobilinogen Negative (Negative) Ur Leukocyte Esterase Trace H (Negative) Urine WBC (Auto) 1-5 (0-5) /hpf Urine RBC (Auto) 0-4 (0-4) /hpf U Hyaline Cast (Auto) 0 (0-5) /lpf U Epithel Cells (Auto) 0-5 (0-5) /lpf Urine Bacteria (Auto) Negative (Negative)
[2023-07-15] MEDS: PROMETHAZINE HCL 12.5 MG in SODIUM CHLORIDE 0.9% 50 ML IV PRN (09:50)
[2023-07-15] MEDS: ENOXAPARIN INJ 40 MG/0.4 ML SYR SQ SCH (09:53)
[2023-07-15] MEDS: HYDROmorphone INJ 0.5 MG/0.5 ML SYR IV PRN (10:08)
--- NOTE | 2023-07-15 10:50 | CT Scan Report ---
CT SCAN OF THE ABDOMEN AND PELVIS WITHOUT IV CONTRAST CLINICAL HISTORY: Generalized abdominal pain. Diverticulitis. COMPARISON STUDY: No priors. TECHNIQUE: CT scan of the abdomen and pelvis is performed from the lung bases to the proximal femora. Images are reviewed in the axial, sagittal, and coronal planes. IV contrast was not administered for this examination. Note that the examination is suboptimal without oral and IV contrast. A dose lower ing technique was utilized adhering to the principles of ALARA. CT DOSE: 1320.02 mGy.cm FINDINGS: Lung bases: The heart is normal in size and without pericardial effusion. A 4 mm left basilar pulmona ry nodule is seen on image #40. A 4 mm pleural-based nodule in the right lower lobe along the major f issure is seen on image #4. The lung bases are otherwise clear noting dependent atelectasis. There is a small hiatal hernia. Liver: The unenhanced liver is enlarged, measuring 21.1 cm in length. The liver is otherwise normal i n contour and attenuation. There is no intrahepatic biliary ductal dilatation. Gallbladder: Unremarkable. Spleen: Normal in size and attenuation. Pancreas: Unremarkable. Adrenal glands: Unremarkable. Kidneys: The unenhanced kidneys are normal in size and without hydronephrosis. There are no renal adarsh culi identified. There is no evidence of contour deforming renal mass lesion. Abdominal vasculature: The abdominal aorta is normal in course and caliber. Bowel: There is mild to moderate sigmoid diverticulosis. There is faint infiltration identified aroun d the proximal sigmoid which may represent mild or resolving diverticulitis. There is a thin tract ex tending anteriorly/inferiorly from the sigmoid on axial images are 251. This may representing develop ing fistulous tract. This approaches but does not approximate the bladder dome. There is no bowel obs truction. Residual enteric contrast is seen throughout the colon. The appendix is well-visualized an d normal. Peritoneum: There is no intraperitoneal free air or abdominal ascites. Lymphadenopathy: None. Pelvic viscera: The bladder, prostate, and seminal vesicles are normal as visualized. Skeletal structures: No lytic or blastic lesions are seen. IMPRESSION: 1. Suboptimal examination without oral and IV contrast. 2. Mild/moderate sigmoid diverticulosis. Mild infiltration around the proximal sigmoid colon may repr esent mild or resolving diverticulitis. Correlate with any prior outside imaging studies. 3. No intraperitoneal free air is identified and there is no evidence of fluid collection to indicate abscess on this unenhanced examination. 4. A thin tract is seen extending from the anterior aspect of the sigmoid as above. This may represen t a developing fistula, and this approaches but does not approximate the bladder dome. 5. Hepatomegaly. 6. There are 4 mm pathologically indeterminate lower lobe pulmonary nodules. These are not highly jessica picious, and a 3-4 month follow-up chest CT is recommended for reassessment and full evaluation of th e thorax. 7 Additional findings as above. ACT 112: Negative or not required by law. Electronically signed by: Michael Youngblood M.D. 07/15/2023 10:47 AM
[2023-07-15] MEDS: D5W AND NSS 1,000 ML IV SCH ×2 (12:09→13:30)
[2023-07-15 12:41] LABS: Adenovirus F 40/41 PCR Not Detected (NotDetected); Astrovirus PCR Not Detected (NotDetected); Campylobacter PCR Not Detected (NotDetected); Cryptosporidium PCR Not Detected (NotDetected); Cyclospora cayetanensis PCR Not Detected (NotDetected); Entamoeba histolytica PCR Not Detected (NotDetected); Enteroaggregative E.coli(EAEC) Not Detected (NotDetected); Enteropathogenic E.coli (EPEC) Not Detected (NotDetected); Enterotoxigenic E.coli (ETEC) Not Detected (NotDetected); Giardia lamblia PCR Not Detected (NotDetected); Norovirus GI/GII PCR Not Detected (NotDetected); Plesiomonas shigelloides PCR Not Detected (NotDetected); Rotavirus A PCR Not Detected (NotDetected); Salmonella PCR Not Detected (NotDetected); Sapovirus PCR Not Detected (NotDetected); Shiga-like Toxin E.coli (STEC) Not Detected (NotDetected); Shigella/Enteroinvasive E.coli Not Detected (NotDetected); Vibrio cholerae PCR Not Detected (NotDetected); Vibrio species PCR Not Detected (NotDetected); Yersinia enterocolitica PCR Not Detected (NotDetected)
--- NOTE | 2023-07-15 15:01 | Hospitalist Progress Note ---
Date of Service July 15, 2023 Assessment & Plan (1) Diverticular disease: Plan: Per admitting service notes with addendum: PERSISTENT DIVERTICULITIS Past history diverticulitis with microperforation Failed multiple antibiotic courses. Blood cultures: Pending Repeat CT abdomen and pelvis: 1. Suboptimal examination without oral and IV contrast. 2. Mild/moderate sigmoid diverticulosis. Mild infiltration around the proximal sigmoid colon may represent mild or resolving diverticulitis. Correlate with any prior outside imaging studies. 3. No intraperitoneal free air is identified and there is no evidence of fluid collection to indicate abscess on this unenhanced examination. 4. A thin tract is seen extending from the anterior aspect of the sigmoid as above. This may represent a developing fistula, and this approaches but does not approximate the bladder dome. 5. Hepatomegaly. 6. There are 4 mm pathologically indeterminate lower lobe pulmonary nodules. These are not highly suspicious, and a 3-4 month follow-up chest CT is recommended for reassessment and full evaluation of the thorax. 7 Additional findings as above. GI General surgery consulted Continue IV Zosyn N.p.o. for now IV fluids ASTHMA/COPD, PULMONARY STATUS AT BASELINE Will need CT chest in 3 to 4 months to reevaluate pulmonary nodules hx GERD, not on maintenance medications anxiety/mood disorder, at baseline chronic fatigue syndrome as per records history of lung nodules, patient follows with [facility] Hyperglycemia rule out DM --A1c 6.1 --Monitor BSG's past tobacco/alcohol abuse Disposition Pending Lives at home Admission and Anticipated Discharge Date Admission Date: July 15, 2023 Subjective Follow-up for diverticulitis, etc. In bed, not in distress Still having severe lower abdominal pain, somewhat worse than yesterday No fevers or chills, nausea or vomiting Has some dysuria No BM since, positive flatus Appetite is poor No other new symptomS Review of Systems Review of Systems: all noted and negative except for above Physical Exam Physical Exam: General- oriented x 3, not in distress, speaks in sentences with no effort or accessory muscle use Eyes- anicteric Neck- no JVD Lungs- clear breath sounds bilaterally, no rales/wheezes Heart- normal rate, regular rhythm; no murmurs Abdomen- normal bowel sounds, nondistended, soft, mild lower quadrant tenderness Extremities- no pretibial edema, no calf tenderness Neuro- alert, oriented x 3; no gross focal neurologic deficits Skin- warm & dry Results & Data Results & Data Vital Signs (Past 12 Hours) Vital Signs Temp Pulse Resp BP Pulse Ox O2 Del Method 07/15/23 09:11 36.8 C 65 18 130/80 97 Room Air
--- NOTE | 2023-07-15 19:08 | Surgery Consultation ---
Date of Consultation July 15, 2023 Assessment & Plan (1) Diverticular disease: The patient has been admitted on the hospitalist service. The patient has been seen by the gastroenterology service during this admission and a prolonged course of antibiotics has been recommended From surgical perspective we recommend the following: Provide analgesics Provide antiemetics as needed Implement bowel rest. The admitting service has already initiated and n.p.o. status Provide IV fluid for hydration Continue antibiotics. The patient is currently receiving Zosyn Follow serial labs I discussed with the patient that would be preferable to avoid surgical intervention at this time as the patient has not had an update colonoscopy. I also discussed with the patient that if he requires surgery for this issue would be preferable that this was done after he had an appropriate bowel prep Will continue to follow along while the patient is hospitalized Supervising Physician Co-Signing Physician Notes This case was discussed with the surgical PA. I agreed with the plan History of Present Illness Reason for Consultation: Diverticulitis Attending Physician: Domo Montero MD History of Present Illness This is a 43-year-old male who presented to emergency department secondary to issues with ongoing diverticulitis. Patient says that he has been suffering with diverticulitis since March of this year and he has been hospitalized on more than 1 occasion. Patient does note in March of this year he had diverticulitis with a microperforation and this was treated with conservative manner with antibiotics and bowel rest and no surgical intervention was undertaken. The patient was also admitted to the hospital in May of this year at [facility] in [place] secondary to persistent abdominal pain. The patient was seen by a surgical team there but the patient was unsure if this was general surgery or colorectal surgery. There was concern the patient had a possible colovesical fistula at that time and patient was again treated with antibiotics. The patient was also evaluated by [facility] gastroenterology as an outpatient approximately [address] a [address] scan of the abdomen pelvis was requested as the patient continues to have ongoing GI complaints consisting of lower abdominal pain as well as diarrhea. The patient was again prescribed antibiotics after this visit. The patient says that he has never had any surgical intervention. Patient says that he has never undergone a colonoscopy either. He does note that there had been plans to have a colonoscopy but his a for mentioned hospitalizations have always precluded getting this study done. The patient did have a CT scan of the abdomen pelvis performed which will delineated below. And due to the findings of this CAT scan it was recommended that he report to the emergency department for further evaluation. The patient denies any fevers, shakes, or chills. He denies any nausea or vomiting. He does note some generalized lower abdominal pain without modifying factors. He also admits to some intermittent diarrhea. As noted above the patient has never had any surgery for his diverticulitis. He has yet to undergo a colonoscopy. The patient notes that he does have some intermittent dysuria but denies any pneumaturia. Since arrival to the patient has had labs and imaging which) reviewed. A CT scan of the abdomen pelvis showed the patient had moderate sigmoid diverticulosis. There is infiltration around the proximal sigmoid colon that was felt to represent mild diverticulitis as well. There is no intraperitoneal free air noted. There is concerned that there may have been a developing fistula between the bladder and the sigmoid colon. Labs include a CBC her white blood cell count and platelet count were normal. Hemoglobin and hematocrit were 13.5 and 39.4. Chemistry profile showed sodium and potassium along with the BUN and creatinine were normal. Urinalysis did show trace leukocyte Estrace but was otherwise not indicative of infection. The patient had stool studies tested and no pathogens were identified. At the time of my interview the patient was resting comfortably in bed and he was in no distress. Concerning past medical history the patient has a history of diverticulitis, COPD, chronic fatigue syndrome, GERD, anxiety, and history of pulmonary nodules Concerning past surgical history the patient has had sinus surgery, a pancreatic biopsy, and repair of a facial fracture Concerning family history Parkinson disease does run in his family Concerning social history the patient does have a history of tobacco use Allergies Allergy/AdvReac Type Severity Reaction Status Date / Time No Known Allergies Allergy Unverified 07/14/23 20:10 Home Medications Medication Instructions Recorded Confirmed Type No Known Home Medications 07/14/23 07/14/23 History Patient History Social History Smoking Status: Never smoker Hx Alcohol Use: No Preferred Language: [place] [employer] Required: No Beliefs That Will Affect Care: None Current Living Situation: Alone Other Information That Helps Us Care for You: No Feels Safe at Home: Yes Safety Concerns: Feels Safe At This Time Review of Systems Constitutional: + fatigue; no fever and no chills Ear, Nose, Mouth, Throat: no hearing loss Respiratory: no cough and no dyspnea Cardiovascular: no chest pain Gastrointestinal: as per Subjective / HPI Genitourinary: + as per Subjective / HPI Musculoskeletal: no back pain Integumentary: no rash Neurologic: no localized weakness Physical Exam Constitutional: WD/WN, vitals as above Eyes: no conjunctival abnormality ENMT: Ears: no hearing impairment and no external ear abnormality Mouth: no oropharynx abnormality Neck: trachea midline Respiratory: normal respiratory effort; no respiratory distress and no labored breathing Cardiovascular: Rate/Rhythm: regular rate and regular rhythm Gastrointestinal (Abdomen): Abdomen is soft and nondistended. It is nonrigid. Bowel sounds are present. There is no rebound tenderness or guarding. The patient did have some minor discomfort with palpation across his lower abdomen. Musculoskeletal: No calf tenderness Skin: no rashes Neurologic: moves all extremities Psychiatric: A+Ox3, euthymic affect Results & Data Vital Signs (Past 12 Hours) Vital Signs Temp Pulse Resp BP Pulse Ox O2 Del Method 07/15/23 15:42 36.5 C 60 18 115/76 93 Room Air 07/15/23 09:11 36.8 C 65 18 130/80 97 Room Air PG Care Time/CCT Total # of Minutes Spent Total Time Spent with Patient: Total time spent is greater than 50% in coordination of care (as documented) at patient's floor/unit and/or counseling patient: Coding Level of Care Code 72745 IN/OBS CONSULT LVL 5,80M Diagnoses Diverticular disease K57.90
[2023-07-16] MEDS: PIPERACILLIN/TAZOBACTAM 4.5 GM in DEXTROSE 5% MINI-B 100 ML IV SCH ×3 (03:16→19:44)
[2023-07-16] MEDS: D5W AND NSS 1,000 ML IV SCH ×2 (03:16→14:36)
--- NOTE | 2023-07-16 05:19 | Surgery Progress Note ---
Date of Service July 16, 2023 Assessment & Plan (1) Diverticular disease: Plan: The patient has been admitted on the hospitalist service. Due to patient's prolonged diverticulitis he has been seen by gastroenterology and they have recommended continuing antibiotics for the present time From surgical perspective we recommend the following: Continue analgesics Continue antiemetics as needed Continue bowel rest with n.p.o. status. Consideration be given to advancing diet as he clinically improves Continue antibiotics. The patient is currently receiving Zosyn Follow serial labs Ambulate as able Admission and Anticipated Discharge Date Admission Date: July 15, 2023 Supervising Physician Co-Signing Physician Notes After a long discussion with the patient this am, he states this has been going on since April and he has pretty much been on antibiotics for a good portion of this time with multiple in-patient visits to [facility] on IV antibiotics. He remains unable to tolerate oral intake at home due to the onset of abdominal pain if he has more than jello. He is becoming exhausted from all from all of this. I have explained to him that while his CT does not look significant for diverticulitis, if he is having symptoms that are not resolving and at times become severe to the point he is unable to eat for this long, maybe surgical intervention should be strongly considered at this point. He mentions this has been discussed off and on but has been put off. I have explained this is because, there is a high likelihood he would require a colostomy to do this surgery during active infection. In addition, he has never had a colonoscopy before and it would be ideal to complete one prior to the procedure although he is unable to heal enough for this to happen. He says he did recently see a surgeon to discuss the possibility of surgery and is to follow up with how he does. He will strongly consider and hopefully decide by tomorrow. He remains afebrile and HD stable. No leukocytosis or neutrophil shift Remain on IV antibiotics at this time. Continue NPO for today. Will f/u in the am. Subjective Patient is resting comfortably in bed. Since admission patient denies any worsening abdominal pain. He denies any nausea or vomiting. Patient notes that he is passing flatus. Physical Exam Gastrointestinal (Abdomen): This morning patient's abdomen is soft and nondistended. There is no rebound tenderness or guarding. There is minimal pain with palpation at the time of my exam. Results & Data Vital Signs (Past 12 Hours) Vital Signs Temp Pulse Resp BP Pulse Ox O2 Del Method 07/15/23 20:56 36.6 C 64 18 117/78 94 Room Air 07/15/23 19:33 36.4 C L 63 18 113/68 98 Room Air PG Care Time/CCT Total # of Minutes Spent Total Time Spent with Patient: Total time spent is greater than 50% in coordination of care (as documented) at patient's floor/unit and/or counseling patient: Coding Level of Care Code 32192 SUB INP/OBS CARE 08/24MIN Diagnoses Diverticular disease K57.90
[2023-07-16 07:00] LABS: Basophils # (auto) 0.06 K/uL (0.00-0.20); Basophils % (auto) 0.9 %; Eosinophils # (auto) 0.68 K/uL (0.00-0.50); Eosinophils % (auto) 10.7 %; Immature Granulocytes # (auto) 0.02 K/uL (0.01-0.20); Immature Granulocytes % (auto) 0.3 %; Lymphocytes # (auto) 1.89 K/uL (1.20-3.40); Lymphocytes % (auto) 29.8 %; Mean Corpuscular Hemoglobin 31.3 pg (25.0-34.0); Mean Corpuscular Volume 89.3 fL (80.0-100.0); Mean Platelet Volume 10.6 fL (9.4-12.4); Monocytes # (auto) 0.56 K/uL (0.11-0.59); Monocytes % (auto) 8.8 %; Neutrophils # (auto) 3.13 K/uL (1.40-6.50); Neutrophils % (auto) 49.5 %; Platelet Count 240 K/uL (130-400); RDW Coefficient of Variation 12.4 % (11.5-14.5); RDW Standard Deviation 40.4 fL (36.4-46.3); Red Blood Count 4.48 M/uL (4.70-6.10); White Blood Count 6.34 K/ul (4.8-10.8)
--- NOTE | 2023-07-16 07:10 | Gastroenterology Progress Note ---
Date of Service July 16, 2023 Assessment & Plan (1) Acute diverticulitis: Plan: Doing about the same. Surgery involved now. I have no further recommendations at this time. Needs colonoscopy but in 6 weeks or so. Will sign off. Please reconsult GI if needed Admission and Anticipated Discharge Date Admission Date: July 15, 2023 Subjective No real change. Not eating so unsure how much pain he has. Aggravated because we don't have records from [facility] Physical Exam Physical Exam: He looks well Constitutional: WD/WN, vitals as above Results & Data Vital Signs (Past 12 Hours) Vital Signs Temp Pulse Resp BP Pulse Ox O2 Del Method 07/15/23 20:56 36.6 C 64 18 117/78 94 Room Air 07/15/23 19:33 36.4 C L 63 18 113/68 98 Room Air
[2023-07-16 07:51] LABS: BUN Creatinine Ratio 5.6 (10-20); Calcium 8.5 mg/dl (8.6-10.3); Creatinine Clr Calc Pharmacy 116.6 ml/min; Est GFR (African American) 121.7 ml/min; Potassium 3.7 mmol/L (3.5-5.1)
[2023-07-16] MEDS: oxyCODONE HCL IR 5 MG TAB (IMMEDIATE RELEASE) PO PRN (07:52)
[2023-07-16] MEDS ORDERED: ALBUTEROL HFA 8 GM INHALER INH PRN (08:11)
[2023-07-16] MEDS ORDERED: ALBUTEROL HFA 8 GM INHALER INH ONE (08:11)
[2023-07-16] MEDS: ENOXAPARIN INJ 40 MG/0.4 ML SYR SQ SCH (09:18)
[2023-07-16] MEDS ORDERED: LEVALBUTEROL 1.25MG/0.5ML NEB NEB PRN (14:11)
[2023-07-16] MEDS ORDERED: LEVALBUTEROL 1.25MG/0.5ML NEB NEB STA (14:21)
[2023-07-16] MEDS ORDERED: LEVALBUTEROL 1.25 MG/3 ML NEB ONE (14:24)
[2023-07-16] MEDS: UMECLIDINIUM BROMIDE 62.5MCG/BLISTER 7 PUFFS/INHALER INH SCH (14:47)
[2023-07-16] MEDS: FLUTICASONE/VILANTEROL 200/25MCG 14 PUFFS/INHALER INH SCH (14:47)
--- NOTE | 2023-07-16 14:53 | XRay Report ---
SINGLE VIEW CHEST CLINICAL HISTORY: Dyspnea FINDINGS: An AP, portable, upright chest radiograph is obtained. No prior studies are available for c omparison at the time of dictation. The cardiomediastinal silhouette is unremarkable. There is mild b ibasilar atelectasis. The lungs and pleural spaces are otherwise clear. No pneumothorax is seen. The bony thorax is grossly intact. IMPRESSION: No active disease in the chest. ACT 112: Negative or not required by law. Electronically signed by: Michael Youngblood M.D. 07/16/2023 2:51 PM
[2023-07-16 14:57] LABS: Appearance Urine Clear (Clear); Bilirubin Urine Negative (Negative); Blood Urine Negative (Negative); Color Urine Yellow; Glucose Urine UA Negative (Negative); Ketones Urine Negative (Negative); Leukocyte Esterase Urine Negative (Negative); Nitrite Urine Negative (Negative); Protein Urine Negative (Negative); Urobilinogen Urine Negative (Negative); pH Urine 6.5 (4.5-7.5)
--- NOTE | 2023-07-16 15:20 | Hospitalist Progress Note ---
Date of Service July 16, 2023 Assessment & Plan (1) Diverticular disease: Plan: Per admitting service notes with addendum: PERSISTENT DIVERTICULITIS Past history diverticulitis with microperforation Failed multiple antibiotic courses. Blood cultures: Pending Repeat CT abdomen and pelvis: 1. Suboptimal examination without oral and IV contrast. 2. Mild/moderate sigmoid diverticulosis. Mild infiltration around the proximal sigmoid colon may represent mild or resolving diverticulitis. Correlate with any prior outside imaging studies. 3. No intraperitoneal free air is identified and there is no evidence of fluid collection to indicate abscess on this unenhanced examination. 4. A thin tract is seen extending from the anterior aspect of the sigmoid as above. This may represent a developing fistula, and this approaches but does not approximate the bladder dome. 5. Hepatomegaly. 6. There are 4 mm pathologically indeterminate lower lobe pulmonary nodules. These are not highly suspicious, and a 3-4 month follow-up chest CT is recommended for reassessment and full evaluation of the thorax. 7 Additional findings as above. GI and General surgery consulted: Does not recommend surgical intervention at this point Recommending continue IV antibiotics Continue IV Zosyn Trial of clear liquids ID consult ASTHMA/COPD Chest x-ray: No pneumonia or infiltrate, pulmonary edema Continue usual inhalers Will need CT chest in 3 to 4 months to reevaluate pulmonary nodules hx GERD, not on maintenance medications anxiety/mood disorder, at baseline chronic fatigue syndrome as per records history of lung nodules, patient follows with [facility] Prediabetes --A1c 6.1 --Monitor BSG's past tobacco/alcohol abuse Disposition Pending Lives at home Admission and Anticipated Discharge Date Admission Date: July 15, 2023 Subjective Follow-up for recurrent diverticulitis, etc. Seen resting in bed, not in distress States pain is still present but seems to be improved compared to yesterday Not sure if pain will get worse when he eats according to the patient No nausea or vomiting Was having some shortness of breath when he does not get his inhalers No other new symptoms Review of Systems Review of Systems: all noted and negative except for above Physical Exam Physical Exam: General- oriented x 3, not in distress, speaks in sentences with no effort or accessory muscle use Eyes- anicteric Neck- no JVD Lungs- clear breath sounds bilaterally, no rales/wheezes Heart- normal rate, regular rhythm; no murmurs Abdomen- normal bowel sounds, nondistended, soft, very mild lower quadrant tenderness Extremities- no pretibial edema, no calf tenderness Neuro- alert, oriented x 3; no gross focal neurologic deficits Skin- warm & dry Results & Data Results & Data Vital Signs (Past 12 Hours) Vital Signs Temp Pulse Resp BP Pulse Ox O2 Del Method 07/16/23 14:29 90 18 96 Room Air 07/16/23 08:23 74 18 97 Room Air 07/16/23 08:00 36.7 C 64 16 120/76 97 Room Air all noted and reviewed including below
[2023-07-16] MEDS: KETOROLAC TROMETHAMINE 15 MG/ML VIAL IV PRN (19:49)
--- NOTE | 2023-07-16 22:41 | Electrocardiogram Report ---
Test Reason : Blood Pressure : / mmHG Vent. Rate : 079 BPM Atrial Rate : 079 BPM P-R Int : 164 ms QRS Dur : 102 ms QT Int : 394 ms P-R-T Axes : 032 -30 006 degrees QTc Int : 451 ms Normal sinus rhythm Left axis deviation Minimal voltage criteria for LVH, may be normal variant Nonspecific T wave abnormality Abnormal ECG No previous ECGs available Confirmed by Roderick Franklin ([id number]) on 07/16/2023 10:41:07 PM Referred By: REFERRED SELF Confirmed By:Roderick Franklin
[2023-07-17] MEDS: PIPERACILLIN/TAZOBACTAM 4.5 GM in DEXTROSE 5% MINI-B 100 ML IV SCH ×3 (04:33→19:33)
[2023-07-17 07:32] LABS: Basophils # (auto) 0.05 K/uL (0.00-0.20); Basophils % (auto) 0.8 %; Eosinophils # (auto) 0.38 K/uL (0.00-0.50); Eosinophils % (auto) 6.4 %; Hemoglobin 15.2 g/dl (14.0-18.0); Immature Granulocytes # (auto) 0.01 K/uL (0.01-0.20); Immature Granulocytes % (auto) 0.2 %; Lymphocytes # (auto) 1.45 K/uL (1.20-3.40); Lymphocytes % (auto) 24.5 %; Mean Corpuscular Hemoglobin 31.5 pg (25.0-34.0); Mean Corpuscular Hgb Conc 35.3 g/dL (32.0-36.0); Mean Corpuscular Volume 89.2 fL (80.0-100.0); Mean Platelet Volume 11.3 fL (9.4-12.4); Monocytes # (auto) 0.69 K/uL (0.11-0.59); Monocytes % (auto) 11.7 %; Neutrophils # (auto) 3.33 K/uL (1.40-6.50); Neutrophils % (auto) 56.4 %; Platelet Count 255 K/uL (130-400); RDW Coefficient of Variation 12.4 % (11.5-14.5); RDW Standard Deviation 40.8 fL (36.4-46.3); Red Blood Count 4.82 M/uL (4.70-6.10); White Blood Count 5.91 K/ul (4.8-10.8)
[2023-07-17] MEDS: oxyCODONE HCL IR 5 MG TAB (IMMEDIATE RELEASE) PO PRN (07:35)
[2023-07-17 08:01] LABS: BUN Creatinine Ratio 5.2 (10-20); Calcium 8.6 mg/dl (8.6-10.3); Creatinine Clr Calc Pharmacy 109.3 ml/min; Est GFR (African American) 112.5 ml/min; Est GFR (Non-African American) 97.1 ml/min; Potassium 3.5 mmol/L (3.5-5.1)
[2023-07-17] MEDS: UMECLIDINIUM BROMIDE 62.5MCG/BLISTER 7 PUFFS/INHALER INH SCH (08:57)
[2023-07-17] MEDS: FLUTICASONE/VILANTEROL 200/25MCG 14 PUFFS/INHALER INH SCH (08:57)
[2023-07-17] MEDS: ENOXAPARIN INJ 40 MG/0.4 ML SYR SQ SCH (08:58)
--- NOTE | 2023-07-17 09:23 | Surgery Progress Note ---
Date of Service July 17, 2023 Assessment & Plan Admission and Anticipated Discharge Date Admission Date: July 15, 2023 Subjective Patient having complaints of abdominal cramping and diarrhea Happens after ingestion on Results & Data Vital Signs (Past 12 Hours) Vital Signs Temp Pulse Resp BP Pulse Ox O2 Del Method 07/17/23 07:26 97.9 F 54 L 17 107/71 95 Room Air PG Care Time/CCT Total # of Minutes Spent Total Time Spent with Patient: Total time spent is greater than 50% in coordination of care (as documented) at patient's floor/unit and/or counseling patient: Coding
--- NOTE | 2023-07-17 09:33 | Surgery Progress Note ---
Date of Service July 17, 2023 Assessment & Plan (1) Diverticular disease: Plan: The patient has been admitted on the hospitalist service. Due to patient's prolonged diverticulitis he has been seen by gastroenterology and they have recommended continuing antibiotics for the present time From surgical perspective we recommend the following: Continue analgesics Continue antiemetics as needed Continue bowel rest with n.p.o. status. Consideration be given to advancing diet as he clinically improves Continue antibiotics. The patient is currently receiving Zosyn Follow serial labs Ambulate as able Admission and Anticipated Discharge Date Admission Date: July 15, 2023 Supervising Physician Co-Signing Physician Notes After a long discussion with the patient this am, he states this has been going on since April and he has pretty much been on antibiotics for a good portion of this time with multiple in-patient visits to [facility] on IV antibiotics. He remains unable to tolerate oral intake at home due to the onset of abdominal pain if he has more than jello. He is becoming exhausted from all from all of this. I have explained to him that while his CT does not look significant for diverticulitis, if he is having symptoms that are not resolving and at times become severe to the point he is unable to eat for this long, maybe surgical intervention should be strongly considered at the decision to surgery. He mentions this has been discussed off and on but has been put off. I have explained this is because, there is a high likelihood he would require a colostomy to do this surgery during active infection. In addition, he has never had a colonoscopy before and it would be ideal to complete one prior to the procedure although he is unable to heal enough for this to happen. He says he is scheduled to meet with a surgeon on July 27. On one hand he states that he has responsibility of caring for his mother and has some paperwork he would like to squarely with her prior to having surgical intervention. On the other hand it is difficult to get from here clearly what symptoms he is having to determine if there are symptoms that are expected i.e. diarrhea after long ongoing bout of diverticulitis versus something that is unacceptable such as severe abdominal pain. He remains afebrile, HD stable and leukocytosis or neutrophil shift. He was able to log into his patient portal with the [employer] system so that I was able to see a CT scan that he recently had there on July 14. The CT scan just mentions diverticulitis noted. Within his portal I was also able to see the laboratory work that was performed by [facility] physicians for this evaluation where his white blood cell count was reported to be elevated. I explained to the patient that his results here have shown improvement from all of this with resolved leukocytosis and CT images that it appears that this diverticulitis is resolving. So at this point we would have to rely on him for an accurate account of his symptoms and determine if surgery is appropriate at this time. Because things are looking better on his CT and his lab work at this time he may opt to try a ongoing conservative management and then decide at his surgical evaluation with an outside surgeon that is scheduled for July 27. Remain on IV antibiotics at this time. You may continue to try clears today. I have advised him to take in small amounts at a time. Will f/u in the am. Subjective Patient was seen and examined this a.m. He is somewhat difficult to pin down for symptoms. 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 When trying to determine if he is able to tolerate oral intake from a pain perspective he complains more of diarrhea after eating foods. When asked again specifically is it causing the actual abdominal pain he responds that he experiences a lot of grumbling and then somewhat mentions pain. Mostly he seems to be concerned with the diarrhea that he experiences after taking oral intake. Physical Exam Constitutional: healthy appearing; not ill appearing, not in distress and not diaphoretic Respiratory: normal respiratory effort; no respiratory distress, no labored breathing and does not use accessory muscles Gastrointestinal (Abdomen): Unchanged Results & Data Vital Signs (Past 12 Hours) Vital Signs Temp Pulse Resp BP Pulse Ox O2 Del Method 07/17/23 07:26 36.6 C 54 L 17 107/71 95 Room Air PG Care Time/CCT Total # of Minutes Spent Total Time Spent with Patient: Total time spent is greater than 50% in coordination of care (as documented) at patient's floor/unit and/or counseling patient: Coding [place] [address] SUB INP/OBS CARE 2/35MIN Patient Type Established History Expanded Problem Focused Exam Expanded Problem Focused Medical Decision Making Moderate Complexity Diagnoses Diverticular disease K57.90
--- NOTE | 2023-07-17 10:20 | Hospitalist Progress Note ---
Date of Service July 17, 2023 Assessment & Plan (1) Diverticular disease: Plan: Per admitting service notes with addendum: PERSISTENT DIVERTICULITIS Past history diverticulitis with microperforation Failed multiple antibiotic courses. Blood cultures: Pending Repeat CT abdomen and pelvis: 1. Suboptimal examination without oral and IV contrast. 2. Mild/moderate sigmoid diverticulosis. Mild infiltration around the proximal sigmoid colon may represent mild or resolving diverticulitis. Correlate with any prior outside imaging studies. 3. No intraperitoneal free air is identified and there is no evidence of fluid collection to indicate abscess on this unenhanced examination. 4. A thin tract is seen extending from the anterior aspect of the sigmoid as above. This may represent a developing fistula, and this approaches but does not approximate the bladder dome. 5. Hepatomegaly. 6. There are 4 mm pathologically indeterminate lower lobe pulmonary nodules. These are not highly suspicious, and a 3-4 month follow-up chest CT is recommended for reassessment and full evaluation of the thorax. 7 Additional findings as above. GI and General surgery consulted: Does not recommend surgical intervention at this point Recommending continue IV antibiotics Continue IV Zosyn tolerating clears at this point, but will continue to monitor closely ID consult: awaiting recommendations ASTHMA/COPD Chest x-ray: No pneumonia or infiltrate, pulmonary edema Continue usual inhalers Will need CT chest in 3 to 4 months to reevaluate pulmonary nodules hx GERD, not on maintenance medications anxiety/mood disorder, at baseline chronic fatigue syndrome as per records history of lung nodules, patient follows with [facility] pulmonology Prediabetes --A1c 6.1 --Monitor BSG's: 101 past tobacco/alcohol abuse Disposition Pending Lives at home Admission and Anticipated Discharge Date Admission Date: July 15, 2023 Subjective ff up for recurrent diverticulitis, etc seen resting in chair, comfortable states he is still having lower abdominal pain but seems to be less still experiencing some pain, diarrhea after meal (clear liquids) no hematochezia no other symptoms Review of Systems Review of Systems: all noted and negative except for above Physical Exam Physical Exam: General- oriented x 3, not in distress, speaks in sentences with no effort or accessory muscle use Eyes- anicteric Neck- no JVD Lungs- clear BS BL Heart- normal rate, regular rhythm; no murmurs Abdomen- normal bowel sounds, nondistended, soft, no tenderness Extremities- no pretibial edema, no calf tenderness Neuro- alert, oriented x 3; no gross focal neurologic deficits Skin- warm & dry Results & Data Results & Data Vital Signs (Past 12 Hours) Vital Signs Temp Pulse Resp BP Pulse Ox O2 Del Method 07/17/23 07:26 36.6 C 54 L 17 107/71 95 Room Air all noted and reviewed including below
--- NOTE | 2023-07-17 10:41 | Gastroenterology Progress Note ---
Date of Service July 17, 2023 Assessment & Plan (1) Acute diverticulitis: Plan: Diverticulitis, smoldering, since March or April) review of outpatient records shows a scan of his CT at [facility] in March with this the patient's reported since April) 1. Will check stool studies r/o C-diff, Gi path but likely antibiotic associated diarrhea. 2. Diet per surgery - agree w clear liquids po only for now. 3. Appreciate surgery opinion. 4. Because hasn't resolved on multiple antibiotic courses, would recommend OP IV antibiotics. If insurance won't cover then would keep as an IP on IV antibiotics through most of this week, as would like him to be healthy enough to spend xmas at home and get to his OP CRS appt on 07/27/23. Admission and Anticipated Discharge Date Admission Date: July 15, 2023 Supervising Physician Co-Signing Physician Notes I have seen and examined the patient with ARNOLDO Rosado whose note reflects our findings and plan. Patient with on-going/recurrent diverticulitis for months now. Admitted with abd pain, diarrhea after CT done 07/14 showed again diverticultitis which has not improved with outpatient oral abx. Would check stool for C diff given multiple recent courses of abx and if negative, continue IV abx while in hospital and oral at time of discharge. Has an outpatient appt with colorectal surgery to discuss eventual sigmoid resection. Subjective 43 yr old male pt of Dr. Franklin on disability for a work related injury, also w PTSD who is known to me because I had seen him in the office on 07/04 for diverticulitis, ongoing since April. I placed him on Cipro/Flagyl w the intent ion of treating for 30 days and an OP CRS appt is arranged for Jul 27. I had arranged OP CT w IV and oral contrast which was completed on Saturday 07/14. At that time, the pt reported having so much pain that he can't lean forward, having ongoing diarrhea and having N/V, unable to hold down any food or liquids - having dry heaves. He was instructed to present here to the ED. He is minimally improved on IV antibiotics, w/o any further dry heaves, but has severe lower cramping abd pain and then diarrhea if drinks clear liquids. (This is a slight improvement as pain was constant prior to admission or atleast a bit worse). WBC is normalized (was elevated at 13 on Jul 04). Blood cultures are negative thus far. Still, he has had diverticulitis since April, with the Jul 04 prescription b eing his 3rd course of antibiotics. This is his 2nd hospitalization. In Apr he was hospitalized at [facility] and transferred to [place]. Review of Systems Review of Systems: ROS: Gen: +weakness, weight loss; no fevers Eyes: No eye redness, or pain, no recent vision changes Resp: No SOB, no cough Cardio: No palpitations/irregular beats, no chest pain GI: As per HPI otherwise negative : Denies pain on urination Skin: No jaundice, itching or new rashes Physical Exam Constitutional: WD/WN, vitals as above Eyes: PERRL, conjunctivae normal, anicteric sclerae ENMT: external ear and nose normal, oropharynx normal Neck: trachea midline, no thyromegaly Respiratory: normal respiratory effort, lungs clear to auscultation Cardiovascular: RRR, no murmur, no edema Gastrointestinal (Abdomen): Hypoactive bowel sounds, moderate tenderness over the entire lower abdomen more in the suprapubic area than elsewhere. No masses. Musculoskeletal: no cyanosis or clubbing, extremities motor strength 5/5 Skin: no rashes, warm and dry Neurologic: PERRL, EOMI, accommodation nl, no face palsy, no dysarthria Psychiatric: A+Ox3, euthymic affect Lymphatic: no cervical or axillary lymphadenopathy Results & Data Vital Signs (Past 12 Hours) Vital Signs Temp Pulse Resp BP Pulse Ox O2 Del Method 07/17/23 07:26 36.6 C 54 L 17 107/71 95 Room Air Laboratory Results WBC 5.9, Hb 15.2, HCT 43, PLT S255, NA 140, K3.5, CL 107, CO2 26, BUN 5, CR 0.96, glucose 101 Diagnostic Findings Non contrast CTAP 07/15/23: 1. Suboptimal examination without oral and IV contrast. 2. Mild/moderate sigmoid diverticulosis. Mild infiltration around the proximal sigmoid colon may represent mild or resolving diverticulitis. Correlate with any prior outside imaging studies. 3. No intraperitoneal free air is identified and there is no evidence of fluid collection to indicate abscess on this unenhanced examination. 4. A thin tract is seen extending from the anterior aspect of the sigmoid as above. This may represent a developing fistula, and this approaches but does not approximate the bladder dome. 5. Hepatomegaly. 6. There are 4 mm pathologically indeterminate lower lobe pulmonary nodules. These are not highly suspicious, and a 3-4 month follow-up chest CT is recommended for reassessment and full evaluation of the thorax. 7 Additional findings as above. CTAP w IV/oral 07/14/23 ([employer]): LIVER: Unremarkable. BILE DUCTS: Unremarkable. GALLBLADDER: Unremarkable. PANCREAS: Unremarkable. SPLEEN: Unremarkable. STOMACH/DUODENUM: Unremarkable. ADRENALS: Unremarkable. KIDNEYS/URETERS: Too small to characterize right renal hypodensities, likely cysts. No hydronephrosis. BLADDER: Collapsed and not well evaluated. The dome of the bladder appears to be inflamed from the adjacent diverticulitis. REPRODUCTIVE ORGANS: Unremarkable. BOWEL: There is pericolonic fat stranding in the sigmoid colon and associated mural thickening, consistent with diverticulitis. No apparent perforation or fluid collection. The appendix is unremarkable. There is no bowel obstruction. VESSELS: Unremarkable. LYMPH NODES: No lymphadenopathy. PERITONEUM/RETROPERITONEUM: No free fluid or free air. ABDOMINAL WALL/SOFT TISSUES: Unremarkable. CTAP w IV/oral 06/15/23: GI TRACT: The bowel is not abnormally dilated to suggest obstruction. There is a rectal tube in place. There is colonic diverticulosis. The proximal sigmoid colon, there is a prominent inflamed diverticulum with adjacent mural thickening of the sigmoid colon consistent with diverticulitis. This can be seen on coronal image 57 of series 3. There is no evidence of free air to suggest perforation. There is no evidence of abscess formation. SPLEEN: Unremarkable. LYMPH NODES: No lymphadenopathy. ADRENAL GLANDS: Unremarkable. KIDNEYS/URETERS: Unremarkable. URINARY BLADDER: Unremarkable. RePRODUCTIVE ORGANS: Grossly unremarkable. VASCULATURE: No abdominal aortic aneurysm. MISCELLANEOUS: No free fluid or free air. MUSCULOSKELETAL: Unremarkable. IMPRESSION: Diverticulitis in the proximal sigmoid colon without evidence of perforation or abscess formation.
[2023-07-17] MEDS: HYDROmorphone INJ 0.5 MG/0.5 ML SYR IV PRN ×2 (11:31→15:26)
--- NOTE | 2023-07-17 13:37 | Infectious Disease Consult ---
Date of Service July 17, 2023 Telehealth Information I performed this visit using a real-time telehealth connection between my location and the patients location ([facility]). After connecting through interactive tele-video, patient was identified by name and date of and/or wristband check.Patient (or authorized healthcare chemical sales representative) was informed that this was a telemedicine visit and it was being conducted confidentially over secure lines. My office door was closed and no one else was present in the room with me.Patient (or authorized healthcare chemical sales representative) provided consent to proceed with the visit, expressed an understanding of privacy and security of the telemedicine visit, and gave permission to have a hospital chemical sales representative in the room in order to assist with the visit and to conduct portions of the visit, as needed. I informed the patient (or authorized healthcare chemical sales representative) that I reviewed their record and presented the opportunity for them to ask any questions regarding the visit today. The patient agreed to participate. Assessment & Plan (1) Diverticular disease: (2) Acute diverticulitis: Plan Assessment: 43 yr old male with PMhx of asthma/COPD, GERD, diverticulitis, anxiety/mood disorder, chronic fatigue syndrome as per records, history of lung nodules, past tobacco/alcohol abuse presented to [facility] on 07/15/2023 for worsening abd pain. Given on persistent pain and concerning imaging combined with failure outpatient antibiotics. Pt will likely need IV antibiotics for treatment diverticulitis. Plan: - Recommend continuing Zosyn 4.5 g q8 IV for 4 weeks of total IV antibiotics. - Recommend CBC with diff and CMP weekly - Recommend repeat CT abd/pelvis with PO and IV contrast in 3 weeks (order needs to be placed by hospitalist service) - we will sign off, please schedule ID clinic appointment in 5-6 weeks, please call or tiger text with issues or concerns as I am not able to routinely monitor your EMR system. History of Present Illness History of Present Illness Reason for Consult: persistent diverticulitis 43 yr old male with PMhx of asthma/COPD, GERD, diverticulitis, anxiety/mood disorder, chronic fatigue syndrome as per records, history of lung nodules, past tobacco/alcohol abuse presented to [facility] on 07/15/2023 for worsening abd pain. Pt was initially seen in March 2023 at [facility] for diverticulitis with microperforation. Patient completed antibiotic Rx.No surgical intervention. Patient instructed to follow-up with general surgeon outpatient for scheduling of outpatient colonoscopy. Persistent achy lower abdominal pain and watery diarrhea since discharge that started to worsen leading to admission again on 06/14-06/16. Patient transfer to [facility] under General Surgery service for persistent abdominal pain following transfer from [facility] ER given concerns for possible colovesical fistula. Symptoms attributed to smoldering diverticulitis. Patient completed antibiotic course. Patient evaluated by [facility] GI outpatient [address] abdomen pelvis requested for persistent GI symptoms. Outpatient colonoscopy and General Surgery referral to be scheduled.Patient prescribed additional Cipro Flagyl course. Outpatient CT abdomen pelvis done day prior to admission showed: Sigmoid diverticulitis with no apparent abscess formation or perforation. Pt directed to [facility] ER for evaluation and IV antibiotics. Pt failed oral cipro and flagyl outpt. ID consulted for evaluation and management. Allergies Allergy/AdvReac Type Severity Reaction Status Date / Time No Known Allergies Allergy Unverified 07/14/23 20:10 Home Medications Medication Instructions Recorded Confirmed Type No Known Home Medications 07/14/23 07/14/23 History Patient History Social History Smoking Status: Never smoker Hx Alcohol Use: No Preferred Language: Cameroonian Communication Ability: Effective Business Analyst Required: No Beliefs That Will Affect Care: None Current Living Situation: Alone Other Information That Helps Us Care for You: No Feels Safe at Home: Yes Safety Concerns: Feels Safe At This Time Assistive Devices: Nebulizer Review of Systems all reviewed and negative ROS except for abd pain Physical Exam GEN:WNWD HEENT: PERRLA EOM Results & Data Vital Signs (Past 12 Hours) Vital Signs Temp Pulse Resp BP Pulse Ox O2 Del Method 07/17/23 07:26 36.6 C 54 L 17 107/71 95 Room Air Laboratory Results Blood cultures on 07/15/[address] abd/pelvis on 07/15/2023 IMPRESSION: 1. Suboptimal examination without oral and IV contrast. 2. Mild/moderate sigmoid diverticulosis. Mild infiltration around the proximal sigmoid colon may represent mild or resolving diverticulitis. Correlate with any prior outside imaging studies. 3. No intraperitoneal free air is identified and there is no evidence of fluid collection to indicate abscess on this unenhanced examination. 4. A thin tract is seen extending from the anterior aspect of the sigmoid as above. This may represent a developing fistula, and this approaches but does not approximate the bladder dome. 5. Hepatomegaly. 6. There are 4 mm pathologically indeterminate lower lobe pulmonary nodules. These are not highly suspicious, and a 3-4 month follow-up chest CT is recommended for reassessment and full evaluation of the thorax. Medications Administered Zosyn IV
[2023-07-17 21:51] LABS: Adenovirus F 40/41 PCR Not Detected (NotDetected); Astrovirus PCR Not Detected (NotDetected); Campylobacter PCR Not Detected (NotDetected); Cryptosporidium PCR Not Detected (NotDetected); Cyclospora cayetanensis PCR Not Detected (NotDetected); Entamoeba histolytica PCR Not Detected (NotDetected); Enteroaggregative E.coli(EAEC) Not Detected (NotDetected); Enteropathogenic E.coli (EPEC) Not Detected (NotDetected); Enterotoxigenic E.coli (ETEC) Not Detected (NotDetected); Giardia lamblia PCR Not Detected (NotDetected); Norovirus GI/GII PCR Not Detected (NotDetected); Plesiomonas shigelloides PCR Not Detected (NotDetected); Rotavirus A PCR Not Detected (NotDetected); Salmonella PCR Not Detected (NotDetected); Sapovirus PCR Not Detected (NotDetected); Shiga-like Toxin E.coli (STEC) Not Detected (NotDetected); Shigella/Enteroinvasive E.coli Not Detected (NotDetected); Vibrio cholerae PCR Not Detected (NotDetected); Vibrio species PCR Not Detected (NotDetected); Yersinia enterocolitica PCR Not Detected (NotDetected)
[2023-07-18] MEDS: PIPERACILLIN/TAZOBACTAM 4.5 GM in DEXTROSE 5% MINI-B 100 ML IV SCH ×3 (03:14→20:08)
[2023-07-18 07:47] LABS: Basophils # (auto) 0.05 K/uL (0.00-0.20); Basophils % (auto) 0.7 %; Eosinophils # (auto) 0.36 K/uL (0.00-0.50); Eosinophils % (auto) 5.1 %; Hematocrit (blood only) 43.8 % (42.0-52.0); Hemoglobin 15.7 g/dl (14.0-18.0); Immature Granulocytes # (auto) 0.01 K/uL (0.01-0.20); Immature Granulocytes % (auto) 0.1 %; Lymphocytes # (auto) 1.68 K/uL (1.20-3.40); Mean Corpuscular Hemoglobin 31.7 pg (25.0-34.0); Mean Corpuscular Hgb Conc 35.8 g/dL (32.0-36.0); Mean Corpuscular Volume 88.3 fL (80.0-100.0); Mean Platelet Volume 10.8 fL (9.4-12.4); Monocytes # (auto) 0.67 K/uL (0.11-0.59); Monocytes % (auto) 9.6 %; Neutrophils # (auto) 4.24 K/uL (1.40-6.50); Neutrophils % (auto) 60.5 %; Platelet Count 273 K/uL (130-400); RDW Coefficient of Variation 12.6 % (11.5-14.5); RDW Standard Deviation 40.6 fL (36.4-46.3); Red Blood Count 4.96 M/uL (4.70-6.10); White Blood Count 7.01 K/ul (4.8-10.8)
[2023-07-18 07:56] LABS: BUN Creatinine Ratio 5.1 (10-20); Calcium 8.8 mg/dl (8.6-10.3); Creatinine Clr Calc Pharmacy 107.1 ml/min; Est GFR (African American) 109.8 ml/min; Est GFR (Non-African American) 94.7 ml/min; Potassium 3.6 mmol/L (3.5-5.1)
[2023-07-18] MEDS: FLUTICASONE/VILANTEROL 200/25MCG 14 PUFFS/INHALER INH SCH (08:59)
[2023-07-18] MEDS: UMECLIDINIUM BROMIDE 62.5MCG/BLISTER 7 PUFFS/INHALER INH SCH (08:59)
[2023-07-18] MEDS: ENOXAPARIN INJ 40 MG/0.4 ML SYR SQ SCH (09:00)
--- NOTE | 2023-07-18 09:09 | Gastroenterology Progress Note ---
Date of Service July 18, 2023 Assessment & Plan (1) Diverticular disease: (2) Acute diverticulitis: Plan 1. Appreciate surgery opinions and will defer diet to surgery - but - even though pt is asking to advance diet as still c/o pain after taking clear liquids - not sure that diet should be advanced. Explained this is detail to the pt. Encouraged and explained the importance of bowel rest. 2. Perhaps some of his pain is functional. Will add dicyclomine ac/hs. 3. Continue IV antibiotics. Continue to recommend hospitalization and IV meds through Jul 21. Will defer question of surgical intervention to surgical service. If no surgical intervention during this admission, pt does have a CRS appt scheduled for 07/27/23. Admission and Anticipated Discharge Date Admission Date: July 15, 2023 Supervising Physician Co-Signing Physician Notes Patient was seen and examined on 07/18 with ARNOLDO Rosado whose note reflects our findings and plan. Subjective Reports had a lot of RLQ pain yesterday. Also c/o a lot of diffuse lower abd pain after every time that he takes clear liquids po. Some nausea. No vomiting. Reporting 2-3 loose Bms/day typically after eating/drinking. No blood in BMs. Very frustrated that he can't have real food, but also worried that he'll be sent home and won't be able to manage real food at home. Overall voiced frustration saying "everyone is telling me something different...so expensive...etc" Afebrile, no leukocytosis, abd exam: normal BS, non distended, moderately tender in the LLQ on palpation. Review of Systems Review of Systems: ROS: GI: As per HPI, otherwise (-) A total of 12 systems reviewed, all others (-). Physical Exam Constitutional: Awake, alert, oriented. Appears well. Eyes: PERRL, conjunctivae normal, anicteric sclerae ENMT: external ear and nose normal, oropharynx normal Neck: trachea midline, no thyromegaly Respiratory: normal respiratory effort, lungs clear to auscultation Cardiovascular: RRR, no murmur, no edema Gastrointestinal (Abdomen): Normal BS, non distended, moderately tender in the LLQ on palpation. Musculoskeletal: no cyanosis or clubbing, extremities motor strength 5/5 Skin: no rashes, warm and dry Neurologic: PERRL, EOMI, accommodation nl, no face palsy, no dysarthria Psychiatric: A+Ox3, euthymic affect Lymphatic: no cervical or axillary lymphadenopathy Results & Data Vital Signs (Past 12 Hours) Vital Signs Temp Pulse Resp BP Pulse Ox O2 Del Method 07/18/23 07:57 36.6 C 57 L 14 125/82 95 Room Air Laboratory Results WBC 7, Hb 15.7, Hct 43.8, Plts 273, Na 139, K 3.6, Cl 108, CO2 24, BUN 5, Cr 0.98, glucose 95. Stools (-) for C-diff and GI pathogens. Diagnostic Findings non contrast CTAP 07/15/23: 1. Suboptimal examination without oral and IV contrast. 2. Mild/moderate sigmoid diverticulosis. Mild infiltration around the proximal sigmoid colon may represent mild or resolving diverticulitis. Correlate with any prior outside imaging studies. 3. No intraperitoneal free air is identified and there is no evidence of fluid collection to indicate abscess on this unenhanced examination. 4. A thin tract is seen extending from the anterior aspect of the sigmoid as above. This may represent a developing fistula, and this approaches but does not approximate the bladder dome. 5. Hepatomegaly. 6. There are 4 mm pathologically indeterminate lower lobe pulmonary nodules. These are not highly suspicious, and a 3-4 month follow-up chest CT is recommended for reassessment and full evaluation of the thorax.
--- NOTE | 2023-07-18 10:08 | Surgery Progress Note ---
Date of Service July 18, 2023 Assessment & Plan (1) Diverticular disease: Plan: Remains without leukocytosis has remained afebrile and hemodynamically stable. Today the patient finally is able to acknowledge that his symptoms are improving. I would continue on a clear liquid diet for at least 1 more day. He does still display tenderness to palpation of the left lower quadrant and suprapubic area. I have spoken with the gastroenterology who agrees that a course of outpatient IV antibiotics may be helpful in this case. The patient will follow-up with the outside surgeon he is scheduled to see at the end of this month by which time more than adequate antibiotic coverage would have been provided and a final assessment can be made as to whether or not colectomy is better indicated. Dispo planning for outpatient IV antibiotics. PICC team for PICC line insertion if outpatient IV antibiotics are approved. I will see the patient in the a.m. Admission and Anticipated Discharge Date Admission Date: July 15, 2023 Subjective Patient was seen and examined this a.m. He does finally admit to feeling improvement in symptoms. He has been tolerating clear liquids. Physical Exam Constitutional: healthy appearing; not ill appearing, not in distress and not diaphoretic Respiratory: normal respiratory effort; no respiratory distress, no labored breathing and does not use accessory muscles Gastrointestinal (Abdomen): Abdomen is soft. Nondistended. There is tenderness to palpation at the left lower quadrant suprapubic area with some voluntary guarding Results & Data Vital Signs (Past 12 Hours) Vital Signs Temp Pulse Resp BP Pulse Ox O2 Del Method 07/18/23 07:57 36.6 C 57 L 14 125/82 95 Room Air PG Care Time/CCT Total # of Minutes Spent Total Time Spent with Patient: Total time spent is greater than 50% in coordination of care (as documented) at patient's floor/unit and/or counseling patient: [place] [address] SUB INP/OBS CARE 25MIN Patient Type Established History Problem Focused Exam Problem Focused Diagnoses Diverticular disease K57.90
[2023-07-18] MEDS: DICYCLOMINE HCL 10 MG CAP PO SCH ×3 (11:05→20:08)
[2023-07-18] MEDS: ACETAMINOPHEN 500 MG TAB PO SCH ×2 (11:05→18:00)
[2023-07-18] MEDS: oxyCODONE HCL IR 5 MG TAB (IMMEDIATE RELEASE) PO PRN (11:07)
--- NOTE | 2023-07-18 16:19 | Hospitalist Progress Note ---
Date of Service July 18, 2023 Assessment & Plan (1) Diverticular disease: Plan: Per admitting service notes with addendum: PERSISTENT DIVERTICULITIS Past history diverticulitis with microperforation Failed multiple antibiotic courses. Blood cultures: negative Repeat CT abdomen and pelvis: 1. Suboptimal examination without oral and IV contrast. 2. Mild/moderate sigmoid diverticulosis. Mild infiltration around the proximal sigmoid colon may represent mild or resolving diverticulitis. Correlate with any prior outside imaging studies. 3. No intraperitoneal free air is identified and there is no evidence of fluid collection to indicate abscess on this unenhanced examination. 4. A thin tract is seen extending from the anterior aspect of the sigmoid as above. This may represent a developing fistula, and this approaches but does not approximate the bladder dome. 5. Hepatomegaly. 6. There are 4 mm pathologically indeterminate lower lobe pulmonary nodules. These are not highly suspicious, and a 3-4 month follow-up chest CT is recommended for reassessment and full evaluation of the thorax. 7 Additional findings as above. GI and General surgery consulted: Does not recommend surgical intervention at this point Recommending continue IV antibiotics Surgery improving Still having some pain, Tylenol 1 g every 8 hours ordered Continue IV Zosyn Continue clear liquid diet for now per GI and general surgery ID consult: Recommend IV Zosyn x 4 weeks total Recommend repeat CT abdomen pelvis with p.o. and IV contrast in 3 weeks Follow-up with ID clinic in 1 month ASTHMA/COPD Chest x-ray: No pneumonia or infiltrate, pulmonary edema Continue usual inhalers Will need CT chest in 3 to 4 months to reevaluate pulmonary nodules hx GERD, not on maintenance medications anxiety/mood disorder, at baseline chronic fatigue syndrome as per records history of lung nodules, patient follows with [facility] Prediabetes --A1c 6.1 --Monitor BSG's: 101 past tobacco/alcohol abuse Disposition Pending Lives at home As per patient, he has no financial capability to shoulder iV antibiotic infusions at home May benefit from financial assistance Admission and Anticipated Discharge Date Admission Date: July 15, 2023 Subjective Follow-up for recurrent diverticulitis, etc. Seen resting in bed, comfortable, not in distress Still having some lower abdominal discomfort but seems to be improving Still having some loose stools after eating No nausea or vomiting, fevers or chills no chest pain, dyspnea, palpitations, dizziness No other new symptoms Review of Systems Review of Systems: all noted and negative except for above Physical Exam Physical Exam: General- oriented x 3, not in distress, speaks in sentences with no effort or accessory muscle use Eyes- anicteric Neck- no JVD Lungs- clear breath sounds bilaterally, no rales/wheezes Heart- normal rate, regular rhythm; no murmurs Abdomen- normal bowel sounds, nondistended, soft, mild lower quadrant tenderness Extremities- no pretibial edema, no calf tenderness Neuro- alert, oriented x 3; no gross focal neurologic deficits Skin- warm & dry Results & Data Results & Data Vital Signs (Past 12 Hours) Vital Signs Temp Pulse Resp BP Pulse Ox O2 Del Method 07/18/23 15:39 36.5 C 66 16 119/82 96 Room Air 07/18/23 07:57 36.6 C 57 L 14 125/82 95 Room Air all noted and reviewed including below
[2023-07-19] MEDS: ACETAMINOPHEN 500 MG TAB PO SCH ×3 (01:00→16:57)
[2023-07-19] MEDS: PIPERACILLIN/TAZOBACTAM 4.5 GM in DEXTROSE 5% MINI-B 100 ML IV SCH ×3 (05:13→20:40)
[2023-07-19] MEDS: DICYCLOMINE HCL 10 MG CAP PO SCH ×4 (07:41→20:40)
[2023-07-19] MEDS: FLUTICASONE/VILANTEROL 200/25MCG 14 PUFFS/INHALER INH SCH (07:41)
[2023-07-19] MEDS: UMECLIDINIUM BROMIDE 62.5MCG/BLISTER 7 PUFFS/INHALER INH SCH (07:42)
[2023-07-19] MEDS: ENOXAPARIN INJ 40 MG/0.4 ML SYR SQ SCH (07:42)
[2023-07-19] MEDS: ADVANCED PROBIOTIC 1250 MG CAPSULE PO SCH (07:42)
[2023-07-19 07:51] LABS: Basophils # (auto) 0.06 K/uL (0.00-0.20); Basophils % (auto) 0.8 %; Eosinophils # (auto) 0.53 K/uL (0.00-0.50); Eosinophils % (auto) 7.4 %; Hematocrit (blood only) 46.7 % (42.0-52.0); Hemoglobin 15.8 g/dl (14.0-18.0); Immature Granulocytes # (auto) 0.01 K/uL (0.01-0.20); Immature Granulocytes % (auto) 0.1 %; Lymphocytes % (auto) 22.3 %; Mean Corpuscular Hemoglobin 30.7 pg (25.0-34.0); Mean Corpuscular Hgb Conc 33.8 g/dL (32.0-36.0); Mean Corpuscular Volume 90.9 fL (80.0-100.0); Mean Platelet Volume 11.1 fL (9.4-12.4); Monocytes # (auto) 0.73 K/uL (0.11-0.59); Monocytes % (auto) 10.2 %; Neutrophils # (auto) 4.24 K/uL (1.40-6.50); Neutrophils % (auto) 59.2 %; Platelet Count 269 K/uL (130-400); RDW Coefficient of Variation 12.6 % (11.5-14.5); Red Blood Count 5.14 M/uL (4.70-6.10); White Blood Count 7.17 K/ul (4.8-10.8)
[2023-07-19 08:12] LABS: BUN Creatinine Ratio 4.9 (10-20); Calcium 8.9 mg/dl (8.6-10.3); Creatinine Clr Calc Pharmacy 101.9 ml/min; Est GFR (African American) 103.4 ml/min; Est GFR (Non-African American) 89.2 ml/min; Potassium 3.6 mmol/L (3.5-5.1)
--- NOTE | 2023-07-19 09:01 | Surgery Progress Note ---
Date of Service July 19, 2023 Assessment & Plan (1) Diverticular disease: Plan: He has remained afebrile, HD stable and without leukocytosis. CT this admission appears to be showing resolving disease and he has not had any leukocytosis during this admission. Major symptoms/complaint at this point is postprandial bloating and running to the bathroom after oral intake. Continue IV antibiotics. Plan is for outpatient IV antibiotics if approved. Patient will follow-up with his outside surgeon for an appointment that is scheduled later this month. May advance to a full liquid diet today. Continue with ambulation. Patient requested a room change Admission and Anticipated Discharge Date Admission Date: July 15, 2023 Subjective Patient was seen and examined this a.m. Patient was terribly irritated and concerned as he now has a roommate who has an excessive and aggressive cough. The patient is slightly agitated as he states he has a history of PTSD. Outside of this, he says he continues to run straight to the bathroom after having his clear liquids and experiences bloating but denies pain. He admits to feeling improved from that regard. Physical Exam Gastrointestinal (Abdomen): Abdomen remains soft and nondistended Very minimally tender at the left lower quadrant. No rebound, minimal to no voluntary guarding Results & Data Vital Signs (Past 12 Hours) Vital Signs Temp Pulse Resp BP Pulse Ox O2 Del Method 07/19/23 07:34 36.5 C 65 16 147/79 H 98 Room Air 07/18/23 21:20 36.4 C L 55 L 16 119/78 94 Room Air PG Care Time/CCT Total # of Minutes Spent Total Time Spent with Patient: Total time spent is greater than 50% in coordination of care (as documented) at patient's floor/unit and/or counseling patient: Coding Level of Care Code 26064 SUB INP/OBS CARE 08/24MIN Diagnoses Diverticular disease K57.90
--- NOTE | 2023-07-19 11:16 | Gastroenterology Progress Note ---
Date of Service July 19, 2023 Assessment & Plan (1) Diverticular disease: (2) Acute diverticulitis: Plan 1. Diet per surgery (understand advancing to full liquids po today). 2. Will ask radiology to have CT films pushed into the [facility] system in anticipation of 07/27 CRS appt. 3. Continue dicyclomine 10mg achs. 4. Continue IV antibiotics - would dc home on IV antibiotics through CRS appt - or stay to have 10 days of IV, then transition to oral (but pt reluctant to transition to oral). 5. GI will sign off. Please notify us if worsening symptoms. Admission and Anticipated Discharge Date Admission Date: July 15, 2023 Supervising Physician Co-Signing Physician Notes I have seen and examined the patient with ARNOLDO Rosado whose note reflects our findings and plan. Subjective Patient tells me that yesterday's anger and agitation was more likely related to PTSD then abdominal pain. He tells me his abdominal pain today is much better, that the new dicyclomine seems to be helpful, not having as much discomfort after drinking clear liquids. Able to walk back and forth to the bathroom without as much discomfort as well. On Zosyn IV, no leukocytosis or fevers. Review of Systems Review of Systems: ROS: Gen: Denies weakness, fevers, weight loss Eyes: No eye redness, or pain, no recent vision changes Resp: No SOB, no cough Cardio: No palpitations/irregular beats, no chest pain GI: As per HPI, otherwise (-) : Denies pain on urination Skin: No jaundice, itching or new rashes Physical Exam Constitutional: WD/WN, vitals as above Eyes: PERRL, conjunctivae normal, anicteric sclerae ENMT: external ear and nose normal, oropharynx normal Neck: trachea midline, no thyromegaly Respiratory: normal respiratory effort, lungs clear to auscultation Cardiovascular: RRR, no murmur, no edema Gastrointestinal (Abdomen): Soft, normal bowel sounds present throughout, mild/mod suprapubic tenderness on palpation, mild tenderness in the left and right lower quadrant on palpation. No rebound or guarding. No distention. Musculoskeletal: no cyanosis or clubbing, extremities motor strength 5/5 Skin: no rashes, warm and dry Neurologic: PERRL, EOMI, accommodation nl, no face palsy, no dysarthria Psychiatric: A+Ox3, euthymic affect Lymphatic: no cervical or axillary lymphadenopathy Results & Data Vital Signs (Past 12 Hours) Vital Signs Temp Pulse Resp BP Pulse Ox O2 Del Method 07/19/23 07:34 36.5 C 65 16 147/79 H 98 Room Air Laboratory Results WBC 7.17, Hb 15.8, HCT 46.7, PLT S269, NA 139, K3.6, CL 107, CO2 26, BUN 5, CR 1.03 Diagnostic Findings Non con CTAP 07/15: 1. Appreciate surgery opinions and will defer diet to surgery - but - even though pt is asking to advance diet as still c/o pain after taking clear liquids - not sure that diet should be advanced. Explained this is detail to the pt. Encouraged and explained the importance of bowel rest. 2. Perhaps some of his pain is functional. Will add dicyclomine ac/hs. 3. Continue IV antibiotics. Continue to recommend hospitalization and IV meds through Jul 21. Will defer question of surgical intervention to surgical service. If no surgical intervention during this admission, pt does have a CRS appt scheduled for 07/27/23.
[2023-07-19] MEDS: oxyCODONE HCL IR 5 MG TAB (IMMEDIATE RELEASE) PO PRN (13:07)
--- NOTE | 2023-07-19 16:18 | Hospitalist Progress Note ---
Date of Service July 19, 2023 Assessment & Plan (1) Diverticular disease: Plan: Per admitting service notes with addendum: PERSISTENT DIVERTICULITIS Past history diverticulitis with microperforation Failed multiple antibiotic courses. Blood cultures: negative Repeat CT abdomen and pelvis: 1. Suboptimal examination without oral and IV contrast. 2. Mild/moderate sigmoid diverticulosis. Mild infiltration around the proximal sigmoid colon may represent mild or resolving diverticulitis. Correlate with any prior outside imaging studies. 3. No intraperitoneal free air is identified and there is no evidence of fluid collection to indicate abscess on this unenhanced examination. 4. A thin tract is seen extending from the anterior aspect of the sigmoid as above. This may represent a developing fistula, and this approaches but does not approximate the bladder dome. 5. Hepatomegaly. 6. There are 4 mm pathologically indeterminate lower lobe pulmonary nodules. These are not highly suspicious, and a 3-4 month follow-up chest CT is recommended for reassessment and full evaluation of the thorax. 7 Additional findings as above. GI and General surgery consulted: Does not recommend surgical intervention at this point Recommending continue IV antibiotics, advanced to full liquid diet today Per GI, patient to continue dicyclomine 10mg achs. Pushed CT films pushed into the [facility] system in anticipation of 07/27 colorecral surgery appointment Still having some pain, Tylenol 1 g every 8 hours ordered, oxycodone PRN for moderate pain, IV dilaudid PRN for severe pain ID consult: Recommend IV Zosyn x 4 weeks total, has a picc in place Recommend repeat CT abdomen pelvis with p.o. and IV contrast in 3 weeks Follow-up with ID clinic in 1 month CM working on HH set up for once pain is controlled and patient can be discharged home ASTHMA/COPD Chest x-ray: No pneumonia or infiltrate, pulmonary edema Continue usual inhalers Will need CT chest in 3 to 4 months to reevaluate pulmonary nodules H/o GERD, not on maintenance medications anxiety/mood disorder, at baseline chronic fatigue syndrome as per records history of lung nodules, patient follows with [facility] pul[facility] Prediabetes --A1c 6.1 --Monitor BSG's: 101 past tobacco/alcohol abuse Disposition Pending Lives at home As per patient, he has no financial capability to shoulder iV antibiotic infusions at home - CM helping with financial barriers Patient seen in collaboration with Dr. Wing. Please see addendum. Admission and Anticipated Discharge Date Admission Date: July 15, 2023 Supervising Physician Co-Signing Physician Notes Patient seen and examined independently. Discussed with above provider. Reports that his pain has slightly improved. Continue IV Zosyn as recommended by infectious disease. Discharge in next few days after patient is able to tolerate normal diet. Subjective Patient seen and examined in 354 bed 2 in follow-up for diverticulitis. Still having left lower abdominal pain intermittently that is worse with eating as well as lower central abdominal pain. Had soup for lunch and had multiple bouts of diarrhea following as well as worsening pain. Feels anxious at the idea of going home if pain is not better controlled but once it is, it is open to leaving on IV antibiotics. Knows he has colorectal surgery follow-up at the end of the month. Denies any fever, chills, lightheadedness, chest pain, shortness of breath, dysuria or constipation. Had significant financial concerns about cost of antibiotic but CM helped with process and filling out additional paperwork. Review of Systems Review of Systems: At least ten systems reviewed and negative except as noted in the HPI. Physical Exam Physical Exam: Gen: WD/WN, NAD, laying in bed, A&Ox3 HEENT: Normocephalic, atraumatic, conjunctivae moist, sclerae anicteric, mucous membranes moist Lung: Clear to Auscultation bilaterally, no wheezes/rales/rhonchi Heart: Regular rate, regular rhythm, no murmurs, rubs, or gallops Abdomen: Normal bowel sounds, nondistended, soft, mild lower quadrant tenderness Extremities: no edema Skin: Warm, no rash Results & Data Results & Data Vital Signs (Past 12 Hours) Vital Signs Temp Pulse Resp BP Pulse Ox O2 Del Method 07/19/23 15:07 36.5 C 75 16 125/84 95 Room Air 07/19/23 07:34 36.5 C 65 16 147/79 H 98 Room Air Laboratory Results Short CBC 07/19/23 Range/Units 07:07 WBC 7.17 (4.8-10.8) K/ul Hgb 15.8 (14.0-18.0) g/dl Hct 46.7 (42.0-52.0) % Plt Count 269 (130-400) K/uL [facility] 07/19/23 07:07 Sodium 139 Potassium 3.6 Chloride 107 Carbon Dioxide 26 BUN 5 L Creatinine 1.03 Glucose 97 Calcium 8.9 Diagnostic Findings Abdomen/Pelvis CT 07/15/23 09:19 CT SCAN OF THE ABDOMEN AND PELVIS WITHOUT IV CONTRAST CLINICAL HISTORY: Generalized abdominal pain. Diverticulitis. COMPARISON STUDY: No priors. TECHNIQUE: CT scan of the abdomen and pelvis is performed from the lung bases to the proximal femora. Images are reviewed in the axial, sagittal, and coronal planes. IV contrast was not administered for this examination. Note that the examination is suboptimal without oral and IV contrast. A dose lowering technique was utilized adhering to the principles of ALARA. CT DOSE: 1320.02 mGy.cm FINDINGS: Lung bases: The heart is normal in size and without pericardial effusion. A 4 mm left basilar pulmonary nodule is seen on image #40. A 4 mm pleural-based nodule in the right lower lobe along the major fissure is seen on image #4. The lung bases are otherwise clear noting dependent atelectasis. There is a small hiatal hernia. Liver: The unenhanced liver is enlarged, measuring 21.1 cm in length. The liver is otherwise normal in contour and attenuation. There is no intrahepatic biliary ductal dilatation. Gallbladder: Unremarkable. Spleen: Normal in size and attenuation. Pancreas: Unremarkable. Adrenal glands: Unremarkable. Kidneys: The unenhanced kidneys are normal in size and without hydronephrosis. There are no renal calculi identified. There is no evidence of contour deforming renal mass lesion. Abdominal vasculature: The abdominal aorta is normal in course and caliber. Bowel: There is mild to moderate sigmoid diverticulosis. There is faint infiltration identified around the proximal sigmoid which may represent mild or resolving diverticulitis. There is a thin tract extending anteriorly/inferiorly from the sigmoid on axial images are 251. This may representing developing fistulous tract. This approaches but does not approximate the bladder dome. There is no bowel obstruction. Residual enteric contrast is seen throughout the colon. The appendix is well-visualized and normal. Peritoneum: There is no intraperitoneal free air or abdominal ascites. Lymphadenopathy: None. Pelvic viscera: The bladder, prostate, and seminal vesicles are normal as visualized. Skeletal structures: No lytic or blastic lesions are seen. IMPRESSION: 1. Suboptimal examination without oral and IV contrast. 2. Mild/moderate sigmoid diverticulosis. Mild infiltration around the proximal sigmoid colon may represent mild or resolving diverticulitis. Correlate with any prior outside imaging studies. 3. No intraperitoneal free air is identified and there is no evidence of fluid collection to indicate abscess on this unenhanced examination. 4. A thin tract is seen extending from the anterior aspect of the sigmoid as above. This may represent a developing fistula, and this approaches but does not approximate the bladder dome. 5. Hepatomegaly. 6. There are 4 mm pathologically indeterminate lower lobe pulmonary nodules. These are not highly suspicious, and a 3-4 month follow-up chest CT is recommended for reassessment and full evaluation of the thorax. 7 Additional findings as above. ACT 112: Negative or not required by law. Electronically signed by: Michael Youngblood M.D. 07/15/2023 10:47 AM Chest X-Ray 07/16/23 14:11 SINGLE VIEW CHEST CLINICAL HISTORY: Dyspnea FINDINGS: An AP, portable, upright chest radiograph is obtained. No prior studies are available for comparison at the time of dictation. The cardiomediastinal silhouette is unremarkable. There is mild bibasilar atelectasis. The lungs and pleural spaces are otherwise clear. No pneumothorax is seen. The bony thorax is grossly intact. IMPRESSION: No active disease in the chest. ACT 112: Negative or not required by law. Electronically signed by: Michael Youngblood M.D. 07/16/2023 2:51 PM
[2023-07-20] MEDS: ACETAMINOPHEN 500 MG TAB PO SCH ×3 (01:30→17:05)
[2023-07-20] MEDS: PIPERACILLIN/TAZOBACTAM 4.5 GM in DEXTROSE 5% MINI-B 100 ML IV SCH ×3 (04:11→20:49)
[2023-07-20 07:59] LABS: Basophils # (auto) 0.06 K/uL (0.00-0.20); Basophils % (auto) 0.7 %; Eosinophils # (auto) 0.43 K/uL (0.00-0.50); Eosinophils % (auto) 5.3 %; Hematocrit (blood only) 46.2 % (42.0-52.0); Hemoglobin 15.9 g/dl (14.0-18.0); Immature Granulocytes # (auto) 0.03 K/uL (0.01-0.20); Immature Granulocytes % (auto) 0.4 %; Lymphocytes % (auto) 18.6 %; Mean Corpuscular Hemoglobin 31.3 pg (25.0-34.0); Mean Corpuscular Hgb Conc 34.4 g/dL (32.0-36.0); Mean Corpuscular Volume 90.9 fL (80.0-100.0); Mean Platelet Volume 10.9 fL (9.4-12.4); Monocytes # (auto) 0.73 K/uL (0.11-0.59); Neutrophils # (auto) 5.33 K/uL (1.40-6.50); Platelet Count 262 K/uL (130-400); RDW Coefficient of Variation 12.6 % (11.5-14.5); Red Blood Count 5.08 M/uL (4.70-6.10); White Blood Count 8.08 K/ul (4.8-10.8)
[2023-07-20 08:17] LABS: BUN Creatinine Ratio 4.9 (10-20); Creatinine Clr Calc Pharmacy 101.9 ml/min; Est GFR (African American) 103.4 ml/min; Est GFR (Non-African American) 89.2 ml/min; Potassium 3.9 mmol/L (3.5-5.1)
[2023-07-20] MEDS: DICYCLOMINE HCL 10 MG CAP PO SCH ×4 (09:29→20:49)
[2023-07-20] MEDS: FLUTICASONE/VILANTEROL 200/25MCG 14 PUFFS/INHALER INH SCH (09:30)
[2023-07-20] MEDS: UMECLIDINIUM BROMIDE 62.5MCG/BLISTER 7 PUFFS/INHALER INH SCH (09:30)
[2023-07-20] MEDS: ENOXAPARIN INJ 40 MG/0.4 ML SYR SQ SCH (09:31)
[2023-07-20] MEDS: ADVANCED PROBIOTIC 1250 MG CAPSULE PO SCH (09:32)
--- NOTE | 2023-07-20 10:06 | Surgery Progress Note ---
Date of Service July 20, 2023 Assessment & Plan (1) Diverticular disease: Plan Remains afebrile, HD stable without leukocytosis. Patient was like to continue to try the full liquid diet. I would not advance past this at this time. Continue IV antibiotics. Patient states that he has been approved for outpatient IV antibiotics. If no medical reason to remain in house, the patient may be discharged on a full liquid diet and outpatient IV antibiotics. Follow-up with his surgeon as scheduled tentatively for July 27. Admission and Anticipated Discharge Date Admission Date: July 15, 2023 Subjective Patient seen and examined this a.m. He says he had tomato soup yesterday which did not agree with him but was able to tolerate better cream of mushroom soup which she is looking forward to having today. He did say he developed some cramping in the suprapubic area but this is relieved with a bowel movement which she had very shortly after. He feels in general his pain he experiences with foods is becoming less and more tolerable. He denies nausea, vomiting or any severe cough acute onset of pain overnight. Physical Exam Constitutional: healthy appearing; not ill appearing, not in distress and not diaphoretic Respiratory: normal respiratory effort; no respiratory distress, no labored breathing and does not use accessory muscles Gastrointestinal (Abdomen): Abdomen is soft, nondistended mildly tender to palpation left lower quadrant suprapubic Results & Data Vital Signs (Past 12 Hours) Vital Signs Temp Pulse Resp BP Pulse Ox O2 Del Method 07/20/23 07:22 36.5 C 61 16 143/86 H 96 Room Air PG Care Time/CCT Total # of Minutes Spent Total Time Spent with Patient: Total time spent is greater than 50% in coordination of care (as documented) at patient's floor/unit and/or counseling patient: Coding [place] [address] SUB INP/OBS CARE 1/25MIN Patient Type Established History Expanded Problem Focused Exam Expanded Problem Focused Medical Decision Making Low Complexity Diagnoses Diverticular disease K57.90
--- NOTE | 2023-07-20 15:51 | Hospitalist Progress Note ---
Date of Service July 20, 2023 Assessment & Plan (1) Diverticular disease: Plan: Per admitting service notes with addendum: PERSISTENT DIVERTICULITIS Past history diverticulitis with microperforation Failed multiple antibiotic courses. Blood cultures: negative Repeat CT abdomen and pelvis: 1. Suboptimal examination without oral and IV contrast. 2. Mild/moderate sigmoid diverticulosis. Mild infiltration around the proximal sigmoid colon may represent mild or resolving diverticulitis. Correlate with any prior outside imaging studies. 3. No intraperitoneal free air is identified and there is no evidence of fluid collection to indicate abscess on this unenhanced examination. 4. A thin tract is seen extending from the anterior aspect of the sigmoid as above. This may represent a developing fistula, and this approaches but does not approximate the bladder dome. 5. Hepatomegaly. 6. There are 4 mm pathologically indeterminate lower lobe pulmonary nodules. These are not highly suspicious, and a 3-4 month follow-up chest CT is recommended for reassessment and full evaluation of the thorax. 7 Additional findings as above. GI and General surgery consulted: Does not recommend surgical intervention at this point Recommending continue IV antibiotics, advanced to low fiber diet today Per GI, patient to continue dicyclomine 10mg achs. Pushed CT films pushed into the [employer] system in anticipation of 07/27 colorectal surgery appointment Still having some pain, Tylenol 1 g every 8 hours ordered, oxycodone PRN for moderate pain, IV dilaudid PRN for severe pain ID consult: Recommend IV Zosyn x 4 weeks total, has a picc in place Recommend repeat CT abdomen pelvis with p.o. and IV contrast in 3 weeks Follow-up with ID clinic in 1 month CM working on HH set up for once pain is controlled and patient can be discharged home, likely after holiday ASTHMA/COPD Chest x-ray: No pneumonia or infiltrate, pulmonary edema Continue usual inhalers Will need CT chest in 3 to 4 months to reevaluate pulmonary nodules H/o GERD, not on maintenance medications anxiety/mood disorder, at baseline chronic fatigue syndrome as per records history of lung nodules, patient follows with [facility]ology Prediabetes --A1c 6.1 --Monitor BSG's: 101 past tobacco/alcohol abuse Disposition Pending Lives at home As per patient, he has no financial capability to shoulder iV antibiotic infusions at home - CM helping with financial barriers Patient seen in collaboration with Dr. Wing. Please see addendum. Admission and Anticipated Discharge Date Admission Date: July 15, 2023 Supervising Physician Co-Signing Physician Notes Patient seen and examined independently. Patient started on low fiber diet. Need to be monitored closely and low fiber diet. Continue on IV antibiotic as recommended by infectious disease. Subjective Patient seen and examined this a.m. Continues to have a cramping lower abd discomfort after eating that improves after diarrhea. Tolerated breakfast better today but still painful. Feels anxious that if he returns home too soon he will not be able to tolerate the pain after eating. No acute changes overnight. No F/C, headache, CP, SOB, nausea, vomiting, dysuria. Review of Systems Review of Systems: At least ten systems reviewed and negative except as noted in the HPI. Physical Exam Physical Exam: Gen: WD/WN, NAD, sitting in bedside chair, A&Ox3 HEENT: Normocephalic, atraumatic, conjunctivae moist, sclerae anicteric, mucous membranes moist Lung: Clear to Auscultation bilaterally, no wheezes/rales/rhonchi Heart: Regular rate, regular rhythm, no murmurs, rubs, or gallops Abdomen: Normal bowel sounds, nondistended, soft, mild lower quadrant/suprapubic TTP Extremities: no edema Skin: Warm, no rash Results & Data Results & Data Vital Signs (Past 12 Hours) Vital Signs Temp Pulse Resp BP Pulse Ox O2 Del Method 07/20/23 14:49 36.6 C 65 16 138/83 96 Room Air 07/20/23 07:22 36.5 C 61 16 143/86 H 96 Room Air Laboratory Results Short CBC 07/20/23 Range/Units 07:08 WBC 8.08 (4.8-10.8) K/ul Hgb 15.9 (14.0-18.0) g/dl Hct 46.2 (42.0-52.0) % Plt Count 262 (130-400) K/uL BMP 07/20/23 07:08 Sodium 139 Potassium 3.9 Chloride 107 Carbon Dioxide 26 BUN 5 L Creatinine 1.03 Glucose 97 Calcium 9.0 Diagnostic Findings Abdomen/Pelvis CT 07/15/23 09:19 CT SCAN OF THE ABDOMEN AND PELVIS WITHOUT IV CONTRAST CLINICAL HISTORY: Generalized abdominal pain. Diverticulitis. COMPARISON STUDY: No priors. TECHNIQUE: CT scan of the abdomen and pelvis is performed from the lung bases to the proximal femora. Images are reviewed in the axial, sagittal, and coronal planes. IV contrast was not administered for this examination. Note that the examination is suboptimal without oral and IV contrast. A dose lowering technique was utilized adhering to the principles of ALARA. CT DOSE: 1320.02 mGy.cm FINDINGS: Lung bases: The heart is normal in size and without pericardial effusion. A 4 mm left basilar pulmonary nodule is seen on image #40. A 4 mm pleural-based nodule in the right lower lobe along the major fissure is seen on image #4. The lung bases are otherwise clear noting dependent atelectasis. There is a small hiatal hernia. Liver: The unenhanced liver is enlarged, measuring 21.1 cm in length. The liver is otherwise normal in contour and attenuation. There is no intrahepatic biliary ductal dilatation. Gallbladder: Unremarkable. Spleen: Normal in size and attenuation. Pancreas: Unremarkable. Adrenal glands: Unremarkable. Kidneys: The unenhanced kidneys are normal in size and without hydronephrosis. There are no renal calculi identified. There is no evidence of contour deforming renal mass lesion. Abdominal vasculature: The abdominal aorta is normal in course and caliber. Bowel: There is mild to moderate sigmoid diverticulosis. There is faint infiltration identified around the proximal sigmoid which may represent mild or resolving diverticulitis. There is a thin tract extending anteriorly/inferiorly from the sigmoid on axial images are 251. This may representing developing fistulous tract. This approaches but does not approximate the bladder dome. There is no bowel obstruction. Residual enteric contrast is seen throughout the colon. The appendix is well-visualized and normal. Peritoneum: There is no intraperitoneal free air or abdominal ascites. Lymphadenopathy: None. Pelvic viscera: The bladder, prostate, and seminal vesicles are normal as visualized. Skeletal structures: No lytic or blastic lesions are seen. IMPRESSION: 1. Suboptimal examination without oral and IV contrast. 2. Mild/moderate sigmoid diverticulosis. Mild infiltration around the proximal sigmoid colon may represent mild or resolving diverticulitis. Correlate with any prior outside imaging studies. 3. No intraperitoneal free air is identified and there is no evidence of fluid collection to indicate abscess on this unenhanced examination. 4. A thin tract is seen extending from the anterior aspect of the sigmoid as above. This may represent a developing fistula, and this approaches but does not approximate the bladder dome. 5. Hepatomegaly. 6. There are 4 mm pathologically indeterminate lower lobe pulmonary nodules. These are not highly suspicious, and a 3-4 month follow-up chest CT is recommended for reassessment and full evaluation of the thorax. 7 Additional findings as above. ACT 112: Negative or not required by law. Electronically signed by: Michael Youngblood M.D. 07/15/2023 10:47 AM Chest X-Ray 07/16/23 14:11 SINGLE VIEW CHEST CLINICAL HISTORY: Dyspnea FINDINGS: An AP, portable, upright chest radiograph is obtained. No prior studies are available for comparison at the time of dictation. The cardiomediastinal silhouette is unremarkable. There is mild bibasilar atelectasis. The lungs and pleural spaces are otherwise clear. No pneumothorax is seen. The bony thorax is grossly intact. IMPRESSION: No active disease in the chest. ACT 112: Negative or not required by law. Electronically signed by: Michael Youngblood M.D. 07/16/2023 2:51 PM
[2023-07-21] MEDS ORDERED: ALUMINUM/MAGNESIUM/SIMETH (MAALOX MAX) 30 ML UDC PO STA (00:27)
[2023-07-21] MEDS: ACETAMINOPHEN 500 MG TAB PO SCH ×3 (01:16→18:16)
[2023-07-21] MEDS: PIPERACILLIN/TAZOBACTAM 4.5 GM in DEXTROSE 5% MINI-B 100 ML IV SCH ×3 (05:09→20:57)
[2023-07-21] MEDS: HYDROmorphone INJ 0.5 MG/0.5 ML SYR IV PRN (05:21)
[2023-07-21] MEDS: PROMETHAZINE HCL 12.5 MG in SODIUM CHLORIDE 0.9% 50 ML IV PRN (05:31)
[2023-07-21 08:18] LABS: BUN Creatinine Ratio 9.2 (10-20); Calcium 8.7 mg/dl (8.6-10.3); Creatinine Clr Calc Pharmacy 107.1 ml/min; Est GFR (African American) 109.8 ml/min; Est GFR (Non-African American) 94.7 ml/min; Potassium 3.8 mmol/L (3.5-5.1)
[2023-07-21] MEDS: ADVANCED PROBIOTIC 1250 MG CAPSULE PO SCH (09:49)
[2023-07-21] MEDS: DICYCLOMINE HCL 10 MG CAP PO SCH ×3 (09:49→18:16)
[2023-07-21] MEDS: UMECLIDINIUM BROMIDE 62.5MCG/BLISTER 7 PUFFS/INHALER INH SCH (09:50)
[2023-07-21] MEDS: FLUTICASONE/VILANTEROL 200/25MCG 14 PUFFS/INHALER INH SCH (09:50)
[2023-07-21] MEDS: ENOXAPARIN INJ 40 MG/0.4 ML SYR SQ SCH (09:51)
[2023-07-21] MEDS ORDERED: OPTIRAY 320 500ml IV ONE (11:24)
--- NOTE | 2023-07-21 11:52 | Surgery Progress Note ---
<Statement entered by Roxanne Doshi, DO - 07/21/23 13:47> This patient would like to attempt elective surgery after a full and complete course of IV antibiotics in hopes to avoid a colostomy when he is seen by his surgeon next week. In the meantime, he was finally starting to slowly improve from a pain stand point and was tolerating full liquids with less abdominal discomfort. He says he was given a low fiber diet for both lunch and dinner yesterday. Since then he has had no BM's and he says he developed a significant amount of abdominal pain. He was still on this diet this am prior to me being aware and had oral intake. For this reason, he was simply decreased back to a full liquid diet. He is staying through the weekend because home IV abx could not be arranged. If he does well through the weekend back on a full liquid diet, he may be discharged on this with plans to see his colorectal surgeon next week. The patient is very nervous about a potential surgery and requiring a colostomy. Date of Service July 21, 2023 Assessment & Plan (1) Diverticular disease: Plan: Pt with chronic ongoing diverticular disease pt denies nausea vomiting patient Had a discussion with Dr. Doshi yesterday about staying on a Full liquid diet which he had been tolerating. Reports that diet was advanced to low fiber for lunch and dinner yesterday which induced more abdominal pain. Diet backed down to Full liquids for today VSS CBC wnl Plan to continue IV antibiotics o/p however per patient unable to set this up with the holidays Has o/p appointment on 07/27/23 with colorectal surgeon , patient should keep this appointment no acute surgical intervention indicated at this time. [place] covering the weekend Patient seen and examined with Dr. Doshi Admission and Anticipated Discharge Date Admission Date: July 15, 2023 Subjective pt denies nausea vomiting Patient Had a discussion with Dr. Doshi yesterday about staying on a Full liquid diet which he had been tolerating. Reports that diet was advanced to low fiber for lunch and dinner yesterday which induced more abdominal pain. Review of Systems Constitutional: no fever and no chills Respiratory: no dyspnea Cardiovascular: no chest pain Gastrointestinal: + abdominal pain and + cramping; no naus ea and no vomiting Psychiatric: no confusion Physical Exam Physical Exam: alert oriented Constitutional: cooperative and comfortable; no acute distress ENMT: external ear and nose normal, oropharynx normal Neck: trachea midline, no thyromegaly Respiratory: normal respiratory effort and able to speak in complete sentences; no respiratory distress Cardiovascular: Rate/Rhythm: regular rate Gastrointestinal (Abdomen): Inspection/Auscultation: abdomen not distended Percussion/Palpation: + abdomen tender Musculoskeletal: no cyanosis or clubbing, extremities motor strength 5/5 Neurologic: awake; not confused Psychiatric: Orientation: alert and oriented x 3 Results & Data Vital Signs (Past 12 Hours) Vital Signs Temp Pulse Resp BP Pulse Ox O2 Del Method 07/21/23 07:18 97.9 F 69 16 127/77 93 Room Air PG Care Time/CCT Total # of Minutes Spent Total Time Spent with Patient: Total time spent is greater than 50% in coordination of care (as documented) at patient's floor/unit and/or counseling patient: Coding Level of Care Code 17466 SUB INP/OBS CARE 2/35MIN Diagnoses Diverticular disease K57.90
--- NOTE | 2023-07-21 12:27 | CT Scan Report ---
CT OF THE ABDOMEN AND PELVIS WITH CONTRAST CLINICAL HISTORY: History of diverticulitis. Persistent pain. COMPARISON STUDY: CT of the abdomen and pelvis July 15, 2023. TECHNIQUE: Following IV administration of 90 mL of Optiray, axial images of the abdomen and pelvis we re obtained from the lung bases to the proximal femurs. Images were reviewed in the axial, sagittal, and coronal planes. IV contrast was administered without complication. Automated exposure control wa s utilized for the study. A dose lowering technique was utilized adhering to the principles of ALARA . CT DOSE: 1195.54 mGy.cm FINDINGS: Several small subpleural nodules within the lower lungs were shown on CT of July 15. No pneumatosis, free air or portal venous gas is present. No hepatic lesions are present. Spleen, adrenal glands, kidneys and pancreas are unremarkable. There is no biliary or pancreatic ductal dila tation dictation. Is no hydronephrosis. The appendix is normal. Sigmoid diverticulosis is noted. Note is again made of a thin tract arising from the anterior aspect of the proximal sigmoid colon on imag e 279 of 405. There is minimal adjacent stranding. This tract extends toward but does not appear to r each the bladder. There is no gas within the bladder. The appearance is unchanged since CT of [facility] 2022. No new sites of inflammation are present. No fluid collections are present. Major vascula ture is patent. IMPRESSION: 1. No change since CT of July 15, 2023. Sigmoid diverticulosis with findings suggestive of mild d iverticulitis of the proximal sigmoid colon, likely subacute. No change in a thin tract arising from the anterior aspect of the sigmoid colon which extends toward but not reach the bladder. Gas within t he bladder. 2. No new sites of inflammation identified. No abscess. No free air. 3. Several small nodules within the lower lungs, as described on CT of July 15, 2023. These are l ikely benign. A 3-4 month follow-up chest CT is recommended. ACT 112: Negative or not required by law. Electronically signed by: Antonio Vaughn M.D. 07/21/2023 12:25 PM
--- NOTE | 2023-07-21 13:56 | Hospitalist Progress Note ---
Date of Service July 21, 2023 Assessment & Plan (1) Diverticular disease: Plan: PERSISTENT DIVERTICULITIS Past history diverticulitis with microperforation Failed multiple antibiotic courses. Blood cultures: negative Repeat CT abdomen and pelvis: 1. Suboptimal examination without oral and IV contrast. 2. Mild/moderate sigmoid diverticulosis. Mild infiltration around the proximal sigmoid colon may represent mild or resolving diverticulitis. Correlate with any prior outside imaging studies. 3. No intraperitoneal free air is identified and there is no evidence of fluid collection to indicate abscess on this unenhanced examination. 4. A thin tract is seen extending from the anterior aspect of the sigmoid as above. This may represent a developing fistula, and this approaches but does not approximate the bladder dome. 5. Hepatomegaly. 6. There are 4 mm pathologically indeterminate lower lobe pulmonary nodules. These are not highly suspicious, and a 3-4 month follow-up chest CT is recommended for reassessment and full evaluation of the thorax. 7 Additional findings as above. GI and General surgery consulted; appreciate input as below Per discussion with between Dr. Doshi and patient, he would like to attempt elective surgery after a full and complete course of IV antibiotics in hopes to avoid a colostomy when he is seen by surgeon next week ID recommending continue IV antibiotics as below Continue full liquid diet per general surgery Per GI, patient to continue dicyclomine 10mg achs. Pushed CT films pushed into the [employer] system in anticipation of 07/27 colorectal surgery appointment Still having some pain, Tylenol 1 g every 8 hours ordered, oxycodone PRN for moderate pain, IV dilaudid PRN for severe pain ID consult: Recommend IV Zosyn x 4 weeks total, has a picc in place Recommend repeat CT abdomen pelvis with p.o. and IV contrast in 3 weeks Follow-up with ID clinic in 1 month CM working on set up for once pain is controlled and patient can be discharged home, likely after holiday and plan for colorectal surgery appt follow up next week ASTHMA/COPD Chest x-ray: No pneumonia or infiltrate, pulmonary edema Continue usual inhalers Will need CT chest in 3 to 4 months to reevaluate pulmonary nodules H/o GERD, not on maintenance medications anxiety/mood disorder, at baseline chronic fatigue syndrome as per records history of lung nodules, patient follows with [facility] pul[facility]ology Prediabetes --A1c 6.1 --Monitor BSG's: 101 past tobacco/alcohol abuse Disposition Pending Lives at home Plan for DC home 07/25 on IV abx if care can be coordinated, follow up with [facility] 07/27 Patient seen in collaboration with Dr. Wing. Please see addendum. Admission and Anticipated Discharge Date Admission Date: July 15, 2023 Supervising Physician Co-Signing Physician Notes Patient seen and examined independently. Patient reports lower abdominal pain. CT abdomen/pelvis with IV contrast done; consistent with mild diverticulitis of proximal sigmoid colon. Thin track arising from the anterior aspect of sigmoid colon which extends 2 hours but not reached the bladder. Will obtain urinalysis. Several small nodules within lower lungs. Will need follow-up in 3 to 4 months. Discussed with patient regarding the findings. Answer questions/queries. Reiterated importance of follow-up with colorectal surgery Also need to follow up with PCP for CT chest. Subjective Patient seen and examined in 352-2 in follow up for diverticulitis. Continues to have a cramping lower abd discomfort with movement and after eating. Feels anxious that if he returns home too soon he will not be able to tolerate the pain after eating. Seen by gen surg today and diet scaled back to full liquids. No F/C, headache, CP, SOB, nausea, vomiting, dysuria. Review of Systems Review of Systems: At least ten systems reviewed and negative except as noted in the HPI. Physical Exam Physical Exam: Gen: WD/WN, NAD, resting in bed, A&Ox3 HEENT: Normocephalic, atraumatic, conjunctivae moist, sclerae anicteric, mucous membranes moist Lung: Clear to Auscultation bilaterally, no wheezes/rales/rhonchi Heart: Regular rate, regular rhythm, no murmurs, rubs, or gallops Abdomen: Soft, suprapubic TTP, +BS x 4 Extremities: no edema Skin: Warm, no rash Results & Data Results & Data Vital Signs (Past 12 Hours) Vital Signs Temp Pulse Resp BP Pulse Ox O2 Del Method 07/21/23 07:18 36.6 C 69 16 127/77 93 Room Air Laboratory Results [facility] 07/21/23 07:26 Sodium 140 Potassium 3.8 Chloride 109 H Carbon Dioxide 25 BUN 9 Creatinine 0.98 Glucose 109 H Calcium 8.7 Diagnostic Findings Abdomen/Pelvis CT 07/15/23 09:19 CT SCAN OF THE ABDOMEN AND PELVIS WITHOUT IV CONTRAST CLINICAL HISTORY: Generalized abdominal pain. Diverticulitis. COMPARISON STUDY: No priors. TECHNIQUE: CT scan of the abdomen and pelvis is performed from the lung bases to the proximal femora. Images are reviewed in the axial, sagittal, and coronal planes. IV contrast was not administered for this examination. Note that the examination is suboptimal without oral and IV contrast. A dose lowering technique was utilized adhering to the principles of ALARA. CT DOSE: 1320.02 mGy.cm FINDINGS: Lung bases: The heart is normal in size and without pericardial effusion. A 4 mm left basilar pulmonary nodule is seen on image #40. A 4 mm pleural-based nodule in the right lower lobe along the major fissure is seen on image #4. The lung bases are otherwise clear noting dependent atelectasis. There is a small hiatal hernia. Liver: The unenhanced liver is enlarged, measuring 21.1 cm in length. The liver is otherwise normal in contour and attenuation. There is no intrahepatic biliary ductal dilatation. Gallbladder: Unremarkable. Spleen: Normal in size and attenuation. Pancreas: Unremarkable. Adrenal glands: Unremarkable. Kidneys: The unenhanced kidneys are normal in size and without hydronephrosis. There are no renal calculi identified. There is no evidence of contour deforming renal mass lesion. Abdominal vasculature: The abdominal aorta is normal in course and caliber. Bowel: There is mild to moderate sigmoid diverticulosis. There is faint infiltration identified around the proximal sigmoid which may represent mild or resolving diverticulitis. There is a thin tract extending anteriorly/inferiorly from the sigmoid on axial images are 251. This may representing developing fistulous tract. This approaches but does not approximate the bladder dome. There is no bowel obstruction. Residual enteric contrast is seen throughout the colon. The appendix is well-visualized and normal. Peritoneum: There is no intraperitoneal free air or abdominal ascites. Lymphadenopathy: None. Pelvic viscera: The bladder, prostate, and seminal vesicles are normal as visualized. Skeletal structures: No lytic or blastic lesions are seen. IMPRESSION: 1. Suboptimal examination without oral and IV contrast. 2. Mild/moderate sigmoid diverticulosis. Mild infiltration around the proximal sigmoid colon may represent mild or resolving diverticulitis. Correlate with any prior outside imaging studies. 3. No intraperitoneal free air is identified and there is no evidence of fluid collection to indicate abscess on this unenhanced examination. 4. A thin tract is seen extending from the anterior aspect of the sigmoid as above. This may represent a developing fistula, and this approaches but does not approximate the bladder dome. 5. Hepatomegaly. 6. There are 4 mm pathologically indeterminate lower lobe pulmonary nodules. These are not highly suspicious, and a 3-4 month follow-up chest CT is recommended for reassessment and full evaluation of the thorax. 7 Additional findings as above. ACT 112: Negative or not required by law. Electronically signed by: Michael Youngblood M.D. 07/15/2023 10:47 AM Chest X-Ray 07/16/23 14:11 SINGLE VIEW CHEST CLINICAL HISTORY: Dyspnea FINDINGS: An AP, portable, upright chest radiograph is obtained. No prior studies are available for comparison at the time of dictation. The cardiomediastinal silhouette is unremarkable. There is mild bibasilar atelectasis. The lungs and pleural spaces are otherwise clear. No pneumothorax is seen. The bony thorax is grossly intact. IMPRESSION: No active disease in the chest. ACT 112: Negative or not required by law. Electronically signed by: Michael Youngblood M.D. 07/16/2023 2:51 PM Abdomen/Pelvis CT 07/21/23 10:46 CT OF THE ABDOMEN AND PELVIS WITH CONTRAST CLINICAL HISTORY: History of diverticulitis. Persistent pain. COMPARISON STUDY: CT of the abdomen and pelvis July 15, 2023. TECHNIQUE: Following IV administration of 90 mL of Optiray, axial images of the abdomen and pelvis were obtained from the lung bases to the proximal femurs. Images were reviewed in the axial, sagittal, and coronal planes. IV contrast was administered without complication. Automated exposure control was utilized for the study. A dose lowering technique was utilized adhering to the principles of ALARA. CT DOSE: 1195.54 mGy.cm FINDINGS: Several small subpleural nodules within the lower lungs were shown on CT of July 15, 2023. No pneumatosis, free air or portal venous gas is present. No hepatic lesions are present. Spleen, adrenal glands, kidneys and pancreas are unremarkable. There is no biliary or pancreatic ductal dilatation dictation. Is no hydronephrosis. The appendix is normal. Sigmoid diverticulosis is noted. Note is again made of a thin tract arising from the anterior aspect of the proximal sigmoid colon on image 279 of 405. There is minimal adjacent stranding. This tract extends toward but does not appear to reach the bladder. There is no gas within the bladder. The appearance is unchanged since CT of July 15, 2023. No new sites of inflammation are present. No fluid collectio ns are present. Major vasculature is patent. IMPRESSION: 1. No change since CT of July 15, 2023. Sigmoid diverticulosis with findings suggestive of mild diverticulitis of the proximal sigmoid colon, likely subacute. No change in a thin tract arising from the anterior aspect of the sigmoid colon which extends toward but not reach the bladder. Gas within the bladder. 2. No new sites of inflammation identified. No abscess. No free air. 3. Several small nodules within the lower lungs, as described on CT of July 15, 2023. These are likely benign. A 3-4 month follow-up chest CT is recommended. ACT 112: Negative or not required by law. Electronically signed by: Antonio Vaughn M.D. 07/21/2023 12:25 PM
[2023-07-21] MEDS: oxyCODONE HCL IR 5 MG TAB (IMMEDIATE RELEASE) PO PRN (21:02)
[2023-07-21] MEDS: LORazepam 0.5 MG TAB PO PRN (21:03)
[2023-07-22] MEDS: DICYCLOMINE HCL 10 MG CAP PO SCH ×5 (00:20→20:53)
[2023-07-22] MEDS: ACETAMINOPHEN 500 MG TAB PO SCH ×3 (00:58→16:53)
[2023-07-22] MEDS: PIPERACILLIN/TAZOBACTAM 4.5 GM in DEXTROSE 5% MINI-B 100 ML IV SCH ×3 (04:38→20:52)
[2023-07-22 06:30] LABS: Hematocrit (blood only) 43.8 % (42.0-52.0); Hemoglobin 15.4 g/dl (14.0-18.0); Mean Corpuscular Hemoglobin 31.7 pg (25.0-34.0); Mean Corpuscular Hgb Conc 35.2 g/dL (32.0-36.0); Mean Corpuscular Volume 90.1 fL (80.0-100.0); Mean Platelet Volume 11.4 fL (9.4-12.4); Platelet Count 220 K/uL (130-400); RDW Coefficient of Variation 12.8 % (11.5-14.5); RDW Standard Deviation 42.3 fL (36.4-46.3); Red Blood Count 4.86 M/uL (4.70-6.10); White Blood Count 8.13 K/ul (4.8-10.8)
[2023-07-22 06:51] LABS: BUN Creatinine Ratio 6.4 (10-20); Creatinine Clr Calc Pharmacy 111.7 ml/min; Est GFR (African American) 115.4 ml/min; Est GFR (Non-African American) 99.6 ml/min; Potassium 3.8 mmol/L (3.5-5.1)
[2023-07-22] MEDS: oxyCODONE HCL IR 5 MG TAB (IMMEDIATE RELEASE) PO PRN ×3 (08:46→23:48)
[2023-07-22] MEDS: FLUTICASONE/VILANTEROL 200/25MCG 14 PUFFS/INHALER INH SCH (08:47)
[2023-07-22] MEDS: UMECLIDINIUM BROMIDE 62.5MCG/BLISTER 7 PUFFS/INHALER INH SCH (08:47)
[2023-07-22] MEDS: ENOXAPARIN INJ 40 MG/0.4 ML SYR SQ SCH (08:52)
[2023-07-22] MEDS: ADVANCED PROBIOTIC 1250 MG CAPSULE PO SCH (08:52)
[2023-07-22] MEDS: LORazepam 0.5 MG TAB PO PRN ×2 (11:49→23:47)
--- NOTE | 2023-07-22 15:39 | Surgery Progress Note ---
Date of Service July 22, 2023 Assessment & Plan (1) Acute diverticulitis: Plan: Assessment: Patient is a 43 years old gentleman who the hospital for recurrence of diverticulitis. Patient feels better today. no significant abdominal pain. no fevers. Continue IV antibiotic treatment Patient will follow-up colorectal surgery on July 27 will F/U Admission and Anticipated Discharge Date Admission Date: July 15, 2023 Subjective F/U diverticulitis, pt is doing better, no significant abdominal , no nausea, no vomiting, no fever, some diarrhea, no bloody stool. Physical Exam Constitutional: WD/WN, vitals as above Eyes: PERRL, conjunctivae normal, anicteric sclerae Neck: trachea midline, no thyromegaly Respiratory: normal respiratory effort, lungs clear to auscultation Cardiovascular: RRR, no murmur, no edema Gastrointestinal (Abdomen): soft mild tenderness at low abdomen, no rebound pain, no distend, BS+. Neurologic: patellar DTR's 2+ bilat, sensation intact Psychiatric: A+Ox3, euthymic affect Results & Data Vital Signs (Past 12 Hours) Vital Signs Temp Pulse Resp BP Pulse Ox O2 Del Method 07/22/23 14:33 36.6 C 87 16 108/76 97 Room Air 07/22/23 07:20 36.7 C 64 16 124/75 95 Room Air Laboratory Results Lab Results 07/14/23 07/14/23 07/15/23 Range/Units 20:16 20:20 06:07 WBC 8.62 6.33 (4.8-10.8) K/ul RBC 4.86 4.32 L (4.70-6.10) M/uL Hgb 15.3 13.5 L (14.0-18.0) g/dl Hct 44.7 39.4 L (42.0-52.0) % MCV 92.0 91.2 (80.0-100.0) fL MCH 31.5 31.3 (25.0-34.0) pg MCHC 34.2 34.3 (32.0-36.0) g/dL RDW Std Deviation 43.0 43.0 (36.4-46.3) fL RDW Coeff of Radha 12.8 12.8 (11.5-14.5) % Plt Count 279 237 (130-400) K/uL MPV 11.1 11.0 (9.4-12.4) fL Immature Gran % (Auto) 0.3 0.3 % Neut % (Auto) 57.7 47.7 % Lymph % (Auto) 26.7 37.1 % [place] % (Auto) 9.5 6.5 % Eos % (Auto) 4.8 7.3 % Baso % (Auto) 1.0 1.1 % Neut # (Auto) 4.97 3.02 (1.40-6.50) K/uL Lymph # (Auto) 2.30 2.35 (1.20-3.40) K/uL [place] # (Auto) 0.82 H 0.41 (0.11-0.59) K/uL Eos # (Auto) 0.41 0.46 (0.00-0.50) K/uL Baso # (Auto) 0.09 0.07 (0.00-0.20) K/uL Immature Gran # (Auto) 0.03 0.02 (0.01-0.20) K/uL Sodium 136 139 (136-145) mmol/L Potassium 3.5 4.1 (3.5-5.1) mmol/L Chloride 106 109 H (98-107) mmol/L Carbon Dioxide 22 27 (21-32) mmol/L Anion Gap 8 3 (3-11) BUN 10 7 (6-23) mg/dl Creatinine 0.90 0.93 (0.6-1.4) mg/dl Est Cr Clr Drug Dosing 116.6 112.9 ml/min Est GFR ( Amer) 121.7 116.9 ml/min Est GFR (Non-Af Amer) 105.0 100.9 ml/min BUN/Creatinine Ratio 11.1 7.5 L (10-20) Glucose 172 H 107 H (70-99(Fasting)) mg/dl Estimat Average Glucose 128 mg/dl Hemoglobin A1c 6.1 H (4.5-5.6) % Calcium 8.7 8.2 L (8.6-10.3) mg/dl Total Bilirubin 0.2 (0.2-1.0) mg/dl AST 32 (13-39) U/L ALT 32 (7-52) U/L Alkaline Phosphatase 89 (34-104) U/L Total Protein 7.4 (6.0-8.3) gm/dl Albumin 4.0 (3.4-5.0) gm/dl Globulin 3.4 (2.5-4.0) gm/dl Albumin/Globulin Ratio 1.2 (0.9-2) Lipase 34 (11-82) U/L Urine Color Yellow Urine Appearance Clear (Clear) Urine pH 6.0 (4.5-7.5) Ur Specific [place] 1.042 H (1.000-1.030) Urine Protein Negative (Negative) Urine Glucose (UA) Negative (Negative) Urine Ketones Trace H (Negative) Urine Blood Negative (Negative) Urine Nitrite Negative (Negative) Urine Bilirubin Negative (Negative) Urine Urobilinogen Negative (Negative) Ur Leukocyte Esterase Trace H (Negative) Urine WBC (Auto) 1-5 (0-5) /hpf Urine RBC (Auto) 0-4 (0-4) /hpf U Hyaline Cast (Auto) 0 (0-5) /lpf U Epithel Cells (Auto) 0-5 (0-5) /lpf Urine Bacteria (Auto) Negative (Negative) Stl C. cayetanensis PCR (NotDetected) Stool Rotavirus A PCR (NotDetected) Stl Adenov F 40/41 PCR (NotDetected) Stool Astrovirus (PCR) (NotDetected) Stool Campylobacter PCR (NotDetected) Stl C. diff Tox B Gene (Neg) Stool Cryptosporidium PCR (NotDetected) Stl E.coli Shiga Tox PCR (NotDetected) Stl Enterotoxigenic E PCR (NotDetected) Stool EPEC (PCR) (NotDetected) Stool EAEC (PCR) (NotDetected) Stl E. histolytica PCR (NotDetected) Stool Giardia Lamblia PCR (NotDetected) Stool Salmonella PCR (NotDetected) Stool Sapovirus (PCR) (NotDetected) Stl P. shigelloides PCR (NotDetected) Stl Shigella/EIEC PCR (NotDetected) St Y.enterocolitica PCR (NotDetected) Stool Vibrio (PCR) (NotDetected) Stl Vibrio cholerae PCR (NotDetected) Stl Norovirus GI/GII PCR (NotDetected) 07/15/23 07/16/23 07/16/23 Range/Units 10:15 06:27 14:46 WBC 6.34 (4.8-10.8) K/ul RBC 4.48 L (4.70-6.10) M/uL Hgb 14.0 (14.0-18.0) g/dl Hct 40.0 L (42.0-52.0) % MCV 89.3 (80.0-100.0) fL MCH 31.3 (25.0-34.0) pg MCHC 35.0 (32.0-36.0) g/dL RDW Std Deviation 40.4 (36.4-46.3) fL RDW Coeff of Radha 12.4 (11.5-14.5) % Plt Count 240 (130-400) K/uL MPV 10.6 (9.4-12.4) fL Immature Gran % (Auto) 0.3 % Neut % (Auto) 49.5 % Lymph % (Auto) 29.8 % [place] % (Auto) 8.8 % Eos % (Auto) 10.7 % Baso % (Auto) 0.9 % Neut # (Auto) 3.13 (1.40-6.50) K/uL Lymph # (Auto) 1.89 (1.20-3.40) K/uL [place] # (Auto) 0.56 (0.11-0.59) K/uL Eos # (Auto) 0.68 H (0.00-0.50) K/uL Baso # (Auto) 0.06 (0.00-0.20) K/uL Immature Gran # (Auto) 0.02 (0.01-0.20) K/uL Sodium 139 (136-145) mmol/L Potassium 3.7 (3.5-5.1) mmol/L Chloride 109 H (98-107) mmol/L Carbon Dioxide 25 (21-32) mmol/L Anion Gap 5 (3-11) BUN 5 L (6-23) mg/dl Creatinine 0.90 (0.6-1.4) mg/dl Est Cr Clr Drug Dosing 116.6 ml/min Est GFR ( Amer) 121.7 ml/min Est GFR (Non-Af Amer) 105.0 ml/min BUN/Creatinine Ratio 5.6 L (10-20) Glucose 121 H (70-99(Fasting)) mg/dl Estimat Average Glucose mg/dl Hemoglobin A1c (4.5-5.6) % Calcium 8.5 L (8.6-10.3) mg/dl Total Bilirubin (0.2-1.0) mg/dl AST (13-39) U/L ALT (7-52) U/L Alkaline Phosphatase (34-104) U/L Total Protein (6.0-8.3) gm/dl Albumin (3.4-5.0) gm/dl Globulin (2.5-4.0) gm/dl Albumin/Globulin Ratio (0.9-2) Lipase (11-82) U/L Urine Color Yellow Urine Appearance Clear (Clear) Urine pH 6.5 (4.5-7.5) Ur Specific [place] 1.020 (1.000-1.030) Urine Protein Negative (Negative) Urine Glucose (UA) Negative (Negative) Urine Ketones Negative (Negative) Urine Blood Negative (Negative) Urine Nitrite Negative (Negative) Urine Bilirubin Negative (Negative) Urine Urobilinogen Negative (Negative) Ur Leukocyte Esterase Negative (Negative) Urine WBC (Auto) (0-5) /hpf Urine RBC (Auto) (0-4) /hpf U Hyaline Cast (Auto) (0-5) /lpf U Epithel Cells (Auto) (0-5) /lpf Urine Bacteria (Auto) (Negative) Stl C. cayetanensis PCR Not Detected (NotDetected) Stool Rotavirus A PCR Not Detected (NotDetected) Stl Adenov F 40/41 PCR Not Detected (NotDetected) Stool Astrovirus (PCR) Not Detected (NotDetected) Stool Campylobacter PCR Not Detected (NotDetected) Stl C. diff Tox B Gene Negative Cdiff Gene (Neg) Stool Cryptosporidium PCR Not Detected (NotDetected) Stl E.coli Shiga Tox PCR Not Detected (NotDetected) Stl Enterotoxigenic E PCR Not Detected (NotDetected) Stool EPEC (PCR) Not Detected (NotDetected) Stool EAEC (PCR) Not Detected (NotDetected) Stl E. histolytica PCR Not Detected (NotDetected) Stool Giardia Lamblia PCR Not Detected (NotDetected) Stool Salmonella PCR Not Detected (NotDetected) Stool Sapovirus (PCR) Not Detected (NotDetected) Stl P. shigelloides PCR Not Detected (NotDetected) Stl Shigella/EIEC PCR Not Detected (NotDetected) St Y.enterocolitica PCR Not Detected (NotDetected) Stool Vibrio (PCR) Not Detected (NotDetected) Stl Vibrio cholerae PCR Not Detected (NotDetected) Stl Norovirus GI/GII PCR Not Detected (NotDetected) 07/17/23 07/17/23 07/18/23 Range/Units 06:40 19:37 07:24 WBC 5.91 7.01 (4.8-10.8) K/ul RBC 4.82 4.96 (4.70-6.10) M/uL Hgb 15.2 15.7 (14.0-18.0) g/dl Hct 43.0 43.8 (42.0-52.0) % MCV 89.2 88.3 (80.0-100.0) fL MCH 31.5 31.7 (25.0-34.0) pg MCHC 35.3 35.8 (32.0-36.0) g/dL RDW Std Deviation 40.8 40.6 (36.4-46.3) fL RDW Coeff of Radha 12.4 12.6 (11.5-14.5) % Plt Count 255 273 (130-400) K/uL MPV 11.3 10.8 (9.4-12.4) fL Immature Gran % (Auto) 0.2 0.1 % Neut % (Auto) 56.4 60.5 % Lymph % (Auto) 24.5 24.0 % [place] % (Auto) 11.7 9.6 % Eos % (Auto) 6.4 5.1 % Baso % (Auto) 0.8 0.7 % Neut # (Auto) 3.33 4.24 (1.40-6.50) K/uL Lymph # (Auto) 1.45 1.68 (1.20-3.40) K/uL [place] # (Auto) 0.69 H 0.67 H (0.11-0.59) K/uL Eos # (Auto) 0.38 0.36 (0.00-0.50) K/uL Baso # (Auto) 0.05 0.05 (0.00-0.20) K/uL Immature Gran # (Auto) 0.01 0.01 (0.01-0.20) K/uL Sodium 140 139 (136-145) mmol/L Potassium 3.5 3.6 (3.5-5.1) mmol/L Chloride 107 108 H (98-107) mmol/L Carbon Dioxide 26 24 (21-32) mmol/L Anion Gap 7 7 (3-11) BUN 5 L 5 L (6-23) mg/dl Creatinine 0.96 0.98 (0.6-1.4) mg/dl Est Cr Clr Drug Dosing 109.3 107.1 ml/min Est GFR ( Amer) 112.5 109.8 ml/min Est GFR (Non-Af Amer) 97.1 94.7 ml/min BUN/Creatinine Ratio 5.2 L 5.1 L (10-20) Glucose 101 H 95 (70-99(Fasting)) mg/dl Estimat Average Glucose mg/dl Hemoglobin A1c (4.5-5.6) % Calcium 8.6 8.8 (8.6-10.3) mg/dl Total Bilirubin (0.2-1.0) mg/dl AST (13-39) U/L ALT (7-52) U/L Alkaline Phosphatase (34-104) U/L Total Protein (6.0-8.3) gm/dl Albumin (3.4-5.0) gm/dl Globulin (2.5-4.0) gm/dl Albumin/Globulin Ratio (0.9-2) Lipase (11-82) U/L Urine Color Urine Appearance (Clear) Urine pH (4.5-7.5) Ur Specific [place] (1.000-1.030) Urine Protein (Negative) Urine Glucose (UA) (Negative) Urine Ketones (Negative) Urine Blood (Negative) Urine Nitrite (Negative) Urine Bilirubin (Negative) Urine Urobilinogen (Negative) Ur Leukocyte Esterase (Negative) Urine WBC (Auto) (0-5) /hpf Urine RBC (Auto) (0-4) /hpf U Hyaline Cast (Auto) (0-5) /lpf U Epithel Cells (Auto) (0-5) /lpf Urine Bacteria (Auto) (Negative) Stl C. cayetanensis PCR Not Detected (NotDetected) Stool Rotavirus A PCR Not Detected (NotDetected) Stl Adenov F 40/41 PCR Not Detected (NotDetected) Stool Astrovirus (PCR) Not Detected (NotDetected) Stool Campylobacter PCR Not Detected (NotDetected) Stl C. diff Tox B Gene Negative Cdiff Gene (Neg) Stool Cryptosporidium PCR Not Detected (NotDetected) Stl E.coli Shiga Tox PCR Not Detected (NotDetected) Stl Enterotoxigenic E PCR Not Detected (NotDetected) Stool EPEC (PCR) Not Detected (NotDetected) Stool EAEC (PCR) Not Detected (NotDetected) Stl E. histolytica PCR Not Detected (NotDetected) Stool Giardia Lamblia PCR Not Detected (NotDetected) Stool Salmonella PCR Not Detected (NotDetected) Stool Sapovirus (PCR) Not Detected (NotDetected) Stl P. shigelloides PCR Not Detected (NotDetected) Stl Shigella/EIEC PCR Not Detected (NotDetected) St Y.enterocolitica PCR Not Detected (NotDetected) Stool Vibrio (PCR) Not Detected (NotDetected) Stl Vibrio cholerae PCR Not Detected (NotDetected) Stl Norovirus GI/GII PCR Not Detected (NotDetected) 07/19/23 07/20/23 07/21/23 Range/Units 07:07 07:08 07:26 WBC 7.17 8.08 (4.8-10.8) K/ul RBC 5.14 5.08 (4.70-6.10) M/uL Hgb 15.8 15.9 (14.0-18.0) g/dl Hct 46.7 46.2 (42.0-52.0) % MCV 90.9 90.9 (80.0-100.0) fL MCH 30.7 31.3 (25.0-34.0) pg MCHC 33.8 34.4 (32.0-36.0) g/dL RDW Std Deviation 42.0 42.0 (36.4-46.3) fL RDW Coeff of Radha 12.6 12.6 (11.5-14.5) % Plt Count 269 262 (130-400) K/uL MPV 11.1 10.9 (9.4-12.4) fL Immature Gran % (Auto) 0.1 0.4 % Neut % (Auto) 59.2 66.0 % Lymph % (Auto) 22.3 18.6 % [place] % (Auto) 10.2 9.0 % Eos % (Auto) 7.4 5.3 % Baso % (Auto) 0.8 0.7 % Neut # (Auto) 4.24 5.33 (1.40-6.50) K/uL Lymph # (Auto) 1.60 1.50 (1.20-3.40) K/uL [place] # (Auto) 0.73 H 0.73 H (0.11-0.59) K/uL Eos # (Auto) 0.53 H 0.43 (0.00-0.50) K/uL Baso # (Auto) 0.06 0.06 (0.00-0.20) K/uL Immature Gran # (Auto) 0.01 0.03 (0.01-0.20) K/uL Sodium 139 139 140 (136-145) mmol/L Potassium 3.6 3.9 3.8 (3.5-5.1) mmol/L Chloride 107 107 109 H (98-107) mmol/L Carbon Dioxide 26 26 25 (21-32) mmol/L Anion Gap 6 6 6 (3-11) BUN 5 L 5 L 9 (6-23) mg/dl Creatinine 1.03 1.03 0.98 (0.6-1.4) mg/dl Est Cr Clr Drug Dosing 101.9 101.9 107.1 ml/min Est GFR ( Amer) 103.4 103.4 109.8 ml/min Est GFR (Non-Af Amer) 89.2 89.2 94.7 ml/min BUN/Creatinine Ratio 4.9 L 4.9 L 9.2 L (10-20) Glucose 97 97 109 H (70-99(Fasting)) mg/dl Estimat Average Glucose mg/dl Hemoglobin A1c (4.5-5.6) % Calcium 8.9 9.0 8.7 (8.6-10.3) mg/dl Total Bilirubin (0.2-1.0) mg/dl AST (13-39) U/L ALT (7-52) U/L Alkaline Phosphatase (34-104) U/L Total Protein (6.0-8.3) gm/dl Albumin (3.4-5.0) gm/dl Globulin (2.5-4.0) gm/dl Albumin/Globulin Ratio (0.9-2) Lipase (11-82) U/L Urine Color Urine Appearance (Clear) Urine pH (4.5-7.5) Ur Specific [place] (1.000-1.030) Urine Protein (Negative) Urine Glucose (UA) (Negative) Urine Ketones (Negative) Urine Blood (Negative) Urine Nitrite (Negative) Urine Bilirubin (Negative) Urine Urobilinogen (Negative) Ur Leukocyte Esterase (Negative) Urine WBC (Auto) (0-5) /hpf Urine RBC (Auto) (0-4) /hpf U Hyaline Cast (Auto) (0-5) /lpf U Epithel Cells (Auto) (0-5) /lpf Urine Bacteria (Auto) (Negative) Stl C. cayetanensis PCR (NotDetected) Stool Rotavirus A PCR (NotDetected) Stl Adenov F 40/41 PCR (NotDetected) Stool Astrovirus (PCR) (NotDetected) Stool Campylobacter PCR (NotDetected) Stl C. diff Tox B Gene (Neg) Stool Cryptosporidium PCR (NotDetected) Stl E.coli Shiga Tox PCR (NotDetected) Stl Enterotoxigenic E PCR (NotDetected) Stool EPEC (PCR) (NotDetected) Stool EAEC (PCR) (NotDetected) Stl E. histolytica PCR (NotDetected) Stool Giardia Lamblia PCR (NotDetected) Stool Salmonella PCR (NotDetected) Stool Sapovirus (PCR) (NotDetected) Stl P. shigelloides PCR (NotDetected) Stl Shigella/EIEC PCR (NotDetected) St Y.enterocolitica PCR (NotDetected) Stool Vibrio (PCR) (NotDetected) Stl Vibrio cholerae PCR (NotDetected) Stl Norovirus GI/GII PCR (NotDetected) 07/22/23 07/22/23 Range/Units 05:51 12:30 WBC 8.13 (4.8-10.8) K/ul RBC 4.86 (4.70-6.10) M/uL Hgb 15.4 (14.0-18.0) g/dl Hct 43.8 (42.0-52.0) % MCV 90.1 (80.0-100.0) fL MCH 31.7 (25.0-34.0) pg MCHC 35.2 (32.0-36.0) g/dL RDW Std Deviation 42.3 (36.4-46.3) fL RDW Coeff of Radha 12.8 (11.5-14.5) % Plt Count 220 (130-400) K/uL MPV 11.4 (9.4-12.4) fL Immature Gran % (Auto) % Neut % (Auto) % Lymph % (Auto) % [place] % (Auto) % Eos % (Auto) % Baso % (Auto) % Neut # (Auto) (1.40-6.50) K/uL Lymph # (Auto) (1.20-3.40) K/uL [place] # (Auto) (0.11-0.59) K/uL Eos # (Auto) (0.00-0.50) K/uL Baso # (Auto) (0.00-0.20) K/uL Immature Gran # (Auto) (0.01-0.20) K/uL Sodium 140 (136-145) mmol/L Potassium 3.8 (3.5-5.1) mmol/L Chloride 109 H (98-107) mmol/L Carbon Dioxide 25 (21-32) mmol/L Anion Gap 6 (3-11) BUN 6 (6-23) mg/dl Creatinine 0.94 (0.6-1.4) mg/dl Est Cr Clr Drug Dosing 111.7 ml/min Est GFR ( Amer) 115.4 ml/min Est GFR (Non-Af Amer) 99.6 ml/min BUN/Creatinine Ratio 6.4 L (10-20) Glucose 93 (70-99(Fasting)) mg/dl Estimat Average Glucose mg/dl Hemoglobin A1c (4.5-5.6) % Calcium 9.0 (8.6-10.3) mg/dl Total Bilirubin (0.2-1.0) mg/dl AST (13-39) U/L ALT (7-52) U/L Alkaline Phosphatase (34-104) U/L Total Protein (6.0-8.3) gm/dl Albumin (3.4-5.0) gm/dl Globulin (2.5-4.0) gm/dl Albumin/Globulin Ratio (0.9-2) Lipase (11-82) U/L Urine Color Urine Appearance (Clear) Urine pH (4.5-7.5) Ur Specific [place] (1.000-1.030) Urine Protein (Negative) Urine Glucose (UA) (Negative) Urine Ketones (Negative) Urine Blood (Negative) Urine Nitrite (Negative) Urine Bilirubin (Negative) Urine Urobilinogen (Negative) Ur Leukocyte Esterase (Negative) Urine WBC (Auto) (0-5) /hpf Urine RBC (Auto) (0-4) /hpf U Hyaline Cast (Auto) (0-5) /lpf U Epithel Cells (Auto) (0-5) /lpf Urine Bacteria (Auto) (Negative) Stl C. cayetanensis PCR (NotDetected) Stool Rotavirus A PCR (NotDetected) Stl Adenov F 40/41 PCR (NotDetected) Stool Astrovirus (PCR) (NotDetected) Stool Campylobacter PCR (NotDetected) Stl C. diff Tox B Gene Negative Cdiff Gene (Neg) Stool Cryptosporidium PCR (NotDetected) Stl E.coli Shiga Tox PCR (NotDetected) Stl Enterotoxigenic E PCR (NotDetected) Stool EPEC (PCR) (NotDetected) Stool EAEC (PCR) (NotDetected) Stl E. histolytica PCR (NotDetected) Stool Giardia Lamblia PCR (NotDetected) Stool Salmonella PCR (NotDetected) Stool Sapovirus (PCR) (NotDetected) Stl P. shigelloides PCR (NotDetected) Stl Shigella/EIEC PCR (NotDetected) St Y.enterocolitica PCR (NotDetected) Stool Vibrio (PCR) (NotDetected) Stl Vibrio cholerae PCR (NotDetected) Stl Norovirus GI/GII PCR (NotDetected) Diagnostic Findings CT OF THE ABDOMEN AND PELVIS WITH CONTRAST CLINICAL HISTORY: History of diverticulitis. Persistent pain. COMPARISON STUDY: CT of the abdomen and pelvis July 15, 2023. TECHNIQUE: Following IV administration of 90 mL of Optiray, axial images of the abdomen and pelvis were obtained from the lung bases to the proximal femurs. Images were reviewed in the axial, sagittal, and coronal planes. IV contrast was administered without complication. Automated exposure control was utilized for the study. A dose lowering technique was utilized adhering to the principles of ALARA. CT DOSE: 1195.54 mGy.cm FINDINGS: Several small subpleural nodules within the lower lungs were shown on CT of July 15, 2023. No pneumatosis, free air or portal venous gas is present. No hepatic lesions are present. Spleen, adrenal glands, kidneys and pancreas are unremarkable. There is no biliary or pancreatic ductal dilatation dictation. Is no hydronephrosis. The appendix is normal. Sigmoid diverticulosis is noted. Note is again made of a thin tract arising from the anterior aspect of the proximal sigmoid colon on image 279 of 405. There is minimal adjacent stranding. This tract extends toward but does not appear to reach the bladder. There is no gas within the bladder. The appearance is unchanged since CT of July 15, 2023. No new sites of inflammation are present. No fluid collections are present. Major vasculature is patent. IMPRESSION: 1. No change since CT of July 15, 2023. Sigmoid diverticulosis with findings suggestive of mild diverticulitis of the proximal sigmoid colon, likely subacute. No change in a thin tract arising from the anterior aspect of the sigmoid colon which extends toward but not reach the bladder. Gas within the bladder. 2. No new sites of inflammation identified. No abscess. No free air. 3. Several small nodules within the lower lungs, as described on CT of July 15, 2023. These are likely benign. A 3-4 month follow-up chest CT is recommended. ACT 112: Negative or not required by law.
--- NOTE | 2023-07-22 17:29 | Hospitalist Progress Note ---
Date of Service July 22, 2023 Assessment & Plan (1) Diverticular disease: Plan: PERSISTENT DIVERTICULITIS Past history diverticulitis with microperforation Failed multiple antibiotic courses. Blood cultures: negative Repeat CT abdomen and pelvis: 1. Suboptimal examination without oral and IV contrast. 2. Mild/moderate sigmoid diverticulosis. Mild infiltration around the proximal sigmoid colon may represent mild or resolving diverticulitis. Correlate with any prior outside imaging studies. 3. No intraperitoneal free air is identified and there is no evidence of fluid collection to indicate abscess on this unenhanced examination. 4. A thin tract is seen extending from the anterior aspect of the sigmoid as above. This may represent a developing fistula, and this approaches but does not approximate the bladder dome. 5. Hepatomegaly. 6. There are 4 mm pathologically indeterminate lower lobe pulmonary nodules. These are not highly suspicious, and a 3-4 month follow-up chest CT is recommended for reassessment and full evaluation of the thorax. 7 Additional findings as above. GI and General surgery consulted; appreciate input as below Per discussion with between Dr. Doshi and patient, he would like to attempt elective surgery after a full and complete course of IV antibiotics in hopes to avoid a colostomy when he is seen by surgeon next week ID recommending continue IV antibiotics as below Continue full liquid diet per general surgery Per GI, patient to continue dicyclomine 10mg achs. Pushed CT films pushed into the [employer] system in anticipation of 07/27 colorectal surgery appointment Pain control ID consult: Recommend IV Zosyn x 4 weeks total, has a picc in place Recommend repeat CT abdomen pelvis with p.o. and IV contrast in 3 weeks Follow-up with ID clinic in 1 month CM working on HH set up for once pain is controlled and patient can be discharged home, likely after holiday and plan for colorectal surgery appt follow up next week ASTHMA/COPD Chest x-ray: No pneumonia or infiltrate, pulmonary edema Continue usual inhalers Will need CT chest in 3 to 4 months to reevaluate pulmonary nodules Discussed with patient at bedside. H/o GERD, not on maintenance medications anxiety/mood disorder, at baseline chronic fatigue syndrome as per records history of lung nodules, patient follows with [facility]monology Prediabetes --A1c 6.1 --Monitor BSG's: 101 past tobacco/alcohol abuse Disposition Pending Lives at home Please note the above document was generated using voice recognition software. It may contain grammatical, syntax or spelling errors. Any formal questions or concerns about the content, text or information contained within the body of this dictation should be directly addressed to the provider for clarification Admission and Anticipated Discharge Date Admission Date: July 15, 2023 Subjective Patient seen and examined at bedside. Is sitting up on the chair; not in distress. Reports some lower abdominal discomfort. Also reports diarrhea Review of Systems Review of Systems: All systems reviewed & are unremarkable except as noted in Subjective Physical Exam Physical Exam: Gen: WD/WN, NAD, resting in bed, A&Ox3 HEENT: Normocephalic, atraumatic, conjunctivae moist, sclerae anicteric, mucous membranes moist Lung: Clear to Auscultation bilaterally, no wheezes/rales/rhonchi Heart: Regular rate, regular rhythm, no murmurs, rubs, or gallops Abdomen: Soft, suprapubic TTP, +BS x 4 Extremities: no edema Skin: Warm, no rash Results & Data Results & Data Vital Signs (Past 12 Hours) Vital Signs Temp Pulse Resp BP Pulse Ox O2 Del Method 07/22/23 14:33 36.6 C 87 16 108/76 97 Room Air 07/22/23 07:20 36.7 C 64 16 124/75 95 Room Air
[2023-07-23] MEDS: ALUMINUM/MAGNESIUM/SIMETH (MAALOX MAX) 30 ML UDC PO PRN ×3 (00:53→23:36)
[2023-07-23] MEDS: ACETAMINOPHEN 500 MG TAB PO SCH ×4 (01:40→23:31)
[2023-07-23] MEDS: PIPERACILLIN/TAZOBACTAM 4.5 GM in DEXTROSE 5% MINI-B 100 ML IV SCH ×3 (03:52→19:58)
[2023-07-23] MEDS: ENOXAPARIN INJ 40 MG/0.4 ML SYR SQ SCH (08:20)
[2023-07-23] MEDS: FLUTICASONE/VILANTEROL 200/25MCG 14 PUFFS/INHALER INH SCH (08:21)
[2023-07-23] MEDS: DICYCLOMINE HCL 10 MG CAP PO SCH ×4 (08:21→19:58)
[2023-07-23] MEDS: ADVANCED PROBIOTIC 1250 MG CAPSULE PO SCH (08:22)
[2023-07-23] MEDS ORDERED: LEVALBUTEROL 1.25 MG/3 ML NEB ONE (08:28)
[2023-07-23] MEDS ORDERED: ALBUT/IPRATROP 3MG/0.5MG NEB 3 ML VIAL ONE (09:00)
[2023-07-23] MEDS: ALBUT/IPRATROP 3MG/0.5MG NEB 3 ML VIAL NEB SCH (09:05)
[2023-07-23] MEDS: UMECLIDINIUM BROMIDE 62.5MCG/BLISTER 7 PUFFS/INHALER INH SCH (12:01)
[2023-07-23] MEDS: HYDROmorphone INJ 0.5 MG/0.5 ML SYR IV PRN ×2 (12:19→20:06)
--- NOTE | 2023-07-23 13:57 | Surgery Progress Note ---
Date of Service July 23, 2023 Assessment & Plan (1) Acute diverticulitis: Plan: Assessment: Patient is a 43 years old gentleman who the hospital for recurrence of diverticulitis. Patient feels better today. no significant abdominal pain. no fevers. Continue IV antibiotic treatment Patient will follow-up colorectal surgery on July 27 will F/U 07/23/2023 1:56 Pm doing same, continue treatment will F/U Admission and Anticipated Discharge Date Admission Date: July 15, 2023 Subjective F/U diverticulitis, pt is doing same, no significant abdominal , no nausea, no vomiting, no fever. tolerated diet. Physical Exam Constitutional: WD/WN, vitals as above Eyes: PERRL, conjunctivae normal, anicteric sclerae Neck: trachea midline, no thyromegaly Respiratory: normal respiratory effort, lungs clear to auscultation Cardiovascular: RRR, no murmur, no edema Gastrointestinal (Abdomen): soft, mild tenderness at LLQ, no rebound pain, no distend, BS +. Neurologic: patellar DTR's 2+ bilat, sensation intact Psychiatric: A+Ox3, euthymic affect Results & Data Vital Signs (Past 12 Hours) Vital Signs Temp Pulse Resp BP Pulse Ox O2 Del Method 07/23/23 09:05 96 H 16 97 Room Air 07/23/23 08:32 90 16 96 Room Air 07/23/23 07:19 36.2 C L 72 16 132/82 95 Room Air Laboratory Results Lab Results 07/14/23 07/14/23 07/15/23 Range/Units 20:16 20:20 06:07 WBC 8.62 6.33 (4.8-10.8) K/ul RBC 4.86 4.32 L (4.70-6.10) M/uL Hgb 15.3 13.5 L (14.0-18.0) g/dl Hct 44.7 39.4 L (42.0-52.0) % MCV 92.0 91.2 (80.0-100.0) fL MCH 31.5 31.3 (25.0-34.0) pg MCHC 34.2 34.3 (32.0-36.0) g/dL RDW Std Deviation 43.0 43.0 (36.4-46.3) fL RDW Coeff of Radha 12.8 12.8 (11.5-14.5) % Plt Count 279 237 (130-400) K/uL MPV 11.1 11.0 (9.4-12.4) fL Immature Gran % (Auto) 0.3 0.3 % Neut % (Auto) 57.7 47.7 % Lymph % (Auto) 26.7 37.1 % [place] % (Auto) 9.5 6.5 % Eos % (Auto) 4.8 7.3 % Baso % (Auto) 1.0 1.1 % Neut # (Auto) 4.97 3.02 (1.40-6.50) K/uL Lymph # (Auto) 2.30 2.35 (1.20-3.40) K/uL [place] # (Auto) 0.82 H 0.41 (0.11-0.59) K/uL Eos # (Auto) 0.41 0.46 (0.00-0.50) K/uL Baso # (Auto) 0.09 0.07 (0.00-0.20) K/uL Immature Gran # (Auto) 0.03 0.02 (0.01-0.20) K/uL ESR (0-15) mm/hr Sodium 136 139 (136-145) mmol/L Potassium 3.5 4.1 (3.5-5.1) mmol/L Chloride 106 109 H (98-107) mmol/L Carbon Dioxide 22 27 (21-32) mmol/L Anion Gap 8 3 (3-11) BUN 10 7 (6-23) mg/dl Creatinine 0.90 0.93 (0.6-1.4) mg/dl Est Cr Clr Drug Dosing 116.6 112.9 ml/min Est GFR ( Amer) 121.7 116.9 ml/min Est GFR (Non-Af Amer) 105.0 100.9 ml/min BUN/Creatinine Ratio 11.1 7.5 L (10-20) Glucose 172 H 107 H (70-99(Fasting)) mg/dl Estimat Average Glucose 128 mg/dl Hemoglobin A1c 6.1 H (4.5-5.6) % Calcium 8.7 8.2 L (8.6-10.3) mg/dl Total Bilirubin 0.2 (0.2-1.0) mg/dl AST 32 (13-39) U/L ALT 32 (7-52) U/L Alkaline Phosphatase 89 (34-104) U/L C-Reactive Protein (0-0.5) mg/dl Total Protein 7.4 (6.0-8.3) gm/dl Albumin 4.0 (3.4-5.0) gm/dl Globulin 3.4 (2.5-4.0) gm/dl Albumin/Globulin Ratio 1.2 (0.9-2) Lipase 34 (11-82) U/L Urine Color Yellow Urine Appearance Clear (Clear) Urine pH 6.0 (4.5-7.5) Ur Specific [place] 1.042 H (1.000-1.030) Urine Protein Negative (Negative) Urine Glucose (UA) Negative (Negative) Urine Ketones Trace H (Negative) Urine Blood Negative (Negative) Urine Nitrite Negative (Negative) Urine Bilirubin Negative (Negative) Urine Urobilinogen Negative (Negative) Ur Leukocyte Esterase Trace H (Negative) Urine WBC (Auto) 1-5 (0-5) /hpf Urine RBC (Auto) 0-4 (0-4) /hpf U Hyaline Cast (Auto) 0 (0-5) /lpf U Epithel Cells (Auto) 0-5 (0-5) /lpf Urine Bacteria (Auto) Negative (Negative) Stl C. cayetanensis PCR (NotDetected) Stool Rotavirus A PCR (NotDetected) Stl Adenov F 40/41 PCR (NotDetected) Stool Astrovirus (PCR) (NotDetected) Stool Campylobacter PCR (NotDetected) Stl C. diff Tox B Gene (Neg) Stool Cryptosporidium PCR (NotDetected) Stl E.coli Shiga Tox PCR (NotDetected) Stl Enterotoxigenic E PCR (NotDetected) Stool EPEC (PCR) (NotDetected) Stool EAEC (PCR) (NotDetected) Stl E. histolytica PCR (NotDetected) Stool Giardia Lamblia PCR (NotDetected) Stool Salmonella PCR (NotDetected) Stool Sapovirus (PCR) (NotDetected) Stl P. shigelloides PCR (NotDetected) Stl Shigella/EIEC PCR (NotDetected) St Y.enterocolitica PCR (NotDetected) Stool Vibrio (PCR) (NotDetected) Stl Vibrio cholerae PCR (NotDetected) Stl Norovirus GI/GII PCR (NotDetected) 07/15/23 07/16/23 07/16/23 Range/Units 10:15 06:27 14:46 WBC 6.34 (4.8-10.8) K/ul RBC 4.48 L (4.70-6.10) M/uL Hgb 14.0 (14.0-18.0) g/dl Hct 40.0 L (42.0-52.0) % MCV 89.3 (80.0-100.0) fL MCH 31.3 (25.0-34.0) pg MCHC 35.0 (32.0-36.0) g/dL RDW Std Deviation 40.4 (36.4-46.3) fL RDW Coeff of Radha 12.4 (11.5-14.5) % Plt Count 240 (130-400) K/uL MPV 10.6 (9.4-12.4) fL Immature Gran % (Auto) 0.3 % Neut % (Auto) 49.5 % Lymph % (Auto) 29.8 % [place] % (Auto) 8.8 % Eos % (Auto) 10.7 % Baso % (Auto) 0.9 % Neut # (Auto) 3.13 (1.40-6.50) K/uL Lymph # (Auto) 1.89 (1.20-3.40) K/uL [place] # (Auto) 0.56 (0.11-0.59) K/uL Eos # (Auto) 0.68 H (0.00-0.50) K/uL Baso # (Auto) 0.06 (0.00-0.20) K/uL Immature Gran # (Auto) 0.02 (0.01-0.20) K/uL ESR (0-15) mm/hr Sodium 139 (136-145) mmol/L Potassium 3.7 (3.5-5.1) mmol/L Chloride 109 H (98-107) mmol/L Carbon Dioxide 25 (21-32) mmol/L Anion Gap 5 (3-11) BUN 5 L (6-23) mg/dl Creatinine 0.90 (0.6-1.4) mg/dl Est Cr Clr Drug Dosing 116.6 ml/min Est GFR ( Amer) 121.7 ml/min Est GFR (Non-Af Amer) 105.0 ml/min BUN/Creatinine Ratio 5.6 L (10-20) Glucose 121 H (70-99(Fasting)) mg/dl Estimat Average Glucose mg/dl Hemoglobin A1c (4.5-5.6) % Calcium 8.5 L (8.6-10.3) mg/dl Total Bilirubin (0.2-1.0) mg/dl AST (13-39) U/L ALT (7-52) U/L Alkaline Phosphatase (34-104) U/L C-Reactive Protein (0-0.5) mg/dl Total Protein (6.0-8.3) gm/dl Albumin (3.4-5.0) gm/dl Globulin (2.5-4.0) gm/dl Albumin/Globulin Ratio (0.9-2) Lipase (11-82) U/L Urine Color Yellow Urine Appearance Clear (Clear) Urine pH 6.5 (4.5-7.5) Ur Specific [place] 1.020 (1.000-1.030) Urine Protein Negative (Negative) Urine Glucose (UA) Negative (Negative) Urine Ketones Negative (Negative) Urine Blood Negative (Negative) Urine Nitrite Negative (Negative) Urine Bilirubin Negative (Negative) Urine Urobilinogen Negative (Negative) Ur Leukocyte Esterase Negative (Negative) Urine WBC (Auto) (0-5) /hpf Urine RBC (Auto) (0-4) /hpf U Hyaline Cast (Auto) (0-5) /lpf U Epithel Cells (Auto) (0-5) /lpf Urine Bacteria (Auto) (Negative) Stl C. cayetanensis PCR Not Detected (NotDetected) Stool Rotavirus A PCR Not Detected (NotDetected) Stl Adenov F 40/41 PCR Not Detected (NotDetected) Stool Astrovirus (PCR) Not Detected (NotDetected) Stool Campylobacter PCR Not Detected (NotDetected) Stl C. diff Tox B Gene Negative Cdiff Gene (Neg) Stool Cryptosporidium PCR Not Detected (NotDetected) Stl E.coli Shiga Tox PCR Not Detected (NotDetected) Stl Enterotoxigenic E PCR Not Detected (NotDetected) Stool EPEC (PCR) Not Detected (NotDetected) Stool EAEC (PCR) Not Detected (NotDetected) Stl E. histolytica PCR Not Detected (NotDetected) Stool Giardia Lamblia PCR Not Detected (NotDetected) Stool Salmonella PCR Not Detected (NotDetected) Stool Sapovirus (PCR) Not Detected (NotDetected) Stl P. shigelloides PCR Not Detected (NotDetected) Stl Shigella/EIEC PCR Not Detected (NotDetected) St Y.enterocolitica PCR Not Detected (NotDetected) Stool Vibrio (PCR) Not Detected (NotDetected) Stl Vibrio cholerae PCR Not Detected (NotDetected) Stl Norovirus GI/GII PCR Not Detected (NotDetected) 07/17/23 07/17/23 07/18/23 Range/Units 06:40 19:37 07:24 WBC 5.91 7.01 (4.8-10.8) K/ul RBC 4.82 4.96 (4.70-6.10) M/uL Hgb 15.2 15.7 (14.0-18.0) g/dl Hct 43.0 43.8 (42.0-52.0) % MCV 89.2 88.3 (80.0-100.0) fL MCH 31.5 31.7 (25.0-34.0) pg MCHC 35.3 35.8 (32.0-36.0) g/dL RDW Std Deviation 40.8 40.6 (36.4-46.3) fL RDW Coeff of Radha 12.4 12.6 (11.5-14.5) % Plt Count 255 273 (130-400) K/uL MPV 11.3 10.8 (9.4-12.4) fL Immature Gran % (Auto) 0.2 0.1 % Neut % (Auto) 56.4 60.5 % Lymph % (Auto) 24.5 24.0 % [place] % (Auto) 11.7 9.6 % Eos % (Auto) 6.4 5.1 % Baso % (Auto) 0.8 0.7 % Neut # (Auto) 3.33 4.24 (1.40-6.50) K/uL Lymph # (Auto) 1.45 1.68 (1.20-3.40) K/uL [place] # (Auto) 0.69 H 0.67 H (0.11-0.59) K/uL Eos # (Auto) 0.38 0.36 (0.00-0.50) K/uL Baso # (Auto) 0.05 0.05 (0.00-0.20) K/uL Immature Gran # (Auto) 0.01 0.01 (0.01-0.20) K/uL ESR (0-15) mm/hr Sodium 140 139 (136-145) mmol/L Potassium 3.5 3.6 (3.5-5.1) mmol/L Chloride 107 108 H (98-107) mmol/L Carbon Dioxide 26 24 (21-32) mmol/L Anion Gap 7 7 (3-11) BUN 5 L 5 L (6-23) mg/dl Creatinine 0.96 0.98 (0.6-1.4) mg/dl Est Cr Clr Drug Dosing 109.3 107.1 ml/min Est GFR ( Amer) 112.5 109.8 ml/min Est GFR (Non-Af Amer) 97.1 94.7 ml/min BUN/Creatinine Ratio 5.2 L 5.1 L (10-20) Glucose 101 H 95 (70-99(Fasting)) mg/dl Estimat Average Glucose mg/dl Hemoglobin A1c (4.5-5.6) % Calcium 8.6 8.8 (8.6-10.3) mg/dl Total Bilirubin (0.2-1.0) mg/dl AST (13-39) U/L ALT (7-52) U/L Alkaline Phosphatase (34-104) U/L C-Reactive Protein (0-0.5) mg/dl Total Protein (6.0-8.3) gm/dl Albumin (3.4-5.0) gm/dl Globulin (2.5-4.0) gm/dl Albumin/Globulin Ratio (0.9-2) Lipase (11-82) U/L Urine Color Urine Appearance (Clear) Urine pH (4.5-7.5) Ur Specific [place] (1.000-1.030) Urine Protein (Negative) Urine Glucose (UA) (Negative) Urine Ketones (Negative) Urine Blood (Negative) Urine Nitrite (Negative) Urine Bilirubin (Negative) Urine Urobilinogen (Negative) Ur Leukocyte Esterase (Negative) Urine WBC (Auto) (0-5) /hpf Urine RBC (Auto) (0-4) /hpf U Hyaline Cast (Auto) (0-5) /lpf U Epithel Cells (Auto) (0-5) /lpf Urine Bacteria (Auto) (Negative) Stl C. cayetanensis PCR Not Detected (NotDetected) Stool Rotavirus A PCR Not Detected (NotDetected) Stl Adenov F 40/41 PCR Not Detected (NotDetected) Stool Astrovirus (PCR) Not Detected (NotDetected) Stool Campylobacter PCR Not Detected (NotDetected) Stl C. diff Tox B Gene Negative Cdiff Gene (Neg) Stool Cryptosporidium PCR Not Detected (NotDetected) Stl E.coli Shiga Tox PCR Not Detected (NotDetected) Stl Enterotoxigenic E PCR Not Detected (NotDetected) Stool EPEC (PCR) Not Detected (NotDetected) Stool EAEC (PCR) Not Detected (NotDetected) Stl E. histolytica PCR Not Detected (NotDetected) Stool Giardia Lamblia PCR Not Detected (NotDetected) Stool Salmonella PCR Not Detected (NotDetected) Stool Sapovirus (PCR) Not Detected (NotDetected) Stl P. shigelloides PCR Not Detected (NotDetected) Stl Shigella/EIEC PCR Not Detected (NotDetected) St Y.enterocolitica PCR Not Detected (NotDetected) Stool Vibrio (PCR) Not Detected (NotDetected) Stl Vibrio cholerae PCR Not Detected (NotDetected) Stl Norovirus GI/GII PCR Not Detected (NotDetected) 07/19/23 07/20/23 07/21/23 Range/Units 07:07 07:08 07:26 WBC 7.17 8.08 (4.8-10.8) K/ul RBC 5.14 5.08 (4.70-6.10) M/uL Hgb 15.8 15.9 (14.0-18.0) g/dl Hct 46.7 46.2 (42.0-52.0) % MCV 90.9 90.9 (80.0-100.0) fL MCH 30.7 31.3 (25.0-34.0) pg MCHC 33.8 34.4 (32.0-36.0) g/dL RDW Std Deviation 42.0 42.0 (36.4-46.3) fL RDW Coeff of Radha 12.6 12.6 (11.5-14.5) % Plt Count 269 262 (130-400) K/uL MPV 11.1 10.9 (9.4-12.4) fL Immature Gran % (Auto) 0.1 0.4 % Neut % (Auto) 59.2 66.0 % Lymph % (Auto) 22.3 18.6 % [place] % (Auto) 10.2 9.0 % Eos % (Auto) 7.4 5.3 % Baso % (Auto) 0.8 0.7 % Neut # (Auto) 4.24 5.33 (1.40-6.50) K/uL Lymph # (Auto) 1.60 1.50 (1.20-3.40) K/uL [place] # (Auto) 0.73 H 0.73 H (0.11-0.59) K/uL Eos # (Auto) 0.53 H 0.43 (0.00-0.50) K/uL Baso # (Auto) 0.06 0.06 (0.00-0.20) K/uL Immature Gran # (Auto) 0.01 0.03 (0.01-0.20) K/uL ESR (0-15) mm/hr Sodium 139 139 140 (136-145) mmol/L Potassium 3.6 3.9 3.8 (3.5-5.1) mmol/L Chloride 107 107 109 H (98-107) mmol/L Carbon Dioxide 26 26 25 (21-32) mmol/L Anion Gap 6 6 6 (3-11) BUN 5 L 5 L 9 (6-23) mg/dl Creatinine 1.03 1.03 0.98 (0.6-1.4) mg/dl Est Cr Clr Drug Dosing 101.9 101.9 107.1 ml/min Est GFR ( Amer) 103.4 103.4 109.8 ml/min Est GFR (Non-Af Amer) 89.2 89.2 94.7 ml/min BUN/Creatinine Ratio 4.9 L 4.9 L 9.2 L (10-20) Glucose 97 97 109 H (70-99(Fasting)) mg/dl Estimat Average Glucose mg/dl Hemoglobin A1c (4.5-5.6) % Calcium 8.9 9.0 8.7 (8.6-10.3) mg/dl Total Bilirubin (0.2-1.0) mg/dl AST (13-39) U/L ALT (7-52) U/L Alkaline Phosphatase (34-104) U/L C-Reactive Protein (0-0.5) mg/dl Total Protein (6.0-8.3) gm/dl Albumin (3.4-5.0) gm/dl Globulin (2.5-4.0) gm/dl Albumin/Globulin Ratio (0.9-2) Lipase (11-82) U/L Urine Color Urine Appearance (Clear) Urine pH (4.5-7.5) Ur Specific [place] (1.000-1.030) Urine Protein (Negative) Urine Glucose (UA) (Negative) Urine Ketones (Negative) Urine Blood (Negative) Urine Nitrite (Negative) Urine Bilirubin (Negative) Urine Urobilinogen (Negative) Ur Leukocyte Esterase (Negative) Urine WBC (Auto) (0-5) /hpf Urine RBC (Auto) (0-4) /hpf U Hyaline Cast (Auto) (0-5) /lpf U Epithel Cells (Auto) (0-5) /lpf Urine Bacteria (Auto) (Negative) Stl C. cayetanensis PCR (NotDetected) Stool Rotavirus A PCR (NotDetected) Stl Adenov F 40/41 PCR (NotDetected) Stool Astrovirus (PCR) (NotDetected) Stool Campylobacter PCR (NotDetected) Stl C. diff Tox B Gene (Neg) Stool Cryptosporidium PCR (NotDetected) Stl E.coli Shiga Tox PCR (NotDetected) Stl Enterotoxigenic E PCR (NotDetected) Stool EPEC (PCR) (NotDetected) Stool EAEC (PCR) (NotDetected) Stl E. histolytica PCR (NotDetected) Stool Giardia Lamblia PCR (NotDetected) Stool Salmonella PCR (NotDetected) Stool Sapovirus (PCR) (NotDetected) Stl P. shigelloides PCR (NotDetected) Stl Shigella/EIEC PCR (NotDetected) St Y.enterocolitica PCR (NotDetected) Stool Vibrio (PCR) (NotDetected) Stl Vibrio cholerae PCR (NotDetected) Stl Norovirus GI/GII PCR (NotDetected) 07/22/23 07/22/23 07/23/23 Range/Units 05:51 12:30 07:08 WBC 8.13 (4.8-10.8) K/ul RBC 4.86 (4.70-6.10) M/uL Hgb 15.4 (14.0-18.0) g/dl Hct 43.8 (42.0-52.0) % MCV 90.1 (80.0-100.0) fL MCH 31.7 (25.0-34.0) pg MCHC 35.2 (32.0-36.0) g/dL RDW Std Deviation 42.3 (36.4-46.3) fL RDW Coeff of Radha 12.8 (11.5-14.5) % Plt Count 220 (130-400) K/uL MPV 11.4 (9.4-12.4) fL Immature Gran % (Auto) % Neut % (Auto) % Lymph % (Auto) % [place] % (Auto) % Eos % (Auto) % Baso % (Auto) % Neut # (Auto) (1.40-6.50) K/uL Lymph # (Auto) (1.20-3.40) K/uL [place] # (Auto) (0.11-0.59) K/uL Eos # (Auto) (0.00-0.50) K/uL Baso # (Auto) (0.00-0.20) K/uL Immature Gran # (Auto) (0.01-0.20) K/uL ESR 26 H (0-15) mm/hr Sodium 140 (136-145) mmol/L Potassium 3.8 (3.5-5.1) mmol/L Chloride 109 H (98-107) mmol/L Carbon Dioxide 25 (21-32) mmol/L Anion Gap 6 (3-11) BUN 6 (6-23) mg/dl Creatinine 0.94 (0.6-1.4) mg/dl Est Cr Clr Drug Dosing 111.7 ml/min Est GFR ( Amer) 115.4 ml/min Est GFR (Non-Af Amer) 99.6 ml/min BUN/Creatinine Ratio 6.4 L (10-20) Glucose 93 (70-99(Fasting)) mg/dl Estimat Average Glucose mg/dl Hemoglobin A1c (4.5-5.6) % Calcium 9.0 (8.6-10.3) mg/dl Total Bilirubin (0.2-1.0) mg/dl AST (13-39) U/L ALT (7-52) U/L Alkaline Phosphatase (34-104) U/L C-Reactive Protein < 0.50 (0-0.5) mg/dl Total Protein (6.0-8.3) gm/dl Albumin (3.4-5.0) gm/dl Globulin (2.5-4.0) gm/dl Albumin/Globulin Ratio (0.9-2) Lipase (11-82) U/L Urine Color Urine Appearance (Clear) Urine pH (4.5-7.5) Ur Specific [place] (1.000-1.030) Urine Protein (Negative) Urine Glucose (UA) (Negative) Urine Ketones (Negative) Urine Blood (Negative) Urine Nitrite (Negative) Urine Bilirubin (Negative) Urine Urobilinogen (Negative) Ur Leukocyte Esterase (Negative) Urine WBC (Auto) (0-5) /hpf Urine RBC (Auto) (0-4) /hpf U Hyaline Cast (Auto) (0-5) /lpf U Epithel Cells (Auto) (0-5) /lpf Urine Bacteria (Auto) (Negative) Stl C. cayetanensis PCR (NotDetected) Stool Rotavirus A PCR (NotDetected) Stl Adenov F 40/41 PCR (NotDetected) Stool Astrovirus (PCR) (NotDetected) Stool Campylobacter PCR (NotDetected) Stl C. diff Tox B Gene Negative Cdiff Gene (Neg) Stool Cryptosporidium PCR (NotDetected) Stl E.coli Shiga Tox PCR (NotDetected) Stl Enterotoxigenic E PCR (NotDetected) Stool EPEC (PCR) (NotDetected) Stool EAEC (PCR) (NotDetected) Stl E. histolytica PCR (NotDetected) Stool Giardia Lamblia PCR (NotDetected) Stool Salmonella PCR (NotDetected) Stool Sapovirus (PCR) (NotDetected) Stl P. shigelloides PCR (NotDetected) Stl Shigella/EIEC PCR (NotDetected) St Y.enterocolitica PCR (NotDetected) Stool Vibrio (PCR) (NotDetected) Stl Vibrio cholerae PCR (NotDetected) Stl Norovirus GI/GII PCR (NotDetected)
--- NOTE | 2023-07-23 14:25 | Hospitalist Progress Note ---
Date of Service July 23, 2023 Assessment & Plan (1) Diverticular disease: Plan: PERSISTENT DIVERTICULITIS Past history diverticulitis with microperforation Failed multiple antibiotic courses. Blood cultures: negative Repeat CT abdomen and pelvis: 1. Suboptimal examination without oral and IV contrast. 2. Mild/moderate sigmoid diverticulosis. Mild infiltration around the proximal sigmoid colon may represent mild or resolving diverticulitis. Correlate with any prior outside imaging studies. 3. No intraperitoneal free air is identified and there is no evidence of fluid collection to indicate abscess on this unenhanced examination. 4. A thin tract is seen extending from the anterior aspect of the sigmoid as above. This may represent a developing fistula, and this approaches but does not approximate the bladder dome. 5. Hepatomegaly. 6. There are 4 mm pathologically indeterminate lower lobe pulmonary nodules. These are not highly suspicious, and a 3-4 month follow-up chest CT is recommended for reassessment and full evaluation of the thorax. 7 Additional findings as above. GI and General surgery consulted; appreciate input as below Per discussion with between Dr. Doshi and patient, he would like to attempt elective surgery after a full and complete course of IV antibiotics in hopes to avoid a colostomy when he is seen by surgeon next week ID recommending continue IV antibiotics as below Low fiber diet today. Per GI, patient to continue dicyclomine 10mg achs. Pushed CT films pushed into the [employer] system in anticipation of 07/27 colorectal surgery appointment Pain control ID consult: Recommend IV Zosyn x 4 weeks total, has a picc in place Recommend repeat CT abdomen pelvis with p.o. and IV contrast in 3 weeks Follow-up with ID clinic in 1 month CM working on HH set up for once pain is controlled and patient can be discharged home, likely after holiday and plan for colorectal surgery appt follow up next week ASTHMA/COPD Chest x-ray: No pneumonia or infiltrate, pulmonary edema Continue usual inhalers Will need CT chest in 3 to 4 months to reevaluate pulmonary nodules Discussed with patient at bedside. H/o GERD, not on maintenance medications anxiety/mood disorder, at baseline chronic fatigue syndrome as per records history of lung nodules, patient follows with [facility]monology Prediabetes --A1c 6.1 --Monitor BSG's: 101 past tobacco/alcohol abuse Disposition Pending Lives at home Please note the above document was generated using voice recognition software. It may contain grammatical, syntax or spelling errors. Any formal questions or concerns about the content, text or information contained within the body of this dictation should be directly addressed to the provider for clarification Admission and Anticipated Discharge Date Admission Date: July 15, 2023 Subjective Patient seen and examined at bedside. He reports lower abdominal pain. No fever or chills. Review of Systems Review of Systems: All systems reviewed & are unremarkable except as noted in Subjective Physical Exam Physical Exam: Gen: WD/WN, NAD, resting in bed, A&Ox3 HEENT: Normocephalic, atraumatic, conjunctivae moist, sclerae anicteric, mucous membranes moist Lung: Clear to Auscultation bilaterally, no wheezes/rales/rhonchi Heart: Regular rate, regular rhythm, no murmurs, rubs, or gallops Abdomen: S slight tenderness in the suprapubic area. Extremities: no edema Skin: Warm, no rash Results & Data Results & Data Vital Signs (Past 12 Hours) Vital Signs Temp Pulse Resp BP Pulse Ox O2 Del Method 07/23/23 09:05 96 H 16 97 Room Air 07/23/23 08:32 90 16 96 Room Air 07/23/23 07:19 36.2 C L 72 16 132/82 95 Room Air
[2023-07-23] MEDS: oxyCODONE HCL IR 5 MG TAB (IMMEDIATE RELEASE) PO PRN (17:50)
[2023-07-23 22:36] LABS: Appearance Urine Turbid (Clear); Bacteria Urine Automated Negative (Negative); Bilirubin Urine Negative (Negative); Blood Urine Negative (Negative); Color Urine Yellow; Glucose Urine UA Negative (Negative); Ketones Urine Negative (Negative); Leukocyte Esterase Urine Negative (Negative); Nitrite Urine Negative (Negative); RBC Urine Automated 0-4 /hpf (0-4); Specific Gravity Urine 1.026 (1.000-1.030); Urobilinogen Urine Negative (Negative)
[2023-07-23 22:42] LABS: Protein Urine Trace (Negative)
[2023-07-24] MEDS: PIPERACILLIN/TAZOBACTAM 4.5 GM in DEXTROSE 5% MINI-B 100 ML IV SCH ×3 (05:07→22:18)
[2023-07-24] MEDS: DICYCLOMINE HCL 10 MG CAP PO SCH ×4 (08:26→22:18)
[2023-07-24] MEDS: ADVANCED PROBIOTIC 1250 MG CAPSULE PO SCH (08:26)
[2023-07-24] MEDS: ENOXAPARIN INJ 40 MG/0.4 ML SYR SQ SCH (08:27)
[2023-07-24] MEDS: UMECLIDINIUM BROMIDE 62.5MCG/BLISTER 7 PUFFS/INHALER INH SCH (08:27)
[2023-07-24] MEDS: FLUTICASONE/VILANTEROL 200/25MCG 14 PUFFS/INHALER INH SCH (08:27)
[2023-07-24] MEDS: ACETAMINOPHEN 500 MG TAB PO SCH ×2 (08:27→16:43)
[2023-07-24] MEDS: HYDROmorphone INJ 0.5 MG/0.5 ML SYR IV PRN (08:32)
[2023-07-24] MEDS: ALBUT/IPRATROP 3MG/0.5MG NEB 3 ML VIAL NEB SCH (08:40)
[2023-07-24 09:05] VITALS: RESP 18
[2023-07-24] MEDS: oxyCODONE HCL IR 5 MG TAB (IMMEDIATE RELEASE) PO PRN ×3 (12:04→22:17)
--- NOTE | 2023-07-24 12:25 | Hospitalist Progress Note ---
Date of Service July 24, 2023 Assessment & Plan (1) Diverticular disease: Plan: PERSISTENT DIVERTICULITIS Past history diverticulitis with microperforation Failed multiple antibiotic courses. Blood cultures: negative Repeat CT abdomen and pelvis: 1. Suboptimal examination without oral and IV contrast. 2. Mild/moderate sigmoid diverticulosis. Mild infiltration around the proximal sigmoid colon may represent mild or resolving diverticulitis. Correlate with any prior outside imaging studies. 3. No intraperitoneal free air is identified and there is no evidence of fluid collection to indicate abscess on this unenhanced examination. 4. A thin tract is seen extending from the anterior aspect of the sigmoid as above. This may represent a developing fistula, and this approaches but does not approximate the bladder dome. 5. Hepatomegaly. 6. There are 4 mm pathologically indeterminate lower lobe pulmonary nodules. These are not highly suspicious, and a 3-4 month follow-up chest CT is recommended for reassessment and full evaluation of the thorax. 7 Additional findings as above. GI and General surgery consulted; appreciate input as below Per discussion with between Dr. Doshi and patient, he would like to attempt elective surgery after a full and complete course of IV antibiotics in hopes to avoid a colostomy when he is seen by surgeon next week ID recommending continue IV antibiotics as below Continue low fiber diet Per GI, patient to continue dicyclomine 10mg achs. Pushed CT films pushed into the [employer] system in anticipation of 07/27 colorectal surgery appointment Pain control ID consult: Recommend IV Zosyn x 4 weeks total, has a picc in place Recommend repeat CT abdomen pelvis with p.o. and IV contrast in 3 weeks Follow-up with ID clinic in 1 month CM working on HH set up for once pain is controlled and patient can be discharged home, likely after holiday and plan for colorectal surgery appt follow up next week ASTHMA/COPD Chest x-ray: No pneumonia or infiltrate, pulmonary edema Continue usual inhalers Will need CT chest in 3 to 4 months to reevaluate pulmonary nodules Discussed with patient at bedside. H/o GERD, not on maintenance medications anxiety/mood disorder, at baseline chronic fatigue syndrome as per records history of lung nodules, patient follows with [facility]ology Prediabetes --A1c 6.1 --Monitor BSG's: 101 past tobacco/alcohol abuse Disposition Pending Lives at home Please note the above document was generated using voice recognition software. It may contain grammatical, syntax or spelling errors. Any formal questions or concerns about the content, text or information contained within the body of this dictation should be directly addressed to the provider for clarification Admission and Anticipated Discharge Date Admission Date: July 15, 2023 Subjective Patient seen and examined at bedside. He reports lower abdominal pain on suprapubic region. No complaint of fever or chills. No urgency or increased frequency Review of Systems Review of Systems: All systems reviewed & are unremarkable except as noted in Subjective Physical Exam Physical Exam: Gen: WD/WN, NAD, resting in bed, A&Ox3 HEENT: Normocephalic, atraumatic, conjunctivae moist, sclerae anicteric, mucous membranes moist Lung: Clear to Auscultation bilaterally, no wheezes/rales/rhonchi Heart: Regular rate, regular rhythm, no murmurs, rubs, or gallops Abdomen: slight tenderness in the suprapubic area. Extremities: no edema Skin: Warm, no rash Results & Data Results & Data Vital Signs (Past 12 Hours) Vital Signs Temp Pulse Resp BP Pulse Ox O2 Del Method 07/24/23 09:03 36.4 C L 94 H 18 129/74 94 Room Air 07/24/23 08:41 78 16 96 Room Air 07/24/23 08:00 Room Air
--- NOTE | 2023-07-24 13:32 | Surgery Progress Note ---
Date of Service July 24, 2023 Assessment & Plan (1) Acute diverticulitis: Plan: Assessment: Patient is a 43 years old gentleman who the hospital for recurrence of diverticulitis. Patient feels better today. no significant abdominal pain. no fevers. Continue IV antibiotic treatment Patient will follow-up colorectal surgery on July 27 will F/U 07/23/2023 1:56 Pm doing same, continue treatment will F/U 07/24/2023 1:32 Pm doing same, continue iv antibiotic treatment will F/U Admission and Anticipated Discharge Date Admission Date: July 15, 2023 Subjective pt said, no significant change, same pain which located at low abdomen, no fever, passed diarrhea, no bloody stool, Physical Exam Constitutional: WD/WN, vitals as above Eyes: PERRL, conjunctivae normal, anicteric sclerae Neck: trachea midline, no thyromegaly Respiratory: normal respiratory effort, lungs clear to auscultation Cardiovascular: RRR, no murmur, no edema Gastrointestinal (Abdomen): soft, mild tenderness at low abdomen, no rebound pain, no distend, BS +. Neurologic: patellar DTR's 2+ bilat, sensation intact Psychiatric: A+Ox3, euthymic affect Results & Data Vital Signs (Past 12 Hours) Vital Signs Temp Pulse Resp BP Pulse Ox O2 Del Method 07/24/23 09:03 36.4 C L 94 H 18 129/74 94 Room Air 07/24/23 08:41 78 16 96 Room Air 07/24/23 08:00 Room Air Laboratory Results Abnormal lab results 07/23/23 Range/Units 20:55 Urine Appearance Turbid A (Clear) Urine pH 8.0 H (4.5-7.5) Urine Protein Trace H (Negative) U Epithel Cells (Auto) 5-10 H (0-5) /lpf
[2023-07-24] MEDS: ALUMINUM/MAGNESIUM/SIMETH (MAALOX MAX) 30 ML UDC PO PRN (16:45)
[2023-07-25] MEDS: ACETAMINOPHEN 500 MG TAB PO SCH ×4 (02:09→23:32)
[2023-07-25] MEDS: ALUMINUM/MAGNESIUM/SIMETH (MAALOX MAX) 30 ML UDC PO PRN (02:13)
[2023-07-25] MEDS: ALBUT/IPRATROP 3MG/0.5MG NEB 3 ML VIAL NEB SCH (05:36)
[2023-07-25 07:36] LABS: Basophils # (auto) 0.08 K/uL (0.00-0.20); Basophils % (auto) 1.1 %; Eosinophils # (auto) 0.67 K/uL (0.00-0.50); Eosinophils % (auto) 9.1 %; Hematocrit (blood only) 44.3 % (42.0-52.0); Hemoglobin 15.4 g/dl (14.0-18.0); Immature Granulocytes # (auto) 0.02 K/uL (0.01-0.20); Immature Granulocytes % (auto) 0.3 %; Lymphocytes # (auto) 2.34 K/uL (1.20-3.40); Lymphocytes % (auto) 31.8 %; Mean Corpuscular Hemoglobin 31.6 pg (25.0-34.0); Mean Corpuscular Hgb Conc 34.8 g/dL (32.0-36.0); Mean Platelet Volume 11.5 fL (9.4-12.4); Monocytes # (auto) 0.77 K/uL (0.11-0.59); Monocytes % (auto) 10.4 %; Neutrophils # (auto) 3.49 K/uL (1.40-6.50); Neutrophils % (auto) 47.3 %; Platelet Count 208 K/uL (130-400); RDW Coefficient of Variation 12.6 % (11.5-14.5); RDW Standard Deviation 42.1 fL (36.4-46.3); Red Blood Count 4.87 M/uL (4.70-6.10); White Blood Count 7.37 K/ul (4.8-10.8)
[2023-07-25 07:59] LABS: BUN Creatinine Ratio 10.1 (10-20); Calcium 9.3 mg/dl (8.6-10.3); Creatinine Clr Calc Pharmacy 117.9 ml/min; Est GFR (African American) 122.2 ml/min; Est GFR (Non-African American) 105.5 ml/min; Potassium 3.4 mmol/L (3.5-5.1)
[2023-07-25] MEDS: DICYCLOMINE HCL 10 MG CAP PO SCH ×4 (07:59→19:45)
[2023-07-25] MEDS: FLUTICASONE/VILANTEROL 200/25MCG 14 PUFFS/INHALER INH SCH (08:00)
[2023-07-25] MEDS: ENOXAPARIN INJ 40 MG/0.4 ML SYR SQ SCH (08:00)
[2023-07-25] MEDS: ADVANCED PROBIOTIC 1250 MG CAPSULE PO SCH (08:01)
[2023-07-25] MEDS: UMECLIDINIUM BROMIDE 62.5MCG/BLISTER 7 PUFFS/INHALER INH SCH (08:01)
[2023-07-25] MEDS: oxyCODONE HCL IR 5 MG TAB (IMMEDIATE RELEASE) PO PRN ×2 (08:36→19:45)
[2023-07-25] MEDS ORDERED: POTASSIUM CHLORIDE CRTAB 20 MEQ TABCR PO STA (09:03)
--- NOTE | 2023-07-25 09:42 | Surgery Progress Note ---
Date of Service July 25, 2023 Assessment & Plan (1) Diverticular disease: Plan: Pt with chronic ongoing diverticular disease Pt denies nausea vomiting Last week patient , Dr. Doshi and I spoke about staying on a full liquid diet. Diet is currently low fiber. Patient reports non-bloody diarrhea after eating and some pelvic pain. VSS CBC wnl Plan to continue IV antibiotics o/p for 4 weeks per ID rec's however per patient unable to set this up with the holidays. Has PICC line, CM working on . Has o/p appointment on 07/27/23 with colorectal surgeon , patient should keep this appointment No acute surgical intervention indicated at this time, discussed case with Dr. Doshi Admission and Anticipated Discharge Date Admission Date: July 15, 2023 Subjective Patient reports his diet was advanced to low fiber Diarrhea after eating with some abdominal pain in lower pelvic region Denies n/v , fever , chills Jose F PICC line for o/p IV antibiotics Review of Systems Constitutional: no fever and no chills Ear, Nose, Mouth, Throat: no hearing loss Respiratory: no dyspnea Cardiovascular: no chest pain Gastrointestinal: + abdominal pain and + cramping; no naus ea and no vomiting Integumentary: no rash Psychiatric: no confusion Physical Exam Physical Exam: alert oriented Constitutional: cooperative and comfortable; no acute distress ENMT: external ear and nose normal, oropharynx normal Neck: trachea midline, no thyromegaly Respiratory: normal respiratory effort and able to speak in complete sentences; no respiratory distress Cardiovascular: Rate/Rhythm: regular rate Gastrointestinal (Abdomen): Inspection/Auscultation: abdomen not distended Percussion/Palpation: + abdomen tender Musculoskeletal: no cyanosis or clubbing, extremities motor strength 5/5 Neurologic: awake; not confused Psychiatric: Orientation: alert and oriented x 3 Results & Data Vital Signs (Past 12 Hours) Vital Signs Temp Pulse Resp BP Pulse Ox O2 Del Method 07/25/23 07:40 97.7 F 71 18 114/71 94 Room Air 07/25/23 05:37 79 18 96 Room Air 07/24/23 21:39 97.5 F L 63 18 121/78 97 Room Air PG Care Time/CCT Total # of Minutes Spent Total Time Spent with Patient: Total time spent is greater than 50% in coordination of care (as documented) at patient's floor/unit and/or counseling patient: Coding Level of Care Code 90933 SUB INP/OBS CARE 08/24MIN Diagnoses Diverticular disease K57.90
--- NOTE | 2023-07-25 09:53 | Urology Consultation ---
Date of Consultation July 25, 2023 Assessment & Plan (1) Diverticular disease: (2) Pelvic pain: Plan 43yo/M admitted with recurrent diverticulitis. Urology asked to evaluate patient due to suprapubic discomfort and gas in the bladder noted on CT imaging. Afebrile and hemodynamically stable. Labs showing no leukocytosis and normal renal function. Urinalysis from 07/14, 07/16, and 07/23 reviewed- No signs of infection or blood. Blood cultures 07/[address] abdomen pelvis 07/21 reviewed and shows very minimal air within the bladder which is not overly convincing for colovesical fistula. Prior UA's also not convincing of infection/fistula. Pt also reports a prior negative workup/imaging at [facility] in May 2023 for colovesical fistula. Lower abdominal/suprapubic discomfort could be related to ongoing diverticular disease? Prior UAs did not appear infected. He has been on multiple antibiotics which should cover any urinary source. Recommend checking bladder scans to ensure he is emptying. Continue supportive care, pain management as needed, and management per primary team. Continue antibiotic as per infectious disease recommendations. If there is concern of developing colovesical fistula, our recommendation would be for general/colorectal surgery evaluation which he is currently scheduled for outpatient colorectal eval 07/27/23. Urology will sign-off. Please contact us any further questions or concerns. History of Present Illness Attending Physician: Danial Wing MD History of Present Illness 43-year-old male with a PMHx of asthma/COPD, GERD, diverticulitis, anxiety/mood disorder, chronic fatigue syndrome, history of lung nodules, past tobacco/alcohol abuse who presented to [facility] on 07/15/2023 for worsening abd pain and admitted with recurrent diverticulitis. Urology asked to evaluate patient due to suprapubic discomfort and gas in the bladder noted on CT imaging. Patient was examined at bedside this AM. Awake, resting in bed on arrival. No acute distress. Patient reports recurrent issues with diverticulitis with microperforation since April 2023. He has completed several courses of antibiotics. No surgical intervention. He was admitted to [facility] in May for persistent abdominal pain and concern of colovesical fistula. He reports that he was told he does not have a colovesical fistula and symptoms were due to diverticulitis and was treated with an antibiotic course. Pt c/o lower abdominal/suprapubic discomfort which has been ongoing since his initial diagnosis in per his report. Reports diarrhea after eating with some abdominal pain in lower pelvic region. Also reports some discomfort/dysuria with voiding. Denies hematuria. Denies fever, chills, nausea, vomiting. Feels he is emptying his bladder well. Stream good. Denies urgency or frequency. Denies additional urinary symptoms. Denies scrotal or testicular pain/discomfort. Denies prior urological history. General surgery, Gastroenterology, Infectious disease consulted. Has outpatient follow-up with colorectal surgery 07/27/23. CT abdomen pelvis 07/21/23- 1. No change since CT of July 15, 2023. Sigmoid diverticulosis with findings suggestive of mild diverticulitis of the proximal sigmoid colon, likely subacute. No change in a thin tract arising from the anterior aspect of the sigmoid colon which extends toward but not reach the bladder. Gas within the bladder. 2. No new sites of inflammation identified. No abscess. No free air. 3. Several small nodules within the lower lungs, as described on CT of July 15, 2023. These are likely benign. A 3-4 month follow-up chest CT is recommended. CT abdomen pelvis 07/15/2023- 1. Suboptimal examination without oral and IV contrast. 2. Mild/moderate sigmoid diverticulosis. Mild infiltration around the proximal sigmoid colon may represent mild or resolving diverticulitis. Correlate with any prior outside imaging studies. 3. No intraperitoneal free air is identified and there is no evidence of fluid collection to indicate abscess on this unenhanced examination. 4. A thin tract is seen extending from the anterior aspect of the sigmoid as above. This may represent a developing fistula, and this approaches but does not approximate the bladder dome. 5. Hepatomegaly. 6. There are 4 mm pathologically indeterminate lower lobe pulmonary nodules. These are not highly suspicious, and a 3-4 month follow-up chest CT is recommended for reassessment and full evaluation of the thorax. Allergies Allergy/AdvReac Type Severity Reaction Status Date / Time peach AdvReac Unknown Hives Verified 07/20/23 10:26 Home Medications Medication Instructions Recorded Confirmed Type No Known Home Medications 07/14/23 07/14/23 History Patient History Social History Smoking Status: Never smoker Hx Alcohol Use: No Preferred Language: Mohawk Communication Ability: Effective School Social Worker Required: No Beliefs That Will Affect Care: None Current Living Situation: Alone Other Information That Helps Us Care for You: No Feels Safe at Home: Yes Safety Concerns: Feels Safe At This Time Assistive Devices: Nebulizer Review of Systems Review of Systems: All systems reviewed & are unremarkable except as noted in HPI & below Physical Exam Constitutional: no acute distress Respiratory: no respiratory distress and no labored breathing Gastrointestinal (Abdomen): Percussion/Palpation: + abdomen tender and abdomen soft Musculoskeletal: Head/Neck/Chest: normocephalic Skin: No visible rashes or lesions to exposed skin areas Neurologic: moves all extremities and awake Psychiatric: A+Ox3, euthymic affect Results & Data Vital Signs (Past 12 Hours) Vital Signs Temp Pulse Resp BP Pulse Ox O2 Del Method 07/25/23 07:40 36.5 C 71 18 114/71 94 Room Air 07/25/23 05:37 79 18 96 Room Air PG Care Time/CCT Total # of Minutes Spent Total Time Spent with Patient: Total time spent is greater than 50% in coordination of care (as documented) at patient's floor/unit and/or counseling patient: Coding Level of Care Code 99093 IN/OBS CONSULT LVL 3,45M Diagnoses Diverticular disease K57.90 Pelvic pain R10.2
[2023-07-25] MEDS: HYDROmorphone INJ 0.5 MG/0.5 ML SYR IV PRN (11:28)
--- NOTE | 2023-07-25 14:31 | Hospitalist Progress Note ---
Date of Service July 25, 2023 Assessment & Plan (1) Diverticular disease: Plan: PERSISTENT DIVERTICULITIS Past history diverticulitis with microperforation Failed multiple antibiotic courses. Blood cultures: negative Repeat CT abdomen and pelvis: 1. Suboptimal examination without oral and IV contrast. 2. Mild/moderate sigmoid diverticulosis. Mild infiltration around the proximal sigmoid colon may represent mild or resolving diverticulitis. Correlate with any prior outside imaging studies. 3. No intraperitoneal free air is identified and there is no evidence of fluid collection to indicate abscess on this unenhanced examination. 4. A thin tract is seen extending from the anterior aspect of the sigmoid as above. This may represent a developing fistula, and this approaches but does not approximate the bladder dome. 5. Hepatomegaly. 6. There are 4 mm pathologically indeterminate lower lobe pulmonary nodules. These are not highly suspicious, and a 3-4 month follow-up chest CT is recommended for reassessment and full evaluation of the thorax. 7 Additional findings as above. Per discussion with between Dr. Doshi and patient, he would like to attempt elective surgery after a full and complete course of IV antibiotics in hopes to avoid a colostomy when he is seen by colorectal surgeon on July 27, 2023 ID recommending continue IV antibiotics for total of 4 weeks. Also, recommended to repeat CT abdomen pelvis with p.o. and IV contrast in 3 weeks. Follow-up with ID Continue low fiber diet Per GI, patient to continue dicyclomine 10mg achs. Pushed CT films pushed into the [employer] system in anticipation of 07/27 colorectal surgery appointment Pain control Urology was consulted as patient reports suprapubic pain. CT abdomen pelvis shows gas within the bladder. Plan is to discharge patient tomorrow morning. Discussed with piano case maker about arrangement of IV antibiotic. Patient to follow-up with colorectal surgery on July 27, 2023 ASTHMA/COPD Chest x-ray: No pneumonia or infiltrate, pulmonary edema Continue usual inhalers Will need CT chest in 3 to 4 months to reevaluate pulmonary nodules Discussed with patient at bedside. H/o GERD, not on maintenance medications anxiety/mood disorder, at baseline chronic fatigue syndrome as per records history of lung nodules, patient follows with [facility]monology Prediabetes --A1c 6.1 --Monitor BSG's: 101 past tobacco/alcohol abuse Disposition Pending Lives at home Please note the above document was generated using voice recognition software. It may contain grammatical, syntax or spelling errors. Any formal questions or concerns about the content, text or information contained within the body of this dictation should be directly addressed to the provider for clarification Admission and Anticipated Discharge Date Admission Date: July 15, 2023 Subjective Patient seen and examined at bedside. Is comfortably lying in the bed; not in any distress. He reports lower abdominal pain intermittent. Review of Systems Review of Systems: All systems reviewed & are unremarkable except as noted in Subjective Physical Exam Physical Exam: Gen: WD/WN, NAD, resting in bed, A&Ox3 HEENT: Normocephalic, atraumatic, conjunctivae moist, sclerae anicteric, mucous membranes moist Lung: Clear to Auscultation bilaterally, no wheezes/rales/rhonchi Heart: Regular rate, regular rhythm, no murmurs, rubs, or gallops Abdomen: slight tenderness in the suprapubic area. Extremities: no edema Skin: Warm, no rash Results & Data Results & Data Vital Signs (Past 12 Hours) Vital Signs Temp Pulse Resp BP Pulse Ox O2 Del Method 07/25/23 11:27 71 95 Room Air 07/25/23 07:40 36.5 C 71 18 114/71 94 Room Air 07/25/23 05:37 79 18 96 Room Air
[2023-07-25] MEDS ORDERED: PIPERACILLIN/TAZOBACTAM 4.5 GM in DEXTROSE 5% MINI-B 100 ML IV STA (17:40)
[2023-07-25] MEDS: PIPERACILLIN/TAZOBACTAM 4.5 GM in DEXTROSE 5% MINI-B 100 ML IV SCH (23:31)
[2023-07-26] MEDS: ALBUT/IPRATROP 3MG/0.5MG NEB 3 ML VIAL NEB SCH (05:48)
[2023-07-26 08:06] VITALS: BP 107/67; PULSE 80; TEMP 98.1; O2SAT 95
[2023-07-26] MEDS: PIPERACILLIN/TAZOBACTAM 4.5 GM in DEXTROSE 5% MINI-B 100 ML IV SCH (08:27)
[2023-07-26] MEDS: ADVANCED PROBIOTIC 1250 MG CAPSULE PO SCH (08:28)
[2023-07-26] MEDS: DICYCLOMINE HCL 10 MG CAP PO SCH ×3 (08:28→16:25)
[2023-07-26] MEDS: ENOXAPARIN INJ 40 MG/0.4 ML SYR SQ SCH (08:28)
[2023-07-26] MEDS: UMECLIDINIUM BROMIDE 62.5MCG/BLISTER 7 PUFFS/INHALER INH SCH (08:28)
[2023-07-26] MEDS: FLUTICASONE/VILANTEROL 200/25MCG 14 PUFFS/INHALER INH SCH (08:29)
[2023-07-26] MEDS: oxyCODONE HCL IR 5 MG TAB (IMMEDIATE RELEASE) PO PRN ×2 (08:32→14:42)
[2023-07-26] MEDS: ACETAMINOPHEN 500 MG TAB PO SCH (09:57)
--- NOTE | 2023-07-26 10:58 | Hospitalist Progress Note ---
Date of Service July 26, 2023 Assessment & Plan (1) Diverticular disease: Plan: PERSISTENT DIVERTICULITIS Past history diverticulitis with microperforation Failed multiple antibiotic courses. Blood cultures: negative Repeat CT abdomen and pelvis: 1. Suboptimal examination without oral and IV contrast. 2. Mild/moderate sigmoid diverticulosis. Mild infiltration around the proximal sigmoid colon may represent mild or resolving diverticulitis. Correlate with any prior outside imaging studies. 3. No intraperitoneal free air is identified and there is no evidence of fluid collection to indicate abscess on this unenhanced examination. 4. A thin tract is seen extending from the anterior aspect of the sigmoid as above. This may represent a developing fistula, and this approaches but does not approximate the bladder dome. 5. Hepatomegaly. 6. There are 4 mm pathologically indeterminate lower lobe pulmonary nodules. These are not highly suspicious, and a 3-4 month follow-up chest CT is recommended for reassessment and full evaluation of the thorax. 7 Additional findings as above. Per discussion with between Dr. Doshi and patient, he would like to attempt elective surgery after a full and complete course of IV antibiotics in hopes to avoid a colostomy when he is seen by colorectal surgeon on July 27, 2023 ID recommending continue IV antibiotics for total of 4 weeks. Also, recommended to repeat CT abdomen pelvis with p.o. and IV contrast in 3 weeks. Follow-up with ID Continue low fiber diet Per GI, patient to continue dicyclomine 10mg achs. Pushed CT films pushed into the [employer] system in anticipation of 07/27 colorectal surgery appointment Pain control Urology was consulted as patient reports suprapubic pain. CT abdomen pelvis shows gas within the bladder. Plan is to discharge patient tomorrow morning. Discussed with case consultant about arrangement of IV antibiotic. Patient to follow-up with colorectal surgery on July 27, 202307/26 Patient set to follow-up with colorectal surgeon on July 27, 2023 Continue IV Zosyn for total of 4 weeks CBC, CMP weekly while on IV Zosyn Repeat CT abdomen pelvis with contrast in 3 weeks Follow-up with ID in 3 weeks ASTHMA/COPD Chest x-ray: No pneumonia or infiltrate, pulmonary edema Continue usual inhalers Will need CT chest in 3 to 4 months to reevaluate pulmonary nodules Discussed with patient at bedside. H/o GERD, not on maintenance medications anxiety/mood disorder, at baseline chronic fatigue syndrome as per records history of lung nodules, patient follows with [facility] pulmonology Prediabetes --A1c 6.1 --Monitor BSG's: 101 past tobacco/alcohol abuse Disposition Charge to home with home services PCP follow-up in 1 week Specialist follow-up for above Admission and Anticipated Discharge Date Admission Date: July 15, 2023 Subjective Follow-up for acute diverticulitis, etc. Seen resting in bed side chair, comfortable, no distress Abdominal pain improving, but still present Tolerating food better No nausea or vomiting, diarrhea No fever or chills States he is ready for discharge Review of Systems Review of Systems: all noted and negative except for above Physical Exam Physical Exam: General- oriented x 3, not in distress, speaks in sentences with no effort or accessory muscle use Eyes- anicteric Neck- no JVD Lungs- clear breath sounds bilaterally, no rales/wheezes Heart- normal rate, regular rhythm; no murmurs Abdomen- normal bowel sounds, nondistended, soft, nontender Extremities- no pretibial edema, no calf tenderness Neuro- alert, oriented x 3; no gross focal neurologic deficits Skin- warm & dry Results & Data Results & Data Vital Signs (Past 12 Hours) Vital Signs Temp Pulse Resp BP Pulse Ox O2 Del Method 07/26/23 08:06 36.7 C 80 18 107/67 95 Room Air 07/26/23 05:48 60 18 96 Room Air all noted and reviewed including below
[2023-07-26] MEDS: ALUMINUM/MAGNESIUM/SIMETH (MAALOX MAX) 30 ML UDC PO PRN (16:31)
--- NOTE | 2023-07-26 16:51 | Discharge Summary ---
Discharge Summary Date of Service July 26, 2023 Notes For Next Care Provider Medication Changes From Visit IV Zosyn to complete 4-week course Dicyclomine as needed Oxycodone as needed Admission HPI Per Admitting Provider History obtained from patient and records. Medical history significant for asthma/COPD, GERD, diverticulitis, anxiety/mood disorder, chronic fatigue syndrome as per records, history of lung nodules, past tobacco/alcohol abuse. March 2023 Patient confined at [facility] for diverticulitis with microperforation. Patient completed antibiotic Rx. No surgical intervention. Patient instructed to follow-up with general surgeon outpatient for scheduling of outpatient colonoscopy. Persistent achy lower abdominal pain and watery diarrhea since discharge. 06/14-06/16 Patient confined at [facility] under General Ssurgery service for persistent abdominal pain following transfer from [facility] ER given concerns for possible colovesical fistula. Symptoms attributed to smoldering diverticulitis. Patient completed antibiotic course. Patient evaluated by [facility] GI outpatient [address] abdomen pelvis requested for persistent GI symptoms. Outpatient colonoscopy and General Surgery referral to be scheduled. Patient prescribed additional Cipro Flagyl course. Outpatient CT abdomen pelvis done yesterday showed Sigmoid diverticulitis with no apparent abscess formation or perforation. Patient directed to ER for evaluation by outpatient provider. IV Zosyn administered at the ER. Medical History as above Surgical History : Sinus surgery, pancreatic biopsy, facial fracture surgery Family History : COPD, Parkinson's disease Personal/Social history : Past tobacco/alcohol abuse, currently disabled Admission Exam Per Admitting Provider GENERAL: Slightly uncomfortable, obese, no respiratory distress SKIN: Normal color, warm HEENT: [place] palpebral conjunctivae, no ptosis, moist buccal mucosa NECK : Supple, no tenderness CHEST : CTA, no tenderness HEART : RRR, no obvious murmurs ABDOMEN: 'Davion Gao' tattoo inscription noted over lower abdomen, some distention, hypogastric tenderness EXTREMITIES : No LE swelling/tenderness, no other conspicuous deformities noted NEUROLOGIC : Coherent, no facial asymmetry, no other gross focality Results & Data Principal Dx & Hospital Course #1 = Principal Diagnosis (1) Diverticular disease: per Dr. Wing's notes with addendum: PERSISTENT DIVERTICULITIS Past history diverticulitis with microperforation Failed multiple antibiotic courses. Blood cultures: negative Repeat CT abdomen and pelvis: 1. Suboptimal examination without oral and IV contrast. 2. Mild/moderate sigmoid diverticulosis. Mild infiltration around the proximal sigmoid colon may represent mild or resolving diverticulitis. Correlate with any prior outside imaging studies. 3. No intraperitoneal free air is identified and there is no evidence of fluid collection to indicate abscess on this unenhanced examination. 4. A thin tract is seen extending from the anterior aspect of the sigmoid as above. This may represent a developing fistula, and this approaches but does not approximate the bladder dome. 5. Hepatomegaly. 6. There are 4 mm pathologically indeterminate lower lobe pulmonary nodules. These are not highly suspicious, and a 3-4 month follow-up chest CT is recommended for reassessment and full evaluation of the thorax. 7 Additional findings as above. Per discussion with between Dr. Doshi and patient, he would like to attempt elective surgery after a full and complete course of IV antibiotics in hopes to avoid a colostomy when he is seen by colorectal surgeon on July 27, 2023 ID recommending continue IV antibiotics for total of 4 weeks. Also, recommended to repeat CT abdomen pelvis with p.o. and IV contrast in 3 weeks. Follow-up with ID Continue low fiber diet Per GI, patient to continue dicyclomine 10mg achs. Pushed CT films pushed into the [facility] system in anticipation of 07/27 colorectal surgery appointment Pain control Urology was consulted as patient reports suprapubic pain. CT abdomen pelvis shows gas within the bladder. Plan is to discharge patient tomorrow morning. Discussed with case management social worker about arrangement of IV antibiotic. Patient to follow-up with colorectal surgery on July 27, 202307/26 Patient set to follow-up with colorectal surgeon on July 27, 2023 Continue IV Zosyn for total of 4 weeks CBC, CMP weekly while on IV Zosyn Repeat CT abdomen pelvis with contrast in 3 weeks Follow-up with ID in 3 weeks ASTHMA/COPD Chest x-ray: No pneumonia or infiltrate, pulmonary edema Continue usual inhalers Will need CT chest in 3 to 4 months to reevaluate pulmonary nodules Discussed with patient at bedside. H/o GERD, not on maintenance medications anxiety/mood disorder, at baseline chronic fatigue syndrome as per records history of lung nodules, patient follows with [facility] pulmonology Prediabetes --A1c 6.1 --Monitor BSG's: 101 past tobacco/alcohol abuse Disposition Charge to home with home services PCP follow-up in 1 week Specialist follow-up for above Discharge Exam General- oriented x 3, not in distress, speaks in sentences with no effort or accessory muscle use Eyes- anicteric Neck- no JVD Lungs- clear breath sounds bilaterally, no rales/wheezes Heart- normal rate, regular rhythm; no murmurs Abdomen- normal bowel sounds, nondistended, soft, mild lower quadrant tenderness Extremities- no pretibial edema, no calf tenderness Neuro- alert, oriented x 3; no gross focal neurologic deficits Skin- warm & dry Updated Medication List Medication Instructions Recorded Confirmed Type dicyclomine 10 mg capsule 10 mg PO QID PRN abdominal pain 07/26/23 Rx #20 caps oxycodone 5 mg tablet 5 - 10 mg (1 - 2 x 5 mg) PO QID 07/26/23 Rx PRN Severe pain #15 tabs Hospital Stay Data Consultations 07/14/23 22:10 ED Decision to Admit Stat 07/15/23 00:25 Consult Gastroenterology Routine 07/15/23 07:47 Consult General Surgery Routine 07/15/23 11:23 Consult Infectious Diseases Routine 07/17/23 13:13 Consult Infectious Diseases Routine 07/25/23 07:35 Consult Urology Routine Diagnostic Imagining Performed 07/15/23 09:19 CT Abd and Pelvis [CT abd pelvis wo con] Stat 07/21/23 10:46 CT Abd and Pelvis [CT abd pelvis IV con only] Routine Laboratory Results WBC 7.37 K/ul (4.8-10.8) 07/25/23 06:18 RBC 4.87 M/uL (4.70-6.10) 07/25/23 06:18 Hgb 15.4 g/dl (14.0-18.0) 07/25/23 06:18 Hct 44.3 % (42.0-52.0) 07/25/23 06:18 MCV 91.0 fL (80.0-100.0) 07/25/23 06:18 MCH 31.6 pg (25.0-34.0) 07/25/23 06:18 MCHC 34.8 g/dL (32.0-36.0) 07/25/23 06:18 RDW Std Deviation 42.1 fL (36.4-46.3) 07/25/23 06:18 RDW Coeff of Radha 12.6 % (11.5-14.5) 07/25/23 06:18 Plt Count 208 K/uL (130-400) 07/25/23 06:18 MPV 11.5 fL (9.4-12.4) 07/25/23 06:18 Immature Gran % (Auto) 0.3 % 07/25/23 06:18 Neut % (Auto) 47.3 % 07/25/23 06:18 Lymph % (Auto) 31.8 % 07/25/23 06:18 [place] % (Auto) 10.4 % 07/25/23 06:18 Eos % (Auto) 9.1 % 07/25/23 06:18 Baso % (Auto) 1.1 % 07/25/23 06:18 Neut # (Auto) 3.49 K/uL (1.40-6.50) 07/25/23 06:18 Lymph # (Auto) 2.34 K/uL (1.20-3.40) 07/25/23 06:18 [place] # (Auto) 0.77 K/uL (0.11-0.59) H 07/25/23 06:18 Eos # (Auto) 0.67 K/uL (0.00-0.50) H 07/25/23 06:18 Baso # (Auto) 0.08 K/uL (0.00-0.20) 07/25/23 06:18 Immature Gran # (Auto) 0.02 K/uL (0.01-0.20) 07/25/23 06:18 ESR 26 mm/hr (0-15) H 07/23/23 07:08 Sodium 139 mmol/L (136-145) 07/25/23 06:18 Potassium 3.4 mmol/L (3.5-5.1) L 07/25/23 06:18 Chloride 105 mmol/L (98-107) 07/25/23 06:18 Carbon Dioxide 26 mmol/L (21-32) 07/25/23 06:18 Anion Gap 8 (3-11) 07/25/23 06:18 BUN 9 mg/dl (6-23) 07/25/23 06:18 Creatinine 0.89 mg/dl (0.6-1.4) 07/25/23 06:18 Est Cr Clr Drug Dosing 117.9 ml/min 07/25/23 06:18 Est GFR ( Amer) 122.2 ml/min 07/25/23 06:18 Est GFR (Non-Af Amer) 105.5 ml/min 07/25/23 06:18 BUN/Creatinine Ratio 10.1 (10-20) 07/25/23 06:18 Glucose 93 mg/dl (70-99(Fasting)) 07/25/23 06:18 Estimat Average Glucose 128 mg/dl 07/14/23 20:16 Hemoglobin A1c 6.1 % (4.5-5.6) H 07/14/23 20:16 Calcium 9.3 mg/dl (8.6-10.3) 07/25/23 06:18 Total Bilirubin 0.2 mg/dl (0.2-1.0) 07/14/23 20:16 AST 32 U/L (13-39) 07/14/23 20:16 ALT 32 U/L (7-52) 07/14/23 20:16 Alkaline Phosphatase 89 U/L (34-104) 07/14/23 20:16 C-Reactive Protein < 0.50 mg/dl (0-0.5) 07/23/23 07:08 Total Protein 7.4 gm/dl (6.0-8.3) 07/14/23 20:16 Albumin 4.0 gm/dl (3.4-5.0) 07/14/23 20:16 Globulin 3.4 gm/dl (2.5-4.0) 07/14/23 20:16 Albumin/Globulin Ratio 1.2 (0.9-2) 07/14/23 20:16 Lipase 34 U/L (11-82) 07/14/23 20:16 Urine Color Yellow 07/23/23 20:55 Urine Appearance Turbid (Clear) A 07/23/23 20:55 Urine pH 8.0 (4.5-7.5) H 07/23/23 20:55 Ur Specific [place] 1.026 (1.000-1.030) 07/23/23 20:55 Urine Protein Trace (Negative) H 07/23/23 20:55 Urine Glucose (UA) Negative (Negative) 07/23/23 20:55 Urine Ketones Negative (Negative) 07/23/23 20:55 Urine Blood Negative (Negative) 07/23/23 20:55 Urine Nitrite Negative (Negative) 07/23/23 20:55 Urine Bilirubin Negative (Negative) 07/23/23 20:55 Urine Urobilinogen Negative (Negative) 07/23/23 20:55 Ur Leukocyte Esterase Negative (Negative) 07/23/23 20:55 Urine WBC (Auto) 1-5 /hpf (0-5) 07/23/23 20:55 Urine RBC (Auto) 0-4 /hpf (0-4) 07/23/23 20:55 U Hyaline Cast (Auto) 1-5 /lpf (0-5) 07/23/23 20:55 U Epithel Cells (Auto) 5-10 /lpf (0-5) H 07/23/23 20:55 Urine Bacteria (Auto) Negative (Negative) 07/23/23 20:55 Stl C. cayetanensis PCR Not Detected (NotDetected) 07/17/23 19:37 Stool Rotavirus A PCR Not Detected (NotDetected) 07/17/23 19:37 Stl Adenov F 40/41 PCR Not Detected (NotDetected) 07/17/23 19:37 Stool Astrovirus (PCR) Not Detected (NotDetected) 07/17/23 19:37 Stool Campylobacter PCR Not Detected (NotDetected) 07/17/23 19:37 Stl C. diff Tox B Gene Negative Cdiff Gene (Neg) 07/22/23 12:30 Stool Cryptosporidium PCR Not Detected (NotDetected) 07/17/23 19:37 Stl E.coli Shiga Tox PCR Not Detected (NotDetected) 07/17/23 19:37 Stl Enterotoxigenic E PCR Not Detected (NotDetected) 07/17/23 19:37 Stool EPEC (PCR) Not Detected (NotDetected) 07/17/23 19:37 Stool EAEC (PCR) Not Detected (NotDetected) 07/17/23 19:37 Stl E. histolytica PCR Not Detected (NotDetected) 07/17/23 19:37 Stool Giardia Lamblia PCR Not Detected (NotDetected) 07/17/23 19:37 Stool Salmonella PCR Not Detected (NotDetected) 07/17/23 19:37 Stool Sapovirus (PCR) Not Detected (NotDetected) 07/17/23 19:37 Stl P. shigelloides PCR Not Detected (NotDetected) 07/17/23 19:37 Stl Shigella/EIEC PCR Not Detected (NotDetected) 07/17/23 19:37 St Y.enterocolitica PCR Not Detected (NotDetected) 07/17/23 19:37 Stool Vibrio (PCR) Not Detected (NotDetected) 07/17/23 19:37 Stl Vibrio cholerae PCR Not Detected (NotDetected) 07/17/23 19:37 Stl Norovirus GI/GII PCR Not Detected (NotDetected) 07/17/23 19:37 Impressions Chest X-Ray 07/16/23 14:11 SINGLE VIEW CHEST CLINICAL HISTORY: Dyspnea FINDINGS: An AP, portable, upright chest radiograph is obtained. No prior studies are available for comparison at the time of dictation. The cardiomediastinal silhouette is unremarkable. There is mild bibasilar atelectas is. The lungs and pleural spaces are otherwise clear. No pneumothorax is seen. The bony thorax is grossly intact. IMPRESSION: No active disease in the chest. ACT 112: Negative or not required by law. Electronically signed by: Michael Youngblood M.D. 07/16/2023 2:51 PM Abdomen/Pelvis CT 07/21/23 10:46 CT OF THE ABDOMEN AND PELVIS WITH CONTRAST CLINICAL HISTORY: History of diverticulitis. Persistent pain. COMPARISON STUDY: CT of the abdomen and pelvis July 15, 2023. TECHNIQUE: Following IV administration of 90 mL of Optiray, axial images of the abdomen and pelvis were obtained from the lung bases to the proximal femurs. Images were reviewed in the axial, sagittal, and coronal planes. IV contrast was administered without complication. Automated exposure control was utilized for the study. A dose lowering technique was utilized adhering to the principles of ALARA. CT DOSE: 1195.54 mGy.cm FINDINGS: Several small subpleural nodules within the lower lungs were shown on CT of July 15, 2023. No pneumatosis, free air or portal venous gas is present. No hepatic lesions are present. Spleen, adrenal glands, kidneys and pancreas are unremarkable. There is no biliary or pancreatic ductal dilatation dictation. Is no hydronephrosis. The appendix is normal. Sigmoid diverticulosis is noted. Note is again made of a thin tract arising from the anterior aspect of the proximal sigmoid colon on image 279 of 405. There is minimal adjacent stranding. This tract extends toward but does not appear to reach the bladder. There is no gas within the bladder. The appearance is unchanged since CT of July 15, 2023. No new sites of inflammation are present. No fluid collections are present. Major vasculature is patent. IMPRESSION: 1. No change since CT of July 15, 2023. Sigmoid diverticulosis with findings suggestive of mild diverticulitis of the proximal sigmoid colon, likely subacute. No change in a thin tract arising from the anterior aspect of the sigmoid colon which extends toward but not reach the bladder. Gas within the bladder. 2. No new sites of inflammation identified. No abscess. No free air. 3. Several small nodules within the lower lungs, as described on CT of July 15, 2023. These are likely benign. A 3-4 month follow-up chest CT is recommended. ACT 112: Negative or not required by law. Electronically signed by: Antonio Vaughn M.D. 07/21/2023 12:25 PM Pending Results Patient Have Any Pending Studies at Discharge: Yes Discharge Instructions Given to Patient (Per Discharging Provider) PLEASE REFER TO YOUR NEW MEDICATION LIST AND FOLLOW INSTRUCTIONS CAREFULLY. YOUR NEW MEDICATIONS INCLUDE: Zosyn-IV antibiotic for diverticulitis Dicyclomine-abdominal pain Please take a probiotic daily for at least 2 months. Drink plenty of fluids daily. YOU NEED A REPEAT CT SCAN OF THE ABDOMEN PELVIS IN 3 WEEKS. YOUR PRIMARY CARE PHYSICIAN CAN ARRANGE THIS STUDY FOR YOU. PLEASE CALL YOUR PRIMARY CARE PHYSICIAN OR RETURN TO THE ER IF WITH WORSENING OF SYMPTOMS, INCLUDING Abdominal pain, nausea or vomiting, fevers or chills, problems with bowel movements or urination, etc. FOLLOW UP WITH PRIMARY CARE PHYSICIAN IN 1 WEEK. FOLLOW-UP WITH COLORECTAL SURGEON ON JULY 27, 2023 SCHEDULED. FOLLOW-UP WITH [facility] INFECTIOUS DISEASE SPECIALIST IN 3 WEEKS. YOUR PRIMARY CARE PHYSICIAN CAN ARRANGE THIS FOR YOU. Total Time Total Time Spent Total Time Spent (In Minutes): >30 minutes
== END 2023-07-26 19:07 | disposition home health service (06) | DRG 392 ==
LOC: ED 19:59 → 3W 07-15 00:19 → SUATTDRO 07-15 00:19 → 3W 07-15 01:37
DX: J44.9 Chronic obstructive pulmonary disease, unspecified; F41.9 Anxiety disorder, unspecified; K57.32 Diverticulitis of large intestine without perforation or abscess without bleeding; F43.10 Post-traumatic stress disorder, unspecified; R53.82 Chronic fatigue, unspecified; R91.8 Other nonspecific abnormal finding of lung field; R73.9 Hyperglycemia, unspecified; K21.9 Gastro-esophageal reflux disease without esophagitis